=== PATIENT | female | born 1935 | race Caucasian/White ===

== ENCOUNTER 2017-12-24 03:00 | Inpatient (IN) | payer MEDICARE ==
[2017-12-24] MEDS ORDERED: MORPHINE SULFATE 4 MG/ML SYRINGE IV STA (03:32)
[2017-12-24] MEDS ORDERED: ETOMIDATE 2 MG/ML 10 ML VIAL IVP STA (04:11)
[2017-12-24] MEDS ORDERED: MORPHINE SULFATE 2 MG/ML SYRINGE IV PRN (04:53)
[2017-12-24] MEDS ORDERED: NALOXONE 0.4 MG/ML 1 ML VIAL IV PRN (04:53)
[2017-12-24] MEDS ORDERED: traMADol 50 MG TAB PO PRN (04:56)
--- NOTE | 2017-12-24 04:57 | XR ---
EXAMINATION TYPE: XR elbow limited LT DATE OF EXAM: 12/24/2017 COMPARISON: Today HISTORY: Post reduction TECHNIQUE: 2 views FINDINGS: There is been significant reduction of the dislocated proximal radius and ulna. There is an atomic position of the olecranon process. There is a mild lateral position of the coronoid process an d the radial head in relation to the distal humerus. There is approximate 8 mm lateral position of th e coronoid process and the radial head in relation to the distal humerus. IMPRESSION: There is significant reduction of the elbow joint dislocation. There is still 8 mm sublux ation deformity laterally of the radial head and the coronoid process. There is significant soft tiss ue swelling around the elbow joint. I suspect intra-articular chip fractures at the elbow joint.
[2017-12-24 06:15] VITALS: BMI 35.2
[2017-12-24] MEDS: ACETAMINOPHEN TAB 325 MG TAB PO PRN ×2 (09:36→17:53)
[2017-12-24] MEDS: PANTOPRAZOLE 40 MG TABLET PO SCH (09:36)
[2017-12-24] MEDS: FAMOTIDINE 20 MG TAB PO SCH ×2 (09:36→20:56)
[2017-12-24] MEDS: amLODIPine 5 MG TAB PO SCH (09:36)
[2017-12-24] MEDS: IBUPROFEN 400 MG TAB PO PRN ×2 (09:36→17:52)
[2017-12-24] MEDS: RIVAROXABAN 10 MG TAB PO SCH (09:37)
[2017-12-24] MEDS: VENLAFAXINE HCL 75 MG TAB PO SCH (09:37)
[2017-12-24] MEDS: SODIUM CHLORIDE 0.9% 1,000 ML IV SCH ×3 (09:38→16:42)
--- NOTE | 2017-12-24 10:03 | P.HPOR ---
History of Present Illness H&P Date: 12/24/17 This is an 82-year-old female who is admitted for left elbow dislocation after a fall. Patient states that she was feeding her cats last night and fell around 10 PM on 12/23/2017. Patient denies any loss of consciousness or head injury. Patient was evaluated at [facility] emergency room and the elbow was unable to be reduced so patient was transferred to [facility]. The left elbow was then reduced and splinted in the emergency room and patient was admitted as an inpatient. Today patient states that her pain is under control. Patient's daughter who is also present in the room states that the patient lives at home with her and 2 daughters. Patient's past medical history significant for dementia, GERD and hypertension. Patient denies any numbness, tingling, weakness, back pain, neck pain, bilateral lower extremity pain or right upper extremity pain. Review of Systems See HPI. Past Medical History Past Medical History: Dementia, GERD/Reflux, Hypertension, Osteoarthritis (OA) Additional Past Medical History / Comment(s): HX OF KIDNEY STONES, urinary retention and UTI History of Any Multi-Drug Resistant Organisms: None Reported Past Surgical History: Appendectomy, Orthopedic Surgery, Tonsillectomy Additional Past Surgical History / Comment(s): LEFT KNEE ARTHROSCOPY, LEFT KIDNEY REMOVED, 68-15 total rt knee Past Anesthesia/Blood Transfusion Reactions: No Reported Reaction Past Psychological History: Depression Additional Psychological History / Comment(s): pt lives at home with her and is independant. receives no outside services. Smoking Status: Former smoker Past Alcohol Use History: None Reported Additional Past Alcohol Use History / Comment(s): quit smoking >20 years ago Past Drug Use History: None Reported - Past Family History Mother Family Medical History: No Reported History Medications and Allergies Home Medications Medication Instructions Recorded Confirmed Type Venlafaxine HCl [Effexor] 75 mg PO DAILY 11/07/14 12/24/17 History amLODIPine BESYLATE [Norvasc] 5 mg PO HS 11/07/14 12/24/17 History Docusate [Colace] 100 mg PO HS 12/24/17 12/24/17 History Trimethoprim [Trimpex] 100 mg PO HS 12/24/17 12/24/17 History hydrOXYzine HCL [Atarax] 1 tab PO HS PRN 12/24/17 12/24/17 History Allergies Allergy/AdvReac Type Severity Reaction Status Date / Time Penicillins Allergy Rash/Hives Verified 11/18/14 14:53 Physical Examination On exam patient is alert. Patient is able to answer questions. The is ecchymosis and swelling over the left upper extremity. Compartments are soft. There is tenderness to palpation over the left elbow. Limited range of motion of the left elbow. Patient has good range of motion of the left wrist and hand. Sensation intact. Capillary refill is normal at less than 2 seconds. Radial pulse 2+. Neurovascular status and circulatory status are intact. Patient has no pain with range of motion of the head and neck. There is no tenderness to palpation over bilateral shoulders or the right upper extremity. Patient has full range of motion of bilateral lower extremities and is able to ambulate without difficulty or pain. Results Postreduction films of the left elbow show improved alignment as compared with previous x-rays from [facility] which shows dislocation of the right elbow. Repeat x-rays of the left elbow are pending to further assess position of radial head. Assessment and Plan (1) Dislocation of elbow, left, closed Current Visit: Yes Status: Acute Code(s): S53.105A - UNSP DISLOCATION OF LEFT ULNOHUMERAL JOINT, INIT ENCNTR SNOMED Code(s): 1462996 Plan: 1. A new splint is applied. Neurovascular status is rechecked and is intact. Maintain splint at all times. Sling for comfort. 2. Awaiting repeat x-rays of the left elbow to further assess position of radial head. 3. Nonweightbearing to the left upper extremity. 4. Continue pain control and DVT prophylaxis. 5. Appreciate input from medicine. 6. No surgical intervention planned at this time.
--- NOTE | 2017-12-24 10:37 | XR ---
EXAMINATION TYPE: XR elbow limited LT , 2 VIEWS DATE OF EXAM ORDERED: 12/24/2017 HISTORY: recent elbow dislocation. COMPARISON: Previous study dated 12/24/2017. FINDINGS: There is a complete dislocation of the elbow. Study quality is such that assessment of sma ll fracture is difficult. IMPRESSION: COMPLETE POSTERIOR DISLOCATION OF THE ELBOW.
--- NOTE | 2017-12-24 12:05 | CONS ---
CONSULTATION DATE OF CONSULTATION: 12/24/17. REASON FOR CONSULTATION: Medical management requested by Dr. Price. CONSULTATION: This is a pleasant 82-year-old patient follows Dr. Salinas Shrestha. Chronic stable medical conditions include GERD, hypertension, osteoarthritis, depression, mild dementia. The patient's stepdaughter and present at the bedside. The patient was transferred here from [facility]. The patient was feeding her cats and took a fall, injured the left elbow. The patient is found to have a dislocation. In the ER here at [facility], Dr. Crockett was able to put the elbow back in place. Subsequently patient did get a cast with the elbow bent. Some pain is present. The patient denies any other injury. No nausea, vomiting. REVIEW OF SYSTEMS: CONSTITUTIONAL: Tired. HEENT: None. RESPIRATORY: None. CARDIOVASCULAR: None. GASTROINTESTINAL: Heartburn. GENITOURINARY: Urine incontinence. DERMATOLOGICAL, HEMATOLOGIC, LYMPHATIC: None. PSYCHIATRY: A little depression. NEUROLOGICAL: A little bit forgetful. MUSCULOSKELETAL: Arthritic pain in the joints and also pain in the left elbow. PAST MEDICAL HISTORY: Dementia, GERD, hypertension, osteoarthritis, kidney stones, urinary retention and overflow incontinence, being followed by Dr. Jorgensen. PAST SURGICAL HISTORY: Appendectomy, tonsillectomy, left knee arthroscopy, left nephrectomy, right total knee. PSYCH HISTORY: Depression. SOCIAL HISTORY: Lives with her . Independent. Quit smoking more than 20 years ago. Alcohol none. FAMILY HISTORY: Reviewed, noncontributory to presentation. HOME MEDICATIONS: 1. Trimethoprim 100 mg q.h.s. 2. Colace 100 mg at bedtime. 3. Atarax 1 tab p.o. q.h.s. p.r.n. 4. Norvasc 5 mg p.o. q.h.s. 5. Effexor 75 mg p.o. daily. ALLERGIES: PENICILLIN. PHYSICAL EXAMINATION: Temperature 98.5, pulse 91, respirations 16, blood pressure 123/77, pulse ox 99% on room air. GENERAL APPEARANCE: Well built, BMI 35.2, lying in bed comfortable, awake. EYES: Pupils equal. Conjunctivae normal. HEENT: External appearance of nose and ears normal. Oral cavity normal. NECK: JVD not raised. Mass not palpable. RESPIRATORY: Effort, lungs are clear. CARDIOVASCULAR: First and second sounds, no edema. ABDOMEN: Soft, nontender. Liver and spleen not palpable. LYMPHATIC: No lymph node palpable in neck or axillae. PSYCHIATRY: Patient able to answer most questions. MUSCULOSKELETAL: Evidence of osteoarthritis in the hands. Left upper extremity has got a cast in place. Sensation is preserved in the fingers. INVESTIGATIONS: No blood work from here. ASSESSMENT: 1. Left elbow dislocations secondary to fall, now put back in place with a cast in place. 2. 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 The patient had been tried on a patch earlier but per the was taken off. 3. Gastroesophageal reflux disease. 4. Essential hypertension. 5. Primary osteoarthritis multiple joints. 6. Depression, not otherwise specified. 7. Chronic urinary retention with overflow has been followed Dr. Jorgensen in the past. 8. Obesity; BMI 35.2. PLAN: Home medications will be resumed. Instead of using Atarax for insomnia will use melatonin. Pain control per Dr. Price. Care was discussed with the patient's and the family at the bedside. Questions were answered. Thank you, Dr. Price. MMKELLY / MARGARITAN: [id number] /
--- NOTE | 2017-12-24 15:02 | CONS ---
CONSULTATION ADDENDUM TO CONSULTATION: DATE OF CONSULTATION: 12/24/2017 ADDENDUM: I was called by the nurse that repeat x-ray reviewed by Orthopedics shows again the elbow has been dislocated. From a medical standpoint, patient is at low risk for the procedure, with no contraindications, and may go ahead with surgical procedure. MMODL / IJN: [id number] /
[2017-12-24] MEDS: DOCUSATE 100 MG CAP PO SCH (20:56)
[2017-12-25] MEDS: SODIUM CHLORIDE 0.9% 1,000 ML IV SCH ×3 (05:56→22:17)
[2017-12-25] MEDS ORDERED: LIDOCAINE 1% INJ 10MG/ML (20 ML MDV) ONE (07:49)
[2017-12-25] MEDS ORDERED: SUCCINYLCHOLINE CHLORIDE 100 MG/5 ML SYR IV ONE (07:49)
[2017-12-25] MEDS ORDERED: PROPOFOL 10 MG/ML 20 ML VIAL IV ONE (07:49)
[2017-12-25] MEDS ORDERED: DEXAMETHASONE SOD PHOS (MDV) 100 MG/10 ML VIAL ONE (07:49)
[2017-12-25] MEDS ORDERED: LACTATED RINGERS 1,000 ML IV ONE (07:49)
[2017-12-25] MEDS ORDERED: fentaNYL (PF) 50 MCG/ML 2 ML AMP ONE (07:49)
[2017-12-25] MEDS ORDERED: ONDANSETRON 4 MG/2 ML VIAL ONE (07:49)
[2017-12-25] MEDS ORDERED: SODIUM CHLORIDE 0.9% IV ONE ×2 (08:47)
[2017-12-25] MEDS ORDERED: CLINDAMYCIN IV ONE ×2 (08:47)
[2017-12-25] MEDS ORDERED: CLINDAMYCIN 600 MG in SODIUM CHLORIDE 0.9% 1,000 ML IRRIGATION ONE (08:52)
[2017-12-25] MEDS ORDERED: BACITRACIN 500 UNIT/GM OINT 28.4 GM TUBE TOPICAL ONE (09:37)
[2017-12-25] MEDS ORDERED: SENNOSIDES-DOCUSATE SODIUM 1 EACH TAB PO PRN (09:55)
[2017-12-25] MEDS ORDERED: hydrOXYzine PAMOATE 25 MG CAP PO PRN (09:55)
[2017-12-25] MEDS ORDERED: HYDROcodone/APAP 7.5-325MG 1 EACH TAB PO PRN ×2 (09:58)
[2017-12-25] MEDS: MORPHINE SULFATE 4 MG/ML SYRINGE IV ONE ×2 (10:20→10:33)
--- NOTE | 2017-12-25 10:46 | XR ---
FLUOROSCOPY 1 minute and 27 seconds of fluoroscopy time were utilized during right elbow reduction and external f ixation. 2 images document the procedure.FLUOROSCOPY
--- NOTE | 2017-12-25 12:18 | OP ---
OPERATIVE REPORT SURGEON: Ivan Price DO PHYSICIAN'S CASE PREPARER AND LINER: PREOPERATIVE DIAGNOSIS: Grade IV unstable dislocation of the left elbow. POSTOPERATIVE DIAGNOSIS: Grade IV unstable dislocation of the left elbow. OPERATION PERFORMED: Attempted closed reduction and application external fixator for an unstable dislocation of the left elbow. DESCRIPTION OF PROCEDURE: The patient was taken to the operative suite, placed in supine position. General inhalation anesthesia was performed by the Department of Anesthesiology. The posterior splint was removed and gentle reduction of the left elbow. Fluoroscopy was utilized and and continued gross instability was present following reduction. The patient was then prepared for application of external fixator. Went out and spoke to the family and discussed findings at this time for the surgical procedure. A Betadine prep was carried out over the left arm in the usual manner. Sterile drapes were applied in the usual manner. The two proximal pins were inserted into the proximal ulna, secured and tightened. The two pins were also placed into the distal humerus with x ray guidance and inserted. External fixator was then applied with a x ray guidance. Unable to deirdre modular. X-rays were obtained following the complete reduction in both AP and lateral positions with the external fixator and all compression screws were tightened. X-rays were obtained documenting position, alignment and position. Bacitracin was then placed around the pin heads and sterile dressing was applied. The posterior splint was applied and patient transferred to the recovery room in satisfactory postop condition. GROSS PATHOLOGY: There was evidence of Grade IV unstable dislocation of the left elbow. I had discussed findings with family and reviewed all of the risks and complications incurred with this type of dislocation. They are aware of the possibility of redislocation even following application of an external fixator or just utilizing a cast. Following the external fixator, they are aware of possible transfer of care to upper extremity specialist., with all the risks discussed with them, the patient has been presurgically cleared and taken to surgery following preparation for the stabilizing treatment plan and was discharged. MMODL / IJN: [id number] / MTDD
[2017-12-25] MEDS: FAMOTIDINE 20 MG TAB PO SCH ×2 (12:53→21:15)
[2017-12-25] MEDS: amLODIPine 5 MG TAB PO SCH (12:53)
[2017-12-25] MEDS: RIVAROXABAN 10 MG TAB PO SCH (12:57)
[2017-12-25] MEDS: CLINDAMYCIN 900 MG in DEXTROSE 5% IN WATER 50 ML IVPB SCH ×4 (15:21→23:46)
[2017-12-25] MEDS: ACETAMINOPHEN TAB 325 MG TAB PO PRN (16:58)
[2017-12-25] MEDS: VENLAFAXINE HCL 75 MG TAB PO SCH (17:02)
[2017-12-25] MEDS: PANTOPRAZOLE 40 MG TABLET PO SCH (17:03)
[2017-12-25] MEDS: DOCUSATE 100 MG CAP PO SCH (21:15)
[2017-12-25] MEDS: VIT A,C & E-LUTEIN-MINERALS 1 EACH TAB PO SCH (21:15)
[2017-12-25] MEDS: MELATONIN 3 MG TABLET PO SCH (21:15)
[2017-12-26] MEDS ORDERED: ONDANSETRON 4 MG/2 ML VIAL IVP PRN (01:46)
[2017-12-26] MEDS: SODIUM CHLORIDE 0.9% 1,000 ML IV SCH ×3 (05:22→21:35)
[2017-12-26 07:24] LABS: Basophils % (A) 0 %; Eosinophils % (A) 0 %; HCT 23.9 % (34.0-46.0); HGB 7.6 gm/dL (11.4-16.0); Hypochromasia Slight; Lymphocytes # (A) 0.9 k/uL (1.0-4.8); Lymphocytes % (A) 9 %; MCH 28.4 pg (25.0-35.0); MCHC 31.8 g/dL (31.0-37.0); MCV 89.4 fL (80.0-100.0); Mean Platelet Volume 7.4; Monocytes # (A) 0.8 k/uL (0-1.0); Monocytes % (A) 9 %; Neutrophils # (A) 7.7 k/uL (1.3-7.7); Neutrophils % (A) 80 %; Platelet Count 197 k/uL (150-450); RBC 2.68 m/uL (3.80-5.40); RDW 15.2 % (11.5-15.5); WBC 9.7 k/uL (3.8-10.6)
[2017-12-26] MEDS: amLODIPine 5 MG TAB PO SCH (08:31)
[2017-12-26] MEDS: VENLAFAXINE HCL 75 MG TAB PO SCH (08:51)
[2017-12-26] MEDS: PANTOPRAZOLE 40 MG TABLET PO SCH (08:51)
[2017-12-26] MEDS: FAMOTIDINE 20 MG TAB PO SCH (08:51)
[2017-12-26] MEDS: VIT A,C & E-LUTEIN-MINERALS 1 EACH TAB PO SCH ×2 (08:51→20:40)
--- NOTE | 2017-12-26 09:02 | P.PN ---
Subjective Progress Note Date: 12/26/17 Principal diagnosis: Status post closed reduction left elbow with external fixation application This is a 82 year-old femal post left elbow closed reduction with external fixator application. This is post-op day 1. The patient was evaluated at the bedside today. The patient denies nausea, vomiting, abdominal pain, shortness of breath, and chest pain this morning. She states her pain is controlled at this time. The patient has up to the commode chair with one assist. Objective - Vital Signs Vital signs: Vital Signs Temp 98.6 F 12/26/17 07:10 Pulse 93 12/26/17 07:10 Resp 16 12/26/17 07:10 BP 108/61 12/26/17 07:10 Pulse Ox 95 12/26/17 07:10 Intake & Output 12/25/17 12/26/17 12/26/17 18:59 06:59 18:59 Intake Total 1334 2000 Output Total 20 200 Balance 1314 2000 -200 Weight 55.5 kg Intake: IV 904 Sodium Chloride 0.9% 1, 150 000 ml @ 125 mls/hr IV . Q8H TEDDY Rx#:[id number] Intake, IV Titration 2000 Amount Sodium Chloride 0.9% 1, 2000 000 ml @ 125 mls/hr IV . Q8H TEDDY Rx#:[id number] Oral 430 Output: Urine 200 Estimated Blood Loss 20 Other: # Voids 2 3 1 - Exam The patient does not appear in acute distress. Alert and orientated x3. Dressing and splint are clean, dry, and intact. External fixator in place without evidence of migration or problems. Good finger motion. Sensation and circulatory status is intact. - Labs CBC & Chem 7: 12/26/17 07:00 Labs: Abnormal Lab Results - Last 24 Hours (Table) 12/26/17 Range/Units 07:00 RBC 2.68 L (3.80-5.40) m/uL Hgb 7.6 L (11.4-16.0) gm/dL Hct 23.9 L (34.0-46.0) % Lymphocytes # 0.9 L (1.0-4.8) k/uL Assessment and Plan (1) Left elbow pain Current Visit: Yes Status: Acute Code(s): M25.522 - PAIN IN LEFT ELBOW SNOMED Code(s): 20781571 (2) Dislocation of elbow, left, closed Current Visit: Yes Status: Acute Code(s): S53.105A - UNSP DISLOCATION OF LEFT ULNOHUMERAL JOINT, INIT ENCNTR SNOMED Code(s): 8375622 Plan: 1. Continue pain control 2. Anticoagulation per internal medicine 3. Will consult physical and occupational therapy for evals for skilled rehab 4. Anticipate discharge to skilled rehab in the next 1-2 days.
--- NOTE | 2017-12-26 10:16 | ED ---
Upper Extremity HPI - General Chief Complaint: Extremity Injury, Upper Stated Complaint: Fall, Elbow Injury Time Seen by Provider: 12/24/17 03:01 Source: patient Mode of arrival: EMS Limitations: no limitations - History of Present Illness Initial Comments: This patient is 82-year-old woman who is transferred here from [facility]. The patient had had a fall and then presented to the other hospital for left elbow pain and inability to move her left elbow. She was diagnosed with left elbow dislocation, which reportedly was not able to be reduced there, and the patient was transferred here as they do not have orthopedic surgery coverage. Here the patient does complain of left elbow pain. She denies any other injuries in the fall. She denies weakness or numbness of the hand. MD Complaint: Injury to:: left, elbow -: hour(s) Other Extremity Injury: Elbow: Left Handedness: right Place: home Improves With: immobilization Worsens With: movement of extremity Context: fall Associated Symptoms: denies other symptoms - Related Data Home Medications Medication Instructions Recorded Confirmed amLODIPine BESYLATE [Norvasc] 5 mg PO HS 11/07/14 12/24/17 Docusate [Colace] 100 mg PO HS 12/24/17 12/24/17 Melatonin 3 mg PO HS 12/24/17 12/24/17 Ranitidine HCl [Zantac] 150 mg PO BID 12/24/17 12/24/17 Trimethoprim [Trimpex] 100 mg PO HS 12/24/17 12/24/17 Venlafaxine HCl [Effexor XR] 150 mg PO DAILY 12/24/17 12/24/17 Vit C/E/Zn/Coppr/Lutein/Zeaxan 1 cap PO BID 12/24/17 12/24/17 [Preservision Areds 2 Softgel] hydrOXYzine HCL [Atarax] 1 tab PO HS PRN 12/24/17 12/24/17 Allergies Allergy/AdvReac Type Severity Reaction Status Date / Time acetaminophen [From [facility]] Allergy Unknown Verified 12/24/17 12:02 hydrocodone [From [facility]] Allergy Unknown Verified 12/24/17 12:02 Penicillins Allergy Rash/Hives Verified 12/24/17 12:02 Sulfa (Sulfonamide Allergy Rash/Hives Verified 12/24/17 12:02 Antibiotics) Review of Systems ROS Statement: Those systems with pertinent positive or pertinent negative responses have been documented in the HPI. ROS Other: All systems not noted in ROS Statement are negative. Constitutional: Denies: fever, chills Respiratory: Denies: cough, dyspnea Cardiovascular: Denies: chest pain, palpitations Gastrointestinal: Denies: abdominal pain, vomiting Musculoskeletal: Reports: as per HPI, joint swelling, arthralgia. Denies: back pain Skin: Denies: rash, lesions Neurological: Denies: headache, weakness, numbness, paresthesias Past Medical History Past Medical History: Dementia, GERD/Reflux, Hypertension, Osteoarthritis (OA) Additional Past Medical History / Comment(s): HX OF KIDNEY STONES, urinary retention and UTI History of Any Multi-Drug Resistant Organisms: None Reported Past Surgical History: Appendectomy, Orthopedic Surgery, Tonsillectomy Additional Past Surgical History / Comment(s): LEFT KNEE ARTHROSCOPY, LEFT KIDNEY REMOVED, 6-15 total rt knee Past Anesthesia/Blood Transfusion Reactions: No Reported Reaction Past Psychological History: Depression Additional Psychological History / Comment(s): pt lives at home with her and is independant. receives no outside services. Smoking Status: Former smoker Past Alcohol Use History: None Reported Additional Past Alcohol Use History / Comment(s): quit smoking >20 years ago Past Drug Use History: None Reported - Past Family History Mother Family Medical History: No Reported History General Exam Limitations: no limitations General appearance: alert, in no apparent distress Head exam: Present: atraumatic, normocephalic Eye exam: Present: normal appearance. Absent: scleral icterus, conjunctival injection ENT exam: Present: normal oropharynx Neck exam: Present: normal inspection, full ROM. Absent: tenderness Respiratory exam: Present: normal lung sounds bilaterally. Absent: respiratory distress, wheezes, rales, rhonchi, stridor, chest wall tenderness Cardiovascular Exam: Present: regular rate, normal rhythm, normal heart sounds. Absent: systolic murmur, diastolic murmur, rubs, gallop GI/Abdominal exam: Present: soft. Absent: distended, tenderness, guarding, rebound Extremities exam: Present: normal inspection, normal capillary refill. Absent: pedal edema, calf tenderness Left Shoulder Exam: Present: normal inspection, full ROM. Absent: tenderness Upper Arm exam: Present: normal inspection, full ROM. Absent: tenderness Elbow exam: Present: tenderness, swelling, ecchymosis, dislocation, pain w/ pronation/supination. Absent: normal inspection, full ROM, laceration Forearm Wrist exam: Present: swelling Hand Wrist exam: Present: normal inspection, full ROM. Absent: tenderness, swelling, abrasion Neurosensory exam: Present: 2-point discrimination, radial nerve intact, ulnar nerve intact, median nerve intact Vascular: Present: radial pulse (Normal). Absent: vascular compromise Back exam: Absent: tenderness, vertebral tenderness Neurological exam: Present: alert, oriented X3. Absent: motor sensory deficit Skin exam: Present: warm, dry, intact, normal color. Absent: rash Course Vital Signs 12/24/17 12/24/17 12/24/17 03:05 04:28 04:33 Temperature 99.0 F Pulse Rate 101 H 103 H 92 Respiratory 20 20 20 Rate Blood Pressure 120/63 149/90 143/89 O2 Sat by Pulse 96 98 97 Oximetry 12/24/17 04:47 Temperature Pulse Rate 91 Respiratory 18 Rate Blood Pressure 125/80 O2 Sat by Pulse 98 Oximetry Procedures - Orthopedic Joint Reduction Joint #1 Consent Obtained: verbal consent Time Out Performed: Yes Side: left Joint Reduction Location: elbow Analgesia: procedural sedation Technique Used: direct manipulation Post-Reduction Neuro Exam: intact Post-Reduction Vascular Exam: intact Post Reduction X-Ray Obtained: Yes Post Reduction X-Ray Results: reduced Splint Applied: Yes Patient Tolerated Procedure: well - Orthopedic Splinting/Casting Injury #1 Side: left Upper Extremity Injury Location: long arm, elbow Upper Extremity Immobilizer: posterior splint - Procedural Sedation Indications: fracture/dislocation reduction ASA Class: II Mallampati Airway Score: 2 Preparation: shelter monitor applied, pulse oximeter, capnometry used, supplemental O2 applied, suction/airway equipment at bedside, IV secured IV Etomidate Dose (mgs): 10 Complications: none Patient Tolerated Procedure: well, no complications Medical Decision Making - Medical Decision Making Patient is an 82-year-old woman transferred here for left elbow dislocation. I discussed case with orthopedic surgery and they report are okay with us proceeding to perform closed reduction. After discussion of risks and benefits, patient elects to proceed and we did give procedural sedation and successfully reduced the left elbow. The postreduction x-ray does show good reduction. Splint is applied and patient admitted to the orthopedic surgery service. Patient does have significant amount of swelling and will be admitted to observation to ensure that a compartment syndrome does not develop. - Lab Data Result diagrams: 12/26/17 07:00 Disposition Clinical Impression: Dislocation of elbow, left, closed Disposition: ADMITTED IP TO THIS HOSP Condition: Fair
[2017-12-26] MEDS ORDERED: FUROSEMIDE 10 MG/ML 2 ML VIAL IV STA (11:48)
[2017-12-26] MEDS: ACETAMINOPHEN TAB 325 MG TAB PO PRN (11:52)
--- NOTE | 2017-12-26 16:25 | PN ---
PROGRESS NOTE DATE OF SERVICE: 12/25/2017 PRESENTING COMPLAINT: Left elbow dislocation. INTERVAL HISTORY: This is a patient with falls with recurrent dislocation of the left elbow. Patient has an external fixator. Patient has oozing site. Otherwise patient is comfortable. Family at the bedside. Did tolerate some diet. Breathing is stable. REVIEW OF SYSTEMS: Done for constitutional, cardiovascular, GI, pulmonary; relevant findings as above. CURRENT MEDICATIONS: Reviewed. PHYSICAL EXAMINATION: Temperature 98.9, pulse 92, respiration 16, blood pressure 131/78, pulse ox 98% on 2 L. GENERAL APPEARANCE: Lying in bed, comfortable. EYES: Pupils equal. Conjunctivae normal. HEENT: External appearance of nose and ears normal. Oral cavity normal. NECK: JVD not raised. Mass not palpable. RESPIRATORY: Effort normal. Lungs are clear. CARDIOVASCULAR: First and second sounds normal. No edema. ABDOMEN: Soft, non-tender. Liver and spleen not palpable. MUSCULOSKELETAL: Left arm with an external fixator. Some oozing at the site. INVESTIGATIONS: No blood work from today. ASSESSMENT: 1. Recurrent left elbow dislocation, status post surgery with external fixator in place. 2. Mild cognitive impairment from Alzheimer's dementia. 3. Gastroesophageal reflux disease. 4. Essential hypertension. 5. Primary osteoarthritis in multiple joints. 6. Depression not otherwise specified. 7. Chronic urinary retention with overflow; has been followed by Dr. Jorgensen in the past. 8. Obesity; body mass index 35.2. PLAN: I spoke to the nurse. There is no indication for anticoagulation, especially given the fact that patient has oozing from the operative site. Just told her to use the Venodyne boots, and this was to be conveyed to Orthopedics. In any case, there is no indication for anticoagulation for that purpose. MMODL / IJN: [id number] /
--- NOTE | 2017-12-26 17:58 | P.PN ---
Subjective Progress Note Date: 12/26/17 Progress note being dictated for Dr. Hinojosa. Interval history: This is a 82-year-old female status post closed reduction left elbow with external fixation application. Pain controlled. Passing flatus , No bowel movement. Tolerating diet with no nausea or vomiting. Denies lightheadedness dizziness or focal deficits. Denies chest pain, palpitations. Minimal shortness of breath with exertion. Lasix 20 IV push 1 administered. Afebrile, normal WBC. Objective - Vital Signs Vital signs: Vital Signs Temp 98.1 F 12/26/17 17:04 Pulse 87 12/26/17 17:14 Resp 18 12/26/17 17:14 BP 102/57 12/26/17 17:14 Pulse Ox 98 12/26/17 17:14 Intake & Output 12/25/17 12/26/17 12/26/17 18:59 06:59 18:59 Intake Total 1334 2000 0 Output Total 20 200 Balance 1314 2000 -200 Weight 55.5 kg 89.811 kg Intake: IV 904 Sodium Chloride 0.9% 1, 150 000 ml @ 125 mls/hr IV . Q8H TEDDY Rx#:[id number] Intake, IV Titration 2000 Amount Sodium Chloride 0.9% 1, 2000 000 ml @ 125 mls/hr IV . Q8H TEDDY Rx#:[id number] Oral 430 Blood Product 0 Rc As-3 Unit 0 [id number] Output: Urine 200 Estimated Blood Loss 20 Other: # Voids 2 3 1 - Exam PHYSICAL EXAM: VITAL SIGNS: As above GENERAL: Sitting up in bed, no acute distress HEENT: Conjunctivae normal. eyes normal. NECK: No JVD. No thyroid enlargement. No LNs CARDIOVASCULAR: S1, S2 muffled. No murmur, no edema RESPIRATION: Breath sounds diminished in the bases. No rhonchi or crackles. No bronchial breathing. ABDOMEN: Soft, nontender . No guarding. no masses palpable. Bowel sounds heard. Extremities: Left arm dressing, splint clean dry and intact. Fingers warm, mild edema, mobile. external fixator present. Improving oozing at surgical site .wearing Venodyne boots PSYCHIATRY: Alert and oriented -3, mood and affect normal. NERVOUS SYSTEM: Cranial N 2-12 grossly normal. Moves all 4 limbs. Diffuse weakness No focal deficits. - Labs CBC & Chem 7: 12/26/17 07:00 Labs: Abnormal Lab Results - Last 24 Hours (Table) 12/26/17 12/26/17 Range/Units 07:00 12:35 RBC 2.68 L (3.80-5.40) m/uL Hgb 7.6 L (11.4-16.0) gm/dL Hct 23.9 L (34.0-46.0) % Lymphocytes # 0.9 L (1.0-4.8) k/uL Crossmatch See Detail Assessment and Plan Assessment: 1.Status post closed reduction left elbow with external fixation application secondary to dislocation secondary to fall. 2. Gastroesophageal reflux disease 3. Essential hypertension 4. Primary osteoarthritis of multiple joints 5. Depression, not otherwise specified 6. Chronic urinary retention followed by Dr. Jaramillo outpatient 7. Obesity, BMI 31 Plan: Continue on current medication regime ,monitoring and symptomatic treatment. Follow-up CBC, BMP in a.m. Pain management, Venodynes. Increase ambulation with assistance as tolerated. PT/OT, with discharge planning in progress for subacute rehab. The impression and plan of care has been dictated as directed. : I performed a history and examination of this patient, discussed the same with the dictator. I agree with the dictator's note ,documented as a scribe. Any additional findings or plans will be noted.
[2017-12-26 19:41] VITALS: RESP 16
[2017-12-26] MEDS: MELATONIN 3 MG TABLET PO SCH (20:40)
[2017-12-26] MEDS: DOCUSATE 100 MG CAP PO SCH (20:40)
[2017-12-27] MEDS: SODIUM CHLORIDE 0.9% 1,000 ML IV SCH ×2 (05:30→10:57)
[2017-12-27 07:37] LABS: Basophils % (A) 0 %; Eosinophils # (A) 0.5 k/uL (0-0.7); Eosinophils % (A) 5 %; HCT 29.7 % (34.0-46.0); Lymphocytes % (A) 20 %; MCH 28.4 pg (25.0-35.0); MCHC 32.2 g/dL (31.0-37.0); MCV 88.2 fL (80.0-100.0); Monocytes # (A) 0.8 k/uL (0-1.0); Monocytes % (A) 9 %; Neutrophils # (A) 6.1 k/uL (1.3-7.7); Neutrophils % (A) 64 %; Platelet Count 247 k/uL (150-450); RBC 3.37 m/uL (3.80-5.40); RDW 15.4 % (11.5-15.5); WBC 9.7 k/uL (3.8-10.6)
[2017-12-27 07:46] LABS: HGB 9.6 gm/dL (11.4-16.0)
[2017-12-27 07:51] LABS: Calcium 8.1 mg/dL (8.4-10.2); Potassium 4.3 mmol/L (3.5-5.1)
[2017-12-27] MEDS: VIT A,C & E-LUTEIN-MINERALS 1 EACH TAB PO SCH (08:33)
[2017-12-27] MEDS: amLODIPine 5 MG TAB PO SCH (08:34)
[2017-12-27] MEDS: VENLAFAXINE HCL 75 MG TAB PO SCH (08:34)
[2017-12-27] MEDS ORDERED: FAMOTIDINE 20 MG TAB PO SCH (09:00)
[2017-12-27] MEDS: ACETAMINOPHEN TAB 325 MG TAB PO PRN (10:48)
--- NOTE | 2017-12-27 11:01 | P.DS ---
Providers Date of admission: 12/26/17 15:42 Expected date of discharge: 12/27/17 Attending physician: Ivan Price Consults: 12/24/17 05:36 Consult Physician Routine Consulting Provider: Siddhartha Marshall Consult Reason/Comments: medical management/anticoagulation Do you want consulting provider notified?: Yes, Notify in am 12/24/17 12:02 Consult Physician Routine Consulting Provider: Siddhartha Marshall Consult Reason/Comments: medical clearance Do you want consulting provider notified?: Yes Primary care physician: Sal[place] Shrestha - Discharge Diagnosis(es) (1) Left elbow pain Current Visit: Yes Status: Acute (2) Dislocation of elbow, left, closed Current Visit: Yes Status: Acute Hospital Course: The patient is an 82 y/o female that presented to the emergency department with a left elbow dislocation after sustaining a fall at home. She was transferred from [facility] after a failed reduction of the elbow. Another attempt to reduce the elbow was done in the ER at [facility] and she was placed in a splint. The splint was changed on the floor by our service and the elbow was suspected to be dislocated again. X-rays confirmed recurrent dislocation. She was taken to the OR where another attempt at closed reduction was completed and ultimately a external fixator was placed. The patient has done well postoperatively. Vital signs and labs are stable today. Today, the patient is in not acute distress. She is alert and oriented x3. Dressing and splint are clean, dry, and intact. External fixator is in place without evidence of migration or problems. Good finger motion. Sensation and circulatory status is intact. She is stable for discharge to skilled rehab today. See medication reconciliation for accurate list of discharge medications. Pertinent Studies: Laboratory Tests 12/27/17 12/27/17 07:05 07:05 WBC 9.7 RBC 3.37 L Hgb 9.6 L D Hct 29.7 L Sodium 136 L BUN 22 H Creatinine 1.10 H Est GFR (CKD-EPI)AfAm 54 Calcium 8.1 L Patient Condition at Discharge: Fair Plan - Discharge Summary New Discharge Prescriptions: New Sennosides-Docusate Sodium [Senokot-S] 2 tab PO DAILY #30 tablet traMADol HCl [Ultram] 50 - 100 mg PO Q4-6H PRN #50 tab PRN Reason: Pain No Action amLODIPine BESYLATE [Norvasc] 5 mg PO HS Trimethoprim [Trimpex] 100 mg PO HS Docusate [Colace] 100 mg PO HS hydrOXYzine HCL [Atarax] 1 tab PO HS PRN PRN Reason: Itching Ranitidine HCl [Zantac] 150 mg PO BID Vit C/E/Zn/Coppr/Lutein/Zeaxan [Preservision Areds 2 Softgel] 1 cap PO BID Venlafaxine HCl [Effexor XR] 150 mg PO DAILY Melatonin 3 mg PO HS Discharge Medication List amLODIPine BESYLATE [Norvasc] 5 mg PO HS 11/07/14 [History] Docusate [Colace] 100 mg PO HS 12/24/17 [History] Melatonin 3 mg PO HS 12/24/17 [History] Ranitidine HCl [Zantac] 150 mg PO BID 12/24/17 [History] Trimethoprim [Trimpex] 100 mg PO HS 12/24/17 [History] Venlafaxine HCl [Effexor XR] 150 mg PO DAILY 12/24/17 [History] Vit C/E/Zn/Coppr/Lutein/Zeaxan [Preservision Areds 2 Softgel] 1 cap PO BID 12/24 [History] hydrOXYzine HCL [Atarax] 1 tab PO HS PRN 12/24/17 [History] Sennosides-Docusate Sodium [Senokot-S] 2 tab PO DAILY #30 tablet 12/27/17 [Rx] traMADol HCl [Ultram] 50 - 100 mg PO Q4-6H PRN #50 tab 12/27/17 [Rx] Follow up Appointment(s)/Referral(s): Ivan Price DO [Doctor of Osteopathic Medicine] - 2 Weeks Mary Ann Wells, [NON-STAFF] - As Needed Activity/Diet/Wound Care/Special Instructions: Pin care BID with peroxide and sterile water (50/50) with sterile q-tip around pin sites. Cover with gauze and isidro wrap. Keep splint in place. Encourage finger motion Ice and elevate elbow Call [facility] with any questions or concerns. Discharge Disposition: TRANSFER TO SNF/ECF
[2017-12-27 14:55] VITALS: BP 143/79; PULSE 89; TEMP 97.3
--- NOTE | 2017-12-27 18:32 | P.PN ---
Subjective Progress Note Date: 12/27/17 Progress note being dictated for Dr. Hinojosa. Interval history: This is a 82-year-old female status post closed reduction left elbow with external fixation application. Pain controlled. Passing flatus , No bowel movement. Tolerating diet with no nausea or vomiting. Denies lightheadedness dizziness or focal deficits. Denies chest pain, palpitations. Minimal shortness of breath with exertion. Lasix 20 IV push 1 administered. Afebrile, normal WBC. 12/27/2017 receive 1 unit of packed RBCs yesterday for hemoglobin 7.6, hemoglobin currently 9.6. Creatinine 1.10. Passing flatus, no bowel movement. Pain controlled. Ambulation increased, tolerating increase in exertion well. Denies chest pain, palpitations or increased shortness of breath. Denies lightheadedness or dizziness or focal deficits. Objective - Vital Signs Vital signs: Vital Signs Temp 98.2 F 12/27/17 07:20 Pulse 93 12/27/17 07:20 Resp 16 12/27/17 07:20 BP 134/82 12/27/17 07:20 Pulse Ox 97 12/27/17 07:20 Intake & Output 12/26/17 12/27/17 12/27/17 18:59 06:59 18:59 Intake Total 0 310 150 Output Total 200 Balance -200 310 150 Weight 89.811 kg Intake: Oral 150 Blood Product 0 310 Rc As-3 Unit 0 310 [id number] Output: Urine 200 Other: # Voids 1 5 - Exam PHYSICAL EXAM: VITAL SIGNS: As above GENERAL: Sitting up at side of bed, no acute distress HEENT: Conjunctivae normal. eyes normal. NECK: No JVD. No thyroid enlargement. No LNs CARDIOVASCULAR: S1, S2 muffled. No murmur, no edema RESPIRATION: Breath sounds diminished in the bases. No rhonchi or crackles. No bronchial breathing. ABDOMEN: Soft, nontender . No guarding. no masses palpable. Bowel sounds heard. Extremities: Left arm dressing, splint clean dry and intact. Fingers warm, mild edema, mobile. external fixator present.wearing Venodyne boots PSYCHIATRY: Alert and oriented -3, mood and affect normal. NERVOUS SYSTEM: Cranial N 2-12 grossly normal. Moves all 4 limbs. Diffuse weakness No focal deficits. - Labs CBC & Chem 7: 12/27/17 07:05 12/27/17 07:05 Labs: Abnormal Lab Results - Last 24 Hours (Table) 12/26/17 12/27/17 12/27/17 Range/Units 12:35 07:05 07:05 RBC 3.37 L (3.80-5.40) m/uL Hgb 9.6 L D (11.4-16.0) gm/dL Hct 29.7 L (34.0-46.0) % Sodium 136 L (137-145) mmol/L BUN 22 H (7-17) mg/dL Creatinine 1.10 H (0.52-1.04) mg/dL Calcium 8.1 L (8.4-10.2) mg/dL Crossmatch See Detail Assessment and Plan Assessment: 1.Status post closed reduction left elbow with external fixation application secondary to dislocation secondary to fall. 2. Gastroesophageal reflux disease 3. Essential hypertension 4. Primary osteoarthritis of multiple joints 5. Depression, not otherwise specified 6. Chronic urinary retention followed by Dr. Jaramillo outpatient 7. Obesity, BMI 31 Plan: Continue on current medication regime ,monitoring and symptomatic treatment. Pain management as per orthopedics. Anticoagulation previously discussed between Dr. Marshall and orthopedics with agreement of no indication for anticoagulation. No anticoagulation confirmed with Barb Pandey [employer]. Authorization pending for Discharge to subacute rehab. today. The impression and plan of care has been dictated as directed. : I performed a history and examination of this patient, discussed the same with the dictator. I agree with the dictator's note ,documented as a scribe. Any additional findings or plans will be noted.
--- NOTE | 2017-12-28 15:24 | CDI ---
Documentation Clarification Form Date: 12/28/2017 12:00:00 AM From: MARISOL Aguilar; Fariha Ray Lit[employer] Legal Assistant Phone: If you have a question about this query, please contact Fariha Ray Lit[employer] Legal Assistant at [phone] between 8am and 5pm. Admit Date: 12/26/2017 3:42:00 PM Patient Name: Leila Prieto Visit Number: [id number] Discharge Date: 12/27/17 ATTENTION: The Clinical Documentation Specialists (CDI) and [facility] Coding Staff appreciate your assistance in clarifying documentation. Please respond to the clarification below the line at the bottom and electronically sign. The CDI & [facility] Coding staff will review the response and follow-up if needed. Please note: Queries are made part of the Legal Health Record. If you have any questions, please contact the author of this message via ITS. Dr. Galdino Hinojosa The patient presented for recurrent dislocation of left shoulder and subsequent fixation performed. Hemoglobin after surgery was 7.6, and she received PRBC. Clinical significance of diagnostic testing and treatment CANNOT be assumed or coded without physician documentation of significance if any. Please clarify what abnormal laboratory signifies: Disease process, please specify Abnormal Lab Value Unable to determine Other, please specify Unable to determine MTDD
== END 2017-12-27 16:17 | DRG 512 ==
LOC: EC 03:00 → 3SUR 04:56 → OBSVTOIN 12-26 15:42
PROVIDERS: ADMIT Orthopaedic Surgery; ATTEND Orthopaedic Surgery
PROC: 0RSM04Z Reposition Left Elbow Joint with Internal Fixation Device, Open Approach (ICD-10-PCS; 2017-12-25)
PROC: 30233N1 Transfusion of Nonautologous Red Blood Cells into Peripheral Vein, Percutaneous Approach (ICD-10-PCS; principal; 2017-12-26)
DX: M24.422 Recurrent dislocation, left elbow (principal); E66.9 Obesity, unspecified; F02.80 Dementia in other diseases classified elsewhere, unspecified severity, without behavioral disturbance, psychotic disturbance, mood disturbance, and anxiety; F32.9 Major depressive disorder, single episode, unspecified; G30.9 Alzheimer's disease, unspecified; I10 Essential (primary) hypertension; K21.9 Gastro-esophageal reflux disease without esophagitis; M15.9 Polyosteoarthritis, unspecified; W19.XXXA Unspecified fall, initial encounter; Y92.009 Unspecified place in unspecified non-institutional (private) residence as the place of occurrence of the external cause; Z79.899 Other long term (current) drug therapy; Z68.35 Body mass index [BMI] 35.0-35.9, adult; Z87.442 Personal history of urinary calculi; Z87.891 Personal history of nicotine dependence; Z90.5 Acquired absence of kidney; Z88.5 Allergy status to narcotic agent; Z88.0 Allergy status to penicillin; Z88.2 Allergy status to sulfonamides; R33.9 Retention of urine, unspecified
CPT/HCPCS: 80048; 83880; 85025; 86850; 86900; 86901; 86920

== ENCOUNTER 2018-01-15 22:46 | Inpatient (IN) | payer MEDICARE ==
[2018-01-15] MEDS ORDERED: ACETAMINOPHEN TAB 500 MG TAB PO STA (23:06)
--- NOTE | 2018-01-15 23:09 | ED ---
General Adult HPI - General Chief complaint: Altered Mental Status Stated complaint: Altered Mental Status Time Seen by Provider: 01/15/18 22:59 Source: patient, EMS, RN notes reviewed Mode of arrival: EMS Limitations: physical limitation - History of Present Illness Initial comments: Patient is a pleasant 82-year-old female presenting to the emergency department from alf. Patient reports he had fever and change in mental status. Patient is a poor historian. Patient does admit to having fever. Patient otherwise has no complaints. Patient does admit to having a fall a week or so ago and having fractured left arm. Patient denies any problems with that at this time. No cough. No abdominal pain. - Related Data Home Medications Medication Instructions Recorded Confirmed amLODIPine BESYLATE [Norvasc] 5 mg PO HS 11/07/14 12/24/17 Docusate [Colace] 100 mg PO HS 12/24/17 12/24/17 Melatonin 3 mg PO HS 12/24/17 12/24/17 Ranitidine HCl [Zantac] 150 mg PO BID 12/24/17 12/24/17 Venlafaxine HCl [Effexor XR] 150 mg PO DAILY 12/24/17 12/24/17 Vit C/E/Zn/Coppr/Lutein/Zeaxan 1 cap PO BID 12/24/17 12/24/17 [Preservision Areds 2 Softgel] hydrOXYzine HCL [Atarax] 1 tab PO HS PRN 12/24/17 12/24/17 Previous Rx's Medication Instructions Recorded Sennosides-Docusate Sodium 2 tab PO DAILY #30 tablet 12/27/17 [Senokot-S] traMADol HCl [Ultram] 50 - 100 mg PO Q4-6H PRN #50 tab 12/27/17 Allergies Allergy/AdvReac Type Severity Reaction Status Date / Time acetaminophen [From [place]] Allergy Unknown Verified 12/24/17 12:02 hydrocodone [From [place]] Allergy Unknown Verified 12/24/17 12:02 Penicillins Allergy Rash/Hives Verified 12/24/17 12:02 Sulfa (Sulfonamide Allergy Rash/Hives Verified 12/24/17 12:02 Antibiotics) Review of Systems ROS Statement: Those systems with pertinent positive or pertinent negative responses have been documented in the HPI. ROS Other: All systems not noted in ROS Statement are negative. Constitutional: Reports: fever Eyes: Denies: eye pain ENT: Denies: ear pain Respiratory: Denies: cough Cardiovascular: Denies: chest pain Endocrine: Denies: fatigue Gastrointestinal: Denies: abdominal pain Genitourinary: Reports: frequency. Denies: dysuria Musculoskeletal: Denies: back pain Skin: Denies: rash Neurological: Denies: weakness Past Medical History Past Medical History: Dementia, GERD/Reflux, Hypertension, Osteoarthritis (OA) Additional Past Medical History / Comment(s): HX OF KIDNEY STONES, urinary retention and UTI History of Any Multi-Drug Resistant Organisms: None Reported Past Surgical History: Appendectomy, Orthopedic Surgery, Tonsillectomy Additional Past Surgical History / Comment(s): LEFT KNEE ARTHROSCOPY, LEFT KIDNEY REMOVED, 11-18-14 total rt knee Past Anesthesia/Blood Transfusion Reactions: No Reported Reaction Past Psychological History: Depression Smoking Status: Former smoker Past Alcohol Use History: None Reported Past Drug Use History: None Reported - Past Family History Mother Family Medical History: No Reported History General Exam Limitations: physical limitation General appearance: alert, in no apparent distress Head exam: Present: atraumatic Eye exam: Present: normal appearance, PERRL ENT exam: Present: mucous membranes dry Neck exam: Present: normal inspection. Absent: tenderness, meningismus Respiratory exam: Present: normal lung sounds bilaterally Cardiovascular Exam: Present: regular rate, normal rhythm GI/Abdominal exam: Present: soft. Absent: distended, tenderness Extremities exam: Present: other (External fixation left upper arm) Neurological exam: Present: alert, altered (Patient believes she is in [facility], patient also believes the year is 2014.), CN II-XII intact. Absent: motor sensory deficit Psychiatric exam: Present: normal affect, normal mood Skin exam: Present: normal color. Absent: rash Course Vital Signs 01/15/18 01/16/18 22:54 00:33 Temperature 101.0 F H 101.4 F H Pulse Rate 99 96 Respiratory 17 17 Rate Blood Pressure 131/61 135/67 O2 Sat by Pulse 96 98 Oximetry - Reevaluation(s) Reevaluation #1: 01/16/18 00:51 Patient does meet criteria for sepsis diagnosed at 0051. Blood culture and lactic acid and IV antibiotics have been ordered. Medical Decision Making - Medical Decision Making Patient reevaluated and resting comfortably in bed. Patient and daughter updated on results and plan. Case discussed with Dr. Marshall, who will admit for Dr. Mcmahan. Dr. Price will be also placed on consult. There is concern for urinary tract infection and IV antibiotics will be started. - Lab Data Result diagrams: 01/15/18 23:20 01/15/18 23:20 Lab Results 01/15/18 01/15/18 01/15/18 Range/Units 23:20 23:20 23:20 WBC 10.5 (3.8-10.6) k/uL RBC 3.36 L (3.80-5.40) m/uL Hgb 8.7 L (11.4-16.0) gm/dL Hct 28.9 L (34.0-46.0) % MCV 86.1 (80.0-100.0) fL MCH 25.9 (25.0-35.0) pg MCHC 30.1 L (31.0-37.0) g/dL RDW 14.4 (11.5-15.5) % Plt Count 355 (150-450) k/uL Neutrophils % 75 % Lymphocytes % 12 % Monocytes % 9 % Eosinophils % 2 % Basophils % 0 % Neutrophils # 7.8 H (1.3-7.7) k/uL Lymphocytes # 1.2 (1.0-4.8) k/uL Monocytes # 1.0 (0-1.0) k/uL Eosinophils # 0.2 (0-0.7) k/uL Basophils # 0.0 (0-0.2) k/uL Hypochromasia Slight PT (9.0-12.0) sec INR (<1.2) APTT (22.0-30.0) sec Sodium 134 L (137-145) mmol/L Potassium 4.3 (3.5-5.1) mmol/L Chloride 100 (98-107) mmol/L Carbon Dioxide 27 (22-30) mmol/L Anion Gap 7 mmol/L BUN 22 H (7-17) mg/dL Creatinine 0.70 (0.52-1.04) mg/dL Est GFR (CKD-EPI)AfAm >90 (>60 ml/min/1.73 sqM) Est GFR (CKD-EPI)NonAf 81 (>60 ml/min/1.73 sqM) Glucose 100 H (74-99) mg/dL Plasma Lactic Acid Andrew 0.6 L (0.7-2.0) mmol/L Calcium 8.3 L (8.4-10.2) mg/dL Total Bilirubin 0.4 (0.2-1.3) mg/dL AST 29 (14-36) U/L ALT 26 (9-52) U/L Alkaline Phosphatase 134 H (38-126) U/L Total Creatine Kinase (30-135) U/L CK-MB (CK-2) (0.0-2.4) ng/mL CK-MB (CK-2) Rel Index Troponin I (0.000-0.034) ng/mL Total Protein 6.0 L (6.3-8.2) g/dL Albumin 2.9 L (3.5-5.0) g/dL Urine Color Urine Appearance (Clear) Urine pH (5.0-8.0) Ur Specific [place] (1.001-1.035) Urine Protein (Negative) Urine Glucose (UA) (Negative) Urine Ketones (Negative) Urine Blood (Negative) Urine Nitrite (Negative) Urine Bilirubin (Negative) Urine Urobilinogen (<2.0) mg/dL Ur Leukocyte Esterase (Negative) Urine WBC (0-5) /hpf Ur Squamous Epith Cells (0-4) /hpf Amorphous Sediment (None) /hpf Urine Bacteria (None) /hpf 01/15/18 01/15/18 01/15/18 Range/Units 23:20 23:20 23:57 WBC (3.8-10.6) k/uL RBC (3.80-5.40) m/uL Hgb (11.4-16.0) gm/dL Hct (34.0-46.0) % MCV (80.0-100.0) fL MCH (25.0-35.0) pg MCHC (31.0-37.0) g/dL RDW (11.5-15.5) % Plt Count (150-450) k/uL Neutrophils % % Lymphocytes % % Monocytes % % Eosinophils % % Basophils % % Neutrophils # (1.3-7.7) k/uL Lymphocytes # (1.0-4.8) k/uL Monocytes # (0-1.0) k/uL Eosinophils # (0-0.7) k/uL Basophils # (0-0.2) k/uL Hypochromasia PT 10.3 (9.0-12.0) sec INR 1.1 (<1.2) APTT 30.2 H (22.0-30.0) sec Sodium (137-145) mmol/L Potassium (3.5-5.1) mmol/L Chloride (98-107) mmol/L Carbon Dioxide (22-30) mmol/L Anion Gap mmol/L BUN (7-17) mg/dL Creatinine (0.52-1.04) mg/dL Est GFR (CKD-EPI)AfAm (>60 ml/min/1.73 sqM) Est GFR (CKD-EPI)NonAf (>60 ml/min/1.73 sqM) Glucose (74-99) mg/dL Plasma Lactic Acid Andrew (0.7-2.0) mmol/L Calcium (8.4-10.2) mg/dL Total Bilirubin (0.2-1.3) mg/dL AST (14-36) U/L ALT (9-52) U/L Alkaline Phosphatase (38-126) U/L Total Creatine Kinase 24 L (30-135) U/L CK-MB (CK-2) 0.3 (0.0-2.4) ng/mL CK-MB (CK-2) Rel Index 1.3 Troponin I <0.012 (0.000-0.034) ng/mL Total Protein (6.3-8.2) g/dL Albumin (3.5-5.0) g/dL Urine Color Yellow Urine Appearance Turbid H (Clear) Urine pH 5.5 (5.0-8.0) Ur Specific [place] 1.021 (1.001-1.035) Urine Protein 1+ H (Negative) Urine Glucose (UA) Negative (Negative) Urine Ketones Negative (Negative) Urine Blood Negative (Negative) Urine Nitrite Negative (Negative) Urine Bilirubin Negative (Negative) Urine Urobilinogen 3.0 (<2.0) mg/dL Ur Leukocyte Esterase Large H (Negative) Urine WBC 55 H (0-5) /hpf Ur Squamous Epith Cells 44 H (0-4) /hpf Amorphous Sediment Moderate H (None) /hpf Urine Bacteria Few H (None) /hpf - Radiology Data Radiology results: report reviewed (Computed tomography scan of the brain reveals no acute process), image reviewed (X-ray left humerus has external fixation device. No evidence of Ostermann myelitis. X-ray of the left femur and chest show no process.) Critical Care Time Critical Care Time: Yes Total Critical Care Time: 32 Disposition Clinical Impression: Sepsis, Altered mental status, Urinary tract infection Disposition: ADMITTED IP TO THIS HOSP Is patient prescribed a controlled substance at d/c from ED?: No Referrals: Salinas Shrestha MD [Primary Care Provider] - 1-2 days Decision Time: 00:52
[2018-01-15 23:35] LABS: Basophils % (A) 0 %; Eosinophils # (A) 0.2 k/uL (0-0.7); Eosinophils % (A) 2 %; HCT 28.9 % (34.0-46.0); HGB 8.7 gm/dL (11.4-16.0); Hypochromasia Slight; Lymphocytes # (A) 1.2 k/uL (1.0-4.8); Lymphocytes % (A) 12 %; MCH 25.9 pg (25.0-35.0); MCHC 30.1 g/dL (31.0-37.0); MCV 86.1 fL (80.0-100.0); Mean Platelet Volume 6.9; Monocytes % (A) 9 %; Neutrophils # (A) 7.8 k/uL (1.3-7.7); Neutrophils % (A) 75 %; Platelet Count 355 k/uL (150-450); RBC 3.36 m/uL (3.80-5.40); RDW 14.4 % (11.5-15.5); WBC 10.5 k/uL (3.8-10.6)
[2018-01-15 23:46] LABS: ALT 26 U/L (9-52); AST 29 U/L (14-36); Albumin 2.9 g/dL (3.5-5.0); Alkaline Phosphatase 134 U/L (38-126); Anion Gap 7 mmol/L; Calcium 8.3 mg/dL (8.4-10.2); Carbon Dioxide 27 mmol/L (22-30); Chloride 100 mmol/L (98-107); Glucose 100 mg/dL (74-99); INR 1.1 (<1.2); Partial Thromboplastin Time 30.2 sec (22.0-30.0); Potassium 4.3 mmol/L (3.5-5.1); Prothrombin Time 10.3 sec (9.0-12.0); Sodium 134 mmol/L (137-145); Total Bilirubin 0.4 mg/dL (0.2-1.3)
[2018-01-15 23:50] LABS: Blood Urea Nitrogen 22 mg/dL (7-17)
[2018-01-15 23:57] LABS: Creatine Kinase 24 U/L (30-135)
[2018-01-16 00:09] LABS: Amorphous Sediment,Urine Moderate /hpf; Appearance,Urine Turbid (Clear); Bacteria,Urine Few /hpf; Bilirubin,Urine Negative (Negative); Blood,Urine Negative (Negative); Color,Urine Yellow; Glucose,Urine (UA) Negative (Negative); Ketones,Urine Negative (Negative); Leukocyte Esterase,Urine Large (Negative); Nitrite,Urine Negative (Negative); PH, Urine 5.5 (5.0-8.0); Protein,Urine 1+ (Negative); Specific Gravity,Urine 1.021 (1.001-1.035); Squamous Epithelial Cell,Urine 44 /hpf (0-4); WBC,Urine 55 /hpf (0-5)
[2018-01-16 00:10] LABS: Creatine Kinase MB 0.3 ng/mL (0.0-2.4); Troponin I <0.012 ng/mL (0.000-0.034)
--- NOTE | 2018-01-16 00:35 | CT ---
EXAMINATION TYPE: CT brain wo con DATE OF EXAM: 01/16/2018 COMPARISON: None HISTORY: fall CT DLP: 1107.20 mGycm Automated exposure control for dose reduction was used. FINDINGS: There is cerebral cortical atrophy. There is no mass effect nor midline shift. There is no sign of in tracranial hemorrhage. Calvarium is intact. IMPRESSION: CEREBRAL ATROPHY. NO ACUTE INTRACRANIAL ABNORMALITY. THERE IS PROBABLY CHRONIC SMALL VESSEL ISCHEMIA.
--- NOTE | 2018-01-16 00:37 | XR ---
EXAMINATION TYPE: XR humerus LT DATE OF EXAM: 01/16/2018 COMPARISON: NONE HISTORY: Pain TECHNIQUE: 2 views FINDINGS: There are external pins in the distal humerus and proximal ulna fixing the elbow joint in a natomic position. Humerus appears intact. I see no fracture nor dislocation. IMPRESSION: External pins. No acute fracture seen. No evidence of osteomyelitis.
--- NOTE | 2018-01-16 00:38 | XR ---
EXAMINATION TYPE: XR femur LT DATE OF EXAM: 01/16/2018 COMPARISON: NONE HISTORY: Femur pain TECHNIQUE: 4 views FINDINGS: There is narrowing of the patellofemoral joint space with spur formation. There is calcific ation of the menisci of the knee. Hip joint is intact. There is spurring of the femoral and tibial co ndyles. IMPRESSION: Osteoarthritis at the knee joint. Chondrocalcinosis. No fracture seen.
--- NOTE | 2018-01-16 00:39 | XR ---
EXAMINATION TYPE: XR chest 1V DATE OF EXAM: 01/16/2018 COMPARISON: NONE HISTORY: Fever TECHNIQUE: Single frontal view of the chest is obtained. FINDINGS: There is no heart failure nor confluent pneumonic infiltrate. Costophrenic angles are brianna r. Heart size is normal. Bony thorax is intact. IMPRESSION: No active cardiopulmonary disease.
[2018-01-16] MEDS ORDERED: NALOXONE 0.4 MG/ML 1 ML VIAL IV PRN (00:52)
[2018-01-16] MEDS ORDERED: cefTRIAXone IN SWFI 1,000 MG/10 ML SYRINGE IVP STA (00:54)
[2018-01-16] MEDS: SODIUM CHLORIDE 0.9% 1,000 ML IV SCH ×2 (02:06→14:35)
[2018-01-16 02:18] VITALS: BMI 31.9
--- NOTE | 2018-01-16 08:42 | US ---
EXAMINATION TYPE: US venous doppler duplex LE LT DATE OF EXAM: 01/16/2018 8:16 AM COMPARISON: NONE CLINICAL HISTORY: Pain. mild swelling to left leg and pain SIDE PERFORMED: Left TECHNIQUE: The lower extremity deep venous system is examined utilizing real time linear array sonog sree with graded compression, doppler sonography and color-flow sonography. VESSELS IMAGED: External Iliac Vein (EIV) Common Femoral Vein Deep Femoral Vein Greater Saphenous Vein * Femoral Vein Popliteal Vein Small Saphenous Vein * Proximal Calf Veins (* superficial vessels) Left Leg: Appears negative for DVT Grayscale, color doppler, spectral doppler imaging performed of the deep veins of the left lower extr emity. There is normal flow, compressibility, vascular waveforms. IMPRESSION: No sonographic evidence of deep venous thrombosis within the left lower extremity.
[2018-01-16] MEDS: cefTRIAXone IN SWFI 1,000 MG/10 ML SYRINGE IVP SCH ×2 (08:51→20:47)
[2018-01-16] MEDS ORDERED: traMADol 50 MG TAB PO PRN (09:57)
--- NOTE | 2018-01-16 10:10 | P.CNOR ---
History of Present Illness - [facility] Consult date: 01/16/18 Consult reason: other (Ex fix left elbow) History of present illness: The patient is an 82-year-old female who is known to our practice for a recurrent left elbow dislocation. She did have a external fixator placed on due to a unstable elbow. The patient did go to [facility] and was scheduled to see Dr. Rony Fontaine at [place] today for further evaluation of her elbow. However, the patient did develop fever and mental status changes yesterday and was transferred to the hospital for further evaluation. She was found to have a UTI and sepsis. She was admitted to the hospital for further evaluation and care. Orthopedics was consulted for further management of her external fixator. X-rays obtained in the emergency department reveal a dislocation of the radial head. Today, the patient is unable to answer any questions. She is able to open her eyes when her name is spoken but quickly falls back to sleep. Unable to obtain any recent history. Review of Systems ROS unobtainable: due to mental status Constitutional: Reports fever Past Medical History Past Medical History: Dementia, GERD/Reflux, Hypertension, Osteoarthritis (OA) Additional Past Medical History / Comment(s): HX OF KIDNEY STONES, urinary retention and UTI History of Any Multi-Drug Resistant Organisms: None Reported Past Surgical History: Appendectomy, Orthopedic Surgery, Tonsillectomy Additional Past Surgical History / Comment(s): LEFT KNEE ARTHROSCOPY, LEFT KIDNEY REMOVED, 6-8-15 total rt knee Past Anesthesia/Blood Transfusion Reactions: No Reported Reaction Past Psychological History: Depression Additional Psychological History / Comment(s): pt lives at home with her and is independant. receives no outside services. Smoking Status: Former smoker Past Alcohol Use History: None Reported Additional Past Alcohol Use History / Comment(s): quit smoking >20 years ago Past Drug Use History: None Reported - Past Family History Mother Family Medical History: No Reported History Medications and Allergies Home Medications Medication Instructions Recorded Confirmed Type amLODIPine BESYLATE [Norvasc] 5 mg PO HS 11/07/14 01/16/18 History Docusate [Colace] 100 mg PO HS 12/24/17 01/16/18 History Melatonin 3 mg PO HS 12/24/17 01/16/18 History Ranitidine HCl [Zantac] 150 mg PO BID 12/24/17 01/16/18 History Venlafaxine HCl [Effexor XR] 150 mg PO DAILY 12/24/17 01/16/18 History Vit C/E/Zn/Coppr/Lutein/Zeaxan 1 cap PO BID 12/24/17 01/16/18 History [Preservision Areds 2 Softgel] hydrOXYzine HCL [Atarax] 1 tab PO HS PRN 12/24/17 01/16/18 History Sennosides-Docusate Sodium 2 tab PO DAILY #30 tablet 12/27/17 01/16/18 Rx [Senokot-S] traMADol HCl [Ultram] 50 - 100 mg PO Q4-6H PRN #50 tab 12/27/17 01/16/18 Rx Naproxen Sodium [Aleve] 220 mg PO Q12HR PRN 01/16/18 01/16/18 History Trimethoprim [Trimpex] 100 mg PO HS 01/16/18 01/16/18 History diphenhydrAMINE [Benadryl] 50 mg PO Q4H PRN 01/16/18 01/16/18 History Allergies Allergy/AdvReac Type Severity Reaction Status Date / Time hydrocodone [From [place]] Allergy Unknown Verified 01/16/18 08:48 Penicillins Allergy Rash/Hives Verified 01/16/18 08:48 Sulfa (Sulfonamide Allergy Rash/Hives Verified 01/16/18 08:48 Antibiotics) Physical Examination The patient is an 82-year-old female who is currently obtunded. She is able to open her eyes when her name is called that quickly falls back asleep. There is a splint and dressing to the left upper extremity. There is an external fixator in place without evidence of migration or pin tract problems. She is able to wiggle her fingers on command. Sensation and circulatory status is intact. Results - Labs Labs: Abnormal Lab Results - Last 24 Hours (Table) 01/15/18 01/15/18 01/15/18 Range/Units 23:20 23:20 23:20 RBC 3.36 L (3.80-5.40) m/uL Hgb 8.7 L (11.4-16.0) gm/dL Hct 28.9 L (34.0-46.0) % MCHC 30.1 L (31.0-37.0) g/dL Neutrophils # 7.8 H (1.3-7.7) k/uL APTT (22.0-30.0) sec Sodium 134 L (137-145) mmol/L BUN 22 H (7-17) mg/dL Glucose 100 H (74-99) mg/dL Plasma Lactic Acid Andrew 0.6 L (0.7-2.0) mmol/L Calcium 8.3 L (8.4-10.2) mg/dL Alkaline Phosphatase 134 H (38-126) U/L Total Creatine Kinase (30-135) U/L Total Protein 6.0 L (6.3-8.2) g/dL Albumin 2.9 L (3.5-5.0) g/dL Urine Appearance (Clear) Urine Protein (Negative) Ur Leukocyte Esterase (Negative) Urine WBC (0-5) /hpf Ur Squamous Epith Cells (0-4) /hpf Amorphous Sediment (None) /hpf Urine Bacteria (None) /hpf 01/15/18 01/15/18 01/15/18 Range/Units 23:20 23:20 23:57 RBC (3.80-5.40) m/uL Hgb (11.4-16.0) gm/dL Hct (34.0-46.0) % MCHC (31.0-37.0) g/dL Neutrophils # (1.3-7.7) k/uL APTT 30.2 H (22.0-30.0) sec Sodium (137-145) mmol/L BUN (7-17) mg/dL Glucose (74-99) mg/dL Plasma Lactic Acid Andrew (0.7-2.0) mmol/L Calcium (8.4-10.2) mg/dL Alkaline Phosphatase (38-126) U/L Total Creatine Kinase 24 L (30-135) U/L Total Protein (6.3-8.2) g/dL Albumin (3.5-5.0) g/dL Urine Appearance Turbid H (Clear) Urine Protein 1+ H (Negative) Ur Leukocyte Esterase Large H (Negative) Urine WBC 55 H (0-5) /hpf Ur Squamous Epith Cells 44 H (0-4) /hpf Amorphous Sediment Moderate H (None) /hpf Urine Bacteria Few H (None) /hpf H & H 01/15/18 Range/Units 23:20 Hgb 8.7 L (11.4-16.0) gm/dL Hct 28.9 L (34.0-46.0) % Coagulation 01/15/18 Range/Units 23:20 INR 1.1 (<1.2) Result Diagrams: 01/15/18 23:20 01/15/18 23:20 - Diagnostic results Elbow x-ray: image reviewed (External fixator in place there appears to be a continued dislocation of the radial head.) Assessment and Plan (1) Altered mental status Current Visit: Yes Status: Acute Code(s): R41.82 - ALTERED MENTAL STATUS, UNSPECIFIED SNOMED Code(s): 499599237 (2) Sepsis Current Visit: Yes Status: Acute Code(s): A41.9 - SEPSIS, UNSPECIFIED ORGANISM SNOMED Code(s): 33285783 (3) Urinary tract infection Current Visit: Yes Status: Acute Code(s): N39.0 - URINARY TRACT INFECTION, SITE NOT SPECIFIED SNOMED Code(s): 68874279 (4) Dislocation of elbow, left, closed Current Visit: No Status: Acute Code(s): S53.105A - UNSP DISLOCATION OF LEFT ULNOHUMERAL JOINT, INIT ENCNTR SNOMED Code(s): 3440770 Plan: The clinical and x-ray findings were discussed with Dr. Price. No family is at the bedside at this time. Orders for pin care twice a day will be ordered. Continue medical management of her sepsis and UTI. Once the patient is stable, the patient will need to follow-up with Dr. Santana as soon as possible. We will continue to follow patient closely and make further recommendations as needed.
[2018-01-16] MEDS ORDERED: diphenhydrAMINE 25 MG CAP PO PRN (10:34)
[2018-01-16] MEDS ORDERED: NAPROXEN 250 MG TAB PO PRN (10:34)
[2018-01-16] MEDS: SENNOSIDES-DOCUSATE SODIUM 1 EACH TAB PO SCH (11:23)
[2018-01-16] MEDS: VENLAFAXINE HCL ER 150 MG CAP PO SCH (11:24)
[2018-01-16] MEDS: FAMOTIDINE 20 MG TAB PO SCH ×2 (11:24→20:47)
--- NOTE | 2018-01-16 16:29 | HP ---
HISTORY AND PHYSICAL DATE OF ADMISSION: 01/16/2018 DATE OF SERVICE: 01/16/2018 PRESENTING COMPLAINT: Fever. HISTORY OF PRESENTING COMPLAINT: This is a pleasant 82-year-old patient of Dr. Salinas Shrestha. Her chronic stable medical conditions include GERD, hypertension, osteoarthritis, depression, dementia. Patient's is present here. Patient is a transfer from [facility]. Patient was here on December 24 and had recurrent dislocation of the left elbow. Patient subsequently had an external stabilizer placed. Patient was due to have a consultation for orthopedics at an outside center. Patient was noticed to have a fever and presented for the same. Patient was found to have rather infected-appearing urine. Patient's appetite is fair. The patient does wear Depends. Denies any cough. REVIEW OF SYSTEMS: CONSTITUTIONAL: Febrile. HEENT: None. RESPIRATORY: None. CARDIOVASCULAR: None. GASTROINTESTINAL: Heartburn. GENITOURINARY: Urinary incontinence. DERMATOLOGICAL: None. HEMATOLOGICAL: None. LYMPHATICS: None. PSYCHIATRY: Forgetful. NEUROLOGICAL: Forgetful. MUSCULOSKELETAL: Patient's left arm is in a support with external fixator. PAST MEDICAL HISTORY: 1. Dementia. 2. GERD. 3. Hypertension. 4. Osteoarthritis. 5. Kidney stones. 6. Urinary retention. 7. incontinence, being followed by Dr. Jorgensen. PAST SURGICAL HISTORY: 1. Appendectomy. 2. Tonsillectomy. 3. Left knee arthroscopy. 4. Left nephrectomy. 5. Right total knee surgery. 6. External fixator of the left elbow. PSYCH HISTORY: Depression. SOCIAL HISTORY: Patient is currently at [facility]. . Quit smoking more than 20 years ago. Alcohol none. FAMILY HISTORY: Reviewed; noncontributory to presentation. HOME MEDICATIONS: 1. Senokot-S two tablets p.o. daily. 2. Melatonin 3 mg at bedtime. 3. Ultram 50 to 100 mg q.4 to 6 p.r.n. 4. PreserVision AREDS 2 soft gel 1 capsule p.o. b.i.d. 5. Effexor XR 150 mg p.o. daily. 6. Trimethoprim 100 mg p.o. at bedtime. 7. Atarax 1 tablet p.o. at bedtime p.r.n. 8. Benadryl 50 mg q.4 p.r.n. 9. Zantac 150 mg p.o. b.i.d. 10.Norvasc 5 mg p.o. at bedtime. 11.Naproxen 220 mg q.12 p.r.n. ALLERGIES: 1. NORCO. 2. PENICILLIN. 3. SULFA. PHYSICAL EXAMINATION: Temperature 101, pulse 99, respiration 17, blood pressure 113/61, pulse ox 96% on 2 L. GENERAL APPEARANCE: Well built; BMI 35. Lying in bed, awake. Comfortable. EYES: Pupils equal. Conjunctivae normal. HEENT: External appearance of nose and ears normal. Oral cavity normal. NECK: JVD not raised. Mass not palpable. RESPIRATORY: Effort normal. Lungs are clear. CARDIOVASCULAR: First and second sounds normal. No edema. ABDOMEN: Soft, non-tender. Liver and spleen not palpable. LYMPHATIC: No lymph node palpable in neck or axillae. PSYCHIATRY: Patient is able to answer simple questions. MUSCULOSKELETAL: Left upper extremity with external fixator in place. Evidence of osteoarthritis, especially in the hands. INVESTIGATIONS: White count 10.5, hemoglobin 8.7, potassium 4.3, BUN 22, creatinine 0.7. UA positive for leukocyte esterase, WBC. ASSESSMENT: 1. Acute urinary tract infection from cystitis, probably complicated. 2. 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 3. 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 4. Gastroesophageal reflux disease. 5. Essential hypertension. 6. Primary osteoarthritis in multiple joints. 7. Depression not otherwise specified. 8. Chronic urinary retention with an overflow, being followed by Dr. Jorgensen in the past. 9. Obesity; body mass index 31.9. PLAN: Home medications are resumed. Patient is put on IV ceftriaxone. Dr. Price was consulted. Will give Lovenox for DVT prophylaxis. Care was discussed with the in detail. Questions were answered. MMODL / IJN: [id number] /
[2018-01-16] MEDS: traMADol 50 MG TAB PO PRN (18:35)
--- NOTE | 2018-01-16 18:41 | HP ---
HISTORY AND PHYSICAL ADDENDUM TO HISTORY AND PHYSICAL: DATE OF ADMISSION: 01/16/2018. ASSESSMENT: 1. Acute urinary tract infection from cystitis, complicated, causing sepsis, present on admission. MMODL / IJN: [id number] /
[2018-01-16] MEDS: ACETAMINOPHEN TAB 325 MG TAB PO PRN (20:46)
[2018-01-16] MEDS: TRIMETHOPRIM 100 MG TAB PO SCH (20:47)
[2018-01-16] MEDS: VIT A,C & E-LUTEIN-MINERALS 1 EACH TAB PO SCH (20:47)
[2018-01-16] MEDS: MELATONIN 3 MG TABLET PO SCH (20:47)
[2018-01-16] MEDS: amLODIPine 5 MG TAB PO SCH (20:47)
[2018-01-17] MEDS: SODIUM CHLORIDE 0.9% 1,000 ML IV SCH ×2 (03:53→18:01)
[2018-01-17] MEDS: traMADol 50 MG TAB PO PRN ×3 (03:58→18:00)
[2018-01-17] MEDS: cefTRIAXone IN SWFI 1,000 MG/10 ML SYRINGE IVP SCH ×2 (08:27→20:22)
[2018-01-17] MEDS: SENNOSIDES-DOCUSATE SODIUM 1 EACH TAB PO SCH (08:27)
[2018-01-17] MEDS: FAMOTIDINE 20 MG TAB PO SCH ×2 (08:28→20:21)
[2018-01-17] MEDS: VIT A,C & E-LUTEIN-MINERALS 1 EACH TAB PO SCH ×2 (08:28→20:22)
[2018-01-17] MEDS: VENLAFAXINE HCL ER 150 MG CAP PO SCH (08:28)
--- NOTE | 2018-01-17 11:08 | P.PN ---
Subjective Progress Note Date: 01/17/18 Principal diagnosis: Recurrent left elbow dislocation with external fixator This is an 82 year-old female who we have been following for a recurrent left elbow dislocation with external fixator application on 12/25/2017. The patient was evaluated at the bedside today with Dr. Price. The patient denies nausea, vomiting, abdominal pain, shortness of breath, and chest pain this morning. She states her pain is controlled at this time. The patient more alert today. She is confused but she does have a history of dementia at her baseline. Objective - Vital Signs Vital signs: Vital Signs Temp 98.4 F 01/17/18 07:14 Pulse 93 01/17/18 07:14 Resp 16 01/17/18 07:14 BP 143/80 01/17/18 07:14 Pulse Ox 97 01/17/18 07:14 Intake & Output 01/16/18 01/17/18 01/17/18 18:59 06:59 18:59 Intake Total 600 Output Total 1900 1050 Balance -1300 -1050 Weight 92.5 kg Intake: Oral 600 Output: Urine 1900 1050 Uretheral ([place]) 1200 Other: Voiding Method Indwelling Catheter Indwelling Catheter - Exam The patient is an 82-year-old female who is in no acute distress. She is alert and oriented 2. The patient left arm splint was removed. Pin care was performed. No signs or symptoms of infection at her pin sites. New dressings applied and new posterior splint applied. She is able to move her fingers freely without difficulty. There is moderate swelling to her hand and fingers. Neurological and circulatory status is intact. - Labs CBC & Chem 7: 01/15/18 23:20 01/15/18 23:20 Labs: Microbiology - Last 24 Hours (Table) 01/15/18 23:57 Urine Culture - Final Urine,Catheterized Aerococcus urinae 01/15/18 23:20 Blood Culture - Preliminary Blood No Growth after 24 hours Assessment and Plan (1) Altered mental status Current Visit: Yes Status: Acute Code(s): R41.82 - ALTERED MENTAL STATUS, UNSPECIFIED SNOMED Code(s): 920656668 (2) Sepsis Current Visit: Yes Status: Acute Code(s): A41.9 - SEPSIS, UNSPECIFIED ORGANISM SNOMED Code(s): 14550151 (3) Urinary tract infection Current Visit: Yes Status: Acute Code(s): N39.0 - URINARY TRACT INFECTION, SITE NOT SPECIFIED SNOMED Code(s): 48337911 (4) Dislocation of elbow, left, closed Current Visit: No Status: Acute Code(s): S53.105A - UNSP DISLOCATION OF LEFT ULNOHUMERAL JOINT, INIT ENCNTR SNOMED Code(s): 5719266 Plan: The clinical findings were discussed with the patient and the patient's family at the bedside. Continue antibiotics for her UTI per internal medicine. Continue twice daily pin care with peroxide and water. Encouraged elevation of the left elbow. She may be discharged back to [facility] from an orthopedic standpoint with follow-up with Dr. Rony Fontaine as soon as possible. We will continue to follow closely with internal medicine.
--- NOTE | 2018-01-17 11:17 | XR ---
EXAMINATION TYPE: XR elbow limited LT DATE OF EXAM: 01/17/2018 COMPARISON: 01/16/2018 and 12/25/2017 HISTORY: 82-year-old female assess alignment of external fixator. Patient fell after surgery. TECHNIQUE: 4 views FINDINGS: External fixators present does limit visualization of structures. The 2 proximal pins enter the dista l humeral shaft in the 2 distal pins enter the proximal ulnar shaft. There is subluxation of both radiocapitellar and ulnotrochlear joints. Volar subluxation at the radio capitellar joint, refer to image 1. Previously, this seemed to have been a dorsal subluxation. Lateral subluxation at the ulnar trochlear joint, refer to image for, appears relatively similar. IMPRESSION: External fixator in place. There is persistent subluxation at the radiocapitellar and ulnotrochlear j oints; similar lateral subluxation at the ulnotrochlear joint but now with volar subluxation at the r adiocapitellar joint versus dorsal subluxation, previously.
--- NOTE | 2018-01-17 15:38 | CDI ---
Last Revision, May 2017 Documentation Clarification Form Date: 01/17/18 From: Brie Maurice RN Admit Date: 01/16/2018 12:54:00 AM Patient Name: Leila Prieto Visit Number: [id number] ATTENTION: The Clinical Documentation Specialists (CDI) and [facility] Coding Staff appreciate your assistance in clarifying documentation. Please respond to the clarification below the line at the bottom and electronically sign. The CDI & [facility] Coding staff will review the response and follow-up if needed. Please note: Queries are made part of the Legal Health Record. If you have any questions, please contact the author of this message via ITS. Dr. Siddhartha Marshall MD, Please render your opinion on Altered mental status documented in the ED note 01/15, consult 01/16, and PN 01/17. Patient presented with altered mental status, fever, UTI, sepsis Patient history/risk factors: HTN, depression, mild cognitive impairment with Alzheimers dementia, kidney stones, urinary retention Clinical Indicators: Pt. noted to be more alert per PN 01/17. Labs on admission: RBC 3.36, HGB 8.7, HCT28.9, SOD 134, BUN 22, X Ray: No acute cardiopulmonary disease Brain CT: cerebral atrophy, probably chronic small vessel ischemia Blood cultures no growth after 24 hours- preliminary Treatment: Rocephin IVPB Urine culture: Aerococcus urinae Monitor labs Consults: Social work, physical therapy In your professional opinion, please clarify the etiology of the altered mental status, if known. Dementia (if know, specify Type and if with/without Behavioral Disturbance) Encephalopathy (specify Type and Underlying Medical Illness) Other condition (please specify) Unable to determine Please continue to document in your progress notes, under the line below and/ or in the discharge summary in order to capture severity of illness and risk of mortality. Include clinical findings that support your diagnosis. __ please read H&P-no change in documentation MTDD
[2018-01-17] MEDS: amLODIPine 5 MG TAB PO SCH (20:22)
[2018-01-17] MEDS: TRIMETHOPRIM 100 MG TAB PO SCH (20:22)
[2018-01-17] MEDS: MELATONIN 3 MG TABLET PO SCH (20:22)
[2018-01-18] MEDS: SODIUM CHLORIDE 0.9% 1,000 ML IV SCH ×2 (05:26→20:40)
--- NOTE | 2018-01-18 06:43 | PN ---
PROGRESS NOTE DATE OF SERVICE: January 17, 2018 PRESENTING COMPLAINT: Fever. INTERVAL HISTORY: This patient presented with UTI and sepsis. I spoke to PA from Orthopedics. The patient's left elbow with external fixators is healing well. The patient is awake, tolerating a diet, has got a baseline dementia. REVIEW OF SYSTEMS: Done for constitutional, cardiovascular, GI, pulmonary; relevant findings as above. CURRENT MEDICATIONS: Reviewed that include IV ceftriaxone. PHYSICAL EXAMINATION: VITAL SIGNS: Temperature 98.4, pulse 93, respiration 16, blood pressure 143/80, pulse ox 97% on room air. GENERAL APPEARANCE: Lying in bed, awake. EYES: Pupils equal. Conjunctivae normal. HEENT: External appearance of nose and ears normal. Oral cavity normal. NECK: JVD not raised. Mass not palpable. RESPIRATORY: Effort normal. Lungs are clear. CARDIOVASCULAR: 1st and 2nd sounds normal. No edema. ABDOMEN: Soft, nontender. Liver and spleen not palpable. PSYCHIATRY: The patient has got a baseline dementia. Answering only some simple questions. MUSCULOSKELETAL: Left upper extremity has got external fixator. INVESTIGATIONS: Urine cultures growing Aerococcus urinae. ASSESSMENT: 1. Acute urinary tract infection from cystitis, probably complicated from Enterococcus Aerococcus urinae causing sepsis present on admission. 2. Recurrent left elbow dislocation. External fixator in place. 3. Mild cognitive impairment from late onset type. Alzheimer's dementia. 4. Gastroesophageal reflux disease. 5. Essential hypertension. 6. Primary osteoarthritis in multiple joints. 7. Depression, not otherwise specified. 8. Chronic urinary retention with normal flow being followed by Dr. Jorgensen in the outpatient. 9. Obesity; BMI 31.9. PLAN: Continue current medication and treatment plan. We will switch the patient to oral antibiotics tomorrow. MMODL / IJN: [id number] /
[2018-01-18] MEDS: FAMOTIDINE 20 MG TAB PO SCH ×2 (07:43→20:35)
[2018-01-18] MEDS: SENNOSIDES-DOCUSATE SODIUM 1 EACH TAB PO SCH (07:43)
[2018-01-18] MEDS: cefTRIAXone IN SWFI 1,000 MG/10 ML SYRINGE IVP SCH ×2 (07:43→20:31)
[2018-01-18] MEDS: VENLAFAXINE HCL ER 150 MG CAP PO SCH (07:43)
[2018-01-18] MEDS: VIT A,C & E-LUTEIN-MINERALS 1 EACH TAB PO SCH ×2 (07:44→20:35)
[2018-01-18] MEDS: ACETAMINOPHEN TAB 325 MG TAB PO PRN (07:54)
--- NOTE | 2018-01-18 09:00 | P.PN ---
Subjective Progress Note Date: 01/18/18 Principal diagnosis: Recurrent left elbow dislocation with external fixator This is an 82 year-old female who we have been following for a recurrent left elbow dislocation with external fixator application on 12/25/2017. The patient was evaluated at the bedside today with Dr. Price. The patient denies nausea, vomiting, abdominal pain, shortness of breath, and chest pain this morning. She states her pain is controlled at this time. She is confused but she does have a history of dementia at her baseline. Her splint was changed yesterday. She did remove the splint and dressing last night due to increased confusion. Objective - Vital Signs Vital signs: Vital Signs Temp 98.2 F 01/18/18 06:21 Pulse 98 01/18/18 06:21 Resp 18 01/18/18 06:21 BP 138/75 01/18/18 06:21 Pulse Ox 95 01/18/18 06:21 Intake & Output 01/17/18 01/18/18 01/18/18 18:59 06:59 18:59 Intake Total 600 600 Output Total 400 1825 Balance 200 -1225 Weight 92.5 kg 92.5 kg Intake: Oral 600 600 Output: Urine 400 1825 Other: Voiding Method Indwelling Catheter Indwelling Catheter Indwelling Catheter - Exam The patient is an 82-year-old female who is in no acute distress. She is alert and oriented 1. External fixator in place. No signs or symptoms of infection at her pin sites. Posterior splint intact. She is able to move her fingers freely without difficulty. There is moderate swelling to her hand and fingers. Neurological and circulatory status is intact. - Labs CBC & Chem 7: 01/15/18 23:20 01/15/18 23:20 Labs: Microbiology - Last 24 Hours (Table) 01/15/18 23:20 Blood Culture - Preliminary Blood No Growth after 48 hours 01/15/18 23:57 Urine Culture - Final Urine,Catheterized Aerococcus urinae Assessment and Plan (1) Altered mental status Current Visit: Yes Status: Acute Code(s): R41.82 - ALTERED MENTAL STATUS, UNSPECIFIED SNOMED Code(s): 494120757 (2) Sepsis Current Visit: Yes Status: Acute Code(s): A41.9 - SEPSIS, UNSPECIFIED ORGANISM SNOMED Code(s): 04891963 (3) Urinary tract infection Current Visit: Yes Status: Acute Code(s): N39.0 - URINARY TRACT INFECTION, SITE NOT SPECIFIED SNOMED Code(s): 45713386 (4) Dislocation of elbow, left, closed Current Visit: No Status: Acute Code(s): S53.105A - UNSP DISLOCATION OF LEFT ULNOHUMERAL JOINT, INIT ENCNTR SNOMED Code(s): 8245398 Plan: The clinical findings were discussed with the patient. Continue antibiotics for her UTI per internal medicine. Continue twice daily pin care with peroxide and water. Encouraged elevation of the left elbow. She may be discharged back to [facility] from an orthopedic standpoint with follow-up with Dr. Rony Fontaine as soon as possible. We will continue to follow closely with internal medicine.
--- NOTE | 2018-01-18 16:13 | DS ---
DISCHARGE SUMMARY DATE OF ADMISSION: 01/16/2018 DATE OF DISCHARGE: 01/18/2018 FINAL DIAGNOSES: 1. Acute urinary tract infection from cystitis, probably complicated from Aerococcus causing sepsis present on admission. 2. Recurrent left elbow dislocation. External fixator in place. 3. Moderate cognitive impairment from late onset Alzheimer's dementia. 4. Gastroesophageal reflux disease. 5. Essential hypertension. 6. Primary osteoarthritis in multiple joints. 7. Depression not otherwise specified. 8. Chronic urinary retention. Also being followed by Dr. Jorgensen as an Outpatient. 9. Obesity; BMI 31.9. HOSPITAL COURSE: This patient presented with sepsis from UTI. Cultures growing Aerococcus urinae. The patient doing much better at the time of discharge. Afebrile. Tolerating a diet. The patient has got a external fixator on the left arm for the elbow due to see an out of town specialist. Will follow up with the same. The patient is tolerating a diet. CONSULTATION: Dr. Price from Orthopedics. EXAMINATION: Afebrile, pulse 97, respiratory rate 18, blood pressure 133/68, pulse ox 99% on room air. Left arm with external fixator. Lungs fair entry. Cardiovascular: 1st and second sounds normal. Answering simple questions. DISCHARGE MEDICATIONS: 1. Amlodipine 5 mg q.h.s. 2. Melatonin 3 mg q.h.s. 3. Zantac 150 mg p.o. b.i.d. 4. Effexor XR 150 mg a day. 5. PreserVision 2 soft gel 1 capsule p.o. b.i.d. 6. Senokot-S 2 tablets p.o. daily. 7. Aleve 220 mg q.12 p.r.n. 8. Macrobid 50 mg q.12h, 10 capsules. 9. Ultram 1500 1 tablet p.o. q.6 p.r.n. DISPOSITION: [facility]. FOLLOWUP: Follow up with Dr. Shrestha after discharge from [facility]. Follow up with Dr. Fink at [facility]. The patient to follow up with orthopedics as scheduled and also with Dr. Rony Fontaine at [facility] as soon as possible. Left arm care as per orthopedics. Copy to Dr. Salinas Shrestha. DISPOSITION: [facility]. MMODL / IJN: [id number] /
[2018-01-18] MEDS: MELATONIN 3 MG TABLET PO SCH (20:35)
[2018-01-18] MEDS: TRIMETHOPRIM 100 MG TAB PO SCH (20:35)
[2018-01-18] MEDS: amLODIPine 5 MG TAB PO SCH (20:35)
[2018-01-18 22:23] VITALS: RESP 16
[2018-01-19 05:49] VITALS: BP 137/82; PULSE 100; TEMP 98.5
[2018-01-19] MEDS: SENNOSIDES-DOCUSATE SODIUM 1 EACH TAB PO SCH (08:45)
[2018-01-19] MEDS: VIT A,C & E-LUTEIN-MINERALS 1 EACH TAB PO SCH (08:45)
[2018-01-19] MEDS: VENLAFAXINE HCL ER 150 MG CAP PO SCH (08:46)
[2018-01-19] MEDS: FAMOTIDINE 20 MG TAB PO SCH (08:46)
[2018-01-19] MEDS: SODIUM CHLORIDE 0.9% 1,000 ML IV SCH (08:46)
[2018-01-19] MEDS: cefTRIAXone IN SWFI 1,000 MG/10 ML SYRINGE IVP SCH (08:46)
== END 2018-01-19 14:22 | DRG 872 ==
LOC: EC 22:46 → 5MS5E 01-16 00:54 → OBSVTOIN 01-16 00:54 → 4MS4W 01-16 01:10
PROVIDERS: ADMIT Hospitalist; ATTEND Hospitalist
DX: A41.1 Sepsis due to other specified staphylococcus (principal); N30.00 Acute cystitis without hematuria; G30.1 Alzheimer's disease with late onset; F02.80 Dementia in other diseases classified elsewhere, unspecified severity, without behavioral disturbance, psychotic disturbance, mood disturbance, and anxiety; K21.9 Gastro-esophageal reflux disease without esophagitis; I10 Essential (primary) hypertension; F32.9 Major depressive disorder, single episode, unspecified; S53.005A Unspecified dislocation of left radial head, initial encounter; S53.105A Unspecified dislocation of left ulnohumeral joint, initial encounter; R33.9 Retention of urine, unspecified; N39.490 Overflow incontinence; E66.9 Obesity, unspecified; Z68.31 Body mass index [BMI] 31.0-31.9, adult; M19.91 Primary osteoarthritis, unspecified site; Z79.899 Other long term (current) drug therapy; Z87.442 Personal history of urinary calculi; Z87.440 Personal history of urinary (tract) infections; Z87.891 Personal history of nicotine dependence; Z96.652 Presence of left artificial knee joint; Z90.49 Acquired absence of other specified parts of digestive tract; Z90.5 Acquired absence of kidney; Z88.5 Allergy status to narcotic agent; Z88.0 Allergy status to penicillin; Z88.2 Allergy status to sulfonamides
CPT/HCPCS: 36415; 70450; 71045; 80053; 81001; 82550; 82553; 83605; 84484; 85025; 85610; 85730; 87040; 87086; 99291

== ENCOUNTER 2018-02-21 08:39 | Inpatient (IN) | payer MEDICARE, OTHER ==
[2018-02-21] MEDS ORDERED: SODIUM CHLORIDE 0.9% 1,000 ML IV STA (08:54)
--- NOTE | 2018-02-21 08:56 | ED ---
General Adult HPI - General Chief complaint: Recheck/Abnormal Lab/Rx Stated complaint: Renal failure Time Seen by Provider: 02/21/18 08:50 Source: patient, RN notes reviewed Mode of arrival: EMS Limitations: no limitations - History of Present Illness Initial comments: Patient 82-year-old female presented to the emergency room today with abnormal labs. Patient was advised that her kidney function was elevated on recent lab draw. Patient is currently on vancomycin covering for infection. Patient has history of chronic dislocations of left elbow. Did have surgery to place external fixator which was then removed by [facility]. Patient denies any complaints persist she's been feeling well. Patient denies any recent fever , chills, shortness of breath, chest pain, back pain, abdominal pain, nausea or vomiting, numbness or tingling, dysuria or hematuria, constipation or diarrhea, headaches or visual changes, or any other complaints. - Related Data Home Medications Medication Instructions Recorded Confirmed amLODIPine BESYLATE [Norvasc] 5 mg PO HS 11/07/14 02/21/18 Melatonin 3 mg PO HS 12/24/17 02/21/18 Vit C/E/Zn/Coppr/Lutein/Zeaxan 1 cap PO BID@0800,1700 12/24/17 02/21/18 [Preservision Areds 2 Softgel] Albuterol Nebulized [Ventolin 2.5 mg INHALATION RT-Q6H PRN 02/21/18 02/21/18 Nebulized] Bisacodyl [Dulcolax] 10 mg RECTAL DAILY PRN 02/21/18 02/21/18 Ferrous Sulfate [Feosol] 325 mg PO DAILY@1700 02/21/18 02/21/18 HYDROcodone/APAP 5-325MG [[place] 1 tab PO Q3H PRN 02/21/18 02/21/18 5-325] Lactose-Reduced Food [Ensure Plus] 1 can PO TID-W/MEALS 02/21/18 02/21/18 Magnesium Hydroxide [Milk of 2,400 mg PO DAILY PRN 02/21/18 02/21/18 Magnesia] Menthol [Biofreeze] 1 applic TOPICAL Q6H PRN 02/21/18 02/21/18 Na Phos,M-B/Na Phos,Di-Ba [Fleet 133 ml RECTAL DAILY PRN 02/21/18 02/21/18 Adult] Ranitidine HCl 150 mg PO BID@0800,1700 02/21/18 02/21/18 Vancomycin 1,500 mg IVPB DAILY@0800 02/21/18 02/21/18 cefTRIAXone SODIUM [Ceftriaxone] 2 gm IV DAILY 02/21/18 02/21/18 traMADol HCL [Ultram] 50 mg PO Q6H PRN 02/21/18 02/21/18 Previous Rx's Medication Instructions Recorded Sennosides-Docusate Sodium 2 tab PO DAILY #30 tablet 12/27/17 [Senokot-S] Allergies Allergy/AdvReac Type Severity Reaction Status Date / Time hydrocodone [From [place]] Allergy Unknown Verified 01/16/18 08:48 Penicillins Allergy Rash/Hives Verified 01/16/18 08:48 Sulfa (Sulfonamide Allergy Rash/Hives Verified 01/16/18 08:48 Antibiotics) Review of Systems ROS Statement: Those systems with pertinent positive or pertinent negative responses have been documented in the HPI. ROS Other: All systems not noted in ROS Statement are negative. Past Medical History Past Medical History: Dementia, GERD/Reflux, Hypertension, Osteoarthritis (OA) Additional Past Medical History / Comment(s): HX OF KIDNEY STONES, urinary retention and UTI History of Any Multi-Drug Resistant Organisms: None Reported Past Surgical History: Appendectomy, Orthopedic Surgery, Tonsillectomy Additional Past Surgical History / Comment(s): LEFT KNEE ARTHROSCOPY, LEFT KIDNEY REMOVED, 6-8-15 total rt knee l elbow orif Past Anesthesia/Blood Transfusion Reactions: No Reported Reaction Past Psychological History: Depression Smoking Status: Former smoker Past Alcohol Use History: None Reported Past Drug Use History: None Reported - Past Family History Mother Family Medical History: No Reported History Father Family Medical History: No Reported History Additional Family Medical History / Comment(s): Father was healthy. General Exam - General Exam Comments Initial Comments: General: The patient is awake and alert, in no distress, and does not appear acutely ill. Eye: Pupils are equal, round and reactive to light. Extra-ocular movements are intact. No nystagmus. There is normal conjunctiva bilaterally. No signs of icterus. Ears, nose, mouth and throat: There are moist mucous membranes and no oral lesions. Neck: The neck is supple, there is no tenderness or JVD. Cardiovascular: There is a regular rate and rhythm. No murmur, rub or gallop is appreciated. Respiratory: Lungs are clear to auscultation, respirations are non-labored, breath sounds are equal. No wheezes, stridor, rales, or rhonchi. Musculoskeletal: Long-arm Splint is applied to the left with Alberto wrap around the left arm. Sensation intact. Strength 5/5. Pulses equal bilaterally 2+. Neurological: A&O x 3. CN II-XII intact, There are no obvious motor or sensory deficits. Coordination appears grossly intact. Speech is normal. Skin: Skin is warm and dry and no rashes or lesions are noted. Psychiatric: Cooperative, appropriate mood & affect, normal judgment. Limitations: no limitations Course Vital Signs 02/21/18 02/21/18 08:43 11:28 Temperature 98.2 F Pulse Rate 93 90 Respiratory 16 18 Rate Blood Pressure 161/74 144/67 O2 Sat by Pulse 98 97 Oximetry Medical Decision Making - Medical Decision Making Patient 82-year-old female presenting to the emergency room today with a chief complaint of elevated function. Patient's BUN/creatinine elevated here in emergency room. Patient has been on vancomycin for recent infection post surgical site to the left elbow. Patient will be admitted for acute kidney injury. Patient's currently resting comfortably. - Lab Data Result diagrams: 02/22/18 08:54 02/21/18 09:35 Lab Results 02/21/18 02/21/18 02/21/18 Range/Units 09:35 09:35 09:35 WBC 9.6 (3.8-10.6) k/uL RBC 3.33 L (3.80-5.40) m/uL Hgb 8.7 L (11.4-16.0) gm/dL Hct 28.6 L (34.0-46.0) % MCV 85.9 (80.0-100.0) fL MCH 26.2 (25.0-35.0) pg MCHC 30.5 L (31.0-37.0) g/dL RDW 15.9 H (11.5-15.5) % Plt Count 317 (150-450) k/uL Neutrophils % 73 % Lymphocytes % 11 % Monocytes % 8 % Eosinophils % 5 % Basophils % 1 % Neutrophils # 7.0 (1.3-7.7) k/uL Lymphocytes # 1.1 (1.0-4.8) k/uL Monocytes # 0.8 (0-1.0) k/uL Eosinophils # 0.4 (0-0.7) k/uL Basophils # 0.1 (0-0.2) k/uL Hypochromasia Marked PT 10.6 (9.0-12.0) sec INR 1.1 (<1.2) APTT 30.5 H (22.0-30.0) sec Sodium 140 (137-145) mmol/L Potassium 4.2 (3.5-5.1) mmol/L Chloride 106 (98-107) mmol/L Carbon Dioxide 24 (22-30) mmol/L Anion Gap 10 mmol/L BUN 29 H (7-17) mg/dL Creatinine 3.85 H (0.52-1.04) mg/dL Est GFR (CKD-EPI)AfAm 12 (>60 ml/min/1.73 sqM) Est GFR (CKD-EPI)NonAf 10 (>60 ml/min/1.73 sqM) Glucose 90 (74-99) mg/dL Calcium 8.3 L (8.4-10.2) mg/dL Total Bilirubin 0.2 (0.2-1.3) mg/dL AST 14 (14-36) U/L ALT 22 (9-52) U/L Alkaline Phosphatase 150 H (38-126) U/L Creatine Kinase (30-135) U/L Total Protein 5.9 L (6.3-8.2) g/dL Albumin 2.6 L (3.5-5.0) g/dL Urine Color Urine Appearance (Clear) Urine pH (5.0-8.0) Ur Specific [place] (1.001-1.035) Urine Protein (Negative) Urine Glucose (UA) (Negative) Urine Ketones (Negative) Urine Blood (Negative) Urine Nitrite (Negative) Urine Bilirubin (Negative) Urine Urobilinogen (<2.0) mg/dL Ur Leukocyte Esterase (Negative) Urine RBC (0-5) /hpf Urine WBC (0-5) /hpf Ur Squamous Epith Cells (0-4) /hpf Amorphous Sediment (None) /hpf Urine Bacteria (None) /hpf Urine Mucus (None) /hpf 09/11/18 09/11/18 Range/Units 09:35 09:35 WBC (3.8-10.6) k/uL RBC (3.80-5.40) m/uL Hgb (11.4-16.0) gm/dL Hct (34.0-46.0) % MCV (80.0-100.0) fL MCH (25.0-35.0) pg MCHC (31.0-37.0) g/dL RDW (11.5-15.5) % Plt Count (150-450) k/uL Neutrophils % % Lymphocytes % % Monocytes % % Eosinophils % % Basophils % % Neutrophils # (1.3-7.7) k/uL Lymphocytes # (1.0-4.8) k/uL Monocytes # (0-1.0) k/uL Eosinophils # (0-0.7) k/uL Basophils # (0-0.2) k/uL Hypochromasia PT (9.0-12.0) sec INR (<1.2) APTT (22.0-30.0) sec Sodium (137-145) mmol/L Potassium (3.5-5.1) mmol/L Chloride (98-107) mmol/L Carbon Dioxide (22-30) mmol/L Anion Gap mmol/L BUN (7-17) mg/dL Creatinine (0.52-1.04) mg/dL Est GFR (CKD-EPI)AfAm (>60 ml/min/1.73 sqM) Est GFR (CKD-EPI)NonAf (>60 ml/min/1.73 sqM) Glucose (74-99) mg/dL Calcium (8.4-10.2) mg/dL Total Bilirubin (0.2-1.3) mg/dL AST (14-36) U/L ALT (9-52) U/L Alkaline Phosphatase (38-126) U/L Creatine Kinase 24 L (30-135) U/L Total Protein (6.3-8.2) g/dL Albumin (3.5-5.0) g/dL Urine Color Light Yellow Urine Appearance Cloudy H (Clear) Urine pH 5.5 (5.0-8.0) Ur Specific [place] 1.009 (1.001-1.035) Urine Protein Trace H (Negative) Urine Glucose (UA) Negative (Negative) Urine Ketones Negative (Negative) Urine Blood Negative (Negative) Urine Nitrite Negative (Negative) Urine Bilirubin Negative (Negative) Urine Urobilinogen <2.0 (<2.0) mg/dL Ur Leukocyte Esterase Moderate H (Negative) Urine RBC 1 (0-5) /hpf Urine WBC 28 H (0-5) /hpf Ur Squamous Epith Cells 1 (0-4) /hpf Amorphous Sediment Rare H (None) /hpf Urine Bacteria Occasional H (None) /hpf Urine Mucus Rare H (None) /hpf Disposition Clinical Impression: DIANNE (acute kidney injury) Disposition: ADMITTED IP TO THIS HOSP Condition: Stable
[2018-02-21 09:50] LABS: Basophils # (A) 0.1 k/uL (0-0.2); Basophils % (A) 1 %; Eosinophils # (A) 0.4 k/uL (0-0.7); Eosinophils % (A) 5 %; HCT 28.6 % (34.0-46.0); HGB 8.7 gm/dL (11.4-16.0); Hypochromasia Marked; Lymphocytes # (A) 1.1 k/uL (1.0-4.8); Lymphocytes % (A) 11 %; MCH 26.2 pg (25.0-35.0); MCHC 30.5 g/dL (31.0-37.0); MCV 85.9 fL (80.0-100.0); Mean Platelet Volume 6.7; Monocytes # (A) 0.8 k/uL (0-1.0); Monocytes % (A) 8 %; Neutrophils % (A) 73 %; Platelet Count 317 k/uL (150-450); RBC 3.33 m/uL (3.80-5.40); RDW 15.9 % (11.5-15.5); WBC 9.6 k/uL (3.8-10.6)
[2018-02-21 09:53] LABS: Amorphous Sediment,Urine Rare /hpf; Appearance,Urine Cloudy (Clear); Bacteria,Urine Occasional /hpf; Bilirubin,Urine Negative (Negative); Blood,Urine Negative (Negative); Color,Urine Light Yellow; Glucose,Urine (UA) Negative (Negative); Ketones,Urine Negative (Negative); Leukocyte Esterase,Urine Moderate (Negative); Mucus,Urine Rare /hpf; Nitrite,Urine Negative (Negative); PH, Urine 5.5 (5.0-8.0); Protein,Urine Trace (Negative); RBC,Urine 1 /hpf (0-5); Specific Gravity,Urine 1.009 (1.001-1.035); Squamous Epithelial Cell,Urine 1 /hpf (0-4); Urobilinogen,Urine <2.0 mg/dL (<2.0)
[2018-02-21 10:03] LABS: INR 1.1 (<1.2); Partial Thromboplastin Time 30.5 sec (22.0-30.0); Prothrombin Time 10.6 sec (9.0-12.0)
[2018-02-21 10:07] LABS: Albumin 2.6 g/dL (3.5-5.0); Calcium 8.3 mg/dL (8.4-10.2); Potassium 4.2 mmol/L (3.5-5.1); Total Bilirubin 0.2 mg/dL (0.2-1.3); Total Protein 5.9 g/dL (6.3-8.2)
[2018-02-21] MEDS ORDERED: NALOXONE 0.4 MG/ML 1 ML VIAL IV PRN (11:01)
[2018-02-21] MEDS ORDERED: ONDANSETRON 4 MG/2 ML VIAL IVP PRN (11:01)
[2018-02-21] MEDS ORDERED: traMADol 50 MG TAB PO PRN ×3 (11:12→12:58)
[2018-02-21] MEDS ORDERED: traMADol 50 MG TAB PO STA (11:12)
[2018-02-21] MEDS ORDERED: METHYL SALICYLATE/MENTHOL CREAM 5 OZ TOPICAL PRN (12:58)
[2018-02-21] MEDS ORDERED: BISACODYL 10 MG SUPP RECTAL PRN (12:58)
[2018-02-21] MEDS ORDERED: NA PHOS,M-B/NA PHOS,DI-BA 133 ML ENEMA RECTAL PRN (12:58)
[2018-02-21] MEDS ORDERED: ALBUTEROL NEBULIZED 2.5 MG/3 ML INHALATION PRN (12:58)
[2018-02-21] MEDS ORDERED: cefTRIAXone IN SWFI 2,000 MG/20 ML SYRINGE IVP SCH (14:00)
[2018-02-21] MEDS: HYDROcodone/APAP 5-325MG 1 EACH TAB PO PRN (15:14)
[2018-02-21] MEDS ORDERED: CALCIUM CARBONATE 500 MG CHEWABLE PO PRN (16:56)
[2018-02-21] MEDS ORDERED: ALPRAZolam 0.25 MG TAB PO PRN (16:56)
[2018-02-21] MEDS ORDERED: LACTULOSE 20 GM/30 ML CUP PO PRN (16:56)
--- NOTE | 2018-02-21 17:27 | HP ---
HISTORY AND PHYSICAL DATE OF ADMISSION: 02/21/2018 PRESENTING COMPLAINT: Acute renal failure. HISTORY OF PRESENTING COMPLAINT: This is an 82-year-old patient who normally follows Dr. Shrestha. Chronic stable medical conditions include GERD, hypertension, osteoarthritis, depression, dementia. The patient is currently at the [facility]. The patient has recurrent dislocation of the left elbow and patient had has an external stabilizer placed. Patient is incontinent of urine and was discharged over a month ago and at that time was diagnosed with acute UTI with from cystitis with enterococcus. The patient now sent in with acute renal failure, BUN 29 and creatinine of 3.85. The patient has been on ceftriaxone and vancomycin. The patient does feel tired, run down, weak, has a decreased appetite. Denies any fever and chills. No obvious urine symptoms, just run down. REVIEW OF SYSTEMS: CONSTITUTIONAL: Tired. HEENT: None. RESPIRATORY: None. CARDIOVASCULAR: None. GASTROINTESTINAL: Occasional heartburn. GENITOURINARY: Urine incontinence. DERMATOLOGICAL: None. HEMATOLOGICAL: None. LYMPHATICS: None. PSYCHIATRY: Forgetful. NEUROLOGICAL: None. MUSCULOSKELETAL: Left arm is supported with external fixator. PAST MEDICAL HISTORY: Dementia, GERD, hypertension, osteoarthritis, kidney stone, urinary retention with incontinence, being followed by Dr. Jorgensen. PAST SURGICAL HISTORY: Appendectomy, tonsillectomy, left knee arthroscopy, left nephrectomy, right total knee surgery, external fixator left elbow for recurrent dislocation. PSYCH HISTORY: Depression. SOCIAL HISTORY: A resident of [facility], . Quit smoking more than 20 years ago. Alcohol: None. FAMILY HISTORY: Reviewed, noncontributory to presentation. HOME MEDICATIONS: 1. Ultram 50 mg every 6 hours p.r.n. 2. Ceftriaxone 2 g IV daily. 3. Norvasc 5 mg q.h.s. 4. PreserVision 1 capsule p.o. b.i.d. 5. Vancomycin 1500 mg IV piggyback daily. 6. Senokot-S 2 tablets p.o. daily. 7. Zantac 150 mg p.o. b.i.d. 8. Adult Fleet 133 mL rectally daily. 9. Biofreeze 1 application topical every 6 hours p.r.n. 10.Melatonin 3 mg q.h.s. 11.Milk of magnesia 2400 mg p.o. daily p.r.n. 12.Ensure Plus 1 can p.o. t.i.d. with meals. 13.[place] 5 one tablet p.o. q.3h p.r.n. 14.Iron 325 p.o. daily. 15.Dulcolax 10 mg daily p.r.n. 16.Ventolin 2.5 every 6 hours p.r.n. ALLERGIES: To NORCO, PENICILLIN, SULFUR. EXAMINATION: Temperature 98.2, pulse 93, respirations 16, blood pressure 161/74, pulse ox 98% on room air. GENERAL APPEARANCE: Well-built, BMI 34.1. Lying in bed, awake. EYES: Pupils equal. Conjunctivae normal. HEENT: External nose and ears normal. Oral cavity dry. NECK: JVD not raised. Mass not palpable. RESPIRATORY: Effort normal. Lungs are clear. CARDIOVASCULAR: First and second heart sounds normal. Mild edema. ABDOMEN: Soft, nontender. Liver and spleen not palpable. LYMPHATIC: No lymph node palpable in neck or axillae. PSYCHIATRY: Patient is able answer simple questions. NEUROLOGICAL: Pupils equal. No facial asymmetry. MUSCULOSKELETAL: Left upper extremity with external fixator in place. INVESTIGATIONS: White count 9.6, hemoglobin 8.7. Potassium 4.2, BUN 29, creatinine 3.85, creatinine 0.7 on 01/15/2018. Albumin 2.6. UA positive for leukocyte esterase, WBC. ASSESSMENT: 1. Acute renal failure probably secondary to Vancomycin, likely acute tubular necrosis, recent urinary tract infection with cystitis. Currently patient is afebrile with normal white count. I doubt if there is need to further antibiotics. Will let Infectious Disease decide that. 2. 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 3. 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 4. Gastroesophageal reflux disease. 5. Essential hypertension. 6. Primary osteoarthritis in multiple joints. 7. Depression, not otherwise specified. 8. Chronic urinary retention with an overflow being followed by Dr. Jorgensen. 9. Obesity; BMI more than 30. PLAN: Patient's vancomycin will be discontinued. Will hydrate the patient with normal saline, follow electrolytes closely. ID and Nephrology were consulted. Keep a strict eye on I's and O's. Care was discussed with the patient. MMODL / IJN: [id number] /
[2018-02-21] MEDS ORDERED: NON-FORMULARY DRUG (Lactose-Reduced Food [Ensure Plus] 1 CAN) PO SCH (17:30)
[2018-02-21] MEDS: FAMOTIDINE 20 MG TAB PO SCH (17:34)
[2018-02-21] MEDS: FERROUS SULFATE 325 MG TAB PO SCH (17:34)
[2018-02-21] MEDS: VIT A,C & E-LUTEIN-MINERALS 1 EACH TAB PO SCH (17:34)
[2018-02-21] MEDS: MELATONIN 3 MG TABLET PO SCH (20:44)
[2018-02-21] MEDS: amLODIPine 5 MG TAB PO SCH (20:44)
--- NOTE | 2018-02-22 07:04 | CONS ---
CONSULTATION DATE OF SERVICE: 02/21/2018 REASON FOR CONSULTATION: Urinary tract infection. HISTORY OF PRESENT ILLNESS: The patient is an 82-year-old female with a past medical history significant for recurrent dislocation of the left elbow for which the patient previously has been treated at this facility with external stabilizer placed. This subsequently has been discontinued at the [facility] and patient currently has been undergoing rehab at [facility]. The patient was noticed to have acute renal failure with elevated BUN and creatinine of 3.85. The patient apparently was getting IV Rocephin and vancomycin for a possible urinary tract infection at that facility. The patient is not very clear to me exactly who placed the PICC line for her or if it was for UTI or a different infection. The patient did have an indwelling Salgado catheter that she said was placed in as she was unable to urinate, however, was unable to tell me exactly if it has been changed or not. The patient overall is not a very good historian so some of the information has been extracted from the review of the chart. REVIEW OF SYSTEMS: Could not be reliably obtained with the positive points have been mentioned in HPI. PAST MEDICAL HISTORY: Significant for dementia, gastroesophageal reflux disease, hypertension, osteoarthritis, kidney stones, urinary retention, UTI, dislocation of the left elbow. PAST SURGICAL HISTORY: Appendectomy, left knee arthroscopy, left kidney removal, left elbow ORIF. SOCIAL HISTORY: Remote history of smoking. No drinking or drug use. FAMILY HISTORY: No pertinent findings noticed. ALLERGIES: Allergies to PENICILLIN, SULFA and HYDROCODONE. MEDICATIONS: Medications include the patient is currently on Tylenol, Inez, Ventolin, Xanax, Norvasc, Dulcolax, Tums, Pepcid, iron sulfate, melatonin, Narcan, Zofran, sodium , Ultram, Rocephin. PHYSICAL EXAMINATION: On examination, her blood pressure is 143/69 with a pulse of 101, temperature 97.6. She is 99% on room air. General description is an elderly female lying in bed in no distress. No tachypnea or accessory muscle of respiration use. HEENT examination shows pallor, no scleral icterus. Oral mucous membrane is dry. No pharyngeal erythema or thrush. NECK: Trachea central. No thyromegaly. LUNGS: Unlabored breathing, clear to auscultation anteriorly. No wheeze or crackle. HEART: S1, S2. Regular rate and rhythm. No added sounds. ABDOMEN: Soft, no tenderness. No guarding or rigidity. EXTREMITIES: No edema of feet. SKIN EXAMINATION: No rash or mass palpable. NEUROLOGICAL: Patient is awake, alert, oriented x2. Mood and affect normal. LABS: Hemoglobin 8.7, white count 9.6. BUN of 29, and creatinine 3.85. Urine with moderate leukocyte esterases, 28 WBCs, cultures currently pending. 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 However, the patient is not a very good historian. The patient currently with no fever or elevated white count. She did have a positive UA, this could be more likely Salgado colonization rather than a true urinary tract infection. PLAN: 1. Change Salgado catheter. 2. Obtain a urine culture from new Salgado. 3. Can hold the antibiotic therapy at this point as clinically the patient for underlying urinary infection. 4. We will follow up on clinical condition and culture to further adjust medication if needed. Thank you for this consultation. Will follow this patient along with you. MMODL / IJN: [id number] /
[2018-02-22] MEDS: VIT A,C & E-LUTEIN-MINERALS 1 EACH TAB PO SCH ×2 (08:49→16:35)
[2018-02-22] MEDS: SENNOSIDES-DOCUSATE SODIUM 1 EACH TAB PO SCH (08:49)
[2018-02-22] MEDS: FAMOTIDINE 20 MG TAB PO SCH ×2 (08:49→16:35)
[2018-02-22 09:15] LABS: Basophils % (A) 0 %; Eosinophils # (A) 0.5 k/uL (0-0.7); Eosinophils % (A) 5 %; HCT 28.6 % (34.0-46.0); HGB 8.6 gm/dL (11.4-16.0); Hypochromasia Marked; Lymphocytes # (A) 1.1 k/uL (1.0-4.8); Lymphocytes % (A) 12 %; MCH 26.1 pg (25.0-35.0); MCHC 29.9 g/dL (31.0-37.0); MCV 87.4 fL (80.0-100.0); Mean Platelet Volume 6.8; Monocytes # (A) 0.6 k/uL (0-1.0); Monocytes % (A) 6 %; Neutrophils # (A) 7.1 k/uL (1.3-7.7); Neutrophils % (A) 75 %; Platelet Count 295 k/uL (150-450); RBC 3.28 m/uL (3.80-5.40); RDW 15.8 % (11.5-15.5); WBC 9.5 k/uL (3.8-10.6)
[2018-02-22 09:52] LABS: Albumin 2.6 g/dL (3.5-5.0); Calcium 8.2 mg/dL (8.4-10.2); Potassium 4.3 mmol/L (3.5-5.1); Total Bilirubin 0.2 mg/dL (0.2-1.3); Total Protein 5.9 g/dL (6.3-8.2)
[2018-02-22] MEDS: HYDROcodone/APAP 5-325MG 1 EACH TAB PO PRN ×2 (11:48→16:32)
--- NOTE | 2018-02-22 14:52 | US ---
EXAMINATION TYPE: US kidneys/renal and bladder DATE OF EXAM: 02/22/2018 COMPARISON: NONE CLINICAL HISTORY: RF. Acute renal injury per nurse. Patient states having left kidney removed about 4 years ago Exam was performed portable. EXAM MEASUREMENTS: Right Kidney: 11.0 x 6.5 x 6.2 cm Right Kidney: Appears echogenic. Prominent pyramids. Mild hydronephrosis seen. Left Kidney: Surgically absent Bladder: Bearden seen Bilateral Jets not seen due to bearden No nephrolithiasis is seen. No masses are identified. The urinary bladder is anechoic. Bilateral ureteral jets are seen. IMPRESSION: 1. Mild right-sided hydronephrosis.
[2018-02-22] MEDS: FERROUS SULFATE 325 MG TAB PO SCH (16:34)
[2018-02-22] MEDS: SODIUM CHLORIDE 0.9% 1,000 ML IV SCH ×2 (16:36→21:48)
[2018-02-22 18:28] LABS: Iron Saturation 8.89 (12.00-45.00)
--- NOTE | 2018-02-22 19:40 | CONS ---
CONSULTATION REASON FOR CONSULT: Renal failure. HISTORY OF PRESENT ILLNESS: The patient is an 82-year-old female who was admitted to the hospital yesterday with worsening renal failure. The patient was receiving vancomycin as outpatient. There was suspicion for urinary tract infection. It appears that the patient has a PICC line too. The nurse reports that the vancomycin level as outpatient was about 30. However, I do not have that documented. The patient's serum creatinine was 3.85 on initial admission. We have a prior creatinine on 01/25/2018 of 0.6 mg/dL. The blood pressure is not low. Currently patient is receiving IV fluids. She has a Salgado catheter and has had improvement in urine output with initiation of fluids. Prior to admission I do not see any nonsteroidal anti-inflammatory agents on her med list. PAST MEDICAL HISTORY: Chronic dislocation of the left elbow, history of dementia, gastroesophageal reflux disease, hypertension, osteoarthritis, nephrolithiasis, history of urinary retention, history of UTI. PAST SURGICAL HISTORY: Appendectomy, left knee arthroscopy, left nephrectomy for kidney stones and malfunctioning kidney with atrophy of left kidney according to the patient, left elbow ORIF. SOCIAL HISTORY: The patient is a former smoker. No history of drug abuse or alcohol abuse. Currently resides at a skilled nursing. ALLERGIES: Include PENICILLIN, SULFA, AND HYDROCODONE. MEDICATIONS: Prior to admission included Ultram, Symbicort, Zofran, melatonin, iron, Pepcid, Tums, Dulcolax, vancomycin, Norvasc, tramadol. REVIEW OF SYSTEMS: As per HPI. Other systems negative. No history of diarrhea, fevers, chills, nausea, vomiting or abdominal pain. The patient does have dementia. EXAMINATION: Currently comfortable, awake. She is not in any acute distress. She is alert and oriented x3. Blood pressure is 140/71, heart rate 90 per minute. Patient is afebrile. Examination of the heart: S1, S2. Examination of the lungs: Bilateral breath sounds are heard. Abdomen is soft, nontender. Examination lower extremities shows no evidence of edema. 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 LABS: Sodium 139, potassium 4.3, BUN 29, serum creatinine 3.7, hemoglobin 8.6 g/dL. ASSESSMENT: 1. Acute kidney injury, possibly related to vancomycin toxicity, currently slightly improved. There is definitely a prerenal component as well. I will continue with the IV fluids. Continue with the Salgado catheter and repeat labs in a.m. There are no nephrotoxic agents on board. We will check an ultrasound of the kidneys as well. 2. Possible urinary tract infection as outpatient. 3. Recent open reduction and internal fixation left elbow with history of chronic and recurrent dislocation of the elbow. 4. Anemia, rule out iron deficiency. No active bleeding noted. PLANS: Continue with IV fluids and repeat labs in a.m. Avoid vancomycin. Avoid any other nephrotoxic agents. Check a phosphorus with labs tomorrow. Check iron studies. Thank you for this consultation. We will continue to follow the patient with you during her hospitalization. MMODL / IJN: [id number] /
[2018-02-22] MEDS: amLODIPine 5 MG TAB PO SCH (20:14)
[2018-02-22] MEDS: MELATONIN 3 MG TABLET PO SCH (20:14)
--- NOTE | 2018-02-22 22:16 | PN ---
PROGRESS NOTE DATE OF SERVICE: 02/22/2018. REASON FOR FOLLOWUP: Urinary tract infection. INTERVAL HISTORY: The patient is currently afebrile. Patient's Salgado catheter was changed last night. Repeat urine culture ordered but unfortunately not done. The patient denies any chest pain, shortness of breath or cough and no diarrhea. EXAMINATION: Blood pressure is 113/66 with a pulse of 87, temperature 98, she is 94% on room air. GENERAL DESCRIPTION: An elderly female lying in bed in no distress. RESPIRATORY SYSTEM: Unlabored breathing. Clear to auscultation anteriorly. HEART: S1, S2. Regular rate and rhythm. ABDOMEN: Soft, no tenderness. EXTREMITIES: No edema of the feet. LABS: Hemoglobin 8.6, white count 9.5 with a BUN of 29, creatinine 3.67. Initial urine culture currently pending. Repeat urinalysis and culture not done. DIAGNOSTIC IMPRESSION AND PLAN: Patient with a positive UA. The patient has been treated in the outpatient setting for a urinary tract infection with IV vancomycin and Rocephin. The patient is admitted with renal failure secondary to vancomycin. Vancomycin was put on hold. Repeat urine culture has been ordered. Will hold empiric antibiotic therapy at this point. Continue supportive care. MMODL / IJN: [id number] /
--- NOTE | 2018-02-22 23:36 | PN ---
PROGRESS NOTE DATE OF SERVICE: 02/22/2018 PRESENT COMPLAINT: Acute renal failure. INTERVAL HISTORY: [facility] with recurrent dislocation of the left elbow with external stabilizer, presented with acute renal failure probably from Vancomycin. Creatinine status has turned around. Otherwise, patient tolerating a diet, comfortable. Antibiotics have been held. REVIEW OF SYSTEMS: Done for constitutional, cardiovascular, GI, pulmonary, musculoskeletal; relevant findings as above. CURRENT MEDICATIONS: Reviewed. Antibiotics have been held. IV fluids 75 mL an hour. EXAMINATION: Temperature 98.2, pulse 86, respirations 16, blood pressure 123/69, pulse ox 94% on room air room air. GENERAL APPEARANCE: Lying in bed, awake. EYES: Pupils equal. Conjunctivae normal. HEENT: External nose and ears normal. Oral cavity dry. NECK: JVD not raised. Mass not palpable. RESPIRATORY: Effort normal. Lungs are clear. CARDIOVASCULAR: First and second sounds normal. Edema minimal. ABDOMEN: Soft, nontender. Liver and spleen not palpable. PSYCHIATRY: Patient able to answer simple questions. EXTREMITIES: Left upper extremity with external fixator in place. INVESTIGATIONS: White count 9.5, hemoglobin 8.6. BUN 29, creatinine 3.67. ASSESSMENT: 1. Acute renal failure probably secondary to vancomycin, likely acute tubular necrosis. 2. Recent urinary tract infection with cystitis. The patient is growing enterococcus. Currently, antibiotics have been held. Follow with Infectious Disease. 3. 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 4. 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 5. Gastroesophageal reflux disease. 6. Essential hypertension. 7. Primary osteoarthritis in multiple joints. 8. Depression, not otherwise specified. 9. Chronic urinary retention with overflow, being followed by Dr. Jorgensen. 10.Obesity; BMI of more than 30. PLAN: Care was discussed with the patient. Continue to hydrate the patient. Follow. MMODL / IJN: [id number] /
[2018-02-23] MEDS: SENNOSIDES-DOCUSATE SODIUM 1 EACH TAB PO SCH (08:35)
[2018-02-23] MEDS: VIT A,C & E-LUTEIN-MINERALS 1 EACH TAB PO SCH ×2 (08:35→17:17)
[2018-02-23] MEDS: FAMOTIDINE 20 MG TAB PO SCH (08:35)
[2018-02-23 09:40] LABS: Calcium 8.3 mg/dL (8.4-10.2); Potassium 4.3 mmol/L (3.5-5.1)
[2018-02-23 15:38] VITALS: BMI 34.1
[2018-02-23] MEDS: FERROUS SULFATE 325 MG TAB PO SCH (17:17)
[2018-02-23] MEDS: SODIUM CHLORIDE 0.9% 1,000 ML IV SCH ×2 (17:18→22:55)
--- NOTE | 2018-02-23 18:23 | PN ---
PROGRESS NOTE Patient is seen for followup for acute kidney injury. She is currently maintained on IV fluids. Renal function is somewhat better, although not significantly improved. Creatinine is down from 3.8 to 3.53. Patient has an indwelling Salgado catheter; 24-hour urine output was 1900. No significant complaints today. Vancomycin level was 61.5 on 02/20/2018. On examination this morning, blood pressure 151/76, heart rate 91 per minute. Patient is afebrile. EXAMINATION OF THE HEART: S1, S2. EXAMINATION OF LUNGS: Bilateral breath sounds are heard. ABDOMEN: Soft, non-tender. Examination of lower extremities shows no significant edema. Left arm is currently in sling. Labs show sodium 139, potassium 4.3, chloride 108, BUN 27, serum creatinine 3.53, hemoglobin 8.6 g/dL. ASSESSMENT: 1. Acute kidney injury secondary to vancomycin toxicity. Vancomycin level was 61.5 on 02/20/2018. Currently patient has an indwelling Salgado catheter, which we will continue. She is maintained on IV fluids, which will be continued as well. We need to continue to avoid any nephrotoxic agents. 2. Possible urinary tract infection prior to admission, for which patient was maintained on vancomycin and Rocephin. 3. 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 4. Gastroesophageal reflux disease. PLAN: Continue to avoid nephrotoxic agents. Continue IV fluids. Repeat labs in a.m. Encourage increased oral intake. Ultrasound does show mild right hydronephrosis. Patient does follow with Urology as outpatient. If her renal function continues to improve, we do not need to consult Urology. MMODL / IJN: [id number] /
--- NOTE | 2018-02-23 19:53 | PN ---
PROGRESS NOTE DATE OF SERVICE: 02/23/2018 PRESENTING COMPLAINT: Acute renal failure. INTERVAL HISTORY: This patient is a resident of [facility] with recurrent dislocation of the left elbow with external stabilizer present and acute renal failure from vancomycin. The patient is tolerating a diet, getting IV fluids. Recently was treated for UTI. REVIEW OF SYSTEMS: Done for constitutional, cardiovascular, GI, pulmonary, musculoskeletal; relevant findings as above. CURRENT MEDICATIONS: Reviewed. IV fluids 75 mL an hour. EXAMINATION: Temperature 98.4, pulse 59, respirations 16, blood pressure 149/65, pulse ox 99% on room air. GENERAL APPEARANCE: Lying in bed, awake. EYES: Pupils are equal. Conjunctivae normal. HEENT: External appearance of nose and ears normal. Oral cavity normal. NECK: JVD not raised. Mass not palpable. Respiratory effort normal. Lungs are clear. CARDIOVASCULAR: First and seconds sounds normal, edema minimal. ABDOMEN: Soft, nontender. Liver and spleen not palpable. PSYCHIATRY: Awake, answering simple questions. EXTREMITIES: Left upper extremity with external fixator in place. INVESTIGATIONS: Potassium 4.3 BUN 27, creatinine 3.53, bicarb 21. ASSESSMENT: 1. Acute renal failure probably secondary to vancomycin, likely ATN, slow to respond. 2. Recent UTI with cystitis. Repeat cultures have been negative. Follow up with ID. 3. 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 4. Mild cognitive impairment from late onset Alzheimer's dementia. 5. Gastroesophageal reflux disease. 6. Essential hypertension. 7. Primary osteoarthritis in multiple joints. 8. Depression, not otherwise specified. 9. Chronic urinary retention with overflow being followed by Dr. Jorgensen. 10.Obesity; body mass index of more than 30. PLAN: Continue current medication and treatment plan. Continue with IV fluids. The patient also being followed by Nephrology. We will add sodium bicarb tablets. MMODL / IJN: [id number] /
[2018-02-23] MEDS: SODIUM BICARBONATE TAB 650 MG TAB PO SCH ×2 (22:40→22:46)
[2018-02-23] MEDS: MELATONIN 3 MG TABLET PO SCH (22:41)
[2018-02-23] MEDS: amLODIPine 5 MG TAB PO SCH (22:41)
--- NOTE | 2018-02-23 23:23 | PN ---
PROGRESS NOTE DATE OF SERVICE: 02/23/2018 REASON FOR FOLLOWUP: Urinary tract infection. INTERVAL HISTORY: The patient is currently afebrile. She is breathing comfortably. Denies having any chest pain, shortness of breath or cough. No abdominal pain and no diarrhea. EXAMINATION: Blood pressure is 149/65, pulse of 89, temperature of 98.4. She is 99% on room air. General description is an elderly female, lying in bed in no distress. RESPIRATORY SYSTEM: Unlabored breathing. Clear to auscultation anteriorly. HEART: S1, S2. Regular rate and rhythm. ABDOMEN: Soft. No tenderness. LABS: BUN of 27, creatinine of 3.53. Urine culture has been negative. DIAGNOSTIC IMPRESSION AND PLAN: Patient admitted to the hospital with adrenal insufficiency. The patient has been treated in outpatient setting for a urinary tract infection with IV vancomycin. Culture has been negative so far. Patient being monitored closely off antibiotic therapy and will continue to monitor closely. Continue supportive care. MMODL / IJN: [id number] /
[2018-02-24] MEDS: HYDROcodone/APAP 5-325MG 1 EACH TAB PO PRN ×2 (00:41→12:23)
[2018-02-24 08:03] LABS: Calcium 8.1 mg/dL (8.4-10.2)
[2018-02-24] MEDS: FERROUS SULFATE 325 MG TAB PO SCH (08:06)
[2018-02-24] MEDS: VIT A,C & E-LUTEIN-MINERALS 1 EACH TAB PO SCH ×2 (08:06→17:29)
[2018-02-24] MEDS: SODIUM BICARBONATE TAB 650 MG TAB PO SCH ×3 (08:06→21:46)
[2018-02-24] MEDS: SENNOSIDES-DOCUSATE SODIUM 1 EACH TAB PO SCH (08:06)
[2018-02-24] MEDS: FAMOTIDINE 20 MG TAB PO SCH (08:06)
[2018-02-24] MEDS ORDERED: traMADol 50 MG TAB PO PRN (10:14)
--- NOTE | 2018-02-24 15:09 | PN ---
PROGRESS NOTE The patient is seen for followup for acute kidney injury secondary to vancomycin toxicity. Her vancomycin level was as high as 61. Currently, patient is nonoliguric. She has an indwelling Salgado catheter and has had good urine output. Creatinine has not worsened for the last 2 days. It did improve slightly on initial admission from 3.8- 3.5 mg/dL. Baseline creatinine was noted to be 0.6 on 01/25/2018. On examination today, blood pressure was 148/75, heart rate 89 per minute. Patient is afebrile. Examination of the heart: S1, S2. Examination of the lungs: Bilateral breath sounds are heard. Abdomen is soft, nontender. Exam of lower extremities shows trace edema bilaterally. LIFE GUARD exam is grossly intact. Patient has a brace in the left upper extremity. LABS: Show sodium 138, potassium 4.0, chloride 107, BUN 25, serum creatinine 3.54. Hemoglobin was 8.6 yesterday. Iron saturation 98.89%. ASSESSMENT: 1. Acute kidney injury secondary to vancomycin toxicity with vancomycin level as high as 61. Currently off of vancomycin. The patient has a Salgado catheter. She has good urine output. Renal function is at least not worsening. It is about the same for the last 2 days. Previous creatinine was 0.6 mg/dL. 2. Anemia with no active bleeding noted. Iron saturation was significantly low at 8.8%. Patient will be started on IV iron. 3. Mild hyperphosphatemia associated with renal failure. Continue to monitor for now. 4. History of recurrent dislocation of the left elbow, status post external fixator. 5. Possible urinary tract infection prior to admission for which patient was maintained on Vanco and Rocephin. PLAN: Continue IV fluids. Repeat labs in a.m. MMODL / IJN: [id number] /
--- NOTE | 2018-02-24 16:30 | PN ---
PROGRESS NOTE DATE OF SERVICE: 02/24/2018. REASON FOR FOLLOWUP: Possible UTI. INTERVAL HISTORY: The patient is currently afebrile. She is feeling better. Breathing comfortably. Denies having any chest pain or shortness of breath or cough. No abdominal pain. No diarrhea. EXAMINATION: Blood pressure 126/72 with a pulse of 86, temperature is 97.3. She is 97% on room air. General description is an elderly female lying in bed in no distress. RESPIRATORY SYSTEM: Unlabored breathing. Clear to auscultation anteriorly. HEART: S1, S2. Regular rate and rhythm. ABDOMEN: Soft, no tenderness. LABS: BUN of 25, creatinine 3.54. Urine has been negative. DIAGNOSTIC IMPRESSION AND PLAN: Patient admitted to the hospital with vancomycin toxicity being used in outpatient setting for urinary tract infection. Did have positive UA however the culture has been negative. 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 Patient can be monitored closely off antibiotic. Continue supportive care. MMODL / IJN: [id number] /
--- NOTE | 2018-02-24 17:15 | PN ---
PROGRESS NOTE DATE OF SERVICE: 02/24/2018 PRESENTING COMPLAINT: Renal failure. INTERVAL HISTORY: [facility] with recurrent dislocation of the left elbow with external stabilizer, presented with acute renal failure from vancomycin. The patient has been getting IV fluids. Creatinine has not really moved much. Recently was treated for a UTI. No further indication for antibiotics. Tolerating a diet. Lying in bed. REVIEW OF SYSTEMS: Done for constitutional, cardiovascular, GI, pulmonary, musculoskeletal; relevant findings as above. CURRENT MEDICATIONS: Reviewed. IV fluids at 75 mL an hour. EXAMINATION: Temperature 97, pulse 93, respirations 16, blood pressure 143/65, pulse ox 95% on room air. GENERAL: Lying in bed, awake. EYES: Pupils equal. Conjunctivae normal. HEENT: External nose and ears normal. Oral cavity normal. Neck: JVD not raised. Mass not palpable. RESPIRATORY: Effort normal. Lungs are clear. CARDIOVASCULAR: First and second sounds normal. Minimal edema. ABDOMEN: Soft, nontender. Liver and spleen not palpable. PSYCHIATRY: Awake, answering questions. EXTREMITIES: Left upper extremity with external fixator in place. INVESTIGATIONS: Potassium 4.0, BUN 25, creatinine 3.54. ASSESSMENT: 1. Acute renal failure probably secondary to vancomycin, likely acute tubular necrosis, slow to respond, being followed by Nephrology. 2. Metabolic acidosis from renal failure. 3. Recent urinary tract infection with cystitis. Repeat culture has been negative. No further need for antibiotics, being followed by Infectious Disease. 4. 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 5. Mild cognitive impairment from late onset Alzheimer-type dementia. 6. Gastroesophageal reflux disease. 7. Essential hypertension. 8. Primary osteoarthritis of multiple joints. 9. Depression, not otherwise specified. 10.Chronic urinary retention with overflow being followed by Dr. Jorgensen. 11.Obesity, BMI more than 30. PLAN: Continue current medication and treatment plan, including IV fluids. Follow with Nephrology. MMODL / IJN: [id number] /
[2018-02-24] MEDS: MELATONIN 3 MG TABLET PO SCH (20:19)
[2018-02-24] MEDS: amLODIPine 5 MG TAB PO SCH (20:19)
[2018-02-24] MEDS: SODIUM CHLORIDE 0.9% 1,000 ML IV SCH (21:43)
[2018-02-25 06:35] LABS: Calcium 8.2 mg/dL (8.4-10.2); Potassium 3.7 mmol/L (3.5-5.1)
[2018-02-25] MEDS: ACETAMINOPHEN TAB 325 MG TAB PO PRN (07:50)
[2018-02-25] MEDS: SODIUM BICARBONATE TAB 650 MG TAB PO SCH ×3 (07:51→19:53)
[2018-02-25] MEDS: VIT A,C & E-LUTEIN-MINERALS 1 EACH TAB PO SCH ×2 (07:51→16:03)
[2018-02-25] MEDS: SENNOSIDES-DOCUSATE SODIUM 1 EACH TAB PO SCH (07:51)
[2018-02-25] MEDS: FAMOTIDINE 20 MG TAB PO SCH (07:51)
[2018-02-25] MEDS: SODIUM CHLORIDE 0.9% 1,000 ML IV SCH (07:51)
--- NOTE | 2018-02-25 12:31 | P.PN ---
Subjective Progress Note Date: 02/25/18 Principal diagnosis: This is a 82-year-old female resting of shelter who is seen in consultation with of acute kidney injury from vancomycin. She had the dislocated left elbow and had an external stabilizer. She was diagnosed with acute urinary tract infection with enterococcus and was started on vancomycin. Currently she is complaining of loss of appetite but no other complaints. No shortness of breath nausea vomiting diarrhea abdominal pain no fever chills. She has a Salgado catheter. Her left arm is bandaged and in the splintslint Objective - Vital Signs Vital signs: Vital Signs Temp 98.3 F 02/25/18 07:00 Pulse 96 02/25/18 07:00 Resp 16 02/25/18 07:00 BP 146/79 02/25/18 07:00 Pulse Ox 99 02/25/18 07:00 Intake & Output 02/24/18 02/25/18 02/25/18 18:59 06:59 18:59 Intake Total 400 Output Total 1525 300 Balance -1125 -300 Intake: Oral 400 Output: Urine 1525 300 Other: Voiding Method Indwelling Catheter Indwelling Catheter # Voids 1 # Bowel Movements 0 On examination is awake alert seems to be oriented. HEENT exam no JVP lymphadenopathy thyromegaly neck is supple no facial asymmetry Lungs clear to auscultation good air entry bilaterally Heart sounds are unremarkable no murmur rub gallop Abdomen soft nontender Extremity exam was trace edema Neurologically awake alert oriented. - Labs CBC & Chem 7: 02/22/18 08:54 02/25/18 06:19 Labs: Abnormal Lab Results - Last 24 Hours (Table) 02/25/18 Range/Units 06:19 Carbon Dioxide 20 L (22-30) mmol/L BUN 23 H (7-17) mg/dL Creatinine 3.25 H (0.52-1.04) mg/dL Calcium 8.2 L (8.4-10.2) mg/dL Assessment and Plan Assessment: Impression 1. Acute kidney injury from vancomycin resolving, creatinine is down from a peak of 3.851 02/21/2018, creatinine was 3.54 yesterday to 3.25 2. Blood pressure controlled nearly to target at 140s. 3. Mild degree of non-gap metabolic acidosis bicarb is 20 and gap 11 4. Recent urine tract infection with enterococcus. On antibiotics. 5. 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 6. Chronic airway retention. Has a Salgado catheter. Recommendation. Maintain IV fluids for another 24 hours. We will discontinue IV fluids tomorrow , once she starts eating we'll watch after that.
[2018-02-25] MEDS ORDERED: QUEtiapine 25 MG TAB PO PRN (14:27)
[2018-02-25] MEDS: FERROUS SULFATE 325 MG TAB PO SCH (16:03)
--- NOTE | 2018-02-25 16:08 | P.PN ---
Subjective Patient is admitted from [facility] for acute renal failure which is believed to be secondary to vancomycin. Patient's creatinine improved minimally. Patient has advanced dementia patient is apparently using vancomycin for her ostomy mellitus and infectious disease. Not recommending continuation of antibiotics anymore. We'll repeat may basic metabolic profile tomorrow possibility of discharge on Tuesday to subacute rehabilitation if creatinine continues to improve over stable patient is urinating at this time. Objective - Vital Signs Vital signs: Vital Signs Temp 98.5 F 02/25/18 14:00 Pulse 96 02/25/18 14:00 Resp 18 02/25/18 14:00 BP 130/73 02/25/18 14:00 Pulse Ox 98 02/25/18 14:00 Intake & Output 02/24/18 02/25/18 02/25/18 18:59 06:59 18:59 Intake Total 400 Output Total 1525 300 Balance -1125 -300 Intake: Oral 400 Output: Urine 1525 300 Other: Voiding Method Indwelling Catheter Indwelling Catheter # Voids 1 # Bowel Movements 0 - Exam PHYSICAL EXAMINATION: GENERAL: The patient is alert and oriented x1 which is her baseline, not in any acute distress. Well developed, well nourished. HEENT: Pupils are round and equally reacting to light. EOMI. No scleral icterus. No conjunctival pallor. Normocephalic, atraumatic. No pharyngeal erythema. No thyromegaly. CARDIOVASCULAR: S1 and S2 present. No murmurs, rubs, or gallops. PULMONARY: Chest is clear to auscultation, no wheezing or crackles. ABDOMEN: Soft, nontender, nondistended, normoactive bowel sounds. No palpable organomegaly. MUSCULOSKELETAL: No joint swelling or deformity. EXTREMITIES: No cyanosis, clubbing, or pedal edema. NEUROLOGICAL: Gross neurological examination did not reveal any focal deficits. SKIN: No rashes. - Labs CBC & Chem 7: 02/22/18 08:54 02/25/18 06:19 Labs: Abnormal Lab Results - Last 24 Hours (Table) 02/25/18 Range/Units 06:19 Carbon Dioxide 20 L (22-30) mmol/L BUN 23 H (7-17) mg/dL Creatinine 3.25 H (0.52-1.04) mg/dL Calcium 8.2 L (8.4-10.2) mg/dL Assessment and Plan Plan: -Acute renal failure secondary to vancomycin and acute sugar necrosis expected to improve with IV fluids next and-metabolic acidosis from uremia from my acute renal failure -Recommend left elbow dislocation -Moderate to severe dementia dementia of Alzheimer's type -Gastroesophageal reflux disease -Essential hypertension -Depression -Recent ostomy mellitus infectious diseases not recommending any more antibiotics -Chronic urinary retention for which patient has a Salgado catheter being followed by Dr. Jaramillo as an outpatient -obesity
[2018-02-25] MEDS: MELATONIN 3 MG TABLET PO SCH (19:53)
[2018-02-25] MEDS: amLODIPine 5 MG TAB PO SCH (19:53)
--- NOTE | 2018-02-25 22:19 | PN ---
PROGRESS NOTE DATE OF SERVICE: 02/25/2018. REASON FOR FOLLOW UP: Urinary tract infection. INTERVAL HISTORY: The patient is afebrile. She has been breathing comfortably. Denies having any chest pain, shortness of breath, cough, no abdominal pain and no diarrhea. EXAMINATION: Blood pressure 130/73 with a pulse of 96, temperature 98.5. She is 98% on room air. General description is an elderly female up in the bed in no distress. Respiratory system: Unlabored breathing. Clear to auscultation anteriorly. Heart S1, S2. Regular rate and rhythm. Abdomen soft. No tenderness. LABS: BUN of 23, creatinine 3.25. Culture has been negative. DIAGNOSTIC IMPRESSION AND PLAN: Patient admitted to the hospital with renal failure, likely from vancomycin that was used in the outpatient setting at the assisted for UTI. He did have a positive. However, the culture has been negative. Patient currently monitored closely off antibiotic therapy. Continue supportive care. MMODL / IJN: [id number] /
[2018-02-26] MEDS: SODIUM CHLORIDE 0.9% 1,000 ML IV SCH ×2 (00:59→11:49)
[2018-02-26 05:52] LABS: Potassium 3.7 mmol/L (3.5-5.1)
[2018-02-26] MEDS: SODIUM BICARBONATE TAB 650 MG TAB PO SCH ×3 (08:14→20:27)
[2018-02-26] MEDS: SENNOSIDES-DOCUSATE SODIUM 1 EACH TAB PO SCH (08:14)
[2018-02-26] MEDS: FAMOTIDINE 20 MG TAB PO SCH (08:15)
[2018-02-26] MEDS: VIT A,C & E-LUTEIN-MINERALS 1 EACH TAB PO SCH ×2 (08:15→16:47)
--- NOTE | 2018-02-26 12:17 | P.PN ---
Subjective Progress Note Date: 02/26/18 Principal diagnosis: This is a 82-year-old female resting of senior care who is seen in consultation with of acute kidney injury from vancomycin. She had the dislocated left elbow and had an external stabilizer. She was diagnosed with acute urinary tract infection with enterococcus and was started on vancomycin. Currently she is complaining of loss of appetite but no other complaints. No shortness of breath nausea vomiting diarrhea abdominal pain no fever chills. She has a Salgado catheter. Her left arm is bandaged and in the splint. Remains stable. No new complaints. No fever chills. Objective - Vital Signs Vital signs: Vital Signs Temp 98.5 F 02/26/18 06:28 Pulse 107 H 02/26/18 06:28 Resp 16 02/26/18 06:28 BP 146/80 02/26/18 06:28 Pulse Ox 98 02/26/18 06:28 Intake & Output 02/25/18 02/26/18 02/26/18 18:59 06:59 18:59 Output Total 1000 900 Balance -1000 -900 Output: Urine 1000 900 Other: Voiding Method Indwelling Catheter Indwelling Catheter Indwelling Catheter On examination she is awake alert oriented comfortable HEENT exam no JVP neck supple no facial asymmetry Lungs clear to auscultation good air entry bilaterally Heart sounds are unremarkable for any murmur rub gallop Abdomen soft nontender no masses no ascites Extremity exam was no edema Left upper arm in bandages and splint. Neurologically awake alert oriented comfortable - Labs CBC & Chem 7: 02/22/18 08:54 02/26/18 05:30 Labs: Abnormal Lab Results - Last 24 Hours (Table) 02/26/18 Range/Units 05:30 Chloride 109 H (98-107) mmol/L BUN 21 H (7-17) mg/dL Creatinine 3.12 H (0.52-1.04) mg/dL Calcium 8.0 L (8.4-10.2) mg/dL Assessment and Plan Assessment: Impression 1. Acute kidney injury from vancomycin resolving, creatinine is down from a peak of 3.8, and to 3.12 this morning 2. Blood pressure controlled nearly to target at 140s. 3. Mild degree of non-gap metabolic acidosis bicarb is 22 and gap 9. Improved 4. Recent urine tract infection with enterococcus. On antibiotics. 5. 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 6. Chronic urine retention. Has a Salgado catheter. 7. Iron deficiency with iron saturation of 8% dated 02/22/2018. 8. Anemia hemoglobin is 8.6 Recommendation. Maintain IV fluids for another 24 hours, as she continues to have poor appetite. Watch bicarb as it's improving. We will give 1 dose of IV Ferrlecit 125 mg
[2018-02-26] MEDS ORDERED: SODIUM FERRIC GLUCONAT-SUCROSE 125 MG in SODIUM CHLORIDE 0.9% 100 ML IVPB ONE (13:00)
--- NOTE | 2018-02-26 13:32 | P.PN ---
Subjective Patient is admitted from [facility] for acute renal failure which is believed to be secondary to vancomycin. Patient's creatinine improved minimally. Patient has advanced dementia patient is apparently using vancomycin for her ostomy mellitus and infectious disease. Not recommending continuation of antibiotics anymore. We'll repeat may basic metabolic profile tomorrow possibility of discharge on Tuesday to subacute rehabilitation if creatinine continues to improve over stable patient is urinating at this time. 02/26/2018 Slow steady improvement in creatinine awaiting disposition to subacute rehabilitation tomorrow. Objective - Vital Signs Vital signs: Vital Signs Temp 98.5 F 02/26/18 06:28 Pulse 107 H 02/26/18 06:28 Resp 16 02/26/18 06:28 BP 146/80 02/26/18 06:28 Pulse Ox 98 02/26/18 06:28 Intake & Output 02/25/18 02/26/18 02/26/18 18:59 06:59 18:59 Output Total 1000 900 Balance -1000 -900 Output: Urine 1000 900 Other: Voiding Method Indwelling Catheter Indwelling Catheter Indwelling Catheter - Exam PHYSICAL EXAMINATION: GENERAL: The patient is alert and oriented x1 which is her baseline, not in any acute distress. Well developed, well nourished. HEENT: Pupils are round and equally reacting to light. EOMI. No scleral icterus. No conjunctival pallor. Normocephalic, atraumatic. No pharyngeal erythema. No thyromegaly. CARDIOVASCULAR: S1 and S2 present. No murmurs, rubs, or gallops. PULMONARY: Chest is clear to auscultation, no wheezing or crackles. ABDOMEN: Soft, nontender, nondistended, normoactive bowel sounds. No palpable organomegaly. MUSCULOSKELETAL: No joint swelling or deformity. EXTREMITIES: No cyanosis, clubbing, or pedal edema. NEUROLOGICAL: Gross neurological examination did not reveal any focal deficits. SKIN: No rashes. - Labs CBC & Chem 7: 02/22/18 08:54 02/26/18 05:30 Labs: Abnormal Lab Results - Last 24 Hours (Table) 02/26/18 Range/Units 05:30 Chloride 109 H (98-107) mmol/L BUN 21 H (7-17) mg/dL Creatinine 3.12 H (0.52-1.04) mg/dL Calcium 8.0 L (8.4-10.2) mg/dL Assessment and Plan Plan: -Acute renal failure secondary to vancomycin and acute sugar necrosis expected to improve with IV fluids next and-metabolic acidosis from uremia from my acute renal failure -Recommend left elbow dislocation -Moderate to severe dementia dementia of Alzheimer's type -Gastroesophageal reflux disease -Essential hypertension -Depression -Recent ostomy mellitus infectious diseases not recommending any more antibiotics -Chronic urinary retention for which patient has a Salgado catheter being followed by Dr. Jaramillo as an outpatient -obesity
[2018-02-26] MEDS: FERROUS SULFATE 325 MG TAB PO SCH (16:47)
[2018-02-26] MEDS: ACETAMINOPHEN TAB 325 MG TAB PO PRN (20:28)
[2018-02-26] MEDS: MELATONIN 3 MG TABLET PO SCH (20:28)
[2018-02-26] MEDS: amLODIPine 5 MG TAB PO SCH (20:28)
--- NOTE | 2018-02-26 23:26 | PN ---
PROGRESS NOTE DATE OF SERVICE: 02/26/2018. REASON FOR FOLLOWUP: Urinary tract infection. INTERVAL HISTORY: The patient is currently afebrile. She is breathing comfortably. Denies having any chest pain or shortness of breath. No cough. No abdominal pain or diarrhea. EXAMINATION: Blood pressure 126/77 with a pulse of 95, temperature 97.8, she is 96% on room air. GENERAL DESCRIPTION: An elderly female lying in bed in no distress. RESPIRATORY SYSTEM: Unlabored breathing. Clear to auscultation anteriorly. HERAT: S1, S2. Regular rate and rhythm. ABDOMEN: Soft. LABS: BUN of 21, creatinine 3.12. Urine cultures have been negative. DIAGNOSTIC IMPRESSION AND PLAN: Patient admitted to the hospital with nephrotoxicity from vancomycin that failed in outpatient setting for a urinary tract infection. Underlying urinary tract infection has been adequately treated. Urine culture here has been negative. Currently off antibiotic therapy. Slight improvement kidney function. Continue supportive care. MMODL / IJN: [id number] /
[2018-02-27] MEDS: SODIUM CHLORIDE 0.9% 1,000 ML IV SCH ×2 (02:08→15:41)
[2018-02-27 05:16] LABS: Calcium 8.2 mg/dL (8.4-10.2); Potassium 3.5 mmol/L (3.5-5.1)
[2018-02-27 06:36] VITALS: RESP 18
[2018-02-27] MEDS: SENNOSIDES-DOCUSATE SODIUM 1 EACH TAB PO SCH (08:13)
[2018-02-27] MEDS: FAMOTIDINE 20 MG TAB PO SCH (08:13)
[2018-02-27] MEDS: VIT A,C & E-LUTEIN-MINERALS 1 EACH TAB PO SCH ×2 (08:13→16:31)
[2018-02-27] MEDS: SODIUM BICARBONATE TAB 650 MG TAB PO SCH ×2 (08:13→16:31)
[2018-02-27] MEDS ORDERED: SODIUM FERRIC GLUCONAT-SUCROSE 125 MG in SODIUM CHLORIDE 0.9% 100 ML IVPB ONE (11:00)
--- NOTE | 2018-02-27 11:00 | P.PN ---
Subjective Patient is seen in follow-up for acute kidney injury which was attributed to vancomycin use. She is currently resting in bed. Oral intake is good. No vomiting or diarrhea. She is a Salgado catheter in place. Renal function improving with creatinine around 2.95 today. Vital signs are stable. General: The patient appeared well nourished and normally developed. HEENT: Head exam is unremarkable. Neck is without jugular venous distension. LUNGS: Lungs are clear to auscultation and percussion. Breath sounds decreased. HEART: Rate and Rhythm are regular. First and second heart sounds normal. No murmurs, rubs or gallops. ABDOMEN: Abdominal exam reveals normal bowel sounds. Non-tender and non- distended. No evidence of peritonitis. EXTREMITITES: No clubbing, cyanosis, or edema. Objective - Vital Signs Vital signs: Vital Signs Temp 97.6 F 02/27/18 06:35 Pulse 98 02/27/18 06:35 Resp 18 02/27/18 08:10 BP 152/78 02/27/18 06:35 Pulse Ox 96 02/27/18 06:35 Intake & Output 02/26/18 02/27/18 02/27/18 18:59 06:59 18:59 Output Total 900 900 600 Balance -900 -900 -600 Output: Urine 900 900 600 Other: Voiding Method Indwelling Catheter Indwelling Catheter - Labs CBC & Chem 7: 02/22/18 08:54 02/27/18 04:50 Labs: Abnormal Lab Results - Last 24 Hours (Table) 02/27/18 Range/Units 04:50 Chloride 109 H (98-107) mmol/L BUN 21 H (7-17) mg/dL Creatinine 2.95 H (0.52-1.04) mg/dL Calcium 8.2 L (8.4-10.2) mg/dL Assessment and Plan Plan: Assessment: 1. Nonoliguric acute kidney injury related to vancomycin use. Renal function improving with creatinine of 2.95 today. 2. Metabolic acidosis secondary to acute kidney injury. Maintained on oral sodium bicarbonate. 3. Benign hypertension. 4. Hyperphosphatemia secondary to acute kidney injury. Expect improvement as renal function improves. 5. Anemia. Iron deficiency noted. Plan: Continue normal saline at 75 mL an hour. Avoid nephrotoxic agents. Ferrlecit 125 mg IV once today. This will be her second dose. Repeat electrolytes including phosphorus in the morning.
--- NOTE | 2018-02-27 15:05 | P.DS ---
Providers Date of admission: 02/21/18 10:27 Expected date of discharge: 02/27/18 Attending physician: Siddhartha Bauer Consults: 02/21/18 13:01 Consult Physician Routine Consulting Provider: Celine Andino Consult Reason/Comments: uti Do you want consulting provider notified?: Yes Consult Physician Routine Consulting Provider: Gloria Garcia Consult Reason/Comments: DIANNE Do you want consulting provider notified?: Yes Primary care physician: Benoit Chavez Hospital Course: Final Diagnoses: -Acute renal failure secondary to vancomycin ,acute metabolic acidosis -Recent left elbow dislocation -Moderate to severe dementia dementia of Alzheimer's type -Gastroesophageal reflux disease -Essential hypertension -Depression -Recent UTI with Aerococcus infectious disease not recommending any more antibiotics -Chronic urinary retention for which patient has a Salgado catheter being followed by Dr. Jaramillo as an outpatient -obesity -Anemia, iron deficient -Hyperphosphatemia secondary to acute renal failure, improving Hospital course:Patient is admitted from [facility] for acute renal failure which is believed to be secondary to vancomycin. Patient's creatinine improved minimally. Patient has advanced dementia patient is apparently using vancomycin for recent UTI with Aerococcus. Infectious disease Not recommending continuation of antibiotics anymore. Maintained on IV fluid hydration, IV Ferrlecit. Avoiding nephrotoxic agents. Significant clinical improvement. Patient has been cleared by Both infectious disease and nephrology for discharge. Patient is being discharged to [facility] subacute rehab in a stable condition with guarded prognosis. EXAMINATION: GENERAL: The patient is alert and oriented x1 which is her baseline, not in any acute distress. No acute distress CARDIOVASCULAR: S1 and S2 present. No murmurs, rubs, or gallops. PULMONARY: Chest is clear to auscultation, no wheezing or crackles. ABDOMEN: Soft, nontender, nondistended, normoactive bowel sounds. No palpable organomegaly. EXTREMITIES: No cyanosis, clubbing, or pedal edema. NEUROLOGICAL: Gross neurological examination did not reveal any focal deficits. The impression and plan of care has been dictated as directed. : I performed a history and examination of this patient, discussed the same with the dictator. I agree with the dictator's note ,documented as a scribe. Any additional findings or plans will be noted. Time taken: 35 minutes Patient Condition at Discharge: Stable Plan - Discharge Summary Discharge Rx Participant: No New Discharge Prescriptions: New Acetaminophen Tab [Tylenol] 650 mg PO Q6HR PRN tab PRN Reason: Mild Pain Or Fever > 100.5 Calcium Carbonate [Tums] 1,000 mg PO Q4HR PRN chew PRN Reason: Dyspepsia Lactulose [Cephulac] 20 gm PO DAILY PRN ml PRN Reason: Constipation QUEtiapine [SEROquel] 12.5 mg PO HS PRN tab PRN Reason: Agitation Sodium Bicarbonate Tab 650 mg PO TID tab Continue amLODIPine BESYLATE [Norvasc] 5 mg PO HS Vit C/E/Zn/Coppr/Lutein/Zeaxan [Preservision Areds 2 Softgel] 1 cap PO BID@ 0800,1700 Melatonin 3 mg PO HS Sennosides-Docusate Sodium [Senokot-S] 2 tab PO DAILY #30 tablet Na Phos,M-B/Na Phos,Di-Ba [Fleet Adult] 133 ml RECTAL DAILY PRN PRN Reason: Constipation Magnesium Hydroxide [Milk of Magnesia] 2,400 mg PO DAILY PRN PRN Reason: Constipation Bisacodyl [Dulcolax] 10 mg RECTAL DAILY PRN PRN Reason: Constipation Menthol [Biofreeze] 1 applic TOPICAL Q6H PRN PRN Reason: Pain Albuterol Nebulized [Ventolin Nebulized] 2.5 mg INHALATION RT-Q6H PRN PRN Reason: Shortness Of Breath Ranitidine HCl 150 mg PO BID@0800,1700 Lactose-Reduced Food [Ensure Plus] 1 can PO TID-W/MEALS Ferrous Sulfate [Iron (65 MG Elemental)] 325 mg PO DAILY@1700 traMADol HCL [Ultram] 50 mg PO Q6H PRN #12 tablet PRN Reason: Pain Discontinued HYDROcodone/APAP 5-325MG [[place] 5-325] 1 tab PO Q3H PRN PRN Reason: Pain Vancomycin 1,500 mg IVPB DAILY@0800 cefTRIAXone SODIUM [Ceftriaxone] 2 gm IV DAILY Discharge Medication List amLODIPine BESYLATE [Norvasc] 5 mg PO HS 11/07/14 [History] Melatonin 3 mg PO HS 12/24/17 [History] Vit C/E/Zn/Coppr/Lutein/Zeaxan [Preservision Areds 2 Softgel] 1 cap PO BID@0800, 1700 12/24/17 [History] Sennosides-Docusate Sodium [Senokot-S] 2 tab PO DAILY #30 tablet 12/27/17 [Rx] Albuterol Nebulized [Ventolin Nebulized] 2.5 mg INHALATION RT-Q6H PRN 02/21/18 [ History] Bisacodyl [Dulcolax] 10 mg RECTAL DAILY PRN 02/21/18 [History] Ferrous Sulfate [Iron (65 MG Elemental)] 325 mg PO DAILY@1700 02/21/18 [History] Lactose-Reduced Food [Ensure Plus] 1 can PO TID-W/MEALS 02/21/18 [History] Magnesium Hydroxide [Milk of Magnesia] 2,400 mg PO DAILY PRN 02/21/18 [History] Menthol [Biofreeze] 1 applic TOPICAL Q6H PRN 02/21/18 [History] Na Phos,M-B/Na Phos,Di-Ba [Fleet Adult] 133 ml RECTAL DAILY PRN 02/21/18 [ History] Ranitidine HCl 150 mg PO BID@0800,1700 02/21/18 [History] Acetaminophen Tab [Tylenol] 650 mg PO Q6HR PRN tab 02/27/18 [Rx] Calcium Carbonate [Tums] 1,000 mg PO Q4HR PRN chew 02/27/18 [Rx] Lactulose [Cephulac] 20 gm PO DAILY PRN ml 02/27/18 [Rx] QUEtiapine [SEROquel] 12.5 mg PO HS PRN tab 02/27/18 [Rx] Sodium Bicarbonate Tab 650 mg PO TID tab 02/27/18 [Rx] traMADol HCL [Ultram] 50 mg PO Q6H PRN #12 tablet 02/27/18 [Rx] Follow up Appointment(s)/Referral(s): Benoit Chavez MD [Primary Care Provider] - 3 Days Mary Ann Wells [NON-STAFF] - 1 Week Regino Pena DO [STAFF PHYSICIAN] - 1 Week Patient Instructions/Handouts: Urinary Tract Infection in Women (DC), Peripherally Inserted Central Catheters and Midline Catheters in... (DC) Activity/Diet/Wound Care/Special Instructions: Mary Ann Cardiac diet. PICC card and care information provided. Continue to use left arm sling while awake. Activity as tolerated, fall precautions. Salgado catheter to gravity, pericare every 8 hours. FULL CODE cbc,bmp, phos tomorrow and in 3 days Discharge Disposition: TRANSFER TO SNF/ECF
[2018-02-27 16:03] VITALS: BP 150/78; PULSE 93; TEMP 98.7
[2018-02-27] MEDS: FERROUS SULFATE 325 MG TAB PO SCH (16:31)
== END 2018-02-27 18:55 | DRG 683 ==
LOC: EC 08:39 → 4MS4W 10:27
PROVIDERS: ADMIT Hospitalist; ATTEND Hospitalist
DX: N17.0 Acute kidney failure with tubular necrosis (principal); E27.40 Unspecified adrenocortical insufficiency; E87.2 Acidosis; G30.1 Alzheimer's disease with late onset; N14.1 Nephropathy induced by other drugs, medicaments and biological substances; F02.80 Dementia in other diseases classified elsewhere, unspecified severity, without behavioral disturbance, psychotic disturbance, mood disturbance, and anxiety; E83.39 Other disorders of phosphorus metabolism; N26.1 Atrophy of kidney (terminal); T36.8X5A Adverse effect of other systemic antibiotics, initial encounter; K21.9 Gastro-esophageal reflux disease without esophagitis; I10 Essential (primary) hypertension; M19.91 Primary osteoarthritis, unspecified site; F32.9 Major depressive disorder, single episode, unspecified; R33.9 Retention of urine, unspecified; R32 Unspecified urinary incontinence; D50.9 Iron deficiency anemia, unspecified; M24.422 Recurrent dislocation, left elbow; E66.9 Obesity, unspecified; Z68.34 Body mass index [BMI] 34.0-34.9, adult; Z79.899 Other long term (current) drug therapy; Z87.442 Personal history of urinary calculi; Z87.440 Personal history of urinary (tract) infections; Z90.49 Acquired absence of other specified parts of digestive tract; Z90.5 Acquired absence of kidney; Z96.651 Presence of right artificial knee joint; Z87.891 Personal history of nicotine dependence; Z88.5 Allergy status to narcotic agent; Z88.0 Allergy status to penicillin; Z88.2 Allergy status to sulfonamides
CPT/HCPCS: 36415; 76770; 80048; 80053; 81001; 82550; 83540; 83550; 84100; 85025; 85610; 85730; 87086; 96361; 96374; 96375; 99284

== ENCOUNTER 2018-03-04 20:50 | Emergency (ER) | payer MEDICARE, OTHER ==
[2018-03-04 20:59] VITALS: RESP 18; TEMP 98
--- NOTE | 2018-03-04 21:11 | ED ---
General Adult HPI - General Chief complaint: Recheck/Abnormal Lab/Rx Stated complaint: Needs Pic line Time Seen by Provider: 03/04/18 21:03 Source: EMS Mode of arrival: EMS Limitations: altered mental status - History of Present Illness Initial comments: This patient is an 83-year-old woman who presents here because she has had an IV access problem. The patient is currently at long-term care facility receiving IV Rocephin for osteomyelitis. The patient's PICC line was not functioning when they went to give her antibiotic dose tonight. The senior care sent her here to have intravenous access. The patient herself does not have any other complaints. She does affirm that she is only here to have IV access placed. Onset/Timin -: days(s) Associated Symptoms: denies other symptoms Treatments Prior to Arrival: none - Related Data Home Medications Medication Instructions Recorded Confirmed amLODIPine BESYLATE [Norvasc] 5 mg PO HS 11/07/14 02/21/18 Melatonin 3 mg PO HS 12/24/17 02/21/18 Vit C/E/Zn/Coppr/Lutein/Zeaxan 1 cap PO BID@0800,1700 12/24/17 02/21/18 [Preservision Areds 2 Softgel] Albuterol Nebulized [Ventolin 2.5 mg INHALATION RT-Q6H PRN 02/21/18 02/21/18 Nebulized] Bisacodyl [Dulcolax] 10 mg RECTAL DAILY PRN 02/21/18 02/21/18 Ferrous Sulfate [Iron (65 MG 325 mg PO DAILY@1700 02/21/18 02/21/18 Elemental)] Lactose-Reduced Food [Ensure Plus] 1 can PO TID-W/MEALS 02/21/18 02/21/18 Magnesium Hydroxide [Milk of 2,400 mg PO DAILY PRN 02/21/18 02/21/18 Magnesia] Menthol [Biofreeze] 1 applic TOPICAL Q6H PRN 02/21/18 02/21/18 Na Phos,M-B/Na Phos,Di-Ba [Fleet 133 ml RECTAL DAILY PRN 02/21/18 02/21/18 Adult] Ranitidine HCl 150 mg PO BID@0800,1700 02/21/18 02/21/18 Previous Rx's Medication Instructions Recorded Sennosides-Docusate Sodium 2 tab PO DAILY #30 tablet 12/27/17 [Senokot-S] Acetaminophen Tab [Tylenol] 650 mg PO Q6HR PRN tab 02/27/18 Calcium Carbonate [Tums] 1,000 mg PO Q4HR PRN chew 02/27/18 Lactulose [Cephulac] 20 gm PO DAILY PRN ml 02/27/18 QUEtiapine [SEROquel] 12.5 mg PO HS PRN tab 02/27/18 Sodium Bicarbonate Tab 650 mg PO TID tab 02/27/18 traMADol HCL [Ultram] 50 mg PO Q6H PRN #12 tablet 02/27/18 Allergies Allergy/AdvReac Type Severity Reaction Status Date / Time hydrocodone [From [place]] Allergy Unknown Verified 01/16/18 08:48 Penicillins Allergy Rash/Hives Verified 01/16/18 08:48 Sulfa (Sulfonamide Allergy Rash/Hives Verified 01/16/18 08:48 Antibiotics) Review of Systems ROS Statement: Those systems with pertinent positive or pertinent negative responses have been documented in the HPI. ROS Other: All systems not noted in ROS Statement are negative. Constitutional: Denies: fever, chills Respiratory: Denies: cough, dyspnea Cardiovascular: Denies: chest pain Gastrointestinal: Denies: abdominal pain, vomiting Musculoskeletal: Denies: back pain Neurological: Denies: headache Past Medical History Past Medical History: Dementia, GERD/Reflux, Hypertension, Osteoarthritis (OA) Additional Past Medical History / Comment(s): HX OF KIDNEY STONES, urinary retention and UTI, osteomyelitis, History of Any Multi-Drug Resistant Organisms: None Reported Past Surgical History: Appendectomy, Orthopedic Surgery, Tonsillectomy Additional Past Surgical History / Comment(s): LEFT KNEE ARTHROSCOPY, LEFT KIDNEY REMOVED, 11-18-14 total rt knee l elbow orif, Past Anesthesia/Blood Transfusion Reactions: No Reported Reaction Past Psychological History: Depression Smoking Status: Former smoker Past Alcohol Use History: Rare Past Drug Use History: None Reported - Past Family History Father Family Medical History: No Reported History Additional Family Medical History / Comment(s): Father was healthy. Mother Family Medical History: No Reported History Additional Family Medical History / Comment(s): Mother had ulcers. General Exam Limitations: altered mental status General appearance: alert, in no apparent distress Head exam: Present: atraumatic, normocephalic Respiratory exam: Present: normal lung sounds bilaterally. Absent: respiratory distress, wheezes, rales, rhonchi, stridor Cardiovascular Exam: Present: regular rate, normal rhythm, normal heart sounds. Absent: systolic murmur, diastolic murmur, rubs, gallop GI/Abdominal exam: Present: soft. Absent: tenderness, guarding, rebound Neurological exam: Present: alert Skin exam: Present: warm, dry, intact, normal color. Absent: rash Course Vital Signs 03/04/18 20:52 Temperature 98.0 F Pulse Rate 96 Respiratory 18 Rate Blood Pressure 156/74 O2 Sat by Pulse 96 Oximetry Medical Decision Making - Medical Decision Making The patient's had IV access established by the TELECASTING TECHNICIAN in the right antecubital fossa. I did speak with patient following procedure and she is not having further complaint. Patient stable for discharge back to her long-term care facility Disposition Clinical Impression: Osteoarthritis of right knee, Intravenous infusion line dysfunction Disposition: HOME SELF-CARE Condition: Fair Is patient prescribed a controlled substance at d/c from ED?: No Referrals: Salinas Shrestha MD [Primary Care Provider] - 1-2 days
[2018-03-04 22:04] VITALS: PULSE 98
[2018-03-04 22:10] VITALS: BP 156/72
== END 2018-03-04 22:25 | disposition home or self-care (01) ==
LOC: EC 20:50
DX: T82.898A Other specified complication of vascular prosthetic devices, implants and grafts, initial encounter (principal); M17.11 Unilateral primary osteoarthritis, right knee; F03.90 Unspecified dementia, unspecified severity, without behavioral disturbance, psychotic disturbance, mood disturbance, and anxiety; K21.9 Gastro-esophageal reflux disease without esophagitis; I10 Essential (primary) hypertension; F32.9 Major depressive disorder, single episode, unspecified; Z87.891 Personal history of nicotine dependence; Z79.899 Other long term (current) drug therapy; Z88.0 Allergy status to penicillin; Z88.2 Allergy status to sulfonamides; Z88.5 Allergy status to narcotic agent; Z53.8 Procedure and treatment not carried out for other reasons
CPT/HCPCS: 99283

== ENCOUNTER 2018-03-05 07:20 | Inpatient (IN) | payer MEDICARE, OTHER ==
[2018-03-05 08:24] LABS: Anisocytosis Slight; Basophils % (A) 0 %; Eosinophils # (A) 0.4 k/uL (0-0.7); Eosinophils % (A) 5 %; Hypochromasia Slight; Lymphocytes # (A) 0.8 k/uL (1.0-4.8); Lymphocytes % (A) 9 %; MCH 25.8 pg (25.0-35.0); MCHC 30.7 g/dL (31.0-37.0); MCV 84.1 fL (80.0-100.0); Mean Platelet Volume 6.8; Monocytes # (A) 0.8 k/uL (0-1.0); Monocytes % (A) 8 %; Neutrophils # (A) 7.1 k/uL (1.3-7.7); Neutrophils % (A) 77 %; Platelet Count 264 k/uL (150-450); RBC 3.09 m/uL (3.80-5.40); RDW 17.6 % (11.5-15.5); WBC 9.2 k/uL (3.8-10.6)
--- NOTE | 2018-03-05 08:36 | ED ---
General Adult HPI - General Chief complaint: Recheck/Abnormal Lab/Rx Stated complaint: Infected IV Site Time Seen by Provider: 03/05/18 07:32 Source: EMS, RN notes reviewed, old records reviewed Mode of arrival: EMS Limitations: no limitations - History of Present Illness Initial comments: Patient 83-year-old female significant past medical history for dementia, osteomyelitis, presented to the emergency room by EMS from an ECF home with needing PICC line. Patient was seen here in the emergency room after PICC line was not working. A ultrasound-guided's IV was placed. detention nurses tried to give the infusion this morning but were unable to another some local redness around the site. Patient does admit some pain locally around the IV. There is concern of IV infiltrated. Patient history of osteomyelitis after chronic dislocations to the left elbow and had an external fixator placed. Patient denies any other complaints or symptoms at this time. - Related Data Home Medications Medication Instructions Recorded Confirmed amLODIPine BESYLATE [Norvasc] 5 mg PO HS 11/07/14 02/21/18 Melatonin 3 mg PO HS 12/24/17 02/21/18 Vit C/E/Zn/Coppr/Lutein/Zeaxan 1 cap PO BID@0800,1700 12/24/17 02/21/18 [Preservision Areds 2 Softgel] Albuterol Nebulized [Ventolin 2.5 mg INHALATION RT-Q6H PRN 02/21/18 02/21/18 Nebulized] Bisacodyl [Dulcolax] 10 mg RECTAL DAILY PRN 02/21/18 02/21/18 Ferrous Sulfate [Iron (65 MG 325 mg PO DAILY@1700 02/21/18 02/21/18 Elemental)] Lactose-Reduced Food [Ensure Plus] 1 can PO TID-W/MEALS 02/21/18 02/21/18 Magnesium Hydroxide [Milk of 2,400 mg PO DAILY PRN 02/21/18 02/21/18 Magnesia] Menthol [Biofreeze] 1 applic TOPICAL Q6H PRN 02/21/18 02/21/18 Na Phos,M-B/Na Phos,Di-Ba [Fleet 133 ml RECTAL DAILY PRN 02/21/18 02/21/18 Adult] Ranitidine HCl 150 mg PO BID@0800,1700 02/21/18 02/21/18 Previous Rx's Medication Instructions Recorded Sennosides-Docusate Sodium 2 tab PO DAILY #30 tablet 12/27/17 [Senokot-S] Acetaminophen Tab [Tylenol] 650 mg PO Q6HR PRN tab 02/27/18 Calcium Carbonate [Tums] 1,000 mg PO Q4HR PRN chew 02/27/18 Lactulose [Cephulac] 20 gm PO DAILY PRN ml 02/27/18 QUEtiapine [SEROquel] 12.5 mg PO HS PRN tab 02/27/18 Sodium Bicarbonate Tab 650 mg PO TID tab 02/27/18 traMADol HCL [Ultram] 50 mg PO Q6H PRN #12 tablet 02/27/18 Allergies Allergy/AdvReac Type Severity Reaction Status Date / Time hydrocodone [From [place]] Allergy Unknown Verified 03/05/18 07:30 Penicillins Allergy Rash/Hives Verified 03/05/18 07:30 Sulfa (Sulfonamide Allergy Rash/Hives Verified 03/05/18 07:30 Antibiotics) Review of Systems ROS Statement: Those systems with pertinent positive or pertinent negative responses have been documented in the HPI. ROS Other: All systems not noted in ROS Statement are negative. Past Medical History Past Medical History: Dementia, GERD/Reflux, Hypertension, Osteoarthritis (OA) Additional Past Medical History / Comment(s): HX OF KIDNEY STONES, urinary retention and UTI, osteomyelitis, History of Any Multi-Drug Resistant Organisms: None Reported Past Surgical History: Appendectomy, Orthopedic Surgery, Tonsillectomy Additional Past Surgical History / Comment(s): LEFT KNEE ARTHROSCOPY, LEFT KIDNEY REMOVED, 6-15 total rt knee l elbow orif, Past Anesthesia/Blood Transfusion Reactions: No Reported Reaction Past Psychological History: Depression Smoking Status: Former smoker Past Alcohol Use History: Rare Past Drug Use History: None Reported - Past Family History Father Family Medical History: No Reported History Additional Family Medical History / Comment(s): Father was healthy. Mother Family Medical History: No Reported History Additional Family Medical History / Comment(s): Mother had ulcers. General Exam - General Exam Comments Initial Comments: General: The patient is awake and alert, in no distress, and does not appear acutely ill. Eye: Extra-ocular movements are intact. No nystagmus. There is normal conjunctiva bilaterally. No signs of icterus. Ears, nose, mouth and throat: There are moist mucous membranes and no oral lesions. Neck: The neck is supple, there is no tenderness or JVD. Cardiovascular: There is a regular rate and rhythm. No murmur, rub or gallop is appreciated. Respiratory: Lungs are clear to auscultation, respirations are non-labored, breath sounds are equal. No wheezes, stridor, rales, or rhonchi. Musculoskeletal: Normal ROM, no tenderness. Sensation intact. Neurological: A&O x 3. CN II-XII intact, There are no obvious motor or sensory deficits. Coordination appears grossly intact. Speech is normal. Skin: Skin is warm and dry and no rashes or lesions are noted. Psychiatric: Cooperative, appropriate mood & affect, normal judgment. Limitations: no limitations Course Vital Signs 03/05/18 07:26 Temperature 98.2 F Pulse Rate 82 Respiratory 18 Rate Blood Pressure 163/71 O2 Sat by Pulse 97 Oximetry Medical Decision Making - Medical Decision Making Patient labs reviewed and shows him over a 0.0 and BUN and creatinine elevated. These are similar to previous findings previous labs. Patient has had IV started by nursing staff. Patient will be given dose Rocephin admitted to the hospital. - Lab Data Result diagrams: 03/05/18 07:45 03/05/18 07:45 Lab Results 03/05/18 03/05/18 Range/Units 07:45 07:45 WBC 9.2 (3.8-10.6) k/uL RBC 3.09 L (3.80-5.40) m/uL Hgb 8.0 L (11.4-16.0) gm/dL Hct 26.0 L (34.0-46.0) % MCV 84.1 (80.0-100.0) fL MCH 25.8 (25.0-35.0) pg MCHC 30.7 L (31.0-37.0) g/dL RDW 17.6 H (11.5-15.5) % Plt Count 264 (150-450) k/uL Neutrophils % 77 % Lymphocytes % 9 % Monocytes % 8 % Eosinophils % 5 % Basophils % 0 % Neutrophils # 7.1 (1.3-7.7) k/uL Lymphocytes # 0.8 L (1.0-4.8) k/uL Monocytes # 0.8 (0-1.0) k/uL Eosinophils # 0.4 (0-0.7) k/uL Basophils # 0.0 (0-0.2) k/uL Hypochromasia Slight Anisocytosis Slight Sodium 136 L (137-145) mmol/L Potassium 4.4 (3.5-5.1) mmol/L Chloride 101 (98-107) mmol/L Carbon Dioxide 26 (22-30) mmol/L Anion Gap 9 mmol/L BUN 28 H (7-17) mg/dL Creatinine 2.58 H (0.52-1.04) mg/dL Est GFR (CKD-EPI)AfAm 19 (>60 ml/min/1.73 sqM) Est GFR (CKD-EPI)NonAf 17 (>60 ml/min/1.73 sqM) Glucose 85 (74-99) mg/dL Calcium 8.4 (8.4-10.2) mg/dL Total Bilirubin 0.4 (0.2-1.3) mg/dL AST 19 (14-36) U/L ALT 14 (9-52) U/L Alkaline Phosphatase 133 H (38-126) U/L Total Protein 6.2 L (6.3-8.2) g/dL Albumin 2.7 L (3.5-5.0) g/dL Disposition Clinical Impression: Osteomyelitis, Occluded PICC line Disposition: ADMITTED IP TO THIS [facility] Condition: Stable Is patient prescribed a controlled substance at d/c from ED?: No Referrals: Salinas Shrestha MD [Primary Care Provider] - 1-2 days Time of Disposition: 09:13
[2018-03-05 08:41] LABS: Albumin 2.7 g/dL (3.5-5.0); Calcium 8.4 mg/dL (8.4-10.2); Potassium 4.4 mmol/L (3.5-5.1); Total Bilirubin 0.4 mg/dL (0.2-1.3); Total Protein 6.2 g/dL (6.3-8.2)
[2018-03-05] MEDS ORDERED: SODIUM CHLORIDE 0.9% 1,000 ML IV ONE (09:13)
[2018-03-05] MEDS ORDERED: CALCIUM CARBONATE 500 MG CHEWABLE PO PRN (11:09)
[2018-03-05] MEDS ORDERED: NON-FORMULARY DRUG (Menthol [Biofreeze] 1 APPLIC) TOPICAL PRN (11:09)
[2018-03-05] MEDS ORDERED: NA PHOS,M-B/NA PHOS,DI-BA 133 ML ENEMA RECTAL PRN (11:09)
[2018-03-05] MEDS ORDERED: ACETAMINOPHEN TAB 325 MG TAB PO PRN (11:09)
[2018-03-05] MEDS ORDERED: QUEtiapine 25 MG TAB PO PRN (11:09)
[2018-03-05] MEDS ORDERED: BISACODYL 10 MG SUPP RECTAL PRN (11:09)
[2018-03-05] MEDS ORDERED: ALBUTEROL NEBULIZED 2.5 MG/3 ML INHALATION PRN (11:09)
[2018-03-05] MEDS ORDERED: MAGNESIUM HYDROXIDE 2,400 MG/10 ML CUP PO PRN (11:09)
[2018-03-05] MEDS ORDERED: LACTULOSE 20 GM/30 ML CUP PO PRN (11:09)
[2018-03-05] MEDS ORDERED: NON-FORMULARY DRUG (Lactose-Reduced Food [Ensure Plus] 1 CAN) PO SCH (12:30)
--- NOTE | 2018-03-05 13:41 | P.HPIM ---
History of Present Illness H&P Date: 03/05/18 Chief Complaint: PICC line malfunction Patient is a 83-year-old female with a known history of dementia, GERD, hypertension and osteoarthritis was brought to the hospital by EMS from infection care facility with complaints of PICC line not working. correction nurses tried to do the infusion but were unable to secure peripheral line. Patient was brought to the hospital for PICC line replacement. There is concern of IV infiltrated. Ultrasound-guided peripheral IV line was placed in the ER. 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 Patient is currently on antibiotics in the form of ceftriaxone for osteomyelitis. Patient did have a fracture about 2 weeks ago and underwent left elbow ORIF. Patient otherwise denied any left elbow pain. No fever no chills. No nausea vomiting or abdominal pain or diarrhea. Review of Systems Constitutional: Patient denies any fever or chills . No generalized weakness or weight loss. Abdomen: Patient denied nausea vomiting and diarrhea and abdominal pain. Cardiovascular: Patient denies any chest pain or short of breath no palpitations. Respiratory: patient denied any cough is from production. No shortness of breath Neurologic: Patient denied any numbness or tingling headache. Musculoskeletal: Patient denies any complaints of joint swelling or deformity. Skin: Negative Psychiatric: Negative Endocrine: No heat or cold intolerance. No recent weight gain. Genitourinary: No dysuria or hematuria. All other 14 point ROS negative except the above Past Medical History Past Medical History: Dementia, GERD/Reflux, Hypertension, Osteoarthritis (OA) Additional Past Medical History / Comment(s): kidney stones, urinary retention and UTI,dysphagia, osteomyelitis of left radius and ulna History of Any Multi-Drug Resistant Organisms: None Reported Past Surgical History: Appendectomy, Orthopedic Surgery, Tonsillectomy Additional Past Surgical History / Comment(s): LEFT KNEE ARTHROSCOPY, LEFT KIDNEY REMOVED, 6-15 total rt knee left elbow orif, Past Anesthesia/Blood Transfusion Reactions: No Reported Reaction Past Psychological History: Depression Additional Psychological History / Comment(s): client is alert to person and place but forgot was facility she just transferred from. client currently resides at [facility]. client was recieving antibiotics through the picc line which stopped working for the staff at [facility] but a ultrasound iv was placed which also stopped working and there is some redness around the site. Smoking Status: Former smoker Past Alcohol Use History: Rare Additional Past Alcohol Use History / Comment(s): Pt started smoking in 1953 and quit in 1997 Past Drug Use History: None Reported - Past Family History Father Family Medical History: No Reported History Additional Family Medical History / Comment(s): Father was healthy. Mother Family Medical History: No Reported History Additional Family Medical History / Comment(s): Mother had ulcers. Medications and Allergies Home Medications Medication Instructions Recorded Confirmed Type amLODIPine BESYLATE [Norvasc] 5 mg PO HS@2100 11/07/14 03/05/18 History Melatonin 3 mg PO HS 12/24/17 03/05/18 History Vit C/E/Zn/Coppr/Lutein/Zeaxan 1 cap PO BID@0800,1700 12/24/17 03/05/18 History [Preservision Areds 2 Softgel] Sennosides-Docusate Sodium 2 tab PO DAILY #30 tablet 12/27/17 03/05/18 Rx [Senokot-S] Albuterol Nebulized [Ventolin 2.5 mg INHALATION RT-Q6H PRN 02/21/18 03/05/18 History Nebulized] Bisacodyl [Dulcolax] 10 mg RECTAL DAILY PRN 02/21/18 03/05/18 History Ferrous Sulfate [Iron (65 MG 325 mg PO DAILY@1700 02/21/18 03/05/18 History Elemental)] Magnesium Hydroxide [Milk of 2,400 mg PO DAILY PRN 02/21/18 03/05/18 History Magnesia] Menthol [Biofreeze] 1 applic TOPICAL Q6H PRN 02/21/18 03/05/18 History Ranitidine HCl 150 mg PO BID@0800,1700 02/21/18 03/05/18 History Acetaminophen Tab [Tylenol] 650 mg PO Q6HR PRN tab 02/27/18 03/05/18 Rx Calcium Carbonate [Tums] 1,000 mg PO Q4HR PRN chew 02/27/18 03/05/18 Rx Lactulose [Cephulac] 20 gm PO DAILY PRN ml 02/27/18 03/05/18 Rx QUEtiapine [SEROquel] 12.5 mg PO HS PRN tab 02/27/18 03/05/18 Rx Sodium Bicarbonate Tab 650 mg PO TID tab 02/27/18 03/05/18 Rx traMADol HCL [Ultram] 50 mg PO Q6H PRN #12 tablet 02/27/18 03/05/18 Rx Lactose-Reduced Food [Ensure Plus] 1 can PO TID@0800,1200,1700 03/05/18 History cefTRIAXone [Rocephin] 1,000 mg IV Q24HR 03/05/18 03/05/18 History Allergies Allergy/AdvReac Type Severity Reaction Status Date / Time hydrocodone [From [facility]] Allergy Unknown Verified 03/05/18 12:06 Penicillins Allergy Rash/Hives Verified 03/05/18 12:06 Sulfa (Sulfonamide Allergy Rash/Hives Verified 03/05/18 12:06 Antibiotics) Physical Exam Vitals: Vital Signs Temp Pulse Pulse Resp BP BP Pulse Ox 03/05/18 10:21 99.0 F 96 20 150/77 98 03/05/18 09:29 98.0 F 86 16 187/80 96 03/05/18 07:26 98.2 F 82 18 163/71 97 Intake and Output 03/04/18 03/05/18 03/05/18 22:59 06:59 14:59 Other: Weight 90.718 kg PHYSICAL EXAMINATION: Patient is lying in the bed comfortably, no acute distress, awake alert and oriented.. HEENT: Normocephalic. Neck is supple. Pupils reactive. Nostrils clear. Oral cavity is moist. Ears reveal no drainage. Neck reveals no JVD, carotid bruits, or thyromegaly. CHEST EXAMINATION: Trachea is central. Symmetrical expansion. Lung purvis clear to auscultation and percussion. CARDIAC: Normal S1, S2 with no gallops. No murmurs ABDOMEN: Soft. Bowel sounds normal. No organomegaly. No abdominal bruits. Extremities: reveal no edema. No clubbing or cyanosis Neurologically awake, alert, oriented x2-3 with well-coordinated movements. No focal deficits noted Skin: No rash or skin lesions. Psychiatric: Coperative. Nonsuicidal Musculoskeletal: No joint swelling or deformity. Left elbow cast in place. Results CBC & Chem 7: 03/05/18 07:45 03/05/18 07:45 Labs: Abnormal Lab Results - Last 24 Hours (Table) 03/05/18 03/05/18 Range/Units 07:45 07:45 RBC 3.09 L (3.80-5.40) m/uL Hgb 8.0 L (11.4-16.0) gm/dL Hct 26.0 L (34.0-46.0) % MCHC 30.7 L (31.0-37.0) g/dL RDW 17.6 H (11.5-15.5) % Lymphocytes # 0.8 L (1.0-4.8) k/uL Sodium 136 L (137-145) mmol/L BUN 28 H (7-17) mg/dL Creatinine 2.58 H (0.52-1.04) mg/dL Alkaline Phosphatase 133 H (38-126) U/L Total Protein 6.2 L (6.3-8.2) g/dL Albumin 2.7 L (3.5-5.0) g/dL Thrombosis Risk Factor Assmnt - DVT/VTE Prophylaxis DVT/VTE Prophylaxis: Pharmacologic Prophylaxis ordered - Choose All That Apply Any of the Below Risk Factors Present?: No Assessment and Plan Assessment: Left elbow osteomyelitis. Currently on IV ceftriaxone. PICC line malfunction. To be replaced tomorrow. Acute on chronic kidney disease stage IV Normocytic anemia. Anemia of chronic disease Mild protein calorie malnutrition. Albumin 2.7 Hypertension GERD Dementia on x-ray and osteoarthritis of multiple joints Depression Previous history of smoking DVT prophylaxis Plan: Patient will be continued on antibiotics in the form of ceftriaxone with peripheral line. PICC line to be placed tomorrow. Continue with home medications and follow closely. Gentle hydration. Monitor H&H and renal function. Further recommendations based on the clinical course. Time with Patient: Greater than 30
[2018-03-05] MEDS: traMADol 50 MG TAB PO PRN (14:24)
[2018-03-05] MEDS: SODIUM BICARBONATE TAB 650 MG TAB PO SCH ×2 (15:43→19:51)
[2018-03-05] MEDS: HEPARIN SODIUM,PORCINE 5,000 UNIT/ML 1 ML VIAL SQ SCH ×2 (15:43→23:40)
[2018-03-05] MEDS: FERROUS SULFATE 325 MG TAB PO SCH (16:08)
[2018-03-05] MEDS: VIT A,C & E-LUTEIN-MINERALS 1 EACH TAB PO SCH (16:08)
[2018-03-05] MEDS: FAMOTIDINE 20 MG TAB PO SCH (16:08)
[2018-03-05] MEDS: amLODIPine 5 MG TAB PO SCH (19:51)
[2018-03-05] MEDS: MELATONIN 3 MG TABLET PO SCH (19:51)
[2018-03-06] MEDS: HEPARIN SODIUM,PORCINE 5,000 UNIT/ML 1 ML VIAL SQ SCH ×3 (07:54→23:09)
[2018-03-06] MEDS: SENNOSIDES-DOCUSATE SODIUM 1 EACH TAB PO SCH (07:55)
[2018-03-06] MEDS: SODIUM BICARBONATE TAB 650 MG TAB PO SCH ×3 (07:55→19:44)
[2018-03-06] MEDS: VIT A,C & E-LUTEIN-MINERALS 1 EACH TAB PO SCH ×2 (07:55→16:40)
[2018-03-06] MEDS: FAMOTIDINE 20 MG TAB PO SCH (07:55)
[2018-03-06] MEDS ORDERED: cefTRIAXone 1,000 MG VIAL (IM USE) IM SCH (09:00)
[2018-03-06] MEDS: traMADol 50 MG TAB PO PRN (14:06)
--- NOTE | 2018-03-06 15:43 | P.PN ---
Subjective Progress Note Date: 03/06/18 Progress note being dictated for Dr. Sifuentes Interval history:Patient is a 83-year-old female with a known history of dementia, GERD, hypertension and osteoarthritis was brought to the hospital by EMS from infection care facility with complaints of PICC line not working. [facility] nurses tried to do the infusion but were unable to secure peripheral line. Patient was brought to the hospital for PICC line replacement. There is concern of IV infiltrated. Ultrasound-guided peripheral IV line was placed in the ER. 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 Patient is currently on antibiotics in the form of ceftriaxone for osteomyelitis. Patient did have a fracture about 2 weeks ago and underwent left elbow ORIF. Patient otherwise denied any left elbow pain. No fever no chills. No nausea vomiting or abdominal pain or diarrhea. Review of Systems Constitutional: Patient denies any fever or chills . No generalized weakness or weight loss. Abdomen: Patient denied nausea vomiting and diarrhea and abdominal pain. Cardiovascular: Patient denies any chest pain or short of breath no palpitations. Respiratory: patient denied any cough is from production. No shortness of breath Neurologic: Patient denied any numbness or tingling headache. Musculoskeletal: Patient denies any complaints of joint swelling or deformity. Skin: Negative Psychiatric: Negative Endocrine: No heat or cold intolerance. No recent weight gain. Genitourinary: No dysuria or hematuria. All other 14 point ROS negative except the above 03/06/2018 returned from [facility] with diagnoses of osteomyelitis, obtaining records from [facility]. Attempting to locate bone scan. Fever, T-max 100.1, pancultured. Complains of left arm discomfort. Denies chest pain, palpitations or shortness of breath. Objective - Vital Signs Vital signs: Vital Signs Temp 100.1 F H 03/06/18 14:40 Pulse 101 H 03/06/18 14:40 Resp 20 03/06/18 14:40 BP 138/78 03/06/18 14:40 Pulse Ox 97 03/06/18 14:40 Intake & Output 03/05/18 03/06/18 03/06/18 18:59 06:59 18:59 Output Total 700 700 700 Balance -700 -700 -700 Weight 90.718 kg Output: Urine 700 700 700 Other: Voiding Method Indwelling Catheter Indwelling Catheter Indwelling Catheter # Bowel Movements 0 - Exam Patient is sitting up in the bed comfortably, no acute distress, awake alert and oriented.. HEENT: Normocephalic. Neck is supple. Pupils reactive. Nostrils clear. Oral cavity is moist. Neck reveals no JVD, carotid bruits, or thyromegaly. CHEST EXAMINATION: Trachea is central. Symmetrical expansion. Lung purvis clear to auscultation and percussion. CARDIAC: Normal S1, S2 with no gallops. No murmurs ABDOMEN: Soft. Bowel sounds normal. No organomegaly. No abdominal bruits. Extremities: reveal no edema. No clubbing or cyanosis Neurologically awake, alert, oriented x2-3 with well-coordinated movements. No focal deficits noted Skin: No rash or skin lesions. Psychiatric: Coperative. Nonsuicidal Musculoskeletal: Left elbow cast in place, fingers warm, pink. - Labs CBC & Chem 7: 03/05/18 07:45 03/05/18 07:45 Assessment and Plan Assessment: Left elbow -possible osteomyelitis. Attempting to locate bone scan PICC line malfunction. New PICC line placement on hold, secondary to the above Acute on chronic kidney disease stage IV Normocytic anemia. Anemia of chronic disease Mild protein calorie malnutrition. Albumin 2.7 Hypertension GERD Dementia on x-ray and osteoarthritis of multiple joints Depression Previous history of smoking New fevers, workup in progress Plan: Continue on current medication regime ,monitoring and symptomatic treatment. As mentioned above attempting to locate bone scan, [facility] records ordered. New fever, pancultured. Maintain IV antibiotics. Follow closely with infectious disease. Further recommendations to follow. The impression and plan of care has been dictated as directed. : I performed a history and examination of this patient, discussed the same with the dictator. I agree with the dictator's note ,documented as a scribe. Any additional findings or plans will be noted.
[2018-03-06] MEDS: FERROUS SULFATE 325 MG TAB PO SCH (16:40)
[2018-03-06 17:01] LABS: Amorphous Sediment,Urine Rare /hpf; Appearance,Urine Cloudy (Clear); Bacteria,Urine Occasional /hpf; Bilirubin,Urine Negative (Negative); Blood,Urine Trace (Negative); Color,Urine Light Yellow; Glucose,Urine (UA) Negative (Negative); Granular Casts,Urine 1 /lpf (0); Hyaline Casts,Urine 1 /lpf (0-2); Ketones,Urine Negative (Negative); Leukocyte Esterase,Urine Large (Negative); Nitrite,Urine Negative (Negative); Protein,Urine 1+ (Negative); Squamous Epithelial Cell,Urine <1 /hpf (0-4); Urobilinogen,Urine <2.0 mg/dL (<2.0)
--- NOTE | 2018-03-06 17:02 | XR ---
EXAMINATION TYPE: XR chest 2V DATE OF EXAM: 03/06/2018 COMPARISON: 01/16/2018 HISTORY: Fever TECHNIQUE: Frontal and lateral views of the chest are obtained. FINDINGS: There is blunting of costophrenic angles. There is coarsening of interstitial markings. He art size is normal. Thoracic aorta is atheromatous. Bony thorax appears intact. IMPRESSION: New pleural effusions and pulmonary interstitial density compared to last exam. This cou ld be interstitial pneumonia or mild heart failure.
[2018-03-06] MEDS: amLODIPine 5 MG TAB PO SCH (19:44)
[2018-03-06] MEDS: MELATONIN 3 MG TABLET PO SCH (19:44)
[2018-03-07] MEDS: DAPTOmycin 500 MG in SODIUM CHLORIDE 0.9% 50 ML IVPB SCH (00:48)
[2018-03-07] MEDS: SENNOSIDES-DOCUSATE SODIUM 1 EACH TAB PO SCH (09:09)
[2018-03-07] MEDS: FAMOTIDINE 20 MG TAB PO SCH (09:09)
[2018-03-07] MEDS: SODIUM BICARBONATE TAB 650 MG TAB PO SCH ×3 (09:09→21:38)
[2018-03-07] MEDS: VIT A,C & E-LUTEIN-MINERALS 1 EACH TAB PO SCH ×2 (09:09→15:49)
[2018-03-07] MEDS: HEPARIN SODIUM,PORCINE 5,000 UNIT/ML 1 ML VIAL SQ SCH ×3 (09:09→23:32)
--- NOTE | 2018-03-07 09:17 | XR ---
EXAMINATION TYPE: XR forearm LT DATE OF EXAM: 03/07/2018 CLINICAL HISTORY: Fall injury December 24 with dislocation. Had surgical reduction and external fixation. Recurrent fall last week with pain. TECHNIQUE: Two views of the left forearm are obtained. COMPARISON: Outside left elbow x-rays December 24, 2017. FINDINGS: Overlying fiberglass cast material is seen which is noted to lower radiographic sensitivity . Demineralization is present which is also noted to lower radiographic sensitivity. There is no new or recurrent acute fracture or dislocation identified. Round lucency in the proximal ulnar diaphysis is presumed product of prior surgical hardware which has been removed. There is new d orsal surface small fixating plate proximal to this. There is mild to moderate spurring ulnohumeral a rticulation. There is narrowing of the radiocarpal joint space. Mild to moderate diffuse subcutaneous edema is present. IMPRESSION: There is no new acute fracture or dislocation seen in the left radius or ulna.
[2018-03-07] MEDS: traMADol 50 MG TAB PO PRN (09:28)
--- NOTE | 2018-03-07 09:33 | CONS ---
CONSULTATION DATE OF SERVICE: 03/06/2018. REASON FOR CONSULTATION: Osteomyelitis left forearm and IV antibiotic therapy. HISTORY OF PRESENT ILLNESS: The patient is an 83-year-old female who seems to have a problem with chronic dislocation of her left elbow that failed to respond to the conservative treatment. The patient did have an external fixator placed on 12/25/2017. Apparently the patient did have an infection at the lower end of the fixator that was subsequently discontinued at the [facility]. Is not very sure what the cultures were. Subsequently the patient did placement of the internal fixator along with support cast. She was getting IV vancomycin pharmacy to dose along with Rocephin while at the [facility]. She was recently admitted at this facility for renal failure related to Vancomycin. At that time the history was not very clear and information was predominantly she was getting IV antibiotics for urinary tract infection. The patient's urine cultures were negative. She was afebrile. White count was normal. Hence, we recommend to discontinue the PICC line on discharge on antibiotic. The patient went back to the retirement, they have been trying to place another IV for IV antibiotic therapy, however, the patient did have problems with clogging of those IVs. Subsequently she was sent back to the ER last night for IV placement. Subsequently the patient has been admitted to the hospital. I was asked to see the patient for evaluation and need for IV antibiotics on discharge. The patient was afebrile earlier but did spike a fever of 100.1. She denies any headache. No chest pain. No shortness of breath, cough, abdominal pain. She did have a Salgado catheter, not very clear when it was changed. Denies having any pain to the left forearm area. REVIEW OF SYSTEMS: CONSTITUTIONAL: Positive for weakness along with low-grade fever. EYES: No complaints. ENT: No complaints. RESPIRATORY: No complaints. CARDIOVASCULAR: No complaints. GENITOURINARY: As per HPI. GASTROINTESTINAL: As per HPI. MUSCULOSKELETAL: As per HPI. INTEGUMENTARY: No complaints. PSYCHOLOGICAL: No complaint. NEUROLOGIC: No complaints. PAST MEDICAL HISTORY: Significant for chronic dislocation of the left elbow, osteomyelitis of the left forearm, dementia, respiratory disease, hypertension, osteoarthritis, kidney stone, chronic indwelling Salgado catheter, recurrent urinary tract infections. PAST SURGICAL HISTORY: Appendectomy, left knee arthroplasty, left elbow ORIF. SOCIAL HISTORY: Remote history of smoking. No drug use. FAMILY HISTORY: No pertinent findings noticed. ALLERGIES: PENICILLIN, SULFA, HYDROCODONE. MEDICATIONS: Currently include the patient is on: 1. Tylenol. 2. Ventolin. 3. Norvasc. 4. Dulcolax. 5. Tums. 6. Rocephin 1 g daily. 7. Pepcid. 8. Iron sulfate. 9. Heparin. 10.Lactulose. 11.Melatonin. 12. . 13.Seroquel. 14.Senokot. 15.Ultram. PHYSICAL EXAMINATION: Her blood pressure is 132/78 with a pulse of 101, temperature a 100.1. She is 97% on room air. GENERAL DESCRIPTION: An elderly female up in the chair in no distress. No tachypnea or accessory muscle of respiration use. HEENT: Shows pallor. No scleral icterus. Oral mucosa is moist. No pharyngeal erythema or thrush. NECK: Trachea central. No thyromegaly. LUNGS: Unlabored breathing. Clear to auscultation. No wheezes or crackles. HEART: S1, S2. Regular rate and rhythm. ABDOMEN: Soft, no tenderness. No guarding or rigidity. EXTREMITIES: No edema of the feet. SKIN: No rash or mass palpable. Examination left forearm and the elbow examined, there was no evidence of any open wound. No swelling no redness. The patient still have some stitches on, but the wound is completely healed. NEUROLOGIC: The patient is awake, alert, oriented. Mood affect normal. LABS: Hemoglobin 8.9. BUN of 28, creatinine is 2.58. UA has been cloudy with , 29 WBCs. DIAGNOSTIC IMPRESSION AND PLAN: Patient who did have current dislocation of the left elbow requiring external fixture, apparently one of the screws got infected. That has been discontinued at [facility]. We tried to obtain further details of the same from this facility regarding any investigations such as scans or cultures, however, those have not been provided to us. However, vancomycin was started by ID physician at that facility. That subsequently has been discontinued because of her renal failure. The patient's left forearm wound currently looks completely healed and there was no evidence of any swelling or redness. The patient does have a low-grade fever related to osteomyelitis or UTI not entirely excluded. PLAN: 1. We will change the Salgado catheter. Obtain urine culture from new Salgado. 2. Blood culture has been obtained. The patient is not bacteremic. 3. We will obtain a bone scan of the left upper extremity to make sure there is no evidence of any osteomyelitis. 4. Check a sed rate and CRP. 5. We will empirically add daptomycin 6 mg/kg every 48h and closely watch kidney function while waiting for the blood culture to finalize and to get more information from the other facility. 6. Daughter was present at bedside. Questions were sought and answered. MMODL / IJN: [id number] /
--- NOTE | 2018-03-07 13:10 | P.PN ---
Subjective Progress Note Date: 03/07/18 Progress note being dictated for Dr. Bauer Interval history:Patient is a 83-year-old female with a known history of dementia, GERD, hypertension and osteoarthritis was brought to the hospital by EMS from infection care facility with complaints of PICC line not working. shelter nurses tried to do the infusion but were unable to secure peripheral line. Patient was brought to the hospital for PICC line replacement. There is concern of IV infiltrated. Ultrasound-guided peripheral IV line was placed in the ER. 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 Patient is currently on antibiotics in the form of ceftriaxone for osteomyelitis. Patient did have a fracture about 2 weeks ago and underwent left elbow ORIF. Patient otherwise denied any left elbow pain. No fever no chills. No nausea vomiting or abdominal pain or diarrhea. Review of Systems Constitutional: Patient denies any fever or chills . No generalized weakness or weight loss. Abdomen: Patient denied nausea vomiting and diarrhea and abdominal pain. Cardiovascular: Patient denies any chest pain or short of breath no palpitations. Respiratory: patient denied any cough is from production. No shortness of breath Neurologic: Patient denied any numbness or tingling headache. Musculoskeletal: Patient denies any complaints of joint swelling or deformity. Skin: Negative Psychiatric: Negative Endocrine: No heat or cold intolerance. No recent weight gain. Genitourinary: No dysuria or hematuria. All other 14 point ROS negative except the above 03/06/2018 returned from [facility] with diagnoses of osteomyelitis, obtaining records from [place]. Attempting to locate bone scan. Fever, T-max 100.1, pancultured. Complains of left arm discomfort. Denies chest pain, palpitations or shortness of breath. 03/07/2018 scheduled for bone scan today. Maintained on Rocephin, daptomycin, T -max 99.2. Denies arm pain. Cultures pending. Elevated CRP, Labs pending. Objective - Vital Signs Vital signs: Vital Signs Temp 98.8 F 03/07/18 05:23 Pulse 109 H 03/07/18 05:23 Resp 16 03/07/18 05:23 BP 138/74 03/07/18 05:23 Pulse Ox 96 03/07/18 05:23 Intake & Output 03/06/18 03/07/18 03/07/18 18:59 06:59 18:59 Intake Total 600 Output Total 700 875 Balance -700 -275 Intake: Oral 600 Output: Urine 700 875 Other: Voiding Method Indwelling Catheter Indwelling Catheter - Exam Patient is sitting up in the chair comfortably, no acute distress, awake alert and oriented.. HEENT: Normocephalic. Neck is supple. Pupils reactive. Nostrils clear. Oral cavity is moist. Neck reveals no JVD, carotid bruits, or thyromegaly. CHEST EXAMINATION: Trachea is central. Symmetrical expansion. Lung purvis clear to auscultation and percussion. CARDIAC: Normal S1, S2 with no gallops. No murmurs ABDOMEN: Soft. Bowel sounds normal. No organomegaly. No abdominal bruits. Extremities: reveal no edema. No clubbing or cyanosis Neurologically awake, alert, oriented x2-3 with well-coordinated movements. No focal deficits noted Skin: No rash or skin lesions. Psychiatric: Coperative. Nonsuicidal Musculoskeletal: Left elbow cast in place, fingers warm, pink. - Labs CBC & Chem 7: 03/05/18 07:45 03/05/18 07:45 Labs: Abnormal Lab Results - Last 24 Hours (Table) 03/06/18 Range/Units 15:37 Urine Appearance Cloudy H (Clear) Urine Protein 1+ H (Negative) Urine Blood Trace H (Negative) Ur Leukocyte Esterase Large H (Negative) Urine WBC 29 H (0-5) /hpf Amorphous Sediment Rare H (None) /hpf Urine Bacteria Occasional H (None) /hpf Microbiology - Last 24 Hours (Table) 03/06/18 15:37 Urine Culture - Preliminary Urine,Voided Assessment and Plan Assessment: Left elbow -possible osteomyelitis. bone scan pending PICC line malfunction. New PICC line placement on hold, secondary to the above Acute on chronic kidney disease stage IV Normocytic anemia. Anemia of chronic disease Mild protein calorie malnutrition. Albumin 2.7 Hypertension GERD Dementia on x-ray and osteoarthritis of multiple joints Depression Previous history of smoking New fevers, workup in progress Plan: Continue on current medication regime ,monitoring and symptomatic treatment. Maintain IV antibiotics. Bone scan scheduled for today. Cultures pending. Follow closely with infectious disease. Further recommendations to follow. The impression and plan of care has been dictated as directed. : I performed a history and examination of this patient, discussed the same with the dictator. I agree with the dictator's note ,documented as a scribe. Any additional findings or plans will be noted.
[2018-03-07 13:52] LABS: Anisocytosis Slight; Basophils % (A) 0 %; Eosinophils # (A) 0.3 k/uL (0-0.7); Eosinophils % (A) 3 %; HCT 25.5 % (34.0-46.0); HGB 8.1 gm/dL (11.4-16.0); Hypochromasia Moderate; Lymphocytes % (A) 10 %; MCH 26.4 pg (25.0-35.0); MCHC 31.7 g/dL (31.0-37.0); MCV 83.2 fL (80.0-100.0); Mean Platelet Volume 9.2; Monocytes # (A) 1.4 k/uL (0-1.0); Monocytes % (A) 13 %; Neutrophils # (A) 7.7 k/uL (1.3-7.7); Neutrophils % (A) 73 %; Platelet Count 276 k/uL (150-450); RBC 3.07 m/uL (3.80-5.40); RDW 16.9 % (11.5-15.5); WBC 10.5 k/uL (3.8-10.6)
--- NOTE | 2018-03-07 13:54 | NM ---
EXAMINATION TYPE: NM bone 3 phase DATE OF EXAM: 03/07/2018 COMPARISON: Left forearm x-ray earlier today HISTORY: Fall with dislocation December 24 with surgical reduction and external fixation that became infe cted and thus surgical hardware was removed, recurrent fall last week with pain. Triple phase bone scintigraphy was performed following the injection of 25.5 mCi Tc 99m MDP. Immedia te images and 5 hours post injection images acquired. FINDINGS: There is three-phase increased radiotracer uptake centered at left elbow fairly diffusely on arterial and soft tissue phase images with significant involvement distal humerus and olecranon as well as ra dial head and single focus in the distal humeral diaphysis on the delayed images. Persistent active i nfection or osteomyelitis cannot be excluded based on these findings though findings are fairly nonsp ecific given patient history. IMPRESSION: As above.
[2018-03-07 13:56] LABS: Calcium 8.3 mg/dL (8.4-10.2); Potassium 3.9 mmol/L (3.5-5.1)
[2018-03-07] MEDS: FERROUS SULFATE 325 MG TAB PO SCH (15:49)
[2018-03-07] MEDS: amLODIPine 5 MG TAB PO SCH (21:38)
[2018-03-07] MEDS: MELATONIN 3 MG TABLET PO SCH (21:38)
--- NOTE | 2018-03-07 23:14 | PN ---
PROGRESS NOTE DATE OF SERVICE: 03/07/2018. REASON FOR FOLLOWUP: Left forearm and elbow osteomyelitis. INTERVAL HISTORY: The patient was seen on rounds this morning. The patient has been afebrile. She is breathing comfortably. Denies any chest pain, cough, abdominal pain, or any worsening pain to the left forearm area. No diarrhea. EXAMINATION: Blood pressure 147/77 with a pulse of 97, temperature 98.2. She is 98% on room air. General description is an elderly female up in the bed in no distress. Respiratory system: Unlabored breathing. Clear to auscultation anteriorly. Heart S1, S2 regular rate and rhythm. Abdomen soft, no tenderness. Left forearm is currently dressed up. No obvious drainage on the dressing. LABS: Hemoglobin 8.1, white count 10.5. BUN of 25, creatinine is 2.33. DIAGNOSTIC IMPRESSION AND PLAN: Patient with left forearm osteomyelitis at the site of the external fixator. Unfortunately, have not been able to get the culture data from the [facility]. The patient was previously on Rocephin and the vanco that has been transitioned to daptomycin because of her renal insufficiency. The plain films were reviewed with radiologist which did show a clear-cut hole in her radius bone with no bone destruction. However, the bone scan has come back positive. DIAGNOSTIC IMPRESSION AND PLAN: Patient with left forearm osteomyelitis site of the external fixator screw and plan to continue form of Rocephin dose adjusted to 2 g daily along with Daptomycin. We will get a PICC line for outpatient antibiotic therapy. We will continue to try to obtain culture data from the [facility]. Continue supportive care. MMODL / IJN: [id number] /
[2018-03-08] MEDS: HEPARIN SODIUM,PORCINE 5,000 UNIT/ML 1 ML VIAL SQ SCH ×2 (07:36→16:19)
[2018-03-08] MEDS: FAMOTIDINE 20 MG TAB PO SCH (07:36)
[2018-03-08] MEDS: SENNOSIDES-DOCUSATE SODIUM 1 EACH TAB PO SCH (07:37)
[2018-03-08] MEDS: SODIUM BICARBONATE TAB 650 MG TAB PO SCH ×3 (07:37→21:19)
[2018-03-08] MEDS: VIT A,C & E-LUTEIN-MINERALS 1 EACH TAB PO SCH ×2 (07:37→16:19)
[2018-03-08] MEDS: traMADol 50 MG TAB PO PRN ×2 (07:38→21:19)
--- NOTE | 2018-03-08 14:15 | P.PN ---
Subjective 83-year-old female with a known history of dementia, GERD, hypertension and osteoarthritis was brought to the hospital by EMS from infection care facility with complaints of PICC line not working. longterm nurses tried to do the infusion but were unable to secure peripheral line. Patient was brought to the hospital for PICC line replacement. There is concern of IV infiltrated. Ultrasound-guided peripheral IV line was placed in the ER. 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 Patient is currently on antibiotics in the form of ceftriaxone for osteomyelitis. Patient did have a fracture about 2 weeks ago and underwent left elbow ORIF. 03/08/2018 Patient was apparently diagnosed with ostomy mellitus when her hardware was removed as it has pus around it. Bone scan here is not clearly conclusive for osteomyelitis. Infectious disease evaluated the patient and they're recommending daptomycin and Rocephin,an infectious disease is trying toreach infectious disease at [facility]. Constitutional: Denied any fatigue denied any fever. Cardio vascular: denied any chest pain, palpitations Gastrointestinal denied any nausea vomiting Pulmonary: Denied any shortness of breath cough Neurologic denied any new focal deficits Objective - Vital Signs Vital signs: Vital Signs Temp 97.5 F L 03/08/18 07:00 Pulse 99 03/08/18 07:00 Resp 18 03/08/18 07:00 BP 136/72 03/08/18 07:00 Pulse Ox 93 L 03/08/18 07:00 Intake & Output 03/07/18 03/08/18 03/08/18 18:59 06:59 18:59 Output Total 900 1150 Balance -900 -1150 Output: Urine 900 1150 Other: Voiding Method Indwelling Catheter Indwelling Catheter Indwelling Catheter - Exam PHYSICAL EXAMINATION: GENERAL: The patient is alert and oriented x3, not in any acute distress. Well developed, well nourished. HEENT: Pupils are round and equally reacting to light. EOMI. No scleral icterus. No conjunctival pallor. Normocephalic, atraumatic. No pharyngeal erythema. No thyromegaly. CARDIOVASCULAR: S1 and S2 present. No murmurs, rubs, or gallops. PULMONARY: Chest is clear to auscultation, no wheezing or crackles. ABDOMEN: Soft, nontender, nondistended, normoactive bowel sounds. No palpable organomegaly. MUSCULOSKELETAL: No joint swelling or deformity. EXTREMITIES: No cyanosis, clubbing, or pedal edema. NEUROLOGICAL: Gross neurological examination did not reveal any focal deficits. SKIN: No rashes. - Labs CBC & Chem 7: 03/07/18 09:06 03/07/18 09:06 Labs: Microbiology - Last 24 Hours (Table) 03/06/18 15:37 Urine Culture - Final Urine,Voided 03/06/18 19:21 Blood Culture - Preliminary Blood No Growth after 24 hours 03/06/18 19:08 Blood Culture - Preliminary Blood No Growth after 24 hours Assessment and Plan Plan: Left elbow -possible osteomyelitis. bone scan not clearly conclusive. Patient is presently on daptomycin and Rocephin patient will receive another PICC line possibility of discharge tomorrow. PICC line malfunction. New PICC line placement on hold, secondary to the above Acute on chronic kidney disease stage IVmy her creatinine is at her baseline Normocytic anemia. Anemia of chronic disease Mild protein calorie malnutrition. Albumin 2.7 Hypertension GERD Dementia on x-ray and osteoarthritis of multiple joints Depression Previous history of smoking New fevers, you to be secondary to acute osteomyelitis
--- NOTE | 2018-03-08 15:24 | PN ---
PROGRESS NOTE DATE OF SERVICE: 03/08/2018 REASON FOR FOLLOWUP: Left forearm external fixator site wound infection with osteomyelitis. INTERVAL HISTORY: The patient is currently afebrile. She is breathing comfortably. Denies having any chest pain, shortness of breath or cough. No abdominal pain or pain to the left forearm area and no diarrhea. PHYSICAL EXAMINATION: Blood pressure 136/72 with a pulse of 99, temperature 97.5, she is 93% on room air. General description is an elderly female, lying in bed in no distress. RESPIRATORY SYSTEM: Unlabored breathing, clear to auscultation anteriorly. HEART: S1, S2. Regular rate and rhythm. ABDOMEN: Soft, no tenderness. Left forearm wound is currently in a sling with no drainage. LABS: Hemoglobin 8.8, white count of 10.5 with a BUN of 25, creatinine 2.33. Blood culture has been negative. I did call the [facility]. She did have a tissue culture but those were negative, blood cultures were negative. DIAGNOSTIC IMPRESSION AND PLAN: Patient with left forearm external fixator site wound infection. Patient was noticed to have some necrotic bone at the site of insertion of the external fixator with concern for underlying osteomyelitis for which the patient was on vancomycin pharmacy to dose and Rocephin per her Infectious Disease physician at the [facility]. Unfortunately, the patient developed renal failure and is currently getting daptomycin along with Rocephin. She will need the PICC line to continue her antibiotic therapy with close outpatient followup. MMODL / IJN: [id number] /
[2018-03-08] MEDS: FERROUS SULFATE 325 MG TAB PO SCH (16:19)
[2018-03-08] MEDS: amLODIPine 5 MG TAB PO SCH (21:19)
[2018-03-08] MEDS: MELATONIN 3 MG TABLET PO SCH (21:19)
[2018-03-09] MEDS: DAPTOmycin 500 MG in SODIUM CHLORIDE 0.9% 50 ML IVPB SCH (00:06)
[2018-03-09] MEDS: HEPARIN SODIUM,PORCINE 5,000 UNIT/ML 1 ML VIAL SQ SCH ×2 (00:06→09:06)
[2018-03-09] MEDS: traMADol 50 MG TAB PO PRN (06:03)
[2018-03-09] MEDS ORDERED: cefTRIAXone 2,000 MG in SODIUM CHLORIDE 0.9% 100 ML IVPB SCH (09:00)
[2018-03-09] MEDS: VIT A,C & E-LUTEIN-MINERALS 1 EACH TAB PO SCH (09:06)
[2018-03-09] MEDS: SODIUM BICARBONATE TAB 650 MG TAB PO SCH (09:06)
[2018-03-09] MEDS: SENNOSIDES-DOCUSATE SODIUM 1 EACH TAB PO SCH (09:06)
[2018-03-09] MEDS: FAMOTIDINE 20 MG TAB PO SCH (09:06)
[2018-03-09] MEDS ORDERED: LIDOCAINE 2% (PF) 20 MG/ML 2 ML VIAL SQ ONE (09:39)
--- NOTE | 2018-03-09 10:31 | IR ---
PICC LINE PLACEMENT: HISTORY: Infection requiring long-term antibiotic therapy PROCEDURE: Ultrasound and fluoroscopic guidance of PICC line placement. COMPLICATIONS: None ANESTHESIA: 1. 1% Lidocaine locally. FINDINGS/TECHNIQUE: The procedure was explained to the patient. The risks, complications, benefits and alternatives were discussed and any questions were answered. Informed consent was obtained. The patient was placed supine on the fluoroscopic table and prepped and draped in the usual sterile fas ion. Utilizing a 21 gauge needle and sonographic and fluoroscopic guidance, access in the vein was achieved and there is placement of a 0.018 guidewire. The vein is patent. A 4-F sheath was placed o deangelo the guidewire. The guidewire and dilator were removed and a 4-F. PICC line was placed through th e sheath with the tip at the level of the SVC. The sheath was removed, the catheter was flushed and sutured into position. The patient was stable throughout the procedure and remained stable upon disc harge from the Department of Radiology. The vein puncture was patent under ultrasound. A rodriguez scale image was obtained to document patency of the vein punctured. All elements of the maximal barrier technique were utilized. FLUOROSCOPY TIME: 0.3 minutes of fluoroscopy and one image submitted IMPRESSION: Successful PICC line placement under ultrasound and fluoroscopic guidance.
--- NOTE | 2018-03-09 11:52 | P.NPCON ---
History of Present Illness - Reason for Consult acute renal failure - History of Present Illness Reason for consultation: Acute kidney injury History of present illness: Patient is a 83-year-old female seen in consultation for acute kidney injury. Patient's creatinine in January 2018 was near 1. Patient had dislocated her left elbow which failed to respond to conservative treatment. Patient had an external fixator placed on 12/25/2017. Subsequently the patient developed infection at the fixator site and was treated with IV antibiotics at [facility]. Patient received IV vancomycin along with Rocephin and was discharged to [facility]. Subsequently she developed acute kidney injury from vancomycin toxicity and it was discontinued. She is now maintained on daptomycin and Rocephin. Patient presented to the hospital to get a new PICC line. Creatinine was noted to be as high as 3.7 plan February 20 and is down to 2.32 today. Oral intake is good. No vomiting or diarrhea. Denies chest pain or shortness of breath. Admits to good urine output. Vital signs are stable. General: The patient appeared well nourished and normally developed. HEENT: Head exam is unremarkable. Neck is without jugular venous distension. LUNGS: Lungs are clear to auscultation and percussion. Breath sounds decreased. HEART: Rate and Rhythm are regular. First and second heart sounds normal. No murmurs, rubs or gallops. ABDOMEN: Abdominal exam reveals normal bowel sounds. Non-tender and non- distended. No evidence of peritonitis. EXTREMITITES: No clubbing, cyanosis, or edema. Past Medical History Past Medical History: Dementia, GERD/Reflux, Hypertension, Osteoarthritis (OA) Additional Past Medical History / Comment(s): kidney stones, urinary retention and UTI,dysphagia, osteomyelitis of left radius and ulna History of Any Multi-Drug Resistant Organisms: None Reported Past Surgical History: Appendectomy, Orthopedic Surgery, Tonsillectomy Additional Past Surgical History / Comment(s): LEFT KNEE ARTHROSCOPY, LEFT KIDNEY REMOVED, 11-18-14 total rt knee left elbow orif, Past Anesthesia/Blood Transfusion Reactions: No Reported Reaction Past Psychological History: Depression Additional Psychological History / Comment(s): client is alert to person and place but forgot was facility she just transferred from. client currently resides at [facility]. client was recieving antibiotics through the picc line which stopped working for the staff at [facility] but a ultrasound iv was placed which also stopped working and there is some redness around the site. Smoking Status: Former smoker Past Alcohol Use History: Rare Additional Past Alcohol Use History / Comment(s): Pt started smoking in 1952 and quit in 1997 Past Drug Use History: None Reported - Past Family History Father Family Medical History: No Reported History Additional Family Medical History / Comment(s): Father was healthy. Mother Family Medical History: No Reported History Additional Family Medical History / Comment(s): Mother had ulcers. Medications and Allergies Home Medications Medication Instructions Recorded Confirmed Type amLODIPine BESYLATE [Norvasc] 5 mg PO HS@2100 11/07/14 03/05/18 History Melatonin 3 mg PO HS 12/24/17 03/05/18 History Vit C/E/Zn/Coppr/Lutein/Zeaxan 1 cap PO BID@0800,1700 12/24/17 03/05/18 History [Preservision Areds 2 Softgel] Sennosides-Docusate Sodium 2 tab PO DAILY #30 tablet 12/27/17 03/05/18 Rx [Senokot-S] Albuterol Nebulized [Ventolin 2.5 mg INHALATION RT-Q6H PRN 02/21/18 03/05/18 History Nebulized] Bisacodyl [Dulcolax] 10 mg RECTAL DAILY PRN 02/21/18 03/05/18 History Ferrous Sulfate [Iron (65 MG 325 mg PO DAILY@1700 02/21/18 03/05/18 History Elemental)] Magnesium Hydroxide [Milk of 2,400 mg PO DAILY PRN 02/21/18 03/05/18 History Magnesia] Menthol [Biofreeze] 1 applic TOPICAL Q6H PRN 02/21/18 03/05/18 History Ranitidine HCl 150 mg PO BID@0800,1700 02/21/18 03/05/18 History Acetaminophen Tab [Tylenol] 650 mg PO Q6HR PRN tab 02/27/18 03/05/18 Rx Calcium Carbonate [Tums] 1,000 mg PO Q4HR PRN chew 02/27/18 03/05/18 Rx Lactulose [Cephulac] 20 gm PO DAILY PRN ml 02/27/18 03/05/18 Rx QUEtiapine [SEROquel] 12.5 mg PO HS PRN tab 02/27/18 03/05/18 Rx Sodium Bicarbonate Tab 650 mg PO TID tab 02/27/18 03/05/18 Rx traMADol HCL [Ultram] 50 mg PO Q6H PRN #12 tablet 02/27/18 03/05/18 Rx Lactose-Reduced Food [Ensure Plus] 1 can PO TID@0800,1200,1700 03/05/18 History cefTRIAXone [Rocephin] 1,000 mg IV Q24HR 03/05/18 03/05/18 History Allergies Allergy/AdvReac Type Severity Reaction Status Date / Time hydrocodone [From Bryan] Allergy Unknown Verified 03/05/18 12:06 Penicillins Allergy Rash/Hives Verified 03/05/18 12:06 Sulfa (Sulfonamide Allergy Rash/Hives Verified 03/05/18 12:06 Antibiotics) Physical Exam Vitals: Vital Signs Temp Pulse Resp BP Pulse Ox 03/09/18 08:31 98.6 F 99 20 140/73 94 L 03/09/18 06:00 98.6 F 99 20 140/73 94 L 03/09/18 00:50 98.1 F 101 H 20 150/77 97 03/08/18 15:00 98.3 F 95 18 142/73 95 Intake and Output 03/08/18 03/09/18 03/09/18 22:59 06:59 14:59 Intake Total 100 50 Output Total 800 Balance 100 -750 Intake: Intake, IV Titration 100 50 Amount DAPTOmycin 500 mg In 100 50 Sodium Chloride 0.9% 50 ml @ 100 mls/hr IVPB Q48H [facility] Rx#:[id number] Output: Urine 800 Uretheral ([place]) 800 Other: Voiding Method Indwelling Catheter Results - Lab Results Most recent lab results Calcium 8.3 mg/dL (8.4-10.2) L 03/07/18 09:06 03/07/18 09:06 03/07/18 09:06 Assessment and Plan Plan: Assessment: 1. Nonoliguric acute kidney injury secondary to ATN secondary to vancomycin toxicity. Creatinine peaked at 3.7 to as of February 20 and is down to 2.32 today. Baseline creatinine is 1. 2. Anemia. Rule out iron deficiency. 3. Left elbow dislocation status post external fixator placed December 25. 4. Infection at the site of left elbow fixator maintained on IV antibiotics. Infectious disease following. 5. Benign hypertension. Controlled. Plan: Encourage oral intake. Avoid nephrotoxins. Check iron studies. Continue to monitor renal function and urine output. Renal function appears to be recovering. Repeat electrolytes the morning. Thank you for the consultation. I will continue to follow the patient with you during her hospital stay.
--- NOTE | 2018-03-09 13:22 | P.DS ---
Providers Date of admission: 03/07/18 13:25 Attending physician: Wilder Sifuentes Consults: 03/06/18 10:38 Consult Physician Stat Consulting Provider: Celine Andino Consult Reason/Comments: iv antibiotic therapy? PICC? Do you want consulting provider notified?: Yes 03/08/18 13:54 Consult Physician Stat Consulting Provider: Regino Pena Consult Reason/Comments: Nephrology clearence for PICC line Do you want consulting provider notified?: Yes Primary care physician: [facility] Course: 83-year-old female with a known history of dementia, GERD, hypertension and osteoarthritis was brought to the hospital by EMS from infection care facility with complaints of PICC line not working. care home nurses tried to do the infusion but were unable to secure peripheral line. Patient was brought to the hospital for PICC line replacement. There is concern of IV infiltrated. Ultrasound-guided peripheral IV line was placed in the ER. 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 Patient is currently on antibiotics in the form of ceftriaxone for osteomyelitis. Patient did have a fracture about 2 weeks ago and underwent left elbow ORIF. 03/08/2018 Patient was apparently diagnosed with ostomy mellitus when her hardware was removed as it has pus around it. Bone scan here is not clearly conclusive for osteomyelitis. Infectious disease evaluated the patient and they're recommending daptomycin and Rocephin,an infectious disease is trying [facility] infectious [facility] at . 03/09/2018 Patient will be discharged to subacute rehabilitation today patient had a PICC line. Discharge antibiotics as per infectious disease. PHYSICAL EXAMINATION: GENERAL: The patient is alert and oriented x3, not in any acute distress. Well developed, well nourished. HEENT: Pupils are round and equally reacting to light. EOMI. No scleral icterus. No conjunctival pallor. Normocephalic, atraumatic. No pharyngeal erythema. No thyromegaly. CARDIOVASCULAR: S1 and S2 present. No murmurs, rubs, or gallops. PULMONARY: Chest is clear to auscultation, no wheezing or crackles. ABDOMEN: Soft, nontender, nondistended, normoactive bowel sounds. No palpable organomegaly. MUSCULOSKELETAL: No joint swelling or deformity. EXTREMITIES: No cyanosis, clubbing, or pedal edema. NEUROLOGICAL: Gross neurological examination did not reveal any focal deficits. SKIN: No rashes. Assessment and Plan Plan: Left elbow -possible osteomyelitis. bone scan not clearly conclusive. Patient is presently on daptomycin and Rocephin will be discharged to subacute rehab today PICC line malfunction. New PICC line placement on hold, secondary to the above Acute on chronic kidney disease stage IVmy her creatinine is at her baseline Normocytic anemia. Anemia of chronic disease Mild protein calorie malnutrition. Albumin 2.7 Hypertension GERD Dementia on x-ray and osteoarthritis of multiple joints Depression Previous history of smoking New fevers, you to be secondary to acute osteomyelitis Patient Condition at Discharge: Stable Plan - Discharge Summary New Discharge Prescriptions: New cefTRIAXone [Rocephin] 2,000 mg IVP Q24HR #28 ml DAPTOmycin [Cubicin Rf] 500 mg IVPB Q4HR 30 Days #15 vial Continue amLODIPine BESYLATE [Norvasc] 5 mg PO HS@2100 Vit C/E/Zn/Coppr/Lutein/Zeaxan [Preservision Areds 2 Softgel] 1 cap PO BID@ 0800,1700 Melatonin 3 mg PO HS Sennosides-Docusate Sodium [Senokot-S] 2 tab PO DAILY #30 tablet Magnesium Hydroxide [Milk of Magnesia] 2,400 mg PO DAILY PRN PRN Reason: Constipation Bisacodyl [Dulcolax] 10 mg RECTAL DAILY PRN PRN Reason: Constipation Menthol [Biofreeze] 1 applic TOPICAL Q6H PRN PRN Reason: Pain Albuterol Nebulized [Ventolin Nebulized] 2.5 mg INHALATION RT-Q6H PRN PRN Reason: Shortness Of Breath Ranitidine HCl 150 mg PO BID@0800,1700 Ferrous Sulfate [Iron (65 MG Elemental)] 325 mg PO DAILY@1700 Acetaminophen Tab [Tylenol] 650 mg PO Q6HR PRN tab PRN Reason: Mild Pain Or Fever > 100.5 Calcium Carbonate [Tums] 1,000 mg PO Q4HR PRN chew PRN Reason: Dyspepsia Lactulose [Cephulac] 20 gm PO DAILY PRN ml PRN Reason: Constipation QUEtiapine [SEROquel] 12.5 mg PO HS PRN tab PRN Reason: Agitation Sodium Bicarbonate Tab 650 mg PO TID tab traMADol HCL [Ultram] 50 mg PO Q6H PRN #12 tablet PRN Reason: Pain Lactose-Reduced Food [Ensure Plus] 1 can PO TID@0800,1200,1700 Discontinued cefTRIAXone [Rocephin] 1,000 mg IV Q24HR Discharge Medication List amLODIPine BESYLATE [Norvasc] 5 mg PO HS@2100 11/07/14 [History] Melatonin 3 mg PO HS 12/24/17 [History] Vit C/E/Zn/Coppr/Lutein/Zeaxan [Preservision Areds 2 Softgel] 1 cap PO BID@0800, 1700 12/24/17 [History] Sennosides-Docusate Sodium [Senokot-S] 2 tab PO DAILY #30 tablet 12/27/17 [Rx] Albuterol Nebulized [Ventolin Nebulized] 2.5 mg INHALATION RT-Q6H PRN 02/21/18 [ History] Bisacodyl [Dulcolax] 10 mg RECTAL DAILY PRN 02/21/18 [History] Ferrous Sulfate [Iron (65 MG Elemental)] 325 mg PO DAILY@1700 02/21/18 [History] Magnesium Hydroxide [Milk of Magnesia] 2,400 mg PO DAILY PRN 02/21/18 [History] Menthol [Biofreeze] 1 applic TOPICAL Q6H PRN 02/21/18 [History] Ranitidine HCl 150 mg PO BID@0800,1700 02/21/18 [History] Acetaminophen Tab [Tylenol] 650 mg PO Q6HR PRN tab 02/27/18 [Rx] Calcium Carbonate [Tums] 1,000 mg PO Q4HR PRN chew 02/27/18 [Rx] Lactulose [Cephulac] 20 gm PO DAILY PRN ml 02/27/18 [Rx] QUEtiapine [SEROquel] 12.5 mg PO HS PRN tab 02/27/18 [Rx] Sodium Bicarbonate Tab 650 mg PO TID tab 02/27/18 [Rx] traMADol HCL [Ultram] 50 mg PO Q6H PRN #12 tablet 02/27/18 [Rx] Lactose-Reduced Food [Ensure Plus] 1 can PO TID@0800,1200,1700 03/05/18 [History ] DAPTOmycin [Cubicin Rf] 500 mg IVPB Q4HR 30 Days #15 vial 03/09/18 [Rx] cefTRIAXone [Rocephin] 2,000 mg IVP Q24HR #28 ml 03/09/18 [Rx] Follow up Appointment(s)/Referral(s): Salinas Shrestha MD [Primary Care Provider] - 1-2 days Mary Ann Wells [NON-STAFF] - 1 Week Celine Andino MD [STAFF PHYSICIAN] - 1 Week Ambulatory/Diagnostic Orders: Basic Metabolic Panel [LAB.AMB] Location: None Selected Complete Blood Count w/diff [LAB.AMB] Location: None Selected C Reactive Protein [LAB.AMB] Location: None Selected Erythrocyte Sedimentation Rate [LAB.AMB] Location: None Selected Patient Instructions/Handouts: Osteomyelitis (DC), Fall Prevention for Older Adults (DC), Peripherally Inserted Central Catheters and Midline Catheters in... (DC) Activity/Diet/Wound Care/Special Instructions: Activity as tolerated, fall precautions, up with assist. Cardiac diet. Chronic bearden to gravity, rut care every shift. Full code status. Left arm to keep in sling and elevate at rest. Discharge Disposition: TRANSFER TO SNF/ECF
--- NOTE | 2018-03-09 14:03 | PN ---
PROGRESS NOTE DATE OF SERVICE: 03/09/2018 REASON FOR FOLLOWUP: Left forearm osteomyelitis at the external fixator screw site. INTERVAL HISTORY: The patient is currently afebrile. She is breathing comfortably. Denies having any chest pain or shortness of breath. No abdominal pain. Denies pain to the left forearm area. PHYSICAL EXAMINATION: Blood pressure 140/73 with a pulse of 99, temperature 98.6. She is 94% on room air. General description is an elderly female, lying in bed in no distress. RESPIRATORY SYSTEM: Unlabored breathing, clear to auscultation anteriorly. HEART: S1, S2. Regular rate and rhythm. ABDOMEN: Soft, no tenderness. Left forearm currently with no swelling, redness or any drainage. LABS: Hemoglobin 8.1, white count of 10.5, ESR was 84. CRP was 184.1. DIAGNOSTIC IMPRESSION AND PLAN: Patient with left forearm external fixator site, osteomyelitis. Cultures done at [facility] were negative. She has been on vancomycin, Rocephin, unfortunately developed nephrotoxicity to vancomycin. That is why the patient is currently on daptomycin that will continue for another 4 weeks to finish a course of therapy along with Rocephin. The kidney function need to monitor closely and if the creatinine clearance is more than 30, the daptomycin dose should be up to 5 mg daily. Currently, the patient is on 5 mg every 48 hours with weekly monitoring of CBC, BMP and a sed rate. Follow up in the office in 1 week. Continue supportive care. MMODL / IJN: [id number] /
[2018-03-09 14:20] VITALS: BP 133/72; PULSE 76; RESP 16; TEMP 98.4
[2018-03-09 16:58] LABS: Iron Saturation 5.59 (12.00-45.00)
== END 2018-03-09 14:40 | DRG 540 ==
LOC: EC 07:20 → 4MS4W 09:03 → OBSVTOIN 03-07 13:25
PROVIDERS: ADMIT Internal Medicine; ATTEND Internal Medicine
PROC: 02HV33Z Insertion of Infusion Device into Superior Vena Cava, Percutaneous Approach (ICD-10-PCS; principal; 2018-03-09 09:31)
DX: M86.10 Other acute osteomyelitis, unspecified site (principal); T82.594A Other mechanical complication of infusion catheter, initial encounter; N17.9 Acute kidney failure, unspecified; E44.1 Mild protein-calorie malnutrition; N18.4 Chronic kidney disease, stage 4 (severe); N39.0 Urinary tract infection, site not specified; T85.9XXA Unspecified complication of internal prosthetic device, implant and graft, initial encounter; D63.8 Anemia in other chronic diseases classified elsewhere; F03.90 Unspecified dementia, unspecified severity, without behavioral disturbance, psychotic disturbance, mood disturbance, and anxiety; F32.9 Major depressive disorder, single episode, unspecified; I12.9 Hypertensive chronic kidney disease with stage 1 through stage 4 chronic kidney disease, or unspecified chronic kidney disease; K21.9 Gastro-esophageal reflux disease without esophagitis; M15.9 Polyosteoarthritis, unspecified; S53.105D Unspecified dislocation of left ulnohumeral joint, subsequent encounter; R33.9 Retention of urine, unspecified; Z79.2 Long term (current) use of antibiotics; Z79.899 Other long term (current) drug therapy; Z87.440 Personal history of urinary (tract) infections; Z96.652 Presence of left artificial knee joint; Z87.891 Personal history of nicotine dependence; Z87.442 Personal history of urinary calculi; Z90.49 Acquired absence of other specified parts of digestive tract; Z88.5 Allergy status to narcotic agent; Z88.0 Allergy status to penicillin; Z88.2 Allergy status to sulfonamides; Y71.2 Prosthetic and other implants, materials and accessory cardiovascular devices associated with adverse incidents
CPT/HCPCS: 36415; 36569; 71046; 76937; 77001; 78315; 80048; 80053; 81001; 82728; 83540; 83550; 85025; 85652; 86140; 87040; 87086; 99285

== ENCOUNTER 2018-03-15 14:20 | Emergency (ER) | payer MEDICARE, OTHER ==
--- NOTE | 2018-03-15 14:31 | ED ---
Weakness HPI - General Stated complaint: Low Hemoglobin Time Seen by Provider: 03/15/18 14:25 Source: RN notes reviewed, old records reviewed - History of Present Illness Initial comments: This is an 80-year-old female the ER for evaluation of abnormal outpatient lab tests abnormal hemoglobin. Patient self denies any complaints no vomiting no nausea vomiting no bloody blood in her stool no blood in her vomit. No active bleeding episode. Patient states she has no complaints denies any symptoms. Patient's brought in by EMS patient's brought in for evaluation regarding low hemoglobin and outpatient lab test. MD Complaint: generalized weakness (Patient denies current weakness) -: days(s) (Chronic) Location: generalized Consistency: now resolved Improves with: rest Worsens with: movement Associated Symptoms: denies other symptoms - Related Data Home Medications Medication Instructions Recorded Confirmed amLODIPine BESYLATE [Norvasc] 5 mg PO HS@209911/07/14 03/15/18 Melatonin 3 mg PO HS@209912/24/17 03/15/18 Vit C/E/Zn/Coppr/Lutein/Zeaxan 1 cap PO BID@0800,169912/24/17 03/15/18 [Preservision Areds 2 Softgel] Albuterol Nebulized [Ventolin 2.5 mg INHALATION RT-Q6H PRN 02/21/18 03/15/18 Nebulized] Bisacodyl [Dulcolax] 10 mg RECTAL DAILY PRN 02/21/18 03/15/18 Ferrous Sulfate [Iron (65 MG 325 mg PO DAILY@169902/21/18 03/15/18 Elemental)] Magnesium Hydroxide [Milk of 2,400 mg PO DAILY PRN 02/21/18 03/15/18 Magnesia] Menthol [Biofreeze] 1 applic TOPICAL Q6H PRN 02/21/18 03/15/18 Ranitidine HCl 150 mg PO BID@0800,169902/21/18 03/15/18 Lactose-Reduced Food [Ensure Plus] 1 can PO TID@0800,1200,169903/05/18 03/15/18 DAPTOmycin [Cubicin Rf] 500 mg IVPB HS@209903/15/18 03/15/18 Na Phos,M-B/Na Phos,Di-Ba [Fleet 133 ml RECTAL ONCE PRN 03/15/18 03/15/18 Adult] Nystatin 100,000Unit/gm Cream 1 applic TOPICAL BID@,03/15/18 03/15/18 [Mycostatin Cream] Sennosides-Docusate Sodium 2 tab PO DAILY@0800 03/15/18 03/15/18 [Senokot-S] Sodium Bicarbonate Tab 650 mg PO TID@08,,03/15/18 03/15/18 cefTRIAXone [Rocephin] 2,000 mg IVP Q24HR@0800 03/15/18 03/15/18 Previous Rx's Medication Instructions Recorded Acetaminophen Tab [Tylenol] 650 mg PO Q6HR PRN tab 02/27/18 Calcium Carbonate [Tums] 1,000 mg PO Q4HR PRN chew 02/27/18 Lactulose [Cephulac] 20 gm PO DAILY PRN ml 02/27/18 traMADol HCL [Ultram] 50 mg PO Q6H PRN #12 tablet 02/27/18 Allergies Allergy/AdvReac Type Severity Reaction Status Date / Time hydrocodone [From [place]] Allergy Unknown Verified 03/15/18 15:58 Penicillins Allergy Rash/Hives Verified 03/15/18 15:58 Sulfa (Sulfonamide Allergy Rash/Hives Verified 03/15/18 15:58 Antibiotics) Review of Systems ROS Statement: Those systems with pertinent positive or pertinent negative responses have been documented in the HPI. ROS Other: All systems not noted in ROS Statement are negative. Past Medical History Past Medical History: Dementia, GERD/Reflux, Hypertension, Osteoarthritis (OA) Additional Past Medical History / Comment(s): kidney stones, urinary retention and UTI,dysphagia, osteomyelitis of left radius and ulna History of Any Multi-Drug Resistant Organisms: None Reported Past Surgical History: Appendectomy, Orthopedic Surgery, Tonsillectomy Additional Past Surgical History / Comment(s): LEFT KNEE ARTHROSCOPY, LEFT KIDNEY REMOVED, 11-18-14 total rt knee left elbow orif, Past Anesthesia/Blood Transfusion Reactions: No Reported Reaction Past Psychological History: Depression Additional Psychological History / Comment(s): client is alert to person and place but forgot was facility she just transferred from. client currently resides at [facility]. client was recieving antibiotics through the picc line which stopped working for the staff at [facility] but a ultrasound iv was placed which also stopped working and there is some redness around the site. Smoking Status: Former smoker Past Alcohol Use History: Rare Additional Past Alcohol Use History / Comment(s): Pt started smoking in 1952 and quit in 1997 Past Drug Use History: None Reported - Past Family History Father Family Medical History: No Reported History Additional Family Medical History / Comment(s): Father was healthy. Mother Family Medical History: No Reported History Additional Family Medical History / Comment(s): Mother had ulcers. General Exam General appearance: alert, in no apparent distress Head exam: Present: atraumatic, normocephalic, normal inspection Eye exam: Present: normal appearance, PERRL, EOMI. Absent: scleral icterus, conjunctival injection, periorbital swelling ENT exam: Present: normal exam, mucous membranes moist Neck exam: Present: normal inspection. Absent: tenderness, meningismus, lymphadenopathy Respiratory exam: Present: normal lung sounds bilaterally. Absent: respiratory distress, wheezes, rales, rhonchi, stridor Cardiovascular Exam: Present: regular rate, normal rhythm, normal heart sounds. Absent: systolic murmur, diastolic murmur, rubs, gallop, clicks GI/Abdominal exam: Present: soft, normal bowel sounds. Absent: distended, tenderness, guarding, rebound, rigid Extremities exam: Present: normal inspection, full ROM, normal capillary refill. Absent: tenderness, pedal edema, joint swelling, calf tenderness Back exam: Present: normal inspection Neurological exam: Present: alert, oriented X3, CN II-XII intact Psychiatric exam: Present: normal affect, normal mood Skin exam: Present: warm, dry, intact, normal color. Absent: rash Course Vital Signs 03/15/18 03/15/18 14:31 16:25 Temperature 98.6 F 98.2 F Pulse Rate 91 72 Respiratory 17 16 Rate Blood Pressure 113/67 116/52 O2 Sat by Pulse 97 96 Oximetry - Reevaluation(s) Reevaluation #1: Medical record and prior hemoglobin are reviewed Medical Decision Making - Medical Decision Making 83-year-old female sent in for evaluation regarding low hemoglobin, patient has he will been here that is at baseline is asymptomatic, patient can be discharged home - Lab Data Result diagrams: 03/15/18 14:45 03/15/18 14:45 Lab Results 1003/15/18 03/15/18 Range/Units 14:45 14:45 14:45 WBC 14.7 H (3.8-10.6) k/uL RBC 3.17 L (3.80-5.40) m/uL Hgb 8.0 L (11.4-16.0) gm/dL Hct 25.9 L (34.0-46.0) % MCV 81.6 (80.0-100.0) fL MCH 25.1 (25.0-35.0) pg MCHC 30.8 L (31.0-37.0) g/dL RDW 17.2 H (11.5-15.5) % Plt Count 414 (150-450) k/uL Neutrophils % 87 % Lymphocytes % 5 % Monocytes % 5 % Eosinophils % 1 % Basophils % 0 % Neutrophils # 12.8 H (1.3-7.7) k/uL Lymphocytes # 0.8 L (1.0-4.8) k/uL Monocytes # 0.8 (0-1.0) k/uL Eosinophils # 0.2 (0-0.7) k/uL Basophils # 0.0 (0-0.2) k/uL Manual Slide Review Performed Hypochromasia Moderate Anisocytosis Slight Microcytosis Slight PT 10.4 (9.0-12.0) sec INR 1.1 (<1.2) APTT 27.9 (22.0-30.0) sec Sodium (137-145) mmol/L Potassium (3.5-5.1) mmol/L Chloride (98-107) mmol/L Carbon Dioxide (22-30) mmol/L Anion Gap mmol/L BUN (7-17) mg/dL Creatinine (0.52-1.04) mg/dL Est GFR (CKD-EPI)AfAm (>60 ml/min/1.73 sqM) Est GFR (CKD-EPI)NonAf (>60 ml/min/1.73 sqM) Glucose (74-99) mg/dL Calcium (8.4-10.2) mg/dL Magnesium (1.6-2.3) mg/dL Total Bilirubin (0.2-1.3) mg/dL AST (14-36) U/L ALT (9-52) U/L Alkaline Phosphatase (38-126) U/L Total Creatine Kinase <20 L (30-135) U/L CK-MB (CK-2) 0.5 (0.0-2.4) ng/mL CK-MB (CK-2) Rel Index Troponin I <0.012 (0.000-0.034) ng/mL Total Protein (6.3-8.2) g/dL Albumin (3.5-5.0) g/dL Lipase (23-300) U/L 03/15/18 Range/Units 14:45 WBC (3.8-10.6) k/uL RBC (3.80-5.40) m/uL Hgb (11.4-16.0) gm/dL Hct (34.0-46.0) % MCV (80.0-100.0) fL MCH (25.0-35.0) pg MCHC (31.0-37.0) g/dL RDW (11.5-15.5) % Plt Count (150-450) k/uL Neutrophils % % Lymphocytes % % Monocytes % % Eosinophils % % Basophils % % Neutrophils # (1.3-7.7) k/uL Lymphocytes # (1.0-4.8) k/uL Monocytes # (0-1.0) k/uL Eosinophils # (0-0.7) k/uL Basophils # (0-0.2) k/uL Manual Slide Review Hypochromasia Anisocytosis Microcytosis PT (9.0-12.0) sec INR (<1.2) APTT (22.0-30.0) sec Sodium 137 (137-145) mmol/L Potassium 3.3 L (3.5-5.1) mmol/L Chloride 100 (98-107) mmol/L Carbon Dioxide 28 (22-30) mmol/L Anion Gap 9 mmol/L BUN 23 H (7-17) mg/dL Creatinine 1.50 H (0.52-1.04) mg/dL Est GFR (CKD-EPI)AfAm 37 (>60 ml/min/1.73 sqM) Est GFR (CKD-EPI)NonAf 32 (>60 ml/min/1.73 sqM) Glucose 108 H (74-99) mg/dL Calcium 8.3 L (8.4-10.2) mg/dL Magnesium 2.0 (1.6-2.3) mg/dL Total Bilirubin 0.3 (0.2-1.3) mg/dL AST 40 H (14-36) U/L ALT 22 (9-52) U/L Alkaline Phosphatase 171 H (38-126) U/L Total Creatine Kinase (30-135) U/L CK-MB (CK-2) (0.0-2.4) ng/mL CK-MB (CK-2) Rel Index Troponin I (0.000-0.034) ng/mL Total Protein 6.2 L (6.3-8.2) g/dL Albumin 2.6 L (3.5-5.0) g/dL Lipase 131 (23-300) U/L Disposition Clinical Impression: Anemia Disposition: HOME SELF-CARE Condition: Good Instructions: Anemia (ED) Is patient prescribed a controlled substance at d/c from ED?: No Referrals: Salinas Shrestha MD [Primary Care Provider] - 1-2 days
[2018-03-15 15:05] LABS: INR 1.1 (<1.2); Partial Thromboplastin Time 27.9 sec (22.0-30.0); Prothrombin Time 10.4 sec (9.0-12.0)
[2018-03-15 15:07] LABS: Albumin 2.6 g/dL (3.5-5.0); Calcium 8.3 mg/dL (8.4-10.2); Potassium 3.3 mmol/L (3.5-5.1); Total Bilirubin 0.3 mg/dL (0.2-1.3); Total Protein 6.2 g/dL (6.3-8.2)
[2018-03-15 15:25] LABS: Anisocytosis Slight; Basophils % (A) 0 %; Eosinophils # (A) 0.2 k/uL (0-0.7); Eosinophils % (A) 1 %; HCT 25.9 % (34.0-46.0); Hypochromasia Moderate; Lymphocytes # (A) 0.8 k/uL (1.0-4.8); Lymphocytes % (A) 5 %; MCH 25.1 pg (25.0-35.0); MCHC 30.8 g/dL (31.0-37.0); MCV 81.6 fL (80.0-100.0); Mean Platelet Volume 6.8; Microcytosis Slight; Monocytes # (A) 0.8 k/uL (0-1.0); Monocytes % (A) 5 %; Neutrophils # (A) 12.8 k/uL (1.3-7.7); Neutrophils % (A) 87 %; Platelet Count 414 k/uL (150-450); RBC 3.17 m/uL (3.80-5.40); RDW 17.2 % (11.5-15.5); WBC 14.7 k/uL (3.8-10.6)
[2018-03-15 15:26] LABS: Creatine Kinase <20 U/L (30-135)
[2018-03-15 15:40] LABS: Creatine Kinase MB 0.5 ng/mL (0.0-2.4); Troponin I <0.012 ng/mL (0.000-0.034)
[2018-03-15 16:25] VITALS: BP 116/52; PULSE 72; RESP 16; TEMP 98.2
== END 2018-03-15 17:15 | disposition home or self-care (01) ==
LOC: EC 14:20
DX: D64.9 Anemia, unspecified (principal); I10 Essential (primary) hypertension; K21.9 Gastro-esophageal reflux disease without esophagitis; Z87.891 Personal history of nicotine dependence; Z88.0 Allergy status to penicillin; Z88.2 Allergy status to sulfonamides; Z88.5 Allergy status to narcotic agent; Z79.899 Other long term (current) drug therapy; Z87.440 Personal history of urinary (tract) infections
CPT/HCPCS: 36415; 80053; 82550; 82553; 83690; 83735; 84484; 85025; 85610; 85730; 99285

== ENCOUNTER 2018-03-20 16:13 | Inpatient (IN) | payer MEDICARE, OTHER ==
[2018-03-20] MEDS ORDERED: SODIUM CHLORIDE 0.9% 1,000 ML IV STA (16:41)
[2018-03-20 16:49] LABS: Anisocytosis Slight; Basophils % (A) 0 %; Eosinophils # (A) 0.5 k/uL (0-0.7); Eosinophils % (A) 3 %; HCT 22.7 % (34.0-46.0); Hypochromasia Slight; Lymphocytes # (A) 1.1 k/uL (1.0-4.8); Lymphocytes % (A) 7 %; MCH 24.8 pg (25.0-35.0); MCHC 30.7 g/dL (31.0-37.0); Mean Platelet Volume 6.6; Microcytosis Slight; Monocytes # (A) 0.7 k/uL (0-1.0); Monocytes % (A) 5 %; Neutrophils # (A) 12.9 k/uL (1.3-7.7); Neutrophils % (A) 84 %; Platelet Count 475 k/uL (150-450); RBC 2.81 m/uL (3.80-5.40); RDW 17.4 % (11.5-15.5); WBC 15.4 k/uL (3.8-10.6)
[2018-03-20 16:59] LABS: Albumin 2.6 g/dL (3.5-5.0); Magnesium 2.2 mg/dL (1.6-2.3); Potassium 4.1 mmol/L (3.5-5.1); Total Bilirubin 0.3 mg/dL (0.2-1.3); Total Protein 6.2 g/dL (6.3-8.2)
[2018-03-20 17:00] LABS: INR 1.1 (<1.2); Partial Thromboplastin Time 28.5 sec (22.0-30.0)
[2018-03-20 17:01] LABS: Creatine Kinase <20 U/L (30-135)
[2018-03-20] MEDS ORDERED: ONDANSETRON 4 MG/2 ML VIAL IVP STA (17:12)
[2018-03-20] MEDS ORDERED: PANTOPRAZOLE 40 MG/10 ML VIAL IVP STA (17:12)
[2018-03-20 17:14] LABS: Creatine Kinase MB 0.6 ng/mL (0.0-2.4); Troponin I <0.012 ng/mL (0.000-0.034)
--- NOTE | 2018-03-20 18:30 | ED ---
Recheck HPI - General Chief Complaint: Recheck/Abnormal Lab/Rx Stated Complaint: Low hemoglobin Time Seen by Provider: 03/20/18 16:35 Source: patient, EMS, RN notes reviewed, old records reviewed Mode of arrival: EMS - History of Present Illness Initial Comments: This is an 83-year-old female the ER, patient sent for abnormal lab tests are lab outpatient lab results. A she had abnormal lab tests regarding anemia, patient also had recent occult blood test which was negative. A she herself is been weak and had a fall also today. Patient complaining of some mild blood tox pain. No head injury no loss of consciousness no other injuries or issues. Patient is recent change in medications patient patient's poor strain secondary to baseline MD Complaint: abnormal lab (Hgb) -: days(s) Returns Today for: other (weakness, falls) Associated Symptoms: malaise, other (AMS) - Related Data Home Medications Medication Instructions Recorded Confirmed amLODIPine BESYLATE [Norvasc] 5 mg PO HS@209911/07/14 03/20/18 Melatonin 3 mg PO HS@209912/24/17 03/20/18 Vit C/E/Zn/Coppr/Lutein/Zeaxan 1 cap PO BID@0800,1700 12/24/17 03/20/18 [Preservision Areds 2 Softgel] Ferrous Sulfate [Iron (65 MG 325 mg PO DAILY@169902/21/18 03/20/18 Elemental)] Magnesium Hydroxide [Milk of 2,400 mg PO DAILY PRN 02/21/18 03/20/18 Magnesia] Ranitidine HCl 150 mg PO BID@0800,1700 02/21/18 03/20/18 Lactose-Reduced Food [Ensure Plus] 1 can PO TID@0800,1200,1700 03/05/18 03/20/18 DAPTOmycin [Cubicin Rf] 500 mg IVPB HS@209903/15/18 03/20/18 Nystatin 100,000Unit/gm Cream 1 applic TOPICAL BID@0800,209903/15/18 03/20/18 [Mycostatin Cream] Sennosides-Docusate Sodium 2 tab PO DAILY@0800 03/15/18 03/20/18 [Senokot-S] Sodium Bicarbonate Tab 650 mg PO TID@0800,1200,1700 03/15/18 03/20/18 cefTRIAXone [Rocephin] 2,000 mg IVP Q24HR@0800 03/15/18 03/20/18 Previous Rx's Medication Instructions Recorded Acetaminophen Tab [Tylenol] 650 mg PO Q6HR PRN tab 02/27/18 Lactulose [Cephulac] 20 gm PO DAILY PRN ml 02/27/18 traMADol HCL [Ultram] 50 mg PO Q6H PRN #12 tablet 02/27/18 Allergies Allergy/AdvReac Type Severity Reaction Status Date / Time hydrocodone [From [place]] Allergy Unknown Verified 03/15/18 15:58 Penicillins Allergy Rash/Hives Verified 03/15/18 15:58 Sulfa (Sulfonamide Allergy Rash/Hives Verified 03/15/18 15:58 Antibiotics) Review of Systems ROS Statement: Those systems with pertinent positive or pertinent negative responses have been documented in the HPI. ROS Other: All systems not noted in ROS Statement are negative. Past Medical History Past Medical History: Dementia, GERD/Reflux, Hypertension, Osteoarthritis (OA) Additional Past Medical History / Comment(s): kidney stones, urinary retention and UTI,dysphagia, osteomyelitis of left radius and ulna History of Any Multi-Drug Resistant Organisms: None Reported Past Surgical History: Appendectomy, Orthopedic Surgery, Tonsillectomy Additional Past Surgical History / Comment(s): LEFT KNEE ARTHROSCOPY, LEFT KIDNEY REMOVED, 6-15 total rt knee left elbow orif, Past Anesthesia/Blood Transfusion Reactions: No Reported Reaction Past Psychological History: Depression Smoking Status: Former smoker Past Alcohol Use History: Rare Past Drug Use History: None Reported - Past Family History Father Family Medical History: No Reported History Additional Family Medical History / Comment(s): Father was healthy. Mother Family Medical History: No Reported History Additional Family Medical History / Comment(s): Mother had ulcers. General Exam General appearance: alert, in no apparent distress Head exam: Present: atraumatic, normocephalic, normal inspection Eye exam: Present: normal appearance, PERRL, EOMI. Absent: scleral icterus, conjunctival injection, periorbital swelling ENT exam: Present: normal exam, mucous membranes moist Neck exam: Present: normal inspection. Absent: tenderness, meningismus, lymphadenopathy Respiratory exam: Present: normal lung sounds bilaterally. Absent: respiratory distress, wheezes, rales, rhonchi, stridor Cardiovascular Exam: Present: regular rate, normal rhythm, normal heart sounds. Absent: systolic murmur, diastolic murmur, rubs, gallop, clicks GI/Abdominal exam: Present: soft, normal bowel sounds. Absent: distended, tenderness, guarding, rebound, rigid Extremities exam: Present: normal inspection, full ROM, normal capillary refill. Absent: tenderness, pedal edema, joint swelling, calf tenderness Back exam: Present: normal inspection Neurological exam: Present: alert, oriented X3, CN II-XII intact Psychiatric exam: Present: normal affect, normal mood Skin exam: Present: warm, dry, intact, normal color. Absent: rash Course Vital Signs 03/20/18 03/20/18 16:18 18:19 Temperature 99.7 F H 99.3 F Pulse Rate 98 75 Respiratory 17 18 Rate Blood Pressure 127/74 125/73 O2 Sat by Pulse 98 98 Oximetry - Reevaluation(s) Reevaluation #1: 03/20/18 20:05 Medical record labwork is trended Medical Decision Making - Medical Decision Making 83 female the ER, patient presents for evaluation and possible probable anemia weakness of fall. Patient is anemic, does have urinary tract infection dehydration and weakness. - Lab Data Result diagrams: 03/20/18 16:38 03/20/18 16:38 Lab Results 03/20/18 03/20/18 03/20/18 Range/Units 16:38 16:38 16:38 WBC 15.4 H (3.8-10.6) k/uL RBC 2.81 L (3.80-5.40) m/uL Hgb 7.0 L (11.4-16.0) gm/dL Hct 22.7 L (34.0-46.0) % MCV 81.0 (80.0-100.0) fL MCH 24.8 L (25.0-35.0) pg MCHC 30.7 L (31.0-37.0) g/dL RDW 17.4 H (11.5-15.5) % Plt Count 475 H (150-450) k/uL Neutrophils % 84 % Lymphocytes % 7 % Monocytes % 5 % Eosinophils % 3 % Basophils % 0 % Neutrophils # 12.9 H (1.3-7.7) k/uL Lymphocytes # 1.1 (1.0-4.8) k/uL Monocytes # 0.7 (0-1.0) k/uL Eosinophils # 0.5 (0-0.7) k/uL Basophils # 0.0 (0-0.2) k/uL Hypochromasia Slight Anisocytosis Slight Microcytosis Slight PT 11.0 (9.0-12.0) sec INR 1.1 (<1.2) APTT 28.5 (22.0-30.0) sec Sodium (137-145) mmol/L Potassium (3.5-5.1) mmol/L Chloride (98-107) mmol/L Carbon Dioxide (22-30) mmol/L Anion Gap mmol/L BUN (7-17) mg/dL Creatinine (0.52-1.04) mg/dL Est GFR (CKD-EPI)AfAm (>60 ml/min/1.73 sqM) Est GFR (CKD-EPI)NonAf (>60 ml/min/1.73 sqM) Glucose (74-99) mg/dL Calcium (8.4-10.2) mg/dL Magnesium (1.6-2.3) mg/dL Total Bilirubin (0.2-1.3) mg/dL AST (14-36) U/L ALT (9-52) U/L Alkaline Phosphatase (38-126) U/L Total Creatine Kinase <20 L (30-135) U/L CK-MB (CK-2) 0.6 (0.0-2.4) ng/mL CK-MB (CK-2) Rel Index Troponin I <0.012 (0.000-0.034) ng/mL Total Protein (6.3-8.2) g/dL Albumin (3.5-5.0) g/dL Lipase (23-300) U/L Urine Color Urine Appearance (Clear) Urine pH (5.0-8.0) Ur Specific [place] (1.001-1.035) Urine Protein (Negative) Urine Glucose (UA) (Negative) Urine Ketones (Negative) Urine Blood (Negative) Urine Nitrite (Negative) Urine Bilirubin (Negative) Urine Urobilinogen (<2.0) mg/dL Ur Leukocyte Esterase (Negative) Urine RBC (0-5) /hpf Urine WBC (0-5) /hpf Ur Squamous Epith Cells (0-4) /hpf Urine Mucus (None) /hpf Urine Yeast (Budding) (None) /hpf Blood Type Blood Type Recheck Antibody Screen Spec Expiration Date 03/20/18 03/20/18 03/20/18 Range/Units 16:38 16:38 19:34 WBC (3.8-10.6) k/uL RBC (3.80-5.40) m/uL Hgb (11.4-16.0) gm/dL Hct (34.0-46.0) % MCV (80.0-100.0) fL MCH (25.0-35.0) pg MCHC (31.0-37.0) g/dL RDW (11.5-15.5) % Plt Count (150-450) k/uL Neutrophils % % Lymphocytes % % Monocytes % % Eosinophils % % Basophils % % Neutrophils # (1.3-7.7) k/uL Lymphocytes # (1.0-4.8) k/uL Monocytes # (0-1.0) k/uL Eosinophils # (0-0.7) k/uL Basophils # (0-0.2) k/uL Hypochromasia Anisocytosis Microcytosis PT (9.0-12.0) sec INR (<1.2) APTT (22.0-30.0) sec Sodium 138 (137-145) mmol/L Potassium 4.1 (3.5-5.1) mmol/L Chloride 98 (98-107) mmol/L Carbon Dioxide 32 H (22-30) mmol/L Anion Gap 8 mmol/L BUN 25 H (7-17) mg/dL Creatinine 1.53 H (0.52-1.04) mg/dL Est GFR (CKD-EPI)AfAm 36 (>60 ml/min/1.73 sqM) Est GFR (CKD-EPI)NonAf 31 (>60 ml/min/1.73 sqM) Glucose 109 H (74-99) mg/dL Calcium 8.0 L (8.4-10.2) mg/dL Magnesium 2.2 (1.6-2.3) mg/dL Total Bilirubin 0.3 (0.2-1.3) mg/dL AST 32 (14-36) U/L ALT 21 (9-52) U/L Alkaline Phosphatase 159 H (38-126) U/L Total Creatine Kinase (30-135) U/L CK-MB (CK-2) (0.0-2.4) ng/mL CK-MB (CK-2) Rel Index Troponin I (0.000-0.034) ng/mL Total Protein 6.2 L (6.3-8.2) g/dL Albumin 2.6 L (3.5-5.0) g/dL Lipase 100 (23-300) U/L Urine Color Yellow Urine Appearance Cloudy H (Clear) Urine pH 6.0 (5.0-8.0) Ur Specific [place] 1.017 (1.001-1.035) Urine Protein 2+ H (Negative) Urine Glucose (UA) Negative (Negative) Urine Ketones Trace H (Negative) Urine Blood Small H (Negative) Urine Nitrite Negative (Negative) Urine Bilirubin Negative (Negative) Urine Urobilinogen <2.0 (<2.0) mg/dL Ur Leukocyte Esterase Large H (Negative) Urine RBC 10 H (0-5) /hpf Urine WBC 170 H (0-5) /hpf Ur Squamous Epith Cells 3 (0-4) /hpf Urine Mucus Occasional H (None) /hpf Urine Yeast (Budding) Moderate H (None) /hpf Blood Type O Positive Blood Type Recheck No Antibody Screen NEGATIVE Spec Expiration Date 03/23/2018 - 1184 - EKG Data -: EKG Interpreted by Me (EKG shows A. fib with RVR rate 1:30, QRS 80, QTC 42) Rate: tachycardia - Radiology Data Radiology results: report reviewed (Xray abdominal serious with chest and pelvis is negative for acute disease or injury), image reviewed Disposition Clinical Impression: UTI (urinary tract infection), Anemia, DIANNE (acute kidney injury), Weakness Disposition: ADMITTED IP TO THIS HOSP Condition: Fair Is patient prescribed a controlled substance at d/c from ED?: No Referrals: Benoit Chavez MD [Primary Care Provider] - 1-2 days
--- NOTE | 2018-03-20 19:37 | XR ---
EXAMINATION TYPE: XR pelvis AP view DATE OF EXAM: 03/20/2018 COMPARISON: NONE HISTORY: Recent fall TECHNIQUE: Single view FINDINGS: Pelvic ring is intact. Proximal femurs are intact. There is acetabular spurring. Sacroiliac joints are intact. IMPRESSION: Mild osteoarthritis in the hip joints. No fracture seen.
--- NOTE | 2018-03-20 19:39 | XR ---
EXAMINATION TYPE: XR abdomen acute w cxr DATE OF EXAM: 03/20/2018 COMPARISON: NONE HISTORY: Pain TECHNIQUE: Chest x-ray with supine and upright abdomen. FINDINGS: There is no heart failure nor confluent pneumonic infiltrate. There is right central venous catheter with the tip over the superior vena cava. Costophrenic angles are clear. There is no sign of intestinal obstruction or pneumoperitoneum. Fecal pattern is normal. There is no evidence of a mass. There are no pathologic calcifications over the kidneys. IMPRESSION: Nonacute abdomen. No active cardiopulmonary disease.
[2018-03-20 19:42] LABS: Appearance,Urine Cloudy (Clear); Bilirubin,Urine Negative (Negative); Blood,Urine Small (Negative); Budding Yeast,Urine Moderate /hpf; Color,Urine Yellow; Glucose,Urine (UA) Negative (Negative); Ketones,Urine Trace (Negative); Leukocyte Esterase,Urine Large (Negative); Mucus,Urine Occasional /hpf; Nitrite,Urine Negative (Negative); Protein,Urine 2+ (Negative); RBC,Urine 10 /hpf (0-5); Specific Gravity,Urine 1.017 (1.001-1.035); Squamous Epithelial Cell,Urine 3 /hpf (0-4); Urobilinogen,Urine <2.0 mg/dL (<2.0); WBC,Urine 170 /hpf (0-5)
[2018-03-20] MEDS ORDERED: cefTRIAXone 2,000 MG in SODIUM CHLORIDE 0.9% 100 ML IVPB STA (20:07)
[2018-03-20] MEDS ORDERED: SODIUM CHLORIDE 0.9% 1,000 ML IV ONE (20:07)
[2018-03-20] MEDS ORDERED: ACETAMINOPHEN TAB 325 MG TAB PO PRN (22:51)
[2018-03-20] MEDS ORDERED: MAGNESIUM HYDROXIDE 2,400 MG/10 ML CUP PO PRN (22:51)
[2018-03-21] MEDS: SENNOSIDES-DOCUSATE SODIUM 1 EACH TAB PO SCH (07:43)
[2018-03-21] MEDS: NYSTATIN 100,000UNIT/GM CREAM 30 GM TUBE TOPICAL SCH ×2 (07:47→21:17)
[2018-03-21] MEDS ORDERED: NON-FORMULARY DRUG (Ceftriaxone 2,000 MG) IVP SCH (08:00)
[2018-03-21] MEDS ORDERED: FAMOTIDINE 20 MG TAB PO SCH (08:00)
[2018-03-21] MEDS ORDERED: NON-FORMULARY DRUG (Vit C/E/Zn/Coppr/Lutein/Zeaxan [Preservision Areds 2 Softgel] 1 CAP) PO SCH (08:00)
[2018-03-21] MEDS ORDERED: NON-FORMULARY DRUG (Lactose-Reduced Food [Ensure Plus] 1 CAN) PO SCH (08:00)
[2018-03-21] MEDS ORDERED: ENOXAPARIN 40 MG/0.4 ML SYRINGE SQ SCH (09:00)
[2018-03-21 09:02] LABS: Anisocytosis Slight; Basophils % (A) 0 %; Eosinophils # (A) 0.5 k/uL (0-0.7); Eosinophils % (A) 4 %; HCT 23.3 % (34.0-46.0); HGB 7.2 gm/dL (11.4-16.0); Hypochromasia Moderate; Lymphocytes # (A) 1.1 k/uL (1.0-4.8); Lymphocytes % (A) 8 %; MCH 25.2 pg (25.0-35.0); MCV 81.3 fL (80.0-100.0); Mean Platelet Volume 6.6; Microcytosis Slight; Monocytes # (A) 0.7 k/uL (0-1.0); Monocytes % (A) 5 %; Neutrophils # (A) 10.6 k/uL (1.3-7.7); Neutrophils % (A) 82 %; Platelet Count 392 k/uL (150-450); RBC 2.87 m/uL (3.80-5.40); RDW 17.2 % (11.5-15.5)
[2018-03-21] MEDS: METOPROLOL TARTRATE 25 MG TAB PO SCH ×2 (11:58→21:17)
--- NOTE | 2018-03-21 12:41 | ECHOF ---
Referral Reason:arythmia MEASUREMENTS -------- HEIGHT: 170.2 cm WEIGHT: 81.6 kg BP: 105/46 IVSd: 1.3 cm (0.6 - 1.1) LVIDd: 4.4 cm (3.9 - 5.3) LVPWd: 1.1 cm (0.6 - 1.1) IVSs: 1.4 cm LVIDs: 2.9 cm LVPWs: 1.2 cm LA Diam: 4.2 cm (2.7 - 3.8) LAESV Index (A-L): 26.64 ml/m Ao Diam: 3.2 cm (2.0 - 3.7) AV Cusp: 2.0 cm (1.5 - 2.6) LA Diam: 3.9 cm (2.7 - 3.8) MV EXCURSION: 10.412 mm (> 18.000) MV EF SLOPE: 47 mm/s (70 - 150) EPSS: 0.5 cm MV E Anthony: 0.63 m/s MV DecT: 285 ms MV A Anthony: 0.92 m/s MV E/A Ratio: 0.68 RAP: 5.00 mmHg RVSP: 39.21 mmHg FINDINGS -------- Sinus rhythm. This was a technically adequate study. LV size, wall thickness and systolic function are normal, with an EF greater than 55%. The left chioma tricular size is normal. The right ventricle is normal in size. The left atrial size is normal. The right atrial size is normal. The aortic valve is trileaflet, and appears structurally normal. No aortic stenosis or regurgitation. Mild mitral annular calcification present. [id number] mitral regurgitation is present. Mild tricuspid regurgitation present. There is mild pulmonary hypertension. The right ventricular systolic pressure, as measured by Doppler, is 39.21mmHg. Trace/mild (physiologic) pulmonic regurgitation. The aortic root size is normal. There is no pericardial effusion. CONCLUSIONS -------- 1. LV size, wall thickness and systolic function are normal, with an EF greater than 55%. 2. The left ventricular size is normal. 3. The right ventricle is normal in size. 4. The left atrial size is normal. 5. The right atrial size is normal. 6. The aortic valve is trileaflet, and appears structurally normal. No aortic stenosis or regurgitati on. 7. Mild mitral annular calcification present. 8. [id number] mitral regurgitation is present. 9. Mild tricuspid regurgitation present. 10. There is mild pulmonary hypertension. 11. The right ventricular systolic pressure, as measured by Doppler, is 39.21mmHg. 12. Trace/mild (physiologic) pulmonic regurgitation. 13. The aortic root size is normal. 14. There is no pericardial effusion. [employer] OPERATOR: Paulina Severino RDCS
--- NOTE | 2018-03-21 13:43 | P.CRDCN ---
History of Present Illness History of present illness: Mrs. Prieto is a pleasant 83-year-old female past medical history significant for hypertension, gastroesophageal reflux disease, dementia, chronic anemia, chronic left elbow dislocation s/p external fixator placement and subsequent osteomyelitis currently on IV antibiotics. She denies history of coronary artery disease, diabetes mellitus, dyslipidemia or cardiac arrhythmia. We have been asked to see her in consultation for evidence of atrial fibrillation on EKG upon admission. She presented to the hospital secondary to outpatient lab testing of hgb was low. She also has been feeling increased weakness and has a fall a day prior to coming to the hospital. She denies loss of consciousness, dizziness, chest pain, shortness of breath or palpitations. She states she was walking along at just fell to the floor. She is found to have a urinary tract infection as well with chronic indwelling catheter in place. She is seen and examined with myself and Dr. Nance resting comfortably in bed on the medical floor. EKG's have been reviewed. Initially she was in a- fib with rate of 103. No acute ST or T-wave abnormalities. She converted back to sinus a few hours later. She is continuing to maintain sinus. Chest xray reviewed, negative for an acute process. Laboratory data reviewed, WBC 13, hgb 7.2, plt 392, sodium 138, potassium 4.1, creatinine 1.53, magnesium 2.2, cardiac enzymes negative x1. Current cardiac medications include amlodipine 5 mg daily at HS. She also takes Ultram Rocephin, ranitidine, lactulose, ferrous sulfate and daptomycin. There are no old cardiac records to review. Plan: Add Lopressor 25 mg twice a day. Obtain 2-D echocardiogram and Doppler study to assess cardiac structure and function. No long-term anticoagulation at this time secondary to anemia and history of falls. Risk of anticoagulation explained to the patient in detail, she verbalizes understanding. Review of Systems At the time of my exam: CONSTITUTIONAL: Denies fever. Denies chills. Complains of generalized weakness. EYES: Denies blurred vision. Denies vision changes. Denies eye pain. EARS, NOSE, MOUTH & THROAT: Denies headache. Denies sore throat. Denies ear pain. CARDIOVASCULAR: Denies chest pain. Denies shortness of breath. Denies orthopnea. Denies PND. Denies palpitations. RESPIRATORY: Denies cough. GASTROINTESTINAL: Denies abdominal pain. Denies diarrhea. Denies constipation. Denies nausea. Denies vomiting. MUSCULOSKELETAL: Denies myalgias. INTEGUMENTARY: Denies pruitis. Denies rash. NEUROLOGIC: Denies numbness. Denies tingling. Denies weakness. PSYCHIATRIC: Denies anxiety. Denies depression. ENDOCRINE: Denies fatigue. Denies weight change. Denies polydipsia. Denies polyurina. GENITOURINARY: Denies burning, hematuria or urgency with micturation. HEMATOLOGIC: Denies history of anemia. Denies bleeding. Past Medical History Past Medical History: Dementia, GERD/Reflux, Hypertension, Osteoarthritis (OA) Additional Past Medical History / Comment(s): kidney stones, urinary retention and UTI,dysphagia, osteomyelitis of left radius and ulna History of Any Multi-Drug Resistant Organisms: None Reported Past Surgical History: Appendectomy, Orthopedic Surgery, Tonsillectomy Additional Past Surgical History / Comment(s): LEFT KNEE ARTHROSCOPY, LEFT KIDNEY REMOVED, 11-18-14 total rt knee left elbow orif, Past Anesthesia/Blood Transfusion Reactions: No Reported Reaction Past Psychological History: Depression Additional Psychological History / Comment(s): client currently resides at [facility]. Smoking Status: Former smoker Past Alcohol Use History: Rare Additional Past Alcohol Use History / Comment(s): Pt started smoking in 1952 and quit in 1997 Past Drug Use History: None Reported - Past Family History Father Family Medical History: No Reported History Additional Family Medical History / Comment(s): Father was healthy. Mother Family Medical History: No Reported History, Deep Vein Thrombosis (DVT) Additional Family Medical History / Comment(s): Mother had ulcers. Medications and Allergies Home Medications Medication Instructions Recorded Confirmed Type amLODIPine BESYLATE [Norvasc] 5 mg PO HS@2100 11/07/14 03/20/18 History Melatonin 3 mg PO HS@2100 12/24/17 03/20/18 History Vit C/E/Zn/Coppr/Lutein/Zeaxan 1 cap PO BID@0800,1700 12/24/17 03/20/18 History [Preservision Areds 2 Softgel] Ferrous Sulfate [Iron (65 MG 325 mg PO DAILY@1700 02/21/18 03/20/18 History Elemental)] Magnesium Hydroxide [Milk of 2,400 mg PO DAILY PRN 02/21/18 03/20/18 History Magnesia] Ranitidine HCl 150 mg PO BID@0800,1700 02/21/18 03/20/18 History Acetaminophen Tab [Tylenol] 650 mg PO Q6HR PRN tab 02/27/18 03/20/18 Rx Lactulose [Cephulac] 20 gm PO DAILY PRN ml 02/27/18 03/20/18 Rx traMADol HCL [Ultram] 50 mg PO Q6H PRN #12 tablet 02/27/18 03/20/18 Rx Lactose-Reduced Food [Ensure Plus] 1 can PO TID@0800,1200,1700 03/05/18 History DAPTOmycin [Cubicin Rf] 500 mg IVPB HS@2100 03/15/18 03/20/18 History Nystatin 100,000Unit/gm Cream 1 applic TOPICAL BID@0800,2100 03/15/18 03/20/18 History [Mycostatin Cream] Sennosides-Docusate Sodium 2 tab PO DAILY@0800 03/15/18 03/20/18 History [Senokot-S] Sodium Bicarbonate Tab 650 mg PO TID@0800,1200,1700 03/15/18 03/20/18 History cefTRIAXone [Rocephin] 2,000 mg IVP Q24HR@0800 03/15/18 03/20/18 History Allergies Allergy/AdvReac Type Severity Reaction Status Date / Time hydrocodone [From [facility]] Allergy Unknown Verified 03/15/18 15:58 Penicillins Allergy Rash/Hives Verified 03/15/18 15:58 Sulfa (Sulfonamide Allergy Rash/Hives Verified 03/15/18 15:58 Antibiotics) Physical Exam Vitals: Vital Signs Temp Pulse Pulse Resp BP BP Pulse Ox 03/21/18 07:51 98 03/21/18 06:03 97.8 F 98 17 105/46 95 03/20/18 23:00 98.6 F 103 H 18 105/51 93 L 03/20/18 21:57 103 H 95/51 03/20/18 20:54 98.8 F 100 18 137/71 95 03/20/18 18:19 99.3 F 75 18 125/73 98 03/20/18 16:18 99.7 F H 98 17 127/74 98 Intake and Output 03/20/18 03/21/18 03/21/18 22:59 06:59 14:59 Intake Total 100 Output Total 250 Balance -250 100 Intake: Oral 100 Output: Urine 250 Other: Voiding Method Indwelling Catheter Indwelling Catheter # Voids 0 Weight 81.647 kg Blood pressure 105/46 heart rate 98 afebrile maintaining oxygen saturation on room air GENERAL: This is a 83-year-old female in no apparent distress at the time of my examination. Generalized weakness requiring assistance with position changes in bed. HEENT: Head is atraumatic, normocephalic. Pupils are equal, round. Sclerae anicteric. Conjunctivae are clear. Mucous membranes of the mouth are moist. Neck is supple. There is no jugular venous distention. No carotid bruit is heard. LUNGS: Clear to auscultation no wheezes, rales or rhonchi. No chest wall tenderness is noted on palpation or with deep breathing. HEART: Regular rate and rhythm without murmurs, rubs or gallops. S1 and S2 heard. ABDOMEN: Soft, nontender. Bowel sounds are heard. No organomegaly noted. EXTREMITIES: Bilateral lower extremity non-pitting edema, left greater than right. No calf tenderness noted. VASCULAR: Radial and dorsalis pedis pulses palpated, no evidence of clubbing. NEUROLOGIC: Patient is awake, alert and oriented x3. Results 03/21/18 08:35 03/20/18 16:38 Cardiac Enzymes 03/20/18 03/20/18 Range/Units 16:38 16:38 AST 32 (14-36) U/L CK-MB (CK-2) 0.6 (0.0-2.4) ng/mL Troponin I <0.012 (0.000-0.034) ng/mL Coagulation 03/20/18 Range/Units 16:38 PT 11.0 (9.0-12.0) sec APTT 28.5 (22.0-30.0) sec CBC 03/20/18 03/21/18 Range/Units 16:38 08:35 WBC 15.4 H 13.0 H (3.8-10.6) k/uL RBC 2.81 L 2.87 L (3.80-5.40) m/uL Hgb 7.0 L 7.2 L (11.4-16.0) gm/dL Hct 22.7 L 23.3 L (34.0-46.0) % Plt Count 475 H 392 (150-450) k/uL Comprehensive Metabolic Panel 03/20/18 Range/Units 16:38 Sodium 138 (137-145) mmol/L Potassium 4.1 (3.5-5.1) mmol/L Chloride 98 (98-107) mmol/L Carbon Dioxide 32 H (22-30) mmol/L BUN 25 H (7-17) mg/dL Creatinine 1.53 H (0.52-1.04) mg/dL Glucose 109 H (74-99) mg/dL Calcium 8.0 L (8.4-10.2) mg/dL AST 32 (14-36) U/L ALT 21 (9-52) U/L Alkaline Phosphatase 159 H (38-126) U/L Total Protein 6.2 L (6.3-8.2) g/dL Albumin 2.6 L (3.5-5.0) g/dL Current Medications Generic Name Dose Route Start Last Admin Trade Name Freq PRN Reason Stop Dose Admin Acetaminophen 650 mg 03/20/18 22:51 Tylenol Tab PO Q6HR PRN Mild Pain or Fever > 100.5 Amlodipine Besylate 5 mg 03/21/18 21:00 Norvasc PO HS@2100 [facility] Enoxaparin Sodium 40 mg 03/21/18 09:00 03/21/18 07:43 Lovenox SQ 40 mg DAILY TEDDY Administration Famotidine 20 mg 03/21/18 08:00 03/21/18 07:43 Pepcid PO 20 mg BID@0800,1700 TEDDY Administration Ceftriaxone Sodium 1,000 mg/ 50 mls @ 100 mls/hr 03/21/18 09:00 03/21/18 07: 44 Sodium Chloride IVPB 100 mls/hr Q24HR TEDDY Administration Magnesium Hydroxide 2,400 mg 03/20/18 22:51 Milk Of Magnesia PO DAILY PRN Constipation Melatonin 3 mg 03/21/18 21:00 Melatonin PO HS@2100 TEDDY Nystatin 1 applic 03/21/18 08:00 03/21/18 07:47 Mycostatin Cream TOPICAL 1 applic BID@0800,2100 [facility] Administration Senna/Docusate Sodium 2 each 03/21/18 08:00 03/21/18 07:43 Senokot-S PO 2 each DAILY@0800 TEDDY Administration Intake and Output 03/20/18 03/21/18 03/21/18 22:59 06:59 14:59 Intake Total 100 Output Total 250 Balance -250 100 Intake: Oral 100 Output: Urine 250 Other: Voiding Method Indwelling Catheter Indwelling Catheter # Voids 0 Weight 81.647 kg 03/21/18 08:35 03/20/18 16:38 Assessment and Plan Assessment: ASSESSMENT New onset paroxysmal atrial fibrillation, converted to sinus mechanism Hypertension Urinary tract infection Anemia, normocytic normochromic Chronic kidney disease, GFR 31. Stage 3b Dementia PLAN Add Lopressor 25 mg twice a day. Obtain 2-D echocardiogram and Doppler study to assess cardiac structure and function. No long-term anticoagulation at this time secondary to anemia and history of falls. Risk of anticoagulation explained to the patient in detail, she verbalizes understanding. Thank you kindly for this consultation. Nurse Practitioner note has been reviewed, I agree with a documented findings and plan of care. Patient was seen and examined.
[2018-03-21] MEDS: traMADol 50 MG TAB PO PRN (14:50)
[2018-03-21] MEDS: SODIUM BICARBONATE TAB 650 MG TAB PO SCH (17:03)
--- NOTE | 2018-03-21 20:45 | HP ---
HISTORY AND PHYSICAL DATE OF ADMISSION: 03/20/18. PRESENTING COMPLAINT: Tired. HISTORY OF PRESENTING COMPLAINT: This is a pleasant 83-year-old patient is currently a resident of [facility] being followed by Dr. Chavez. Family doctor is Dr. Shrestha. Chronic stable medical conditions include GERD, hypertension, osteoarthritis, depression, some dementia. The patient has had recurrent dislocation of the left elbow, had an external stabilizer that was actually removed yesterday. At baseline patient is incontinent of urine. Yesterday hemoglobin was found to be low around 7. Blood pressure is running on the lower side. Patient does feel weak and tired. The patient was sent in for blood transfusion. The patient was recently in the hospital and she was also being treated for left forearm external fixator site wound infection and was being treated for possible possible osteomyelitis. The patient is put on daptomycin and ceftriaxone because patient did get renal failure being on vancomycin. When patient initially presented, she had some atrial fibrillation and the rate was just above 100. The patient went back into sinus rhythm. REVIEW OF SYSTEMS: CONSTITUTIONAL: Tired HEENT: None. RESPIRATORY: None. CARDIOVASCULAR: None. GASTROINTESTINAL: None. GENITOURINARY: Incontinence. DERMATOLOGICAL: None. HEMATOLOGICAL, LYMPHATICS: None. PSYCHIATRY: Forgetful. NEUROLOGICAL: None. MUSCULOSKELETAL: Left arm is a bit weak and external fixator is now removed. PAST MEDICAL HISTORY: Dementia, GERD, hypertension, osteoarthritis, kidney stones, urinary retention with incontinence, osteomyelitis at the external fixator site on the left arm. PAST SURGICAL HISTORY: Appendectomy, tonsillectomy, left knee arthroscopy left nephrectomy, right total knee surgery, external fixator for the elbow for recurrent dislocation. PSYCH HISTORY: Depression. SOCIAL HISTORY: Resident of [facility]. . Quit smoking more than 20 years ago. Alcohol none. FAMILY HISTORY: Reviewed, noncontributory to presentation. HOME MEDICATIONS: 1. Ultram 50 mg q.6h p.r.n. 2. Ceftriaxone 2 g q24 hours. 3. Norvasc 5 mg p.o. q.h.s. 4. PreserVision AREDS2 soft gel 1 capsule p.o. b.i.d. 5. Sodium bicarb 650 mg p.o. t.i.d. 6. Senokot-S 2 tablets p.o. daily. 7. Zantac 150 mg p.o. b.i.d. 8. Mycostatin 1 application topical b.i.d. 9. Melatonin. 10.Milk of magnesia 2400 mg p.o. daily p.r.n. 11.Lactulose 20 grams p.o. daily p.r.n. 12.Ensure Plus 1 can p.o. t.i.d. 13.Iron 325 p.o. daily. 14.Daptomycin 500 mg IV piggyback q.h.s. 15.Tylenol 650 mg q.6h p.r.n. ALLERGY: To NORCO, PENICILLIN, SULFUR. PHYSICAL EXAMINATION: Vital signs on presentation: Temperature 97.7, pulse 98, respiration 17, blood pressure 127/74, pulse ox 98% on room air. GENERAL APPEARANCE: Average built, sitting up, tired appearing. EYES: Pupils equal. Conjunctivae pale. HEENT: External appearance of nose and ears normal. Oral cavity normal. NECK: JVD unable to assess. Mass not palpable. RESPIRATORY: Effort normal. Lungs are clear. CARDIOVASCULAR: 1st and 2nd sounds normal. No edema. ABDOMEN: Soft, nontender. Liver and spleen not palpable. LYMPHATIC: No lymph nodes palpable in neck or axillae. PSYCHIATRY: Awake, able to answer simple questions. NEUROLOGICAL: Pupils equal, no facial asymmetry. Pulses grossly intact. MUSCULOSKELETAL: Left upper extremity, not really able to bend at the elbow, somewhat weak. INVESTIGATIONS: White count 15.4, hemoglobin 7, platelets 475. Potassium 4.1, BUN 25, creatinine 1.53. The patient's BUN and creatinine was 25/2.33 on 03/07/18. UA positive for leukocyte esterase, WBC. ASSESSMENT: 1. Acute on chronic normocytic anemia, likely blood draw from hospital draw, symptomatic. Patient's blood pressure is running on the lower side. 2. Mild to moderate cognitive impairment from late onset Alzheimer's dementia. 3. Gastroesophageal reflux disease. 4. Essential hypertension. 5. Primary osteoarthritis. 6. Chronic urinary retention. 7. Osteomyelitis of the left radius, acute, being treated with antibiotics. 8. Past surgical history of appendectomy, orthopedic surgery, left knee arthroscopy left kidney removed, right total knee, left elbow ORIF. 9. Past psych history of depression. 10.Social history patient lives at [facility]. The patient smoked from about 35 years, stopped in 1997. 11.Family history of DVT. Mother had ulcers. PLAN: Patient being transferred a unit of blood. Cardiology was consulted for the paroxysmal atrial fibrillation. Patient has gone back into sinus rhythm. Antibiotics are to continue. Will complete the course as per Dr. Andino. Care was discussed with the patient. JULIETH / LAURITA: [id number] /
[2018-03-21] MEDS ORDERED: DAPTOMYCIN 500 MG IVPB SCH (21:00)
[2018-03-21] MEDS ORDERED: DAPTOmycin 500 MG in SODIUM CHLORIDE 0.9% 50 ML IVPB SCH (21:00)
[2018-03-21] MEDS: MELATONIN 3 MG TABLET PO SCH (21:17)
[2018-03-21] MEDS: amLODIPine 5 MG TAB PO SCH (21:17)
[2018-03-22] MEDS: cefTRIAXone 2,000 MG in SODIUM CHLORIDE 0.9% 100 ML IVPB SCH (07:52)
[2018-03-22] MEDS: SENNOSIDES-DOCUSATE SODIUM 1 EACH TAB PO SCH (07:53)
[2018-03-22] MEDS: FAMOTIDINE 20 MG TAB PO SCH (07:53)
[2018-03-22] MEDS: METOPROLOL TARTRATE 25 MG TAB PO SCH ×2 (07:53→20:20)
[2018-03-22] MEDS: ENOXAPARIN 30 MG/0.3 ML SYRINGE SQ SCH (07:53)
[2018-03-22] MEDS: SODIUM BICARBONATE TAB 650 MG TAB PO SCH ×3 (07:53→17:45)
[2018-03-22] MEDS: NYSTATIN 100,000UNIT/GM CREAM 30 GM TUBE TOPICAL SCH ×2 (07:59→20:20)
[2018-03-22 12:08] LABS: Anisocytosis Slight; Basophils % (A) 0 %; Eosinophils # (A) 0.2 k/uL (0-0.7); Eosinophils % (A) 2 %; HCT 27.7 % (34.0-46.0); HGB 8.6 gm/dL (11.4-16.0); Hypochromasia Moderate; Lymphocytes # (A) 0.9 k/uL (1.0-4.8); Lymphocytes % (A) 7 %; MCH 25.8 pg (25.0-35.0); MCV 83.3 fL (80.0-100.0); Mean Platelet Volume 7.5; Monocytes # (A) 0.6 k/uL (0-1.0); Monocytes % (A) 5 %; Neutrophils # (A) 9.7 k/uL (1.3-7.7); Neutrophils % (A) 85 %; Platelet Count 425 k/uL (150-450); RBC 3.32 m/uL (3.80-5.40); RDW 17.5 % (11.5-15.5); WBC 11.5 k/uL (3.8-10.6)
[2018-03-22 12:13] LABS: Calcium 8.3 mg/dL (8.4-10.2); Potassium 4.2 mmol/L (3.5-5.1)
[2018-03-22] MEDS: traMADol 50 MG TAB PO PRN ×2 (12:30→18:49)
[2018-03-22 14:37] VITALS: BMI 28.1
--- NOTE | 2018-03-22 15:07 | P.PN ---
Subjective Mrs. Hubbard is seen and examined with and daughter at the bedside. Past medical history significant for hypertension, gastroesophageal reflux disease, dementia, chronic anemia, chronic left elbow dislocation s/p external fixator placement and subsequent osteomyelitis currently on IV antibiotics. We are following her for an episode of paroxysmal atrial fibrillation. She is currently maintaining sinus mechanism. She denies chest pain, shortness of breath, dizziness or palpitations. Echo obtained reveals preserved LV systolic function with EF 55%, mild-modreate MR andmild PH with RVSP 39.21 mmHg. Blood pressure 111/47 heart rate 78 afebrile. She seems to be tolerating lopressor added yesterday. Lab data reviewed, hemoglobin 8.6, platelets 425, sodium 1:30, potassium 4.2, creatinine 1.47, TSH 2.16. Objective - Vital Signs Vital signs: Vital Signs Temp 98.7 F 03/22/18 14:58 Pulse 78 03/22/18 14:58 Resp 16 03/22/18 14:58 BP 111/47 03/22/18 14:58 Pulse Ox 94 L 03/22/18 14:58 Intake & Output 03/21/18 03/22/18 03/22/18 18:59 06:59 18:59 Intake Total 200 310 Output Total 300 650 100 Balance -100 -340 -100 Weight 81.647 kg 81.647 kg Intake: Oral 200 Blood Product 0 310 Rc As-3 Unit 0 310 [id number] Output: Urine 300 650 100 Other: Voiding Method Indwelling Catheter Indwelling Catheter Indwelling Catheter # Voids 0 # Bowel Movements 0 - Exam GENERAL: Well-appearing, well-nourished and in no acute distress. NECK: Supple without JVD or thyromegaly. LUNGS: Breath sounds clear to auscultation bilaterally. Respiration equal and unlabored. No wheezes, rales or rhonchi. HEART: Regular rate and rhythm without murmurs, rubs or gallops. S1 and S2 heard. EXTREMITIES: Bilateral lower extremity non-pitting edema, left greater than right. Normal range of motion. No clubbing or cyanosis. Peripheral pulses intact. - Labs CBC & Chem 7: 03/22/18 11:14 03/22/18 11:14 Labs: Abnormal Lab Results - Last 24 Hours (Table) 03/20/18 03/22/18 03/22/18 Range/Units 16:38 11:14 11:14 WBC 11.5 H (3.8-10.6) k/uL RBC 3.32 L (3.80-5.40) m/uL Hgb 8.6 L (11.4-16.0) gm/dL Hct 27.7 L (34.0-46.0) % RDW 17.5 H (11.5-15.5) % Neutrophils # 9.7 H (1.3-7.7) k/uL Lymphocytes # 0.9 L (1.0-4.8) k/uL BUN 24 H (7-17) mg/dL Creatinine 1.47 H (0.52-1.04) mg/dL Calcium 8.3 L (8.4-10.2) mg/dL Crossmatch See Detail Microbiology - Last 24 Hours (Table) 03/20/18 19:00 Urine Culture - Final Urine,Voided Ashlie albicans Assessment and Plan Assessment: ASSESSMENT New onset paroxysmal atrial fibrillation, converted to sinus mechanism Hypertension Urinary tract infection Anemia, normocytic normochromic Chronic kidney disease, GFR 31. Stage 3b Dementia PLAN Stable from a cardiac perspective. Continue lopressor as ordered. No long-term anticoagulation at this time secondary to anemia and history of falls. Risk of anticoagulation explained to the patient in detail, she verbalizes understanding. Follow up with Dr. Nance in 2-3 weeks. We will continue to follow as needed, please call with further questions or concerns. Nurse Practitioner note has been reviewed, I agree with a documented findings and plan of care. Patient was seen and examined.
[2018-03-22] MEDS: amLODIPine 5 MG TAB PO SCH (20:20)
[2018-03-22] MEDS: MELATONIN 3 MG TABLET PO SCH (20:20)
--- NOTE | 2018-03-22 22:04 | PN ---
PROGRESS NOTE DATE OF SERVICE: 03/22/2018 PRESENTING COMPLAINT: Tired. INTERVAL HISTORY: This patient presented with anemia, probably from blood draws; also getting treated for osteomyelitis, on IV antibiotics. Received a unit of blood. Feeling better. Patient had a run of atrial fibrillation and went back into sinus rhythm. Not for anticoagulation, per Cardiology. REVIEW OF SYSTEMS: Done for constitutional, cardiovascular, GI, pulmonary; relevant findings as above. CURRENT MEDICATIONS: Reviewed. They include IV ceftriaxone, daptomycin. PHYSICAL EXAMINATION: Temperature 98.7, pulse 78, respiration 16, blood pressure 111/47, pulse ox 94% on room air. GENERAL APPEARANCE: Sitting up, comfortable. EYES: Pupils equal. Conjunctivae normal. HEENT: External appearance of nose and ears normal. Oral cavity normal. NECK: JVD not raised. Mass not palpable. RESPIRATORY: Effort normal. Lungs are clear. CARDIOVASCULAR: First and second sounds normal. No edema. ABDOMEN: Soft, nontender. Liver and spleen not palpable. PSYCHIATRY: Awake. Answering simple questions. MUSCULOSKELETAL: Left upper extremity not able to bend at the elbow. INVESTIGATIONS: White count 11.5, hemoglobin 8.6, BUN 24, creatinine 1.7. ASSESSMENT: 1. Acute on chronic normocytic anemia, likely blood draw from hospital blood draws, symptomatic. Blood pressure was also running on the low side. 2. Mild to moderate cognitive impairment from late-onset Alzheimer's dementia. 3. Gastroesophageal reflux disease. 4. Essential hypertension. 5. Primary osteoarthritis. 6. Chronic urinary retention. 7. Acute osteomyelitis of the left radius, being treated with antibiotics. PLAN: Continue current medication and treatment plan. Care was discussed with the family at the bedside. Waiting for patient to go back to the [facility]. MMODL / IJN: [id number] /
[2018-03-23] MEDS: traMADol 50 MG TAB PO PRN ×3 (01:03→14:10)
--- NOTE | 2018-03-23 06:20 | CONS ---
CONSULTATION DATE OF SERVICE: 03/22/2018 REASON FOR CONSULTATION: 1. UTI. 2. Left forearm osteomyelitis. HISTORY OF PRESENT ILLNESS: The patient is an 83-year-old female, who did have a recent history of chronic dislocation of left elbow area for which the patient did have external fixator placed by Dr. Price. Subsequently the patient has been evaluated at the [facility] where the patient noticed to have osteomyelitis at the external fixator site on left forearm. Cultures were negative. She was seen by infectious disease physician at that facility and was recommended a 6-week course of IV vancomycin and Rocephin. Subsequently admitted to this facility with renal failure secondary to vancomycin, that was discontinued and the patient is currently on daptomycin and Rocephin. Since her last admission, the patient has been evaluated by the Orthopedics and her stitches have been removed. The patient now has been admitted to the hospital after she was noticed to have anemia on routine blood test done by the [facility] and stool for occult has been negative. The patient also has been feeling weak and did have a fall before she presented to the hospital. No loss of consciousness or any other symptoms. With these symptoms, the patient was evaluated by the ER physician. The patient did have a low- grade fever of 99.7 on admission and she did have a elevated white count 15.4, hemoglobin was 7. She did have a UA that did show large leukocytes esterase, 170 WBCs. Culture currently showing a Ashlie albicans. The patient has been treated with daptomycin and Rocephin. I was asked to see the patient for further recommendation regarding antibiotic therapy. The patient currently denies having any pain to the left forearm area. The wound has healed. No chest pain, shortness of breath or cough. No abdominal pain or any diarrhea. REVIEW OF SYSTEMS: CONSTITUTIONAL: Positive for weakness, but no high-grade fever. EYES: No complaint. ENT: No complaint. RESPIRATORY: No complaint. CARDIOVASCULAR: No complaint. GENITOURINARY: As per HPI. GASTROINTESTINAL: No complaint. MUSCULOSKELETAL: As per HPI. INTEGUMENTARY: No complaint. PSYCHOLOGICAL: No complaint. ENDOCRINE: No complaint. NEUROLOGIC: No complaint. PAST MEDICAL HISTORY: Chronic dislocation left elbow, osteomyelitis of the left forearm, dementia, hypertension, osteoarthritis, kidney stones, chronic Salgado catheter and recurrent UTIs. PAST SURGICAL HISTORY: Appendectomy, left knee arthroplasty and left elbow ORIF. SOCIAL HISTORY: Remote history of smoking. No drinking or drug use. Currently a [facility] resident. FAMILY HISTORY: No pertinent findings noticed. ALLERGIES: Allergies to PENICILLIN, SULFA and HYDROCODONE. MEDICATIONS: Medications currently include the patient is on Tylenol, Norvasc, Rocephin 2 grams daily. She is on daptomycin, Lovenox, Pepcid, milk of magnesia, melatonin, Lopressor, Mycostatin cream, Senokot, sodium bicarbonate, and Ultram. PHYSICAL EXAMINATION: On examination, blood pressure is 111/47 with a pulse of 78, temperature of 98.7. She is 94% on room air. General description is an elderly female up in the chair in no distress. No tachypnea or accessory muscle of respiration use. HEENT examination shows slight pallor. No scleral icterus. Oral mucous membrane is dry. No pharyngeal erythema or thrush. NECK: Trachea central. No thyromegaly. LUNGS: Unlabored breathing, clear to auscultation anteriorly. No wheeze or crackle. HEART: S1, S2. Regular rate and rhythm. No added sounds. ABDOMEN: Soft, no tenderness. No guarding or rigidity. EXTREMITIES: No edema of the feet. SKIN EXAMINATION: No rash or mass palpable. The left forearm currently with no open wound. No swelling or redness. NEUROLOGICAL: Patient is awake, alert, oriented x3. Mood and affect normal. LABS: Hemoglobin 8.6, white count 11.5, on admission white count 15.4. BUN of 24, creatinine is 1.47. UA has been positive with urine culture showing a yeast. DIAGNOSTIC IMPRESSION AND PLAN: 1. Patient admitted to the hospital with abnormal blood tests with a low hemoglobin. Also noticed to have evidence of a urinary tract infection with positive UA in a patient who did have chronic Salgado catheter. Culture positive for colonization versus a mild urinary tract infection as the patient did have a low-grade fever and elevated white count. 2. Patient with left forearm osteomyelitis at site of the external fixator which has been discontinued. PLAN: 1. Salgado catheter should be changed if it has not already been changed. 2. We will keep the patient on daptomycin 6 mg/kg daily in addition to the Rocephin 2 grams daily to finish her 6-week course of therapy for underlying osteomyelitis and will obtain a Sed rate and CRP. 3. Diflucan 100 mg p.o. daily. 4. We will follow up on clinical condition and culture to further adjust medication if needed. Thank you for this consultation. Will follow this patient along with you. Family was present at the bedside. Their questions were answered. MMLEVL / IJN: [id number] /
[2018-03-23] MEDS: cefTRIAXone 2,000 MG in SODIUM CHLORIDE 0.9% 100 ML IVPB SCH (07:02)
[2018-03-23] MEDS: SODIUM BICARBONATE TAB 650 MG TAB PO SCH ×3 (07:47→16:27)
[2018-03-23] MEDS: FAMOTIDINE 20 MG TAB PO SCH (07:47)
[2018-03-23] MEDS: ENOXAPARIN 30 MG/0.3 ML SYRINGE SQ SCH (07:47)
[2018-03-23] MEDS: FLUCONAZOLE 100 MG TAB PO SCH (07:47)
[2018-03-23] MEDS: SENNOSIDES-DOCUSATE SODIUM 1 EACH TAB PO SCH (07:47)
[2018-03-23] MEDS: METOPROLOL TARTRATE 25 MG TAB PO SCH ×2 (07:47→20:12)
[2018-03-23] MEDS: NYSTATIN 100,000UNIT/GM CREAM 30 GM TUBE TOPICAL SCH ×2 (07:52→20:12)
[2018-03-23 10:08] LABS: Calcium 8.2 mg/dL (8.4-10.2); Potassium 3.8 mmol/L (3.5-5.1)
[2018-03-23 10:21] LABS: C Reactive Protein 182.5 mg/L (<10.0)
[2018-03-23 15:01] LABS: Appearance,Urine Turbid (Clear); Bacteria,Urine Rare /hpf; Bilirubin,Urine Negative (Negative); Blood,Urine Moderate (Negative); Budding Yeast,Urine Moderate /hpf; Color,Urine Yellow; Glucose,Urine (UA) Negative (Negative); Ketones,Urine Negative (Negative); Leukocyte Esterase,Urine Large (Negative); Mucus,Urine Rare /hpf; Nitrite,Urine Negative (Negative); Protein,Urine 2+ (Negative); RBC,Urine 9 /hpf (0-5); Specific Gravity,Urine 1.018 (1.001-1.035); Squamous Epithelial Cell,Urine 2 /hpf (0-4); Urobilinogen,Urine <2.0 mg/dL (<2.0)
--- NOTE | 2018-03-23 15:54 | XR ---
EXAMINATION TYPE: XR forearm LT DATE OF EXAM: 03/23/2018 CLINICAL HISTORY: Osteomyelitis. Limited range of motion. TECHNIQUE: Two views of the left forearm are obtained. COMPARISON: 03/02/2018 FINDINGS: There has been interval removal of the overlying fiberglass casting material. Osseous demin eralization remains. No acute fracture or dislocation. Again there is a rounded lucent lesion within the proximal ulnar diaphysis with similar-appearing tim ent lesions of the distal humeral diaphysis presumably from prior surgical hardware that has been rem luis. Small dorsal fixation plate is seen of the proximal ulna. There is no overlying soft tissue swe lling that is pronounced and multiple well-corticated fragments at the distal humerus. Again there is subchondral cystic change and spurring of the ulnar humeral joint from arthropathy. No new periostea l reaction. IMPRESSION: Similar degree of soft tissue swelling in comparison to exam of 03/07/2018 with postsurgic al and degenerative changes of the left forearm and elbow. No new focal ulceration or periosteal reac tion.
[2018-03-23] MEDS ORDERED: DAPTOmycin 500 MG in SODIUM CHLORIDE 0.9% 50 ML IVPB SCH ×2 (16:00→21:00)
--- NOTE | 2018-03-23 18:07 | PN ---
PROGRESS NOTE DATE OF SERVICE: 03/23/2018 REASON FOR FOLLOWUP: 1. UTI. 2. Left forearm osteomyelitis. INTERVAL HISTORY: The patient is currently afebrile. She is breathing comfortably. Denies having any chest pain or shortness of breath or cough. No abdominal pain. Her Salgado catheter was changed last night. No pain to the left forearm area. PHYSICAL EXAMINATION: Blood pressure 127/59 with a pulse of 88, temperature 96.4. She is 96% on room air. General description is an elderly female lying in bed in no distress. RESPIRATORY SYSTEM: Unlabored breathing. Clear to auscultation anteriorly. HEART: S1, S2. Regular rate and rhythm. ABDOMEN: Soft. No tenderness. LABS: BUN of 22, creatinine 1.34. Sed rate is 106. CRP is 182. DIAGNOSTIC IMPRESSION AND PLAN: 1. Patient admitted to hospital with abnormal labs with anemia. The patient also has a UTI with urine showing Ashlie albicans. Her Salgado has been changed last night. Well get another urine culture to make sure it was not a colonization. Currently on oral Diflucan, to continue for about 5 days. 2. Patient with left forearm osteomyelitis with an external fixator that has been removed, on daptomycin and Rocephin. That will continue to finish a course of therapy. We will obtain follow-up x-rays. Continue supportive care. MMODL / IJN: [id number] /
[2018-03-23] MEDS: amLODIPine 5 MG TAB PO SCH (20:12)
[2018-03-23] MEDS: MELATONIN 3 MG TABLET PO SCH (20:12)
--- NOTE | 2018-03-24 02:41 | PN ---
PROGRESS NOTE DATE OF SERVICE: 03/23/2018. PRESENTING COMPLAINT: Tired. INTERVAL HISTORY: This is a patient who presented with anemia, probably from blood draws, also getting treated for osteomyelitis on IV antibiotics. Also treated with Diflucan for candiduria. Also had a brief run of atrial fibrillation, back in sinus rhythm. Comfortable, sitting up, tolerating a diet. REVIEW OF SYSTEMS: Done for constitutional, cardiovascular, GI, pulmonary; relevant findings as above. CURRENT MEDICATIONS: Reviewed, that include daptomycin, Diflucan, ceftriaxone. PHYSICAL EXAMINATION: Temperature 98.3, pulse 86, respirations 16, blood pressure 130/66, pulse ox 97% on room air. GENERAL APPEARANCE: Sitting up on a chair, comfortable. EYES: Pupils equal. Conjunctivae normal. HEENT: External appearance of nose and ears normal. Oral cavity normal. NECK: JVD not raised. Mass not palpable. Respiratory effort normal. LUNGS: Clear. CARDIOVASCULAR: 1st and 2nd heart sounds normal. No edema. ABDOMEN: Soft, nontender. Liver and spleen not palpable. PSYCHIATRY: Awake, answering simple questions. MUSCULOSKELETAL: Left upper extremity bent at the elbow, slight stiffness. INVESTIGATIONS: Potassium 3.8, BUN 22, creatinine 1.34. ASSESSMENT: 1. Acute on chronic normocytic anemia, likely from blood draws from hospital blood draws, symptomatic, status post 1 unit of blood. 2. Mild to moderate cognitive impairment from late onset Alzheimer's dementia. 3. Gastroesophageal reflux disease. 4. Essential hypertension. 5. Primary osteoarthritis. 6. Chronic urine incontinence. 7. Acute osteomyelitis of the left radius, being treated with antibiotics. 8. Candiduria on p.o. Diflucan. PLAN: Continue medication and treatment plan. Awaiting for social services manager for clearance of preauthorization so the patient can go back to the [facility]. MMODL / IJN: [id number] /
[2018-03-24 02:45] VITALS: RESP 20; TEMP 98.7
[2018-03-24 06:37] VITALS: BP 115/57; PULSE 88
[2018-03-24] MEDS: FAMOTIDINE 20 MG TAB PO SCH (08:01)
[2018-03-24] MEDS: FLUCONAZOLE 100 MG TAB PO SCH (08:01)
[2018-03-24] MEDS: SENNOSIDES-DOCUSATE SODIUM 1 EACH TAB PO SCH (08:01)
[2018-03-24] MEDS: METOPROLOL TARTRATE 25 MG TAB PO SCH (08:01)
[2018-03-24] MEDS: SODIUM BICARBONATE TAB 650 MG TAB PO SCH ×2 (08:02→11:53)
[2018-03-24] MEDS: cefTRIAXone 2,000 MG in SODIUM CHLORIDE 0.9% 100 ML IVPB SCH (08:02)
[2018-03-24] MEDS: NYSTATIN 100,000UNIT/GM CREAM 30 GM TUBE TOPICAL SCH (08:02)
[2018-03-24] MEDS ORDERED: ENOXAPARIN 40 MG/0.4 ML SYRINGE SQ SCH (09:00)
[2018-03-24] MEDS: traMADol 50 MG TAB PO PRN (11:55)
[2018-03-24 11:56] LABS: Calcium 8.3 mg/dL (8.4-10.2); Potassium 3.9 mmol/L (3.5-5.1)
--- NOTE | 2018-03-24 12:57 | DS ---
DISCHARGE SUMMARY DATE OF ADMISSION: 03/20/2018 DATE OF DISCHARGE: 03/24/2018 FINAL DIAGNOSES: 1. Acute on chronic normocytic anemia, likely from blood draws from blood draw anemia symptomatic with relative hypotension requiring one unit of blood transfusion. 2. Mild to moderate cognitive impairment from late onset Alzheimer's dementia. 3. Gastroesophageal reflux disease. 4. Essential hypertension. 5. Primary osteoarthritis. 6. Chronic urinary incontinence. 7. Acute osteomyelitis of the left radius being treated with antibiotics. 8. Candiduria on p.o. Diflucan. 9. Paroxysmal atrial fibrillation, self limiting. 10.Chronic kidney disease stage III from nephrosclerosis. HOSPITAL COURSE: This patient was sent in from the [facility] following low hemoglobin. It was 7. Blood pressures running low. Did receive a unit of blood. Hemoglobin is up to 8.6. The patient is being treated for left radius osteomyelitis by Dr. Andino. The patient will need 2 more weeks of IV ceftriaxone and daptomycin. Otherwise patient is doing fine. The patient was seen by Dr. Bret Nance from Cardiology and patient had a brief run of paroxysmal atrial fibrillation back on its own. A 2D echo showed an EF of more than 55%, not for any anticoagulation. On examination, temperature 98.7 pulse 88, respiration 20, blood pressure 115/57, pulse ox 95% on room air. GENERAL APPEARANCE: Sitting up, comfortable. EYES: Pupils equal. Conjunctiva normal. RESPIRATORY: Effort normal. LUNGS: Fair entry. CARDIOVASCULAR: First and second sounds normal. Left arm has got a little bit of contracture around the elbow. INVESTIGATIONS: BUN 24, creatinine 1.47. CONSULTATIONS: Dr. Bret Nance from Cardiology; Dr. Andino from Infectious Disease. DISCHARGE MEDICATIONS: 1. Norvasc 5 mg p.o. q.h.s. 2. Melatonin 3 mg p.o. q.h.s. 3. PreserVision Areds 2 Softgel 1 capsule p.o. b.i.d. 4. Iron 325 p.o. daily. 5. Milk of magnesia 2400 mg p.o. daily p.r.n. 6. Ranitidine 150 mg p.o. b.i.d. 7. Tylenol 650 mg q.6 p.r.n. 8. Lactulose 20 grams p.o. daily. 9. Ensure Plus 1 can p.o. t.i.d. 10.Mycostatin topical b.i.d. 11.Senokot-S 2 tablets p.o. daily. 12.Sodium bicarb 650 mg 3 times a day. 13.Daptomycin 500 mg IV piggyback q.h.s. for 14 days. 14.Diflucan 100 mg p.o. daily for 4 days. 15.Lopressor 25 mg p.o. b.i.d., new medication. 16.Ceftriaxone 2 grams IV piggyback daily for 14 days. 17.Ultram 50 mg q.6 p.r.n. DISPOSITION: [facility]. Follow up with Dr. Chavez at [facility]. Follow up with Dr. Andino in 2 weeks. Follow up with Dr. Bret Nance in 2 weeks. The patient has a chronic Salgado catheter that was changed on 03/23/2018. MMLEVL / IJN: [id number] /
--- NOTE | 2018-03-24 18:42 | PN ---
PROGRESS NOTE DATE OF SERVICE: 03/24/2018 REASON FOR FOLLOWUP: 1. UTI. 2. Left forearm osteomyelitis. INTERVAL HISTORY: The patient is afebrile. She was seen on rounds earlier this afternoon. The patient has been breathing comfortably. Denies having any chest pain or shortness of breath or cough. No abdominal pain or any diarrhea. PHYSICAL EXAMINATION: Her blood pressure is 115/57 with a pulse of 88, temperature 98.7. She is 95% on room air. General description is an elderly female up in the bed in no distress. RESPIRATORY SYSTEM: Unlabored breathing. Clear to auscultation anteriorly. HEART: S1, S2. Regular rate and rhythm. ABDOMEN: Soft. No tenderness. LABS: Repeat urine is still showing a budding yeast after change of Salgado catheter. DIAGNOSTIC IMPRESSION AND PLAN: 1. Patient with Ashlie albicans urinary tract infection with urine culture still positive after change of Salgado catheter. I recommend a short course of oral Diflucan. 2. Patient with left forearm osteomyelitis. Antibiotic to continue with daptomycin and Rocephin to finish a 3-week course of therapy. Continue supportive care. MMODL / IJN: [id number] /
[2018-03-25] MEDS ORDERED: ENOXAPARIN 30 MG/0.3 ML SYRINGE SQ SCH (09:00)
[2018-03-26] MEDS ORDERED: DAPTOmycin 500 MG in SODIUM CHLORIDE 0.9% 50 ML IVPB SCH (16:00)
== END 2018-03-24 14:18 | DRG 683 ==
LOC: EC 16:13 → 4MS4W 20:07
PROVIDERS: ADMIT Hospitalist; ATTEND Hospitalist
PROC: 30233N1 Transfusion of Nonautologous Red Blood Cells into Peripheral Vein, Percutaneous Approach (ICD-10-PCS; principal; 2018-03-21)
DX: N17.9 Acute kidney failure, unspecified (principal); D62 Acute posthemorrhagic anemia; M86.10 Other acute osteomyelitis, unspecified site; N39.0 Urinary tract infection, site not specified; E86.0 Dehydration; F02.80 Dementia in other diseases classified elsewhere, unspecified severity, without behavioral disturbance, psychotic disturbance, mood disturbance, and anxiety; F32.9 Major depressive disorder, single episode, unspecified; G30.1 Alzheimer's disease with late onset; I12.9 Hypertensive chronic kidney disease with stage 1 through stage 4 chronic kidney disease, or unspecified chronic kidney disease; I48.0 Paroxysmal atrial fibrillation; K21.9 Gastro-esophageal reflux disease without esophagitis; M19.91 Primary osteoarthritis, unspecified site; N18.3 Chronic kidney disease, stage 3 (moderate); R32 Unspecified urinary incontinence; T36.8X5A Adverse effect of other systemic antibiotics, initial encounter; R13.10 Dysphagia, unspecified; R33.9 Retention of urine, unspecified; Z87.440 Personal history of urinary (tract) infections; Z87.442 Personal history of urinary calculi; Z87.891 Personal history of nicotine dependence; Z90.49 Acquired absence of other specified parts of digestive tract; Z90.5 Acquired absence of kidney; Z96.652 Presence of left artificial knee joint; Z79.899 Other long term (current) drug therapy; Z88.5 Allergy status to narcotic agent; Z88.0 Allergy status to penicillin; Z88.2 Allergy status to sulfonamides; Z82.49 Family history of ischemic heart disease and other diseases of the circulatory system; Z83.79 Family history of other diseases of the digestive system
CPT/HCPCS: 36415; 72170; 74022; 80048; 80053; 81001; 82550; 82553; 83605; 83690; 83735; 84443; 84484; 85025; 85610; 85652; 85730; 86140; 86850; 86900; 86901; 86920; 87086; 93005; 93306; 96361; 96374; 96375; 99285

== ENCOUNTER 2018-04-07 05:28 | Inpatient (IN) | payer MEDICARE, OTHER ==
[2018-04-07] MEDS ORDERED: ALBUTEROL NEBULIZED 2.5 MG/3 ML INHALATION STA (06:49)
--- NOTE | 2018-04-07 07:27 | XR ---
EXAMINATION TYPE: XR chest 1V portable DATE OF EXAM: 04/07/2018 HISTORY: Shortness of breath. COMPARISON: 03/06/2018 TECHNIQUE: Single view of the chest is submitted. FINDINGS: Demonstrated are scattered senescent parenchymal change. Focal infiltrate right upper lobe as well as the right lower lobe with small bilateral pleural effusi ons. Patchy density left medial lung base noted as well. Right-sided PICC line is in place. Correlate for underlying pneumonia. Follow-up until resolution advised. The heart is stable. Hilar and mediastinal structures are within normal limits. Degenerative changes are seen of the dorsal spine. IMPRESSION: 1. Focal infiltrate right upper lobe as well as the right lower lobe with small bilateral pleural ef fusions. Patchy density left medial lung base noted as well. Right-sided PICC line is in place. Corre late for underlying pneumonia. Follow-up until resolution advised.
--- NOTE | 2018-04-07 07:35 | ED ---
SOB HPI - General Chief Complaint: Shortness of Breath Stated Complaint: hypoxia Time Seen by Provider: 04/07/18 06:24 Source: patient, EMS Mode of arrival: EMS Limitations: altered mental status (Underlying dementia with probable delirium.) - History of Present Illness Initial Comments: This patient is an 83-year-old woman transferred here from [facility] facility where she reportedly was having some cough and respiratory distress. The patient is is not able to give any additional history due to what appears to be underlying dementia. She is denying pains at the moment. MD Complaint: shortness of breath, cough Onset/Timin -: days(s) - Related Data Home Medications Medication Instructions Recorded Confirmed amLODIPine BESYLATE [Norvasc] 5 mg PO HS@209911/07/14 04/07/18 Melatonin 3 mg PO HS@209912/24/17 04/07/18 Vit C/E/Zn/Coppr/Lutein/Zeaxan 1 cap PO BID@0800,1700 12/24/17 04/07/18 [Preservision Areds 2 Softgel] Ferrous Sulfate [Iron (65 MG 325 mg PO DAILY@17002/21/18 04/07/18 Elemental)] Magnesium Hydroxide [Milk of 2,400 mg PO DAILY PRN 02/21/18 04/07/18 Magnesia] Ranitidine HCl 150 mg PO BID@0800,1700 02/21/18 04/07/18 Lactose-Reduced Food [Ensure Plus] 1 can PO TID@0800,1200,1700 03/05/18 04/07/18 Nystatin 100,000Unit/gm Cream 1 applic TOPICAL BID@0800,2100 03/15/18 04/07/18 [Mycostatin Cream] Sennosides-Docusate Sodium 2 tab PO DAILY@0800 03/15/18 04/07/18 [Senokot-S] Sodium Bicarbonate Tab 650 mg PO TID@0800,1200,1700 03/15/18 04/07/18 Bisacodyl [Dulcolax] 10 mg RECTAL DAILY PRN 04/07/18 04/07/18 Cyproheptadine [Cyproheptadine HCl] 4 mg PO BID@0800,1700 04/07/18 04/07/18 Magic Cup 1 dose PO DAILY@1400 04/07/18 04/07/18 Metoprolol Tartrate [Lopressor] 25 mg PO BID@0800,1700 04/07/18 04/07/18 Na Phos,M-B/Na Phos,Di-Ba [Fleet 133 ml RECTAL DAILY PRN 04/07/18 04/07/18 Adult] Nystatin 100,000 Unit/ml Susp 5 ml PO BID@1000,1800 04/07/18 04/07/18 [Mycostatin Oral Susp] Sodium Chloride 0.9% Irrigatio 10 ml IV DIRECTED 04/07/18 04/07/18 [Saline 0.9% Irrigation] Previous Rx's Medication Instructions Recorded Acetaminophen Tab [Tylenol] 650 mg PO Q6HR PRN tab 02/27/18 Lactulose [Cephulac] 20 gm PO DAILY PRN ml 02/27/18 cefTRIAXone [Rocephin] 2,000 mg IVP Q24HR@0800 #14 syringe 03/24/18 traMADol HCL [Ultram] 50 mg PO Q6H PRN #12 tablet 03/24/18 Allergies Allergy/AdvReac Type Severity Reaction Status Date / Time hydrocodone [From [place]] Allergy Unknown Verified 04/07/18 07:32 Penicillins Allergy Rash/Hives Verified 04/07/18 07:32 Sulfa (Sulfonamide Allergy Rash/Hives Verified 04/07/18 07:32 Antibiotics) Review of Systems ROS Statement: Those systems with pertinent positive or pertinent negative responses have been documented in the HPI. ROS Other: All systems not noted in ROS Statement are negative. Limitations: ROS unobtainable due to patients medical condition (Dementia) Constitutional: Reports: fever Respiratory: Reports: cough, dyspnea Cardiovascular: Denies: chest pain Gastrointestinal: Denies: abdominal pain Neurological: Denies: headache Past Medical History Past Medical History: Dementia, GERD/Reflux, Hypertension, Osteoarthritis (OA) Additional Past Medical History / Comment(s): kidney stones, urinary retention and UTI,dysphagia, osteomyelitis of left radius and ulna History of Any Multi-Drug Resistant Organisms: None Reported Past Surgical History: Appendectomy, Orthopedic Surgery, Tonsillectomy Additional Past Surgical History / Comment(s): LEFT KNEE ARTHROSCOPY, LEFT KIDNEY REMOVED, 6-15 total rt knee left elbow orif, Past Anesthesia/Blood Transfusion Reactions: No Reported Reaction Past Psychological History: Depression Smoking Status: Former smoker Past Alcohol Use History: Rare Past Drug Use History: None Reported - Past Family History Father Family Medical History: No Reported History Additional Family Medical History / Comment(s): Father was healthy. Mother Family Medical History: No Reported History, Deep Vein Thrombosis (DVT) Additional Family Medical History / Comment(s): Mother had ulcers. General Exam Limitations: no limitations General appearance: alert, in no apparent distress Head exam: Present: atraumatic, normocephalic Eye exam: Present: normal appearance ENT exam: Present: mucous membranes dry Neck exam: Present: normal inspection Respiratory exam: Present: rhonchi. Absent: respiratory distress, wheezes, rales, stridor, accessory muscle use, decreased breath sounds, prolonged expiratory Cardiovascular Exam: Present: regular rate, normal rhythm, normal heart sounds. Absent: systolic murmur, diastolic murmur, rubs, gallop GI/Abdominal exam: Present: soft. Absent: distended, tenderness, guarding, rebound Extremities exam: Present: normal inspection, normal capillary refill. Absent: pedal edema Neurological exam: Present: alert. Absent: oriented X3, motor sensory deficit Skin exam: Present: warm, dry, intact, normal color. Absent: rash Course Vital Signs 04/07/18 04/07/18 04/07/18 05:31 08:07 08:32 Temperature 100.1 F H Pulse Rate 104 H 99 104 H Respiratory 16 20 Rate Blood Pressure 140/74 140/77 O2 Sat by Pulse 97 96 Oximetry 04/07/18 04/07/18 04/07/18 08:45 09:23 11:09 Temperature 98.9 F Pulse Rate 104 H 108 H 99 Respiratory 20 Rate Blood Pressure 111/73 O2 Sat by Pulse 96 Oximetry 04/07/18 04/07/18 11:22 11:29 Temperature 99.3 F Pulse Rate 99 96 Respiratory 20 Rate Blood Pressure 127/79 O2 Sat by Pulse 96 Oximetry Medical Decision Making - Medical Decision Making Patient is an 83-year-old woman sent from [facility] facility for suspected pneumonia. Chest x-ray does appear to show active infiltrate, and patient will be started on healthcare associated pneumonia antibiotics treatment. - Lab Data Result diagrams: 04/08/18 06:12 04/08/18 06:12 Lab Results 04/07/18 04/07/18 04/07/18 Range/Units 07:25 07:25 07:25 WBC 12.9 H (3.8-10.6) k/uL RBC 2.91 L (3.80-5.40) m/uL Hgb 7.7 L (11.4-16.0) gm/dL Hct 24.2 L (34.0-46.0) % MCV 83.1 (80.0-100.0) fL MCH 26.3 (25.0-35.0) pg MCHC 31.7 (31.0-37.0) g/dL RDW 18.8 H (11.5-15.5) % Plt Count 351 (150-450) k/uL Neutrophils % 82 % Lymphocytes % 7 % Monocytes % 6 % Eosinophils % 4 % Basophils % 0 % Neutrophils # 10.5 H (1.3-7.7) k/uL Lymphocytes # 0.9 L (1.0-4.8) k/uL Monocytes # 0.8 (0-1.0) k/uL Eosinophils # 0.5 (0-0.7) k/uL Basophils # 0.0 (0-0.2) k/uL Hypochromasia Slight Anisocytosis Slight Microcytosis Slight PT (9.0-12.0) sec INR (<1.2) APTT (22.0-30.0) sec Sodium 139 (137-145) mmol/L Potassium 5.1 (3.5-5.1) mmol/L Chloride 103 (98-107) mmol/L Carbon Dioxide 28 (22-30) mmol/L Anion Gap 8 mmol/L BUN 36 H (7-17) mg/dL Creatinine 3.17 H (0.52-1.04) mg/dL Est GFR (CKD-EPI)AfAm 15 (>60 ml/min/1.73 sqM) Est GFR (CKD-EPI)NonAf 13 (>60 ml/min/1.73 sqM) Glucose 90 (74-99) mg/dL Calcium 8.2 L (8.4-10.2) mg/dL Magnesium 2.3 (1.6-2.3) mg/dL Total Bilirubin 0.4 (0.2-1.3) mg/dL AST 14 (14-36) U/L ALT 17 (9-52) U/L Alkaline Phosphatase 149 H (38-126) U/L Total Creatine Kinase <20 L (30-135) U/L CK-MB (CK-2) 0.5 (0.0-2.4) ng/mL CK-MB (CK-2) Rel Index Troponin I <0.012 (0.000-0.034) ng/mL NT-Pro-B Natriuret Pep pg/mL Total Protein 6.3 (6.3-8.2) g/dL Albumin 2.4 L (3.5-5.0) g/dL 04/07/18 04/07/18 Range/Units 07:25 07:25 WBC (3.8-10.6) k/uL RBC (3.80-5.40) m/uL Hgb (11.4-16.0) gm/dL Hct (34.0-46.0) % MCV (80.0-100.0) fL MCH (25.0-35.0) pg MCHC (31.0-37.0) g/dL RDW (11.5-15.5) % Plt Count (150-450) k/uL Neutrophils % % Lymphocytes % % Monocytes % % Eosinophils % % Basophils % % Neutrophils # (1.3-7.7) k/uL Lymphocytes # (1.0-4.8) k/uL Monocytes # (0-1.0) k/uL Eosinophils # (0-0.7) k/uL Basophils # (0-0.2) k/uL Hypochromasia Anisocytosis Microcytosis PT 11.3 (9.0-12.0) sec INR 1.2 H (<1.2) APTT 29.3 (22.0-30.0) sec Sodium (137-145) mmol/L Potassium (3.5-5.1) mmol/L Chloride (98-107) mmol/L Carbon Dioxide (22-30) mmol/L Anion Gap mmol/L BUN (7-17) mg/dL Creatinine (0.52-1.04) mg/dL Est GFR (CKD-EPI)AfAm (>60 ml/min/1.73 sqM) Est GFR (CKD-EPI)NonAf (>60 ml/min/1.73 sqM) Glucose (74-99) mg/dL Calcium (8.4-10.2) mg/dL Magnesium (1.6-2.3) mg/dL Total Bilirubin (0.2-1.3) mg/dL AST (14-36) U/L ALT (9-52) U/L Alkaline Phosphatase (38-126) U/L Total Creatine Kinase (30-135) U/L CK-MB (CK-2) (0.0-2.4) ng/mL CK-MB (CK-2) Rel Index Troponin I (0.000-0.034) ng/mL NT-Pro-B Natriuret Pep 02853 pg/mL Total Protein (6.3-8.2) g/dL Albumin (3.5-5.0) g/dL - EKG Data -: EKG Interpreted by Me EKG shows normal: sinus rhythm, axis (Normal), intervals (Normal), QRS complexes (Normal), ST-T waves (Normal) Rate: tachycardia (Rate 106 bpm) Disposition Clinical Impression: Pneumonia Disposition: ADMITTED IP TO THIS [facility] Condition: Poor
[2018-04-07] MEDS ORDERED: LEVOFLOXACIN 750MG-D5W PMX 750 MG in DEXTROSE/WATER 1 150ML.BAG IVPB STA (07:42)
[2018-04-07] MEDS ORDERED: AZTREONAM 2 GM in SODIUM CHLORIDE 0.9% 100 ML IVPB STA (07:42)
[2018-04-07] MEDS ORDERED: PNEUMONIA PROTOCOL UTILIZED 1 EACH MISC PO PRN (07:42)
[2018-04-07 07:44] LABS: Anisocytosis Slight; Basophils % (A) 0 %; Eosinophils # (A) 0.5 k/uL (0-0.7); Eosinophils % (A) 4 %; HCT 24.2 % (34.0-46.0); HGB 7.7 gm/dL (11.4-16.0); Hypochromasia Slight; Lymphocytes # (A) 0.9 k/uL (1.0-4.8); Lymphocytes % (A) 7 %; MCH 26.3 pg (25.0-35.0); MCHC 31.7 g/dL (31.0-37.0); MCV 83.1 fL (80.0-100.0); Mean Platelet Volume 6.8; Microcytosis Slight; Monocytes # (A) 0.8 k/uL (0-1.0); Monocytes % (A) 6 %; Neutrophils # (A) 10.5 k/uL (1.3-7.7); Neutrophils % (A) 82 %; Platelet Count 351 k/uL (150-450); RBC 2.91 m/uL (3.80-5.40); RDW 18.8 % (11.5-15.5); WBC 12.9 k/uL (3.8-10.6)
[2018-04-07] MEDS ORDERED: SODIUM CHLORIDE 0.9% 1,000 ML IV SCH (07:45)
[2018-04-07] MEDS ORDERED: NA PHOS,M-B/NA PHOS,DI-BA 133 ML ENEMA RECTAL PRN (07:45)
[2018-04-07] MEDS ORDERED: BISACODYL 10 MG SUPP RECTAL PRN (07:45)
[2018-04-07] MEDS ORDERED: LACTULOSE 20 GM/30 ML CUP PO PRN (07:45)
[2018-04-07] MEDS ORDERED: MAGNESIUM HYDROXIDE 2,400 MG/10 ML CUP PO PRN (07:45)
[2018-04-07 07:53] LABS: INR 1.2 (<1.2); Partial Thromboplastin Time 29.3 sec (22.0-30.0); Prothrombin Time 11.3 sec (9.0-12.0)
[2018-04-07 07:57] LABS: Albumin 2.4 g/dL (3.5-5.0); Calcium 8.2 mg/dL (8.4-10.2); Magnesium 2.3 mg/dL (1.6-2.3); Potassium 5.1 mmol/L (3.5-5.1); Total Bilirubin 0.4 mg/dL (0.2-1.3); Total Protein 6.3 g/dL (6.3-8.2)
[2018-04-07] MEDS ORDERED: NON-FORMULARY DRUG (Lactose-Reduced Food [Ensure Plus] 1 CAN) PO SCH (08:00)
[2018-04-07 08:12] LABS: Creatine Kinase <20 U/L (30-135)
[2018-04-07 08:25] LABS: Creatine Kinase MB 0.5 ng/mL (0.0-2.4); Troponin I <0.012 ng/mL (0.000-0.034)
[2018-04-07] MEDS: SENNOSIDES-DOCUSATE SODIUM 1 EACH TAB PO SCH (10:14)
[2018-04-07] MEDS: METOPROLOL TARTRATE 25 MG TAB PO SCH ×2 (10:15→16:02)
[2018-04-07] MEDS: FAMOTIDINE 20 MG TAB PO SCH (10:15)
[2018-04-07] MEDS: CYPROHEPTADINE 4 MG TABLET PO SCH ×2 (10:15→16:03)
[2018-04-07] MEDS: traMADol 50 MG TAB PO PRN ×2 (10:15→16:07)
[2018-04-07] MEDS: SODIUM BICARBONATE TAB 650 MG TAB PO SCH ×3 (10:15→16:03)
[2018-04-07] MEDS: IPRATROPIUM-ALBUTEROL 3 ML NEB INHALATION SCH ×3 (11:09→20:46)
[2018-04-07] MEDS ORDERED: cefTRIAXone 2,000 MG in SODIUM CHLORIDE 0.9% 100 ML IVPB ONE (12:30)
[2018-04-07 13:51] LABS: VBG PH 7.4 (7.31-7.41)
[2018-04-07] MEDS ORDERED: NON-FORMULARY DRUG (Magic Cup 1 DOSE) PO SCH (14:00)
[2018-04-07 15:31] VITALS: BMI 29.0
[2018-04-07] MEDS: AZTREONAM 1 GM in SODIUM CHLORIDE 0.9% 50 ML IVPB SCH ×2 (15:59→23:48)
[2018-04-07] MEDS ORDERED: AZTREONAM 2 GM in SODIUM CHLORIDE 0.9% 100 ML IVPB SCH (16:00)
[2018-04-07] MEDS: FERROUS SULFATE 325 MG TAB PO SCH (16:02)
[2018-04-07] MEDS: VIT A,C & E-LUTEIN-MINERALS 1 EACH TAB PO SCH (17:13)
[2018-04-07] MEDS: NYSTATIN 100,000 UNIT/ML SUSP 500,000 UNIT/5 ML CUP PO SCH (17:14)
[2018-04-07] MEDS: LACTATED RINGERS 1,000 ML IV SCH (17:14)
[2018-04-07] MEDS: ACETAMINOPHEN TAB 325 MG TAB PO PRN (17:18)
--- NOTE | 2018-04-07 17:33 | HP ---
HISTORY AND PHYSICAL DATE OF ADMISSION: 04/07/2018 DATE OF SERVICE: 04/07/2018 PRESENTING COMPLAINT: Cough, fever. HISTORY OF PRESENTING COMPLAINT: This is a very pleasant 83-year-old patient, normally a resident of [facility], being followed by Dr. Chavez. Chronic stable medical conditions include GERD, hypertension, osteoarthritis, depression, dementia. Patient has also had recurrent dislocation of the left elbow. The patient was in the hospital about 2 weeks ago. Patient has also been treated for osteomyelitis of the left radius, for which she had followed with Dr. Andino. Patient presented to the ER. She was having fevers, cough, some sputum production. Per the EMS report, the patient was also having low oxygen saturation. The patient was 80% on room air; with nasal cannula she went up to 90% . She was short of breath. Patient's vital signs at the [facility] were blood pressure 130/72, pulse 111, respiration 22, pulse ox 80% on room air, and temperature 100.9. Patient was confirmed to have pneumonia, started on IV aztreonam and IV Levaquin. REVIEW OF SYSTEMS: CONSTITUTIONAL: Weak, tired, febrile. HEENT: None. RESPIRATORY: Cough, short of breath. CARDIOVASCULAR: None. GASTROINTESTINAL: None. GENITOURINARY: Urinary incontinence. DERMATOLOGICAL: None. MUSCULOSKELETAL: Some weakness in the left arm. HEMATOLOGICAL: None. LYMPHATICS: None. PSYCHIATRY: Forgetful. NEUROLOGICAL: None. PAST MEDICAL HISTORY: 1. Dementia. 2. GERD. 3. Hypertension. 4. Osteoarthritis. 5. Kidney stones. 6. Urinary retention with incontinence. 7. Osteomyelitis of the left arm radius. PAST SURGICAL HISTORY: 1. Appendectomy. 2. Tonsillectomy. 3. Left knee arthroscopy. 4. Left nephrectomy. 5. Right total knee surgery. 6. External fixator of elbow for recurrent dislocation. PSYCH HISTORY: Depression. SOCIAL HISTORY: Resident of [facility]. . Quit smoking more than 20 years ago. Alcohol none. FAMILY HISTORY: Reviewed; noncontributory to presentation. HOME MEDICATIONS: 1. Ultram 50 mg q.6 p.r.n. 2. Nystatin topically b.i.d. 3. Adult Fleet 133 mL rectally daily p.r.n. 4. Milk of Magnesia 2400 mg p.o. daily p.r.n. 5. Lactulose 20 grams p.o. daily p.r.n. 6. Dulcolax 10 mg rectally daily p.r.n. 7. Sodium bicarb 650 mg p.o. t.i.d. 8. Ensure Plus 1 can p.o. t.i.d. 9. Tylenol 650 mg q.6 p.r.n. 10.PreserVision Areds-2 soft gel 1 capsule p.o. b.i.d. 11.Zantac 150 mg p.o. b.i.d. 12.Nystatin 5 mL p.o. b.i.d. 13.Saline 10 mL IV as directed. 14.Lopressor 25 mg b.i.d. 15.Senokot-S 2 tablets p.o. daily. 16.Melatonin 3 mg at bedtime. 17.Cyproheptadine 4 mg p.o. b.i.d. 18.Magic Cup 1 dose p.o. daily. 19.Ceftriaxone 2 mg IVP q.24 hours. 20.Norvasc 5 mg p.o. at bedtime. 21.Iron. ALLERGIES: 1. NORCO. 2. PENICILLIN. 3. SULFA. PHYSICAL EXAMINATION: Temperature 100.1, pulse 104, respiration 20, blood pressure 140/74, pulse ox 97% on 3 L. It was reported 80% at [facility]. GENERAL APPEARANCE: Average build. Lying in bed. Tired-appearing. EYES: Pupils equal. Conjunctivae normal. HEENT: External appearance of nose and ears normal. Oral cavity normal. NECK: JVD unable to assess. Mass not palpable. RESPIRATORY: Effort increased. LUNGS: Some left basal crackles. CARDIOVASCULAR: First and second sounds normal. No edema. ABDOMEN: Soft, nontender. Liver and spleen not palpable. LYMPHATIC: No lymph node palpable in neck or axillae. PSYCHIATRY: Awake. Answering simple questions. NEUROLOGICAL: Pupils clear. Cranial nerves grossly intact. Power and sensation grossly intact. INVESTIGATIONS: White count 12.9, hemoglobin 7.7, potassium 5.1, BUN 36, creatinine 3.17. Patient's BUN and creatinine were 24 and 1.47 on 03/24/2018. EKG tracing, personally reviewed by me, shows sinus tachycardia. Chest x-ray film, personally reviewed by me, shows infiltrate in the right upper lobe as well as right lower lobe and some infiltrate on the left side. ASSESSMENT: 1. Acute multi-lobar pneumonia. Suspect gram-negative organism causing sepsis, present on admission, causing acute hypoxic respiratory failure. 2. Mild to moderate cognitive impairment from late-onset Alzheimer's dementia. 3. Gastroesophageal reflux disease. 4. Essential hypertension. 5. Primary osteoarthritis. 6. Chronic urinary incontinence and retention. 7. Acute osteomyelitis of the left radius; completing a course of antibiotics. 8. Acute renal failure; could be both prerenal and acute tubular necrosis. PLAN: Home medications are resumed. Patient was put on IV ceftriaxone and IV Levaquin. We will also hydrate the patient. Given his age, patient's prognosis is guarded. MMODL / IJN: [id number] /
[2018-04-07] MEDS: amLODIPine 5 MG TAB PO SCH (22:01)
[2018-04-07] MEDS: NYSTATIN 100,000UNIT/GM CREAM 30 GM TUBE TOPICAL SCH (22:01)
[2018-04-07] MEDS: MELATONIN 3 MG TABLET PO SCH (22:01)
--- NOTE | 2018-04-08 04:49 | CONS ---
CONSULTATION DATE OF SERVICE: 04/07/2018. REASON FOR CONSULTATION: Pneumonia. HISTORY OF PRESENT ILLNESS: The patient is an 83-year-old female with past medical history significant for recurrent dislocation of the left elbow for which the patient did have a external placement fixator placement, but subsequently the patient has been evaluated at [facility]. The patient noticed to have osteomyelitis at the external fixator site on the left forearm. Cultures were negative. She was seen by infectious disease physician in the facility and was recommended 6 week course of IV vancomycin and Rocephin. Subsequently admitted to this facility for renal failure secondary to vancomycin that was discontinued. The patient treated with daptomycin and Rocephin. The patient still has a PICC line. However, when asked specifically, if she was still getting antibiotics, she did not give me a clear answer and no family members available at bed side to conform those findings. The patient has been sent to the ER with congested cough which the patient has had for a few days now. Cough has been moderate intensity with minimal sputum production. However, the patient not clear about the color of the sputum, but denies any hemoptysis. Denies significant chest pain. She was also noticed to be hypoxic with O2 sats improving after the patient placed on nasal cannula oxygen. She did have fever of 100.1. She presented to hospital. The patient has been evaluated by the ER physician where the patient did have a chest x-ray obtained which did shows focal right upper lobe and right lower lobe with concern for underlying pneumonia. The patient was started on Azactam and Levaquin because of her PENICILLIN ALLERGY. Infectious Disease was consulted for further recommendation regarding antibiotic therapy. The patient currently denies having symptoms of pain to her left forearm area and is currently no open wound and denies any problem with the PICC line. REVIEW OF SYSTEMS: CONSTITUTIONAL: Positive for weakness along with the fever. EYES no complaint. ENT no complaint. RESPIRATORY as per HPI. CARDIOVASCULAR no complaint. GENITOURINARY no complaint. Gastrointestinal: No complaint. MUSCULOSKELETAL no complaint. INTEGUMENT: No complaint. PSYCHOLOGICAL no complaint. ENDOCRINE no complaint. NEUROLOGIC no complaint. PAST MEDICAL HISTORY: of left elbow osteomyelitis and left forearm, dementia, hyperlipidemia, hypertension, osteoarthritis, history of kidney stone, Salgado catheter and recurrent UTI. PAST SURGICAL HISTORY: Appendectomy, left knee arthroplasty, left elbow ORIF. SOCIAL HISTORY: Remote history of smoking. No drinking or drug use. Currently a [facility] resident. FAMILY HISTORY: No pertinent findings noticed. ALLERGIES: PENICILLIN, SULFA and HYDROCODONE. However patient tolerates cephalosporin without any problem. MEDICATION: Currently include the patient is on Tylenol, Ventolin, DuoNeb, Norvasc, Azactam 1 g q.8, Dulcolax, Pepcid, iron sulfate, lactated Ringers, lactulose, Levaquin, Milk of Magnesia, Melatonin, Lopressor, I-Yuri, swish and swallow, Senokot. EXAMINATION: Blood pressure 129/60 with a pulse of 94, temperature 98.5, T-max is 100.1. She is 98% on 3 L nasal cannula. General description is an elderly female up in the bed in no distress. No tachypnea or accessory muscles for respiration use. HEENT: Shows pallor. No scleral icterus. Oral mucosa membranes are dry. No pharyngeal erythema or thrush. Neck: Trachea central. No thyromegaly. LUNGS: Unlabored breathing with decreased intensity of breath sounds. No wheeze. Heart S1, S2. Regular rate and rhythm. ABDOMEN: Soft, no tenderness. No guarding or rigidity. Extremities: No edema of the feet. Left forearm currently with no open wounds. No swelling. No redness. SKIN EXAMINATION: No rash or mass palpable. Neurological: Patient is awake, alert, times three. Mood and affect normal. LABS: Hemoglobin is 7.7 with white count 12.9, BUN of 36, creatinine 3.17. Chest report as mentioned above. DIAGNOSTIC IMPRESSION AND PLAN: 1. Patient admitted to the hospital with increasing shortness of breath. Did have a congested cough, sputum production with evidence of right upper lobe infiltrate. Did have elevated white count and fever, likely suspicious for pneumonia with question of possible community-acquired with gram-negative pneumonia in view of patient being in and out of the hospital and a [facility] resident. 2. Patient with left forearm osteomyelitis for which the patient apparently received more than 6 weeks of antibiotic therapy. Still has a PICC line. The patient never followed up with us in the outpatient setting. Will be consult with family if she has followup with her [place] infectious disease physician. PLAN: 1. We will try to obtain sputum for Gram stain culture and sensitivity. 2. Discontinue the Azactam, start the patient on cefepime 2 g q.12h and continue with Levaquin. 3. We will follow up on her clinical condition as well as culture to further adjust medication if needed. Thank you for this consultation. We will follow the patient along with you. JULIETH / LAURITA: [id number] /
[2018-04-08] MEDS: LACTATED RINGERS 1,000 ML IV SCH ×2 (05:13→17:05)
[2018-04-08] MEDS: ACETAMINOPHEN TAB 325 MG TAB PO PRN (05:13)
[2018-04-08] MEDS: IPRATROPIUM-ALBUTEROL 3 ML NEB INHALATION SCH ×4 (07:13→20:07)
[2018-04-08 07:57] LABS: Calcium 8.2 mg/dL (8.4-10.2); Potassium 5.7 mmol/L (3.5-5.1)
[2018-04-08 07:59] LABS: Anisocytosis Slight; Basophils % (A) 0 %; Eosinophils # (A) 0.3 k/uL (0-0.7); Eosinophils % (A) 2 %; HCT 23.7 % (34.0-46.0); HGB 7.2 gm/dL (11.4-16.0); Hypochromasia Marked; Lymphocytes # (A) 0.8 k/uL (1.0-4.8); Lymphocytes % (A) 6 %; MCH 25.8 pg (25.0-35.0); MCHC 30.4 g/dL (31.0-37.0); MCV 84.7 fL (80.0-100.0); Mean Platelet Volume 7.5; Monocytes # (A) 0.8 k/uL (0-1.0); Monocytes % (A) 6 %; Neutrophils # (A) 10.9 k/uL (1.3-7.7); Neutrophils % (A) 85 %; Platelet Count 360 k/uL (150-450); RDW 18.4 % (11.5-15.5); WBC 12.9 k/uL (3.8-10.6)
[2018-04-08] MEDS ORDERED: NON-FORMULARY DRUG (Ceftriaxone 2,000 MG) IVP SCH (08:00)
[2018-04-08] MEDS ORDERED: LEVOFLOXACIN 750MG-D5W PMX 750 MG in DEXTROSE/WATER 1 150ML.BAG IVPB SCH (09:00)
[2018-04-08] MEDS: NYSTATIN 100,000 UNIT/ML SUSP 500,000 UNIT/5 ML CUP PO SCH ×2 (09:40→17:03)
[2018-04-08] MEDS: SODIUM BICARBONATE TAB 650 MG TAB PO SCH ×3 (09:40→17:03)
[2018-04-08] MEDS: NYSTATIN 100,000UNIT/GM CREAM 30 GM TUBE TOPICAL SCH ×2 (09:40→20:49)
[2018-04-08] MEDS: VIT A,C & E-LUTEIN-MINERALS 1 EACH TAB PO SCH ×2 (09:40→17:03)
[2018-04-08] MEDS: CYPROHEPTADINE 4 MG TABLET PO SCH ×2 (09:41→17:02)
[2018-04-08] MEDS: FAMOTIDINE 20 MG TAB PO SCH (09:41)
[2018-04-08] MEDS: METOPROLOL TARTRATE 25 MG TAB PO SCH ×2 (09:41→17:02)
[2018-04-08] MEDS: SENNOSIDES-DOCUSATE SODIUM 1 EACH TAB PO SCH (09:45)
[2018-04-08] MEDS: CEFEPIME 2 GM in SODIUM CHLORIDE 0.9% 50 ML IVPB SCH (09:45)
[2018-04-08] MEDS: traMADol 50 MG TAB PO PRN ×2 (11:20→17:06)
[2018-04-08] MEDS: FERROUS SULFATE 325 MG TAB PO SCH (17:02)
[2018-04-08] MEDS: amLODIPine 5 MG TAB PO SCH (20:49)
[2018-04-08] MEDS: MELATONIN 3 MG TABLET PO SCH (20:49)
[2018-04-08] MEDS: SODIUM CHLORIDE 0.9% 1,000 ML IV SCH (22:37)
--- NOTE | 2018-04-09 00:26 | PN ---
PROGRESS NOTE DATE OF SERVICE: April 08, 2018. PRESENTING COMPLAINT: Cough. INTERIM HISTORY: Patient presented with multilobar pneumonia with sepsis. Sitting on bed today. Appetite is not good. Cough. Bringing up of sputum. Tired. Run down. REVIEW OF SYSTEMS: Done for constitutional, cardiovascular, GI, pulmonary, relevant findings as above. CURRENT MEDICATIONS: Reviewed that include IV cefepime, lactated Ringer's and Levaquin. EXAMINATION: Afebrile, pulse 94, respiration 17, blood pressure 114/55. Pulse ox 99% on 2 L. GENERAL APPEARANCE: Sitting up, awake. EYES: Pupils equal. Conjunctivae normal. HEENT: External appearance of nose and ears normal. Oral cavity normal. NECK: JVD unable to assess. Mass not palpable. LUNGS: Decreased breath sounds, some basal crackles. CARDIOVASCULAR: 1st and 2nd sounds normal. No edema. ABDOMEN: Soft, nontender. Liver and spleen not palpable. PSYCHIATRY: Awake, answering questions. INVESTIGATIONS: White count 12.9, hemoglobin 7.2, potassium 5.7, BUN 40, creatinine 3.23. ASSESSMENT: 1. Acute multilobar pneumonia suspect gram-negative organism causing sepsis, present on admission causing acute hypoxic respiratory failure, slow to respond. 2. Mild to moderate cognitive impairment from late onset Alzheimer's dementia. 3. Gastroesophageal reflux disease. 4. Essential hypertension. 5. Primary osteoarthritis. 6. Chronic urinary incontinence and retention. 7. Acute osteomyelitis of the left radius completing a course of antibiotics. 8. Acute renal failure could be both prerenal and acute tubular necrosis, some worsening. 9. Hyperkalemia from renal failure. PLAN: Continue current medication and treatment plan. We will change patient's IV fluids to normal saline because of the hyperkalemia. Continue IV antibiotics. Care was discussed with the family at the bedside. Prognosis guarded. MMODL / IJN: [id number] /
[2018-04-09] MEDS: traMADol 50 MG TAB PO PRN ×3 (05:18→22:14)
--- NOTE | 2018-04-09 07:06 | PN ---
PROGRESS NOTE DATE OF SERVICE: 04/08/2018. REASON FOR FOLLOWUP VISIT: Pneumonia, possible gram-negative. INTERVAL HISTORY: The patient is afebrile today. She is more awake and alert. She is breathing comfortably. She did have some cough but not bringing up any sputum. No chest pain. No abdominal pain. The patient denies pain to the left forearm area. EXAMINATION: Blood pressure is 130/66 with a pulse of 100, temperature 98.2. She is 94% on 2 L nasal cannula. General description is an elderly female, lying in bed in no distress. Respiratory system: Unlabored breathing with decreased breath sounds. No wheeze. Heart S1, S2. Regular rate and rhythm. Abdomen soft. No tenderness. LABS: Hemoglobin 7.8, white count 12.9, BUN of 14, creatinine 3.23. Blood culture has been negative so far. No sputum was collected. DIAGNOSTIC IMPRESSION AND PLAN: Patient admitted to the hospital with a fever, congested cough with evidence of pneumonia, possible gram negative. Recommend pathogen. We will try to obtain sputum so we can narrow down her antibiotics. Currently on cefepime that will be continued, adjusting for clinical response as well as culture. Family present at bedside. Their questions were answered. MMODL / IJN: [id number] /
[2018-04-09 07:08] LABS: Anisocytosis Slight; Basophils % (A) 0 %; Eosinophils # (A) 0.4 k/uL (0-0.7); Eosinophils % (A) 3 %; HCT 23.6 % (34.0-46.0); HGB 7.2 gm/dL (11.4-16.0); Hypochromasia Marked; Lymphocytes # (A) 0.9 k/uL (1.0-4.8); Lymphocytes % (A) 7 %; MCHC 30.6 g/dL (31.0-37.0); MCV 84.9 fL (80.0-100.0); Monocytes # (A) 0.8 k/uL (0-1.0); Monocytes % (A) 6 %; Neutrophils # (A) 10.7 k/uL (1.3-7.7); Neutrophils % (A) 82 %; Platelet Count 348 k/uL (150-450); RBC 2.78 m/uL (3.80-5.40); RDW 18.5 % (11.5-15.5)
[2018-04-09 07:24] LABS: Calcium 8.4 mg/dL (8.4-10.2); Potassium 5.1 mmol/L (3.5-5.1)
[2018-04-09] MEDS: IPRATROPIUM-ALBUTEROL 3 ML NEB INHALATION SCH ×4 (08:00→21:14)
[2018-04-09] MEDS: CEFEPIME 2 GM in SODIUM CHLORIDE 0.9% 50 ML IVPB SCH (09:12)
[2018-04-09] MEDS: METOPROLOL TARTRATE 25 MG TAB PO SCH ×2 (09:15→16:15)
[2018-04-09] MEDS: NYSTATIN 100,000 UNIT/ML SUSP 500,000 UNIT/5 ML CUP PO SCH ×2 (09:15→16:15)
[2018-04-09] MEDS: SODIUM BICARBONATE TAB 650 MG TAB PO SCH ×3 (09:15→16:16)
[2018-04-09] MEDS: VIT A,C & E-LUTEIN-MINERALS 1 EACH TAB PO SCH ×2 (09:16→16:15)
[2018-04-09] MEDS: FAMOTIDINE 20 MG TAB PO SCH (09:16)
[2018-04-09] MEDS: CYPROHEPTADINE 4 MG TABLET PO SCH ×2 (09:16→16:15)
[2018-04-09] MEDS: SENNOSIDES-DOCUSATE SODIUM 1 EACH TAB PO SCH (09:16)
[2018-04-09] MEDS: NYSTATIN 100,000UNIT/GM CREAM 30 GM TUBE TOPICAL SCH ×2 (09:17→22:14)
[2018-04-09] MEDS: SODIUM CHLORIDE 0.9% 1,000 ML IV SCH ×2 (09:18→22:14)
[2018-04-09] MEDS: LEVOFLOXACIN 500MG-D5W PMX 500 MG in DEXTROSE/WATER 1 100ML.BAG IVPB SCH (12:54)
[2018-04-09] MEDS: FERROUS SULFATE 325 MG TAB PO SCH (16:15)
--- NOTE | 2018-04-09 21:17 | PN ---
PROGRESS NOTE DATE OF SERVICE: 04/09/18 PRESENTING COMPLAINT: Cough. INTERVAL HISTORY: This patient presented with multilobar pneumonia with sepsis. Sitting up, a bit more perky today. Sputum production is coming down. Appetite is slowly picking up. Still feeling tired. REVIEW OF SYSTEMS: Done for constitutional, cardiovascular, GI, pulmonary; relevant findings as above. CURRENT MEDICATIONS: Reviewed that include IV cefepime. PHYSICAL EXAMINATION: On examination, afebrile, pulse 59, respiration 17, blood pressure 102/62, pulse ox 95% on 2 L. GENERAL APPEARANCE: Sitting up, a bit more awake. EYES: Pupils equal. Conjunctivae normal. HEENT: External appearance of nose and ears normal. Oral cavity normal. NECK: JVD unable to assess. Mass not palpable. RESPIRATORY: Effort increased. Lungs, decreased breath sounds. CARDIOVASCULAR: 1st and 2nd sounds. No edema. ABDOMEN: Soft, nontender. Liver and spleen not palpable. PSYCHIATRY: Awake, answering questions. INVESTIGATIONS: White count 13, hemoglobin 7.2, potassium 5.1, BUN 38, creatinine 3.46. ASSESSMENT: 1. Acute multilobar pneumonia suspect gram-negative organism causing sepsis, present on admission, causing acute hypoxic respiratory failure. 2. Mild to moderate cognitive impairment from late onset Alzheimer's dementia. 3. Gastroesophageal reflux disease. 4. Essential hypertension. 5. Primary osteoarthritis. 6. Chronic urinary incontinence and retention. 7. Acute osteomyelitis of the left radius, completing a course of antibiotic. 8. Acute renal failure, could be prerenal or ATN with some worsening. 9. Hyperkalemia from renal failure, improving. PLAN: Continue current medication and treatment plan. Keep a close eye on the patient. Follow. MMODL / IJN: [id number] /
[2018-04-09] MEDS: amLODIPine 5 MG TAB PO SCH (21:52)
[2018-04-09] MEDS: MELATONIN 3 MG TABLET PO SCH (21:53)
--- NOTE | 2018-04-09 22:56 | PN ---
PROGRESS NOTE DATE OF SERVICE: 04/09/2018. REASON FOR FOLLOWUP: Pneumonia, possible gram-negative. INTERVAL HISTORY: The patient is afebrile. She has been breathing comfortably. She did have some cough but not bringing up any sputum. No chest pain. No abdominal pain. Denies any pain in the left area. No diarrhea. EXAMINATION: Blood pressure 132/62 with a pulse of 89, temperature 98.2. He is 95% on 2 L nasal cannula. General description is an elderly female, lying in bed in no distress. Respiratory system: Unlabored breathing, decreased intensive breath sounds. No wheeze. Heart S1, S2. Regular rate and rhythm. Abdomen soft. No tenderness. LABS: Hemoglobin is 10.2 with white count 13,000. BUN of 38, creatinine 3.46. DIAGNOSTIC IMPRESSION AND PLAN: Patient admitted to the hospital with fever, increasing shortness of breath and did have a cough with concern for underlying pneumonia. The patient is currently covered with Cefepime that will be continued while waiting for the culture to finalize. Continue supportive care. MMODL / IJN: [id number] /
[2018-04-10] MEDS: IPRATROPIUM-ALBUTEROL 3 ML NEB INHALATION SCH ×4 (06:56→19:14)
[2018-04-10 07:52] LABS: Anisocytosis Slight; Basophils % (A) 0 %; Eosinophils # (A) 0.6 k/uL (0-0.7); Eosinophils % (A) 6 %; HCT 23.6 % (34.0-46.0); HGB 7.2 gm/dL (11.4-16.0); Hypochromasia Marked; Lymphocytes # (A) 0.8 k/uL (1.0-4.8); Lymphocytes % (A) 8 %; MCH 26.1 pg (25.0-35.0); MCHC 30.4 g/dL (31.0-37.0); MCV 85.8 fL (80.0-100.0); Monocytes # (A) 0.7 k/uL (0-1.0); Monocytes % (A) 6 %; Neutrophils # (A) 7.9 k/uL (1.3-7.7); Neutrophils % (A) 78 %; Platelet Count 353 k/uL (150-450); RBC 2.75 m/uL (3.80-5.40); RDW 18.8 % (11.5-15.5); WBC 10.1 k/uL (3.8-10.6)
[2018-04-10 07:55] LABS: Calcium 8.2 mg/dL (8.4-10.2); Potassium 4.9 mmol/L (3.5-5.1)
[2018-04-10] MEDS: FAMOTIDINE 20 MG TAB PO SCH (08:45)
[2018-04-10] MEDS: SENNOSIDES-DOCUSATE SODIUM 1 EACH TAB PO SCH (08:45)
[2018-04-10] MEDS: SODIUM BICARBONATE TAB 650 MG TAB PO SCH ×3 (08:45→17:48)
[2018-04-10] MEDS: VIT A,C & E-LUTEIN-MINERALS 1 EACH TAB PO SCH ×2 (08:46→17:48)
[2018-04-10] MEDS: NYSTATIN 100,000 UNIT/ML SUSP 500,000 UNIT/5 ML CUP PO SCH ×2 (08:46→17:48)
[2018-04-10] MEDS: METOPROLOL TARTRATE 25 MG TAB PO SCH ×2 (08:46→17:48)
[2018-04-10] MEDS: CYPROHEPTADINE 4 MG TABLET PO SCH ×2 (08:46→17:48)
[2018-04-10] MEDS: NYSTATIN 100,000UNIT/GM CREAM 30 GM TUBE TOPICAL SCH ×2 (08:46→20:40)
[2018-04-10] MEDS: CEFEPIME 2 GM in SODIUM CHLORIDE 0.9% 50 ML IVPB SCH (08:51)
[2018-04-10] MEDS: SODIUM CHLORIDE 0.9% 1,000 ML IV SCH (12:49)
[2018-04-10] MEDS: FERROUS SULFATE 325 MG TAB PO SCH (17:48)
[2018-04-10] MEDS: LACTATED RINGERS 1,000 ML IV SCH (20:40)
[2018-04-10] MEDS: amLODIPine 5 MG TAB PO SCH (20:40)
[2018-04-10] MEDS: MELATONIN 3 MG TABLET PO SCH (20:40)
--- NOTE | 2018-04-10 21:09 | PN ---
PROGRESS NOTE DATE OF SERVICE: April 10, 2018. PRESENTING COMPLAINT: Tired. INTERVAL HISTORY: Patient admitted with multilobar pneumonia with sepsis, more tired. Lethargic. Renal function is getting worse, not eating much. Lying in bed, requiring quite a bit of assist. REVIEW OF SYSTEMS: Attempted for constitutional, cardiovascular, GI, pulmonary; relevant findings as above. CURRENT MEDICATIONS: Reviewed and include IV cefepime and Levaquin. EXAMINATION: VITAL SIGNS: Afebrile, pulse 94, respirations 18, blood pressure 117/58, pulse ox 95 percent on 3 L. GENERAL APPEARANCE: Sitting up, tired, lethargic. EYES: Pupils equal. Conjunctivae normal. HEENT: External appearance of nose and ears normal. Oral cavity dry. NECK: JVD unable to assess. Mass not palpable. RESPIRATORY: Effort increased. LUNGS: Decreased breath sounds. CARDIOVASCULAR: 1st and 2nd sounds normal. No edema. ABDOMEN: Soft, nontender. Liver and spleen not palpable. PSYCHIATRY: Lethargic, but arousable. NEUROLOGICAL: Moving all 4 limbs. INVESTIGATIONS: White count 10.1, hemoglobin 7.2, potassium 4.9, BUN 36, creatinine 3.64. ASSESSMENT: 1. Acute multilobar pneumonia suspect gram-negative organism causing sepsis, present on admission. 2. Acute hypoxic respiratory failure from pneumonia, present on admission. 3. Mild to moderate cognitive impairment from late onset Alzheimer's dementia. 4. New onset of metabolic encephalopathy from pneumonia and acute renal failure. 5. Acute renal failure likely prerenal from decreased oral intake, could be also acute tubular necrosis from sepsis. 6. Gastroesophageal reflux disease. 7. Essential hypertension. 8. Primary osteoarthritis. 9. Chronic urinary stress incontinence and retention. 10.Acute osteomyelitis of the left radius completed a course of antibiotics. 11.Hyperkalemia from renal failure. PLAN: At this point, we will increase patient's IV fluids to 125 mL an hour, change to lactated Ringer's. The patient has good coverage of antibiotics otherwise. Given her age, patient's prognosis is guarded. We will see how the patient does. MMODL / IJN: [id number] /
--- NOTE | 2018-04-10 22:30 | PN ---
PROGRESS NOTE DATE OF SERVICE: 04/10/2018 REASON FOR FOLLOWUP: Pneumonia, possible gram-negative. INTERVAL HISTORY: The patient is afebrile. She seems to be breathing more comfortably. She did have some cough but did not bring up any sputum. No chest pain. No abdominal pain. No diarrhea. PHYSICAL EXAMINATION: Blood pressure is 117/58 with a pulse of 94, temperature 98.4. She is 95% on 3 L nasal cannula. General description is an elderly female lying in bed in no distress. RESPIRATORY SYSTEM: Unlabored breathing with decreased breath sounds at the bases. No wheeze. HEART: S1, S2. Regular rate and rhythm. ABDOMEN: Soft. No tenderness. LABS: Hemoglobin 7.2, white count 10.1. BUN of 36, creatinine 3.64. Blood culture has been negative. DIAGNOSTIC IMPRESSION AND PLAN: Patient admitted to hospital with a fever and cough, concern likely for a pneumonia, possible component of aspiration. Patient is currently on cefepime and Levaquin. Plan is to finish therapy with oral Avelox 400 daily for another 5 to 7 days with close outpatient followup. Continue with supportive care. MMODL / IJN: [id number] /
[2018-04-11 08:16] LABS: Anisocytosis Slight; Basophils % (A) 0 %; Eosinophils # (A) 0.6 k/uL (0-0.7); Eosinophils % (A) 6 %; HCT 22.9 % (34.0-46.0); Hypochromasia Marked; Lymphocytes # (A) 0.8 k/uL (1.0-4.8); Lymphocytes % (A) 8 %; MCH 26.2 pg (25.0-35.0); MCHC 30.2 g/dL (31.0-37.0); MCV 86.8 fL (80.0-100.0); Monocytes # (A) 0.6 k/uL (0-1.0); Monocytes % (A) 6 %; Neutrophils # (A) 7.5 k/uL (1.3-7.7); Neutrophils % (A) 78 %; Platelet Count 347 k/uL (150-450); RBC 2.64 m/uL (3.80-5.40); RDW 18.4 % (11.5-15.5); WBC 9.7 k/uL (3.8-10.6)
[2018-04-11 08:17] LABS: Calcium 8.4 mg/dL (8.4-10.2); Potassium 4.8 mmol/L (3.5-5.1)
[2018-04-11 08:24] LABS: HGB 6.9 gm/dL (11.4-16.0)
[2018-04-11] MEDS: IPRATROPIUM-ALBUTEROL 3 ML NEB INHALATION SCH ×4 (08:26→19:08)
[2018-04-11] MEDS: FAMOTIDINE 20 MG TAB PO SCH (08:39)
[2018-04-11] MEDS: CYPROHEPTADINE 4 MG TABLET PO SCH ×2 (08:39→18:18)
[2018-04-11] MEDS: SODIUM BICARBONATE TAB 650 MG TAB PO SCH ×3 (08:39→18:17)
[2018-04-11] MEDS: VIT A,C & E-LUTEIN-MINERALS 1 EACH TAB PO SCH ×2 (08:39→18:17)
[2018-04-11] MEDS: METOPROLOL TARTRATE 25 MG TAB PO SCH ×2 (08:40→18:18)
[2018-04-11] MEDS: CEFEPIME 2 GM in SODIUM CHLORIDE 0.9% 50 ML IVPB SCH (08:43)
[2018-04-11] MEDS: SENNOSIDES-DOCUSATE SODIUM 1 EACH TAB PO SCH (08:43)
[2018-04-11] MEDS: LACTATED RINGERS 1,000 ML IV SCH ×3 (08:44→21:54)
[2018-04-11] MEDS: NYSTATIN 100,000 UNIT/ML SUSP 500,000 UNIT/5 ML CUP PO SCH ×2 (12:36→18:18)
[2018-04-11] MEDS: NYSTATIN 100,000UNIT/GM CREAM 30 GM TUBE TOPICAL SCH ×2 (12:36→20:08)
[2018-04-11] MEDS: LEVOFLOXACIN 500MG-D5W PMX 500 MG in DEXTROSE/WATER 1 100ML.BAG IVPB SCH (15:32)
--- NOTE | 2018-04-11 17:28 | PN ---
PROGRESS NOTE DATE OF SERVICE: 04/11/2018 REASON FOR FOLLOWUP: Pneumonia. INTERVAL HISTORY: The patient is currently afebrile. She is breathing comfortably. Denies significant chest pain. She did have some cough. Not bringing up any sputum. No nausea, vomiting, abdominal pain and no diarrhea. PHYSICAL EXAMINATION: Blood pressure 133/67 with a pulse of 98, temperature 98.1. She is 93% on 2 L nasal cannula. General description is an elderly female lying in bed in no distress. RESPIRATORY SYSTEM: Unlabored breathing with decreased breath sounds at the bases. No wheeze. HEART: S1, S2. Regular rate and rhythm. ABDOMEN: Soft. No tenderness. LABS: Hemoglobin 6.9, white count 9.7, BUN of 38, creatinine 3.60. Blood culture has been negative. Sputum was not collected. DIAGNOSTIC IMPRESSION AND PLAN: Patient admitted to hospital with a fever with concern for pneumonia, possibly gram- negative. Patient is currently on cefepime and Levaquin and the fever has resolved. Would recommend finishing therapy with oral Avelox for another 5 days. Continue with supportive care. MMODL / IJN: [id number] /
[2018-04-11] MEDS: FERROUS SULFATE 325 MG TAB PO SCH (18:18)
[2018-04-11] MEDS: MELATONIN 3 MG TABLET PO SCH (20:08)
[2018-04-11] MEDS: amLODIPine 5 MG TAB PO SCH (20:08)
--- NOTE | 2018-04-11 23:46 | PN ---
PROGRESS NOTE DATE OF SERVICE: 04/11/2018 PRESENTING COMPLAINT: Tired. INTERVAL HISTORY: Patient was admitted with multilobar pneumonia with sepsis. More perky today. Did eat a little bit. Patient's renal function had gotten worse, started on IV fluids. Feels tired but more awake today. REVIEW OF SYSTEMS: Done for constitutional, cardiovascular, GI, pulmonary; relevant findings as above. CURRENT MEDICATIONS: Reviewed. They include IV cefepime and Levaquin. PHYSICAL EXAMINATION: Temperature 98.1, pulse 98, respiration 18, blood pressure 132/67, pulse ox 93% on 2 L. GENERAL APPEARANCE: Sitting up, more awake today, talkative. EYES: Pupils equal. Conjunctivae normal. HEENT: External appearance of nose and ears normal. Oral cavity normal. NECK: JVD unable to assess. Mass not palpable. RESPIRATORY: Effort increased. LUNGS: Decreased breath sounds. CARDIOVASCULAR: First and second sounds normal. No edema. ABDOMEN: Soft, non-tender. Liver and spleen not palpable. PSYCHIATRY: Awake. Answering questions. INVESTIGATIONS: White count 9.7, hemoglobin 6.9, potassium 4.8, BUN 38, creatinine 3.6. ASSESSMENT: 1. Acute multilobar pneumonia. Suspect gram-negative organism causing sepsis, present on admission, with some clinical response. 2. Acute hypoxic respiratory failure from pneumonia, present on admission. 3. Mild to moderate cognitive impairment from late-onset Alzheimer's dementia. 4. New onset of metabolic encephalopathy from pneumonia and acute renal failure with some improvement today. 5. Acute renal failure, likely prerenal, from decreased oral intake. Could be also ATN from sepsis. 6. Gastroesophageal reflux disease. 7. Essential hypertension. 8. Primary osteoarthritis. 9. Chronic urinary stress incontinence and retention. 10.Acute osteomyelitis of the left radius. Completed a course of antibiotic for the same. 11.Hyperkalemia from renal failure. PLAN: Patient is doing better today. Renal function is still compromised. Looking for the current dose. Will add sodium bicarbonate. Repeat a chest x-ray in the morning. Will give a unit of blood. Prognosis is guarded. Will follow. MMODL / IJN: [id number] /
[2018-04-12] MEDS: LACTATED RINGERS 1,000 ML IV SCH (06:09)
[2018-04-12 07:40] LABS: Anisocytosis Slight; Basophils % (A) 0 %; Eosinophils # (A) 0.4 k/uL (0-0.7); Eosinophils % (A) 4 %; HCT 25.4 % (34.0-46.0); HGB 7.6 gm/dL (11.4-16.0); Hypochromasia Moderate; Lymphocytes # (A) 0.7 k/uL (1.0-4.8); Lymphocytes % (A) 7 %; MCH 25.3 pg (25.0-35.0); MCHC 29.9 g/dL (31.0-37.0); MCV 84.6 fL (80.0-100.0); Mean Platelet Volume 6.8; Monocytes # (A) 0.6 k/uL (0-1.0); Monocytes % (A) 7 %; Neutrophils # (A) 7.8 k/uL (1.3-7.7); Neutrophils % (A) 80 %; Platelet Count 348 k/uL (150-450); RDW 18.5 % (11.5-15.5); WBC 9.7 k/uL (3.8-10.6)
[2018-04-12 07:50] LABS: Calcium 8.9 mg/dL (8.4-10.2); Potassium 4.6 mmol/L (3.5-5.1)
[2018-04-12] MEDS: IPRATROPIUM-ALBUTEROL 3 ML NEB INHALATION SCH ×4 (07:51→20:15)
[2018-04-12] MEDS ORDERED: FUROSEMIDE 10 MG/ML 2 ML VIAL IV ONE (08:10)
[2018-04-12] MEDS: METOPROLOL TARTRATE 25 MG TAB PO SCH ×2 (09:58→17:31)
[2018-04-12] MEDS: CYPROHEPTADINE 4 MG TABLET PO SCH ×2 (09:58→17:32)
[2018-04-12] MEDS: NYSTATIN 100,000UNIT/GM CREAM 30 GM TUBE TOPICAL SCH ×2 (09:59→22:06)
[2018-04-12] MEDS: SENNOSIDES-DOCUSATE SODIUM 1 EACH TAB PO SCH (10:00)
[2018-04-12] MEDS: SODIUM BICARBONATE TAB 650 MG TAB PO SCH ×3 (10:01→17:32)
[2018-04-12] MEDS: CEFEPIME 2 GM in SODIUM CHLORIDE 0.9% 50 ML IVPB SCH (10:02)
[2018-04-12] MEDS: VIT A,C & E-LUTEIN-MINERALS 1 EACH TAB PO SCH ×2 (10:02→17:32)
[2018-04-12] MEDS: FAMOTIDINE 20 MG TAB PO SCH (10:03)
[2018-04-12] MEDS: NYSTATIN 100,000 UNIT/ML SUSP 500,000 UNIT/5 ML CUP PO SCH ×2 (11:10→17:32)
--- NOTE | 2018-04-12 11:55 | XR ---
EXAMINATION TYPE: XR chest 2V DATE OF EXAM: 04/12/2018 COMPARISON: Prior chest x-ray 04/07/2018 HISTORY: Pneumonia TECHNIQUE: Frontal and lateral views of the chest are obtained. FINDINGS: Findings are similar to prior exam. Right-sided PICC line shows the distal tip at the leve l of the cavoatrial junction. Airspace disease persists and interstitium is increased. Heart size is stable. Patient is rotated. No evident pneumothorax. Suspect pleural effusions. IMPRESSION: Findings could be due to pneumonia, correlate to exclude congestive heart failure. Follo w-up recommended.
[2018-04-12] MEDS ORDERED: FUROSEMIDE 10 MG/ML 10 ML VIAL IV STA (17:00)
[2018-04-12] MEDS: FERROUS SULFATE 325 MG TAB PO SCH (17:32)
--- NOTE | 2018-04-12 20:05 | PN ---
PROGRESS NOTE DATE OF SERVICE: 04/12/2018 PRESENTING COMPLAINT: Tired. INTERVAL HISTORY: Patient was admitted with multilobar pneumonia with sepsis. She also went into acute renal failure, was given IV fluids. This morning she was more short of breath, congested, and was given a dose of Lasix. The patient is not eating much; rather tired, rundown. REVIEW OF SYSTEMS: Done for constitutional, cardiovascular, GI, pulmonary; relevant findings as above. Patient has a congested chest. CURRENT MEDICATIONS: Reviewed. They include IV cefepime and IV Levaquin. PHYSICAL EXAMINATION: Afebrile. Pulse 113, respiration 20, blood pressure 117/57, pulse ox 94% on 2 L. GENERAL APPEARANCE: Sitting up, short of breath. EYES: Pupils equal. Conjunctivae normal. HEENT: External appearance of nose and ears normal. Oral cavity normal. NECK: JVD unable to assess. Mass not palpable. RESPIRATORY: Effort increased. LUNGS: Right-sided coarse crackles. CARDIOVASCULAR: First and second sounds normal. Some edema. ABDOMEN: Soft, nontender. Liver and spleen not palpable. PSYCHIATRY: Awake. Answering simple questions. INVESTIGATIONS: Chest x-ray shows diffuse infiltrate, right upper lobe, right lower lobe, on the left side. White count 9.7, hemoglobin 7.6, potassium 4.6, BUN 38, creatinine 3.45. ASSESSMENT: 1. Acute multilobar pneumonia. Suspect gram-negative organism causing sepsis, present on admission, slow to respond. 2. Acute hypoxic respiratory failure from pneumonia, present on admission. 3. Mild to moderate cognitive impairment from late- onset Alzheimer's dementia. 4. Metabolic encephalopathy from pneumonia. 5. Acute renal failure, possibly prerenal. 6. Gastroesophageal reflux disease. 7. Essential hypertension. 8. Primary osteoarthritis. 9. Chronic urinary stress incontinence and retention. 10.Acute osteomyelitis of the left radius. Completed a course of antibiotics for the same. 11.Hyperkalemia from renal failure. 12.Chronic kidney disease, stage III, from nephrosclerosis. 13.Acute renal failure, likely acute tubular necrosis, from sepsis, some component of prerenal. PLAN: The patient is not doing well. She has good coverage with current antibiotics. Continue with the same treatment. Patient's IV fluids have been cut back. Tonight was given an extra dose of Lasix. Prognosis remains not too good. is not present today. MMODL / IJN: [id number] /
[2018-04-12] MEDS: amLODIPine 5 MG TAB PO SCH (22:04)
[2018-04-12] MEDS: guaiFENesin 600 MG TABLET.ER PO SCH (22:05)
[2018-04-12] MEDS: MELATONIN 3 MG TABLET PO SCH (22:06)
[2018-04-12] MEDS: traMADol 50 MG TAB PO PRN (22:38)
--- NOTE | 2018-04-12 22:50 | PN ---
PROGRESS NOTE DATE OF SERVICE: 04/12/2018. REASON FOR FOLLOWUP: Pneumonia. INTERVAL HISTORY: The patient is currently afebrile. She is breathing comfortably. The patient continues to have some cough but not bringing up any sputum. No chest pain. Some gurgling was noticed by the family who was present at bedside. The patient herself denies having difficulty swallowing. No nausea, no vomiting. No abdominal pain. No diarrhea. EXAMINATION: Blood pressure is 132/60 with a pulse of 105, temperature 98.1. She is 90% on 2 L nasal cannula. General description is an elderly female lying in bed in no distress. Respiratory system: Unlabored breathing with decreased breath sounds on the bases. No wheeze. Heart S1, S2. Regular rate and rhythm. Abdomen soft. No tenderness. LABS: Hemoglobin 7.6, white count 9.7, BUN of 38, creatinine 3.45. Blood culture has been negative. DIAGNOSTIC IMPRESSION AND PLAN: Patient admitted to the hospital with pneumonia with concern for possible pneumonia and the patient has been a senior care resident. Patient is currently on cefepime, Levaquin. The patient's fever has resolved. White count has normalized. Blood cultures have been done shows improved white sputum. As the patient did improve plan to finish therapy with oral Avelox. Continue supportive care. MMODL / IJN: [id number] /
[2018-04-12] MEDS: ALBUTEROL NEBULIZED 2.5 MG/3 ML INHALATION PRN (23:15)
[2018-04-12] MEDS: BUDESONIDE 1 MG/2 ML NEBU INHALATION SCH (23:46)
[2018-04-13] MEDS: ALBUTEROL NEBULIZED 2.5 MG/3 ML INHALATION PRN (00:03)
[2018-04-13] MEDS: methylPREDNISolone SOD SUCCI 40 MG/ML 1 ML VIAL IV SCH ×3 (00:56→18:20)
[2018-04-13] MEDS: IPRATROPIUM-ALBUTEROL 3 ML NEB INHALATION SCH ×4 (04:18→20:36)
[2018-04-13 08:21] LABS: Calcium 8.9 mg/dL (8.4-10.2); Potassium 4.7 mmol/L (3.5-5.1)
[2018-04-13] MEDS: CEFEPIME 2 GM in SODIUM CHLORIDE 0.9% 50 ML IVPB SCH (09:34)
[2018-04-13] MEDS: METOPROLOL TARTRATE 25 MG TAB PO SCH ×2 (09:37→18:21)
[2018-04-13] MEDS: CYPROHEPTADINE 4 MG TABLET PO SCH ×2 (09:41→19:31)
[2018-04-13] MEDS: NYSTATIN 100,000UNIT/GM CREAM 30 GM TUBE TOPICAL SCH ×3 (09:41→20:04)
[2018-04-13] MEDS: guaiFENesin 600 MG TABLET.ER PO SCH ×2 (09:42→20:03)
[2018-04-13] MEDS: FAMOTIDINE 20 MG TAB PO SCH (09:42)
[2018-04-13] MEDS: VIT A,C & E-LUTEIN-MINERALS 1 EACH TAB PO SCH ×2 (09:42→18:21)
[2018-04-13] MEDS: SODIUM BICARBONATE TAB 650 MG TAB PO SCH ×3 (09:42→18:21)
[2018-04-13] MEDS: NYSTATIN 100,000 UNIT/ML SUSP 500,000 UNIT/5 ML CUP PO SCH ×2 (09:43→18:21)
[2018-04-13] MEDS: SENNOSIDES-DOCUSATE SODIUM 1 EACH TAB PO SCH (09:58)
[2018-04-13] MEDS: traMADol 50 MG TAB PO PRN ×2 (10:02→21:13)
[2018-04-13] MEDS: BUDESONIDE 1 MG/2 ML NEBU INHALATION SCH ×2 (11:11→20:36)
[2018-04-13] MEDS: LEVOFLOXACIN 500MG-D5W PMX 500 MG in DEXTROSE/WATER 1 100ML.BAG IVPB SCH (13:52)
--- NOTE | 2018-04-13 16:32 | CDI ---
Last Revision, May 2017 Documentation Clarification Form Date: 04/13/2018 4:10:48 PM From: Vi Acharya RN, CCDS Admit Date: 04/07/2018 7:44:00 AM Patient Name: Leila Prieto Visit Number: [id number] Discharge Date: ATTENTION: The Clinical Documentation Specialists (CDI) and [facility] Coding Staff appreciate your assistance in clarifying documentation. Please respond to the clarification below the line at the bottom and electronically sign. The CDI & [facility] Coding staff will review the response and follow-up if needed. Please note: Queries are made part of the Legal Health Record. If you have any questions, please contact the author of this message via ITS. Siddhartha Hyman MD Documentation states on 04/11/18 notes hemoglobin 6.9. She was given a unit of blood. History/Risk Factors: Dementia, Hypertension, Osteomyelitis of left arm radius, Clinical indicators: Patient admitted with multilobar pneumonia with sepsis, more tired, lethargic, Renal function is getting worse, not eating much . Lying in bed requiring quite a bit of assist per your progress notes on 04/10/18. Her HGB was 7.2, HCT 23.7 HGB 7.7, 7.2 6.9 HCT 24.2, 23.7 22.9 Treatment: Feosol PO Daily Transfused 1 unit PRBC Monitor CBC Clinical significance of diagnostic testing and treatment CANNOT be assumed or coded without physician documentation of significance if any. Please clarify what abnormal laboratory signifies: Disease process, please specify what you are treating Abnormal Lab Value (clarify what you are treating) Unable to determine Other, please specify Please continue to document in your progress notes and discharge summary in order to capture severity of illness and risk of mortality. Include clinical findings that support your diagnosis. SEE DISCHARGE SUMMARY FOR ANEMIA -NO FURTHER CHANGE IN DOCUMENTATION MTDD
[2018-04-13] MEDS: FERROUS SULFATE 325 MG TAB PO SCH (18:21)
[2018-04-13] MEDS: MELATONIN 3 MG TABLET PO SCH (20:03)
[2018-04-13] MEDS: amLODIPine 5 MG TAB PO SCH (20:04)
--- NOTE | 2018-04-13 22:42 | PN ---
PROGRESS NOTE DATE OF SERVICE: 04/13/2018 REASON FOR FOLLOWUP: Pneumonia. INTERVAL HISTORY: The patient is afebrile. The patient remains pleasantly confused; however, denies having any chest pain. Occasional cough. No nausea. No vomiting. No abdominal pain. No diarrhea. PHYSICAL EXAMINATION: Blood pressure 125/94 with a pulse of 97, temperature 98.1. She is 96% on 2 L nasal cannula. General description is an elderly female up in the chair in no distress. RESPIRATORY SYSTEM: Unlabored breathing with decreased breath sounds in the bases. No wheeze. HEART: S1, S2. Regular rate and rhythm. ABDOMEN: Soft. No tenderness. LABS: Creatinine is up to 3.80. DIAGNOSTIC IMPRESSION AND PLAN: Patient admitted to hospital with a fever, concern for pneumonia, likely gram-negative. The patient's fever responded to cefepime and Levaquin. Will plan to finish therapy with oral Avelox. Continue with supportive care. MMODL / IJN: [id number] /
[2018-04-13] MEDS ORDERED: SODIUM CHLORIDE 0.9% 1,000 ML IV SCH (23:00)
--- NOTE | 2018-04-13 23:45 | PN ---
PROGRESS NOTE DATE OF SERVICE: 04/13/2018. PRESENT COMPLAINT: Tired. INTERVAL HISTORY: The patient presented with multilobar pneumonia with sepsis, also has got acute renal failure, was given IV fluids. Yesterday, had some fluid overload, had to be given some Lasix. More perky this morning. Eating somewhat a bit better. Was wheezing last night, given bronchodilators treatments. IV fluids had been cut back. The patient also did get a unit of blood for symptomatic anemia. REVIEW OF SYSTEMS: Done for constitutional, cardiovascular, GI, pulmonary; relevant findings as above. CURRENT MEDICATIONS: Reviewed that include IV cefepime and Levaquin. PHYSICAL EXAMINATION: VITAL SIGNS: Temperature 98.1, pulse 97, respiration 14, blood pressure 120/94, pulse ox 96% on 2 L. GENERAL APPEARANCE: Sitting up more awake, less short of breath. EYES: Pupils equal. Conjunctivae normal. HEENT: External appearance of nose and ears normal. Oral cavity normal. NECK: JVD unable to assess. Mass not palpable. RESPIRATORY: Effort increased. LUNGS: Decreased crackles. Decreased wheezing. CARDIOVASCULAR: 1st and 2nd sounds normal. Some edema. ABDOMEN: Soft, nontender. Liver and spleen not palpable. PSYCHIATRY: Awake, answering simple questions. INVESTIGATIONS: Potassium 4.7, BUN 39, creatinine 3.8. ASSESSMENT: 1. Acute multilobar pneumonia suspect gram-negative organism causing sepsis, present on admission. 2. Acute hypoxic respiratory failure from pneumonia, present on admission. 3. Mild to moderate cognitive impairment from late onset Alzheimer's dementia. 4. Multifactorial anemia, exact cause unknown, symptomatic, including blood loss from hospital blood draws requiring blood transfusion. 5. Metabolic encephalopathy pneumonia with some improvement. 6. Acute renal failure probably prerenal. 7. Gastroesophageal reflux disease. 8. Essential hypertension. 9. Primary osteoarthritis. 10.Chronic urinary stress incontinence and retention. 11.Acute osteomyelitis of the left radius complete a course of antibiotics for the same. 12.Hyperkalemia from renal failure improved. 13.Chronic kidney disease stage 3 from nephrosclerosis. 14.Acute renal failure combination of acute tubular necrosis from sepsis and possibly prerenal. PLAN: Prognosis remains guarded. The patient has shown some improvement overall, still not doing too well. The patient will be put on gentle hydration. MMODL / IJN: [id number] /
[2018-04-14] MEDS: methylPREDNISolone SOD SUCCI 40 MG/ML 1 ML VIAL IV SCH ×3 (00:11→17:02)
[2018-04-14 07:56] LABS: Potassium 4.7 mmol/L (3.5-5.1)
[2018-04-14] MEDS: CEFEPIME 2 GM in SODIUM CHLORIDE 0.9% 50 ML IVPB SCH (08:34)
[2018-04-14] MEDS: CYPROHEPTADINE 4 MG TABLET PO SCH ×2 (08:35→17:14)
[2018-04-14] MEDS: METOPROLOL TARTRATE 25 MG TAB PO SCH ×2 (08:36→17:15)
[2018-04-14] MEDS: NYSTATIN 100,000UNIT/GM CREAM 30 GM TUBE TOPICAL SCH (08:36)
[2018-04-14] MEDS: VIT A,C & E-LUTEIN-MINERALS 1 EACH TAB PO SCH ×2 (08:37→18:14)
[2018-04-14] MEDS: SODIUM BICARBONATE TAB 650 MG TAB PO SCH ×3 (08:37→17:15)
[2018-04-14] MEDS: FAMOTIDINE 20 MG TAB PO SCH (08:38)
[2018-04-14] MEDS: NYSTATIN 100,000 UNIT/ML SUSP 500,000 UNIT/5 ML CUP PO SCH (08:38)
[2018-04-14] MEDS: guaiFENesin 600 MG TABLET.ER PO SCH (08:38)
[2018-04-14] MEDS: traMADol 50 MG TAB PO PRN (08:42)
[2018-04-14] MEDS: SENNOSIDES-DOCUSATE SODIUM 1 EACH TAB PO SCH (08:44)
[2018-04-14 11:56] VITALS: TEMP 98.4
[2018-04-14] MEDS: BUDESONIDE 1 MG/2 ML NEBU INHALATION SCH (13:09)
[2018-04-14] MEDS: IPRATROPIUM-ALBUTEROL 3 ML NEB INHALATION SCH ×3 (13:09→16:03)
--- NOTE | 2018-04-14 13:55 | PN ---
PROGRESS NOTE DATE OF SERVICE: 04/14/2018 REASON FOR FOLLOWUP: Pneumonia possibly gram-negative. INTERVAL HISTORY: The patient is currently afebrile. She is breathing comfortably. Remains to be pleasantly confused. No significant cough. No nausea, vomiting. No abdominal pain and no diarrhea. PHYSICAL EXAMINATION: Blood pressure 125/80 with a pulse of 90, temperature 98.4 she is 97% on 3 L nasal cannula. General description is an elderly female, lying in bed in no distress. RESPIRATORY SYSTEM: Unlabored breathing with decreased breath sounds at the bases, no wheeze. HEART: S1, S2. Regular rate and rhythm. ABDOMEN: Soft, no tenderness. LABS: BUN of 51, creatinine 3.87. Blood cultures have been negative, no sputum was collected. DIAGNOSTIC IMPRESSION AND PLAN: 1. Patient admitted to the hospital with a fever with concern for pneumonia, more likely aspiration and gram-negative. Patient is on the cefepime and Levaquin. Plan to finish therapy with oral Avelox 400 for another 4-5 days. 2. Patient with left forearm fixator site osteomyelitis for which the patient received more than 8 weeks of IV antibiotic therapy that should be more than enough. Recommend to discontinue the PICC line before discharge to back to the [facility] as there is no need to continue those antibiotics on discharge. This was discussed in detail with the admitting physicians. MMLEVL / IJN: [id number] /
--- NOTE | 2018-04-14 16:37 | DS ---
DISCHARGE SUMMARY DATE OF ADMISSION: 04/07/2018 DATE OF DISCHARGE: 04/14/2018 FINAL DIAGNOSES: 1. Acute multilobar pneumonia; suspect gram-negative organism causing sepsis. 2. Acute hypoxic respiratory failure from pneumonia, present on admission. 3. Moderate cognitive impairment from late-onset Alzheimer's dementia. 4. Multifactorial anemia, exact cause unknown, symptomatic, including blood loss from hospital blood draws requiring blood transfusion. 5. Metabolic encephalopathy from pneumonia and other factors. 6. Acute renal failure, probably prerenal and acute tubular necrosis, from sepsis. 7. Gastroesophageal reflux disease. 8. Essential hypertension. 9. Primary osteoarthritis. 10.Chronic urinary stress incontinence and retention. 11.Acute osteomyelitis of the left radius; completed a course of antibiotics for the same. 12.Hyperkalemia from renal failure, improved. 13.Chronic kidney disease, stage III, from nephrosclerosis. CONSULTATION: Dr. Andino from Infectious Disease. HOSPITAL COURSE: This is a patient who is a resident of [facility] and presented with cough and fever, found to have multilobar pneumonia. She was also hypoxic. Patient was treated with IV antibiotics that included IV cefepime. Patient had a rather rough course but eventually did improve, though patient now does have a poor appetite even though she is awake and answering simple questions. PHYSICAL EXAMINATION: Temperature 98.4, pulse 91, respiration 14, blood pressure 125/80, pulse ox 97% on 3 L. GENERAL APPEARANCE: Sitting up, able to answer simple questions. LUNGS: Decreased breath sounds. CARDIOVASCULAR: First and second sounds normal. INVESTIGATIONS: Hemoglobin 7.6, BUN 51, creatinine 3.87. DISCHARGE MEDICATIONS: 1. Norvasc 5 mg at bedtime. 2. Melatonin 3 mg p.o. at bedtime. 3. PreserVision Areds 1 capsule p.o. b.i.d. 4. Ferrous sulfate 325 p.o. daily. 5. Milk of Magnesia 2400 mg p.o. daily p.r.n. 6. Zantac 150 mg p.o. b.i.d. 7. Tylenol 650 mg q.6 p.r.n. 8. Lactulose 20 grams p.o. daily p.r.n. 9. Ensure Plus 1 can p.o. t.i.d. 10.Mycostatin cream topically b.i.d. 11.Senokot-S 2 tablets p.o. daily. 12.Sodium bicarb 60 mg p.o. t.i.d. 13.Dulcolax 10 mg rectally daily p.r.n. 14.Cyproheptadine 4 mg p.o. b.i.d. 15.Magic Cup 1 dose p.o. daily. 16.Lopressor 25 mg p.o. b.i.d. 17.Adult Fleet 133 mL rectally daily p.r.n. 18.Mycostatin 5 mL p.o. b.i.d. 19.Saline 10 mL IV as directed. 20.Pulmicort 1 mg inhalation b.i.d. 21.DuoNeb q.i.d. 22.Prednisone taper. 23.Ultram 50 mg q.6 p.r.n. 24.Ceftin 500 mg p.o. b.i.d. for 5 days. DISPOSITION: [facility]. Oxygen 2-3 L; keep the pulse ox over 90%. CODE STATUS: DO NOT RESUSCITATE. Follow up with Dr. Chavez. ADVANCED CARE PLANNING: I had a family meeting today with the patient, her , stepdaughter, son and [id number]. Discussed patient's overall guarded prognosis in the entire clinical setting with multiple medical problems. They understand that patient's CODE STATUS is DO NOT RESUSCITATE. They do understand in effect that if the patient was to go down further, then they will opt for hospice care. The patient is not eating well and eating very small amounts, even though she is able to communicate. If this was to continue and her nutrition were to get compromised, they do not want any artificial feeding; in that case will make the patient hospice. Several questions were answered. Total time spent today for advanced care planning was more than 30 minutes. Patient will be going back to the [facility] today. All questions were answered. MMODL / IJN: [id number] /
[2018-04-14 17:14] VITALS: BP 115/57; PULSE 101; RESP 18
[2018-04-14] MEDS: FERROUS SULFATE 325 MG TAB PO SCH (17:15)
== END 2018-04-14 18:58 | DRG 871 ==
LOC: EC 05:28 → 4MS4W 07:44 → 3NMEDONC 11:03
PROVIDERS: ADMIT Hospitalist; ATTEND Hospitalist
PROC: 30233N1 Transfusion of Nonautologous Red Blood Cells into Peripheral Vein, Percutaneous Approach (ICD-10-PCS; principal; 2018-04-11)
DX: A41.50 Gram-negative sepsis, unspecified (principal); G93.41 Metabolic encephalopathy; J96.01 Acute respiratory failure with hypoxia; N17.0 Acute kidney failure with tubular necrosis; J15.6 Pneumonia due to other Gram-negative bacteria; M86.132 Other acute osteomyelitis, left radius and ulna; E78.5 Hyperlipidemia, unspecified; E87.5 Hyperkalemia; E87.70 Fluid overload, unspecified; F02.80 Dementia in other diseases classified elsewhere, unspecified severity, without behavioral disturbance, psychotic disturbance, mood disturbance, and anxiety; F32.9 Major depressive disorder, single episode, unspecified; G30.1 Alzheimer's disease with late onset; I12.9 Hypertensive chronic kidney disease with stage 1 through stage 4 chronic kidney disease, or unspecified chronic kidney disease; K21.9 Gastro-esophageal reflux disease without esophagitis; M19.91 Primary osteoarthritis, unspecified site; N18.3 Chronic kidney disease, stage 3 (moderate); N39.3 Stress incontinence (female) (male); R65.20 Severe sepsis without septic shock; S53.105A Unspecified dislocation of left ulnohumeral joint, initial encounter; T36.8X5A Adverse effect of other systemic antibiotics, initial encounter; Y95 Nosocomial condition; Z66 Do not resuscitate; Z79.899 Other long term (current) drug therapy; Z87.442 Personal history of urinary calculi; Z87.891 Personal history of nicotine dependence; Z88.0 Allergy status to penicillin; Z90.5 Acquired absence of kidney; Z96.652 Presence of left artificial knee joint; Z88.5 Allergy status to narcotic agent; Z88.2 Allergy status to sulfonamides; D50.0 Iron deficiency anemia secondary to blood loss (chronic); R33.9 Retention of urine, unspecified
CPT/HCPCS: 36415; 71045; 71046; 80048; 80053; 82550; 82553; 82803; 83735; 83880; 84484; 85025; 85610; 85730; 86850; 86900; 86901; 86920; 87040; 93005; 94640; 94760; 96365; 96367; 99285